=== PATIENT | male | born 1955 | race Caucasian/White ===

== ENCOUNTER 2023-06-04 10:38 | Inpatient (IN) | payer MEDICARE, OTHER ==
[~2023-06-04] VITALS: Ht 167.7 cm; Wt 138.8 kg
--- NOTE | 2023-06-04 09:01 | PM&R Post Admission Assessment ---
PM&R Date of Visit: Jun 04, 2023 Time of Visit: 11:00 History of Present Illness Chief complaint: Debility from sacroiliitis surgical management HPI: This is a 68-year-old male who presents from [facility] following slow recovery after sacroiliitis surgical management by Dr. Jack. He has a history of elevated BMI of 50 along with a multitude of other medical problems and he was found to be having difficulty with ambulating without two-person assistance and the decision was made to admit to inpatient rehab for aggressive therapy in order to regain stamina and ADLs. Currently he is doing well except he has not had a BM since before surgery. He is eating and drinking well I have restarted all of his home medications. Past Pzlpnyb-Ijchsl-Lvlcul Hx Past Med/Social Hx: Reviewed Nursing Past Med/Soc Hx, Reviewed and Corrections made Patient Social History Marrital Status: Employed/Student: retired Alcohol Use: Denies Use Smoking Status: Former Smoker Seasonal Allergies Seasonal Allergies: No Past Medical History Surgeries: Orthopedic Respiratory: Sleep Apnea Currently Using CPAP: Yes Currently Using BIPAP: No Cardiac: High Cholesterol, Hypertension Neurological: Neuropathy Musculoskeletal: Degenerate Disk Disease, Arthritis, Gout Endocrine: Diabetes, Non-Insulin dep PM&R Allergy/Meds/Data Review Allergies Coded Allergies: No Known Drug Allergies (Unverified , 07/18/11) Home Medications Scheduled Allopurinol (Zyloprim), 300 MG PO HS, (Reported) Atorvastatin Calcium (Atorvastatin Calcium), 80 MG PO HS Baclofen (Baclofen), 10 MG PO TID Carvedilol (Carvedilol), 12.5 MG PO BID Cetirizine Hcl (Cetirizine Hcl), 10 MG PO DAILY, (Reported) Citalopram Hydrobromide (Celexa), 60 MG PO DAILY, (Reported) Diclofenac Sodium (Diclofenac Sodium), 75 MG PO BID, (Reported) Duloxetine HCl (Cymbalta), 40 MG PO DAILY Fluticasone Propionate (Flonase Nasal Halliday), 16 GM NS BID, (Reported) Furosemide (Lasix), 40 MG PO DAILY Gabapentin (Gabapentin), 600 MG PO BID Lamotrigine (Lamotrigine), 100 MG PO DAILY Lisinopril (Prinivil), 40 MG PO DAILY, (Reported) Montelukast Sodium (Montelukast Sodium), 10 MG PO HS Omeprazole (Omeprazole), 40 MG PO HS Potassium Chloride (K-Tab ER), 10 MEQ PO BID Tamsulosin HCl (Flomax), 0.4 MG PO DAILY Scheduled PRN Benzonatate (Benzonatate), 200 MG PO TID PRN for COUGH Diphenhydramine HCl (Benadryl), 25 MG PO Q6H PRN for COUGH Hydrocodone/Acetaminophen (Hydrocodone-Acetamin 5-325 mg), 1 TAB PO Q4H PRN for PAIN-MODERATE (5-7) Oxycodone Hcl (Oxycodone Hcl IR), 10 MG PO Q6H PRN, (Reported) Discontinued Medications Cyclobenzaprine Hcl (Cyclobenzaprine Hcl), 1 EACH PO Q8HR PRN Discontinued Reason: No Longer Taking Furosemide (Furosemide), 1 EACH PO DAILY, (Reported) Discontinued Reason: No Longer Taking Ranitidine Hcl (Ranitidine Hcl), 150 MG PO DAILY, (Reported) Discontinued Reason: No Longer Taking Tramadol Hcl (Ultram), 50 MG PO Q4-6HOURS PRN Discontinued Reason: No Longer Taking Current Medications Current Medications Reviewed Review of Systems Constitutional: see HPI, malaise, weakness EENTM: no symptoms reported Respiratory: no symptoms reported Cardiovascular: no symptoms reported Gastrointestinal: constipation Genitourinary: no symptoms reported Musculoskeletal: back pain, joint pain, muscle stiffness, muscle cramps, muscle twitching, muscle weakness Skin: no symptoms reported Psychiatric/Neurological: No Symptoms Reported All Other Systems Reviewed Negative Unless Noted: Yes Physical Exam Physical Exam Vital Signs Capillary Refill : Height, Weight, BMI Height: '" Weight: lbs. oz. kg; BMI Method:Stated General Appearance: No Apparent Distress, WD/WN, Chronically ill, Obese Eyes: Bilateral Eye Normal Inspection, Bilateral Eye PERRL HEENT: PERRL/EOMI, Normal ENT Inspection, Pharynx Normal Neck: Full Range of Motion, Normal Inspection, Non Tender, Supple, Carotid Bruit Respiratory: Chest Non Tender, Lungs Clear, Normal Breath Sounds, No Accessory Muscle Use, No Respiratory Distress Cardiovascular: Regular Rate, Rhythm, No Edema, No Gallop, No JVD, No Murmur, Normal Peripheral Pulses Gastrointestinal: Normal Bowel Sounds, No Organomegaly, No Pulsatile Mass, Non Tender, Soft Back: Normal Inspection, CVA Tenderness (L), CVA Tenderness (R), Decreased Range of Motion, Muscle Spasm, Vertebral Tenderness Extremity: Normal Capillary Refill, Normal Inspection, Normal Range of Motion, Non Tender, No Calf Tenderness, No Pedal Edema Neurologic/Psychiatric: Alert, Oriented x3, Normal Mood/Affect, wildlife protector II-XII Norm as Tested, Abnormal Gait, Motor Weakness (Lower extremities) Skin: Normal Color, Warm/Dry Lymphatic: No Adenopathy PM&R Medical Assessment & Plan REHAB/MEDICAL ASSESSMENT AND PLAN: REHAB IMPAIRMENT GROUP: Other orthopedic ETIOLOGIC DIAGNOSIS: Sacroiliitis The comorbidities that impact the patients function and/or functional outcome by: morbid obesity, ELISEO on CPAP, DM, hypertension, hyperlipidemia REHAB PLAN: The patient is being admitted to our comprehensive inpatient rehabilitation facility and can tolerate the intensity of service consisting of at least: 180 minutes of therapy a day, 5 out of 7 days a week Rehab treatment will consist of: PT and OT will focus on regaining function with use of assistive devices in order to regain function with ADLs and indepe ndence and stamina The patient/family has a good understanding of our discharge process and will benefit from an interdisciplinary inpatient rehabilitation program. The patient has potential to make improvement and is in need of at least two of the follow ing multidisciplinary therapies including but not limited to physical, occupational, speech, and prosthetics and orthotics. Additionally the patient will need services from respiratory, nutritional services, wound care, psychology, etc. (Customize this to each patient). Given the patients complex condition and risk of further medical complications, rehabilitation services cannot be safely or effectively provided at a lower level of care such as a [facility] facility. BARRIERS TO DISCHARGE: severe back pain ESTIMATED LOS: 7 days DISPOSITION: home RELEVANT CHANGES SINCE PREADMISSION SCREENING: I have compared the patients medical and functional status at the time of the preadmission screening and there are: no changes PROGNOSIS: good REHABILITATION GOALS: 1. PT and OT will focus on regaining function with use of assistive devices in order to regain function with ADLs and independence and stamina All the above goals were reviewed with the patient and he/she is in agreement. By signing this document, I acknowledge that I have personally performed a full physical examination on this patient within 24 hours of admission to this inpatient rehabilitation facility and have determined the patient to be able to tolerate the above course of treatment at an intensive level for a reasonable period of time. I will be completing a detailed individualized Plan of Care for this patient by day #4 of the patients stay based upon the Preadmission Screen, the Post-Admission Evaluation, and the therapy evaluations. Admission Dx/Comorbidities: (1) Sacroiliitis ICD Codes: M46.1 - Sacroiliitis, not elsewhere classified Assessment/Plan Assessment and Plan Assess & Plan/Chief Complaint Assessment: Severe debility with slow recovery following sacroiliitis surgical management by Dr. Jack uncomplicated Increased BMI of 50 ELISEO on CPAP DM Hypertension Hyperlipidemia Fall risk Postop constipation Plan: Supportive care Monitor closely Pain control Home meds Monitor blood pressure PT and OT JAKI KING DO Jun 04, 2023 09:01
[~2023-06-04 10:38] MED LIST: ACHD5005 PO; ALLP300T PO; ALPRAZolam 0.25 MG TABLET PO PRN; BISACODYL 10 MG SUPPOSITORY PR PRN; CALCIUM CARBONATE 500 MG CHEW TABLET PO PRN; CETI10TA17 PO; CTLP20T PO; CYCL10TA9 PO; DICL75TA2 PO; DOCUSATE SODIUM 100 MG CAPSULE PO PRN; FLUT16SP22 NS; FURO80TA3 PO; LACTULOSE SYRUP 10GM/15ML 30ML UDC PO PRN; LISI40TA PO; LOPERAMIDE 2 MG CAPSULE PO PRN; MELATONIN 3 MG TABLET PO PRN; ONDANSETRON 4 MG ORAL DISSOLVE TABLET PO PRN; OXYC10TA7 PO; RANI75TA30 PO; Sodium Phosphate/Sodium Biphosphate ADULT enema PR PRN; TRM50T PO; diphenhydrAMINE 25 MG TABLET PO PRN; guaiFENesin/CODEINE 10ML UDC PO PRN
[2023-06-04 10:48] VITALS: BP 124/58
--- OUTSIDE RECORDS SUMMARY | 2023-06-04 11:05 | XMS REPORT | Clinical Summary ---
Author Author [facility] Organization [facility] Address Unknown Phone Unavailable Care Team Providers Care Security Services Manager Name Role Phone Abdulkadir Andrea MD Unavailable [phone] Ernestine Gonzalez DO PCP Source Comments Some departments are not documenting in the electronic medical record. If you do not see the information that you expected, contact Release of Information in the Health Information Management department at [phone] for further assistance in locating additional records.[facility] Social History Tobacco Use Types Packs/Day Years Used Date Smoking Tobacco: Never Assessed Sex and Gender Information Value Date Recorded Sex Assigned at Not on file Gender Identity Not on file Sexual Orientation Not on file Plan of Treatment Health Maintenance Due Date Last Done Comments COVID-19 VACCINE (#1) 1953 DTAP/TDAP VACCINES (1 - Tdap) 1971 HEPATITIS C SCREENING 1971 PHYSICAL (COMPREHENSIVE) EXAM 1971 COLORECTAL CANCER SCREENING 1998 SHINGLES RECOMBINANT VACCINE (1 of 2) 2003 PNEUMOCOCCAL VACCINE 65+ YRS (1 - PCV) 2018 DEPRESSION SCREENING 09/05/2022 INFLUENZA VACCINE (#1) 2023 Care Teams Security Services Manager Relationship Specialty Start Date End Date Ernestine Gonzalez DO [address], [place] [id number] PCP - General 02/14/13 Abdulkadir Andrea MD [address] [place] [address] Neurology 11/17/12
--- OUTSIDE RECORDS SUMMARY | 2023-06-04 11:06 | XMS REPORT ---
Author Author Humble Shannon Organization [facility] Address [address] [place], [place] [id number] Care Team Providers Care Crisis Specialist Name Role Phone Jessica Shannon PCP radha Unavailable Unavailable Tai Chavez Unavailable Unavailable Natalia Ventura PreferredProvider [phone] Allergies and Adverse Reactions Name Reaction Notes No known drug allergy Plan of Treatment Planned Activity Comments Planned Date Planned Time Plan /Goal Lumbar spondylosis and SI chayo int pain. Has had good effect from MBB/RFA in the past, please eval for these and lateral branch block for SI. Hearing loss to right ear, E ustachian tube dysfunction 10/17/2015 9:30 AM Colonoscopy screening 12/09/2015 1:30 PM hand paresthesia and weakness 04/09/2016 8:00 A M CTS bilat 05/06/2016 12:00 AM Palpitations 07/28/2016 1:15 PM CMP 11/06/2021 12:00 AM Hepatitis B and C screen 11/06/2021 12:00 AM PSA TOTAL 07/08/2023 12:00 AM BMP 05/11/2023 12:00 AM Medications Active Name Start Date Estimated Comple tion Date SIG Comments ondansetron HCl oral tablet 4 mg 04/28/2022 Take 1 tablet every 6 hours as needed for nausea and vomiting Montelukast Sodium 10 MG Oral Tablet 06/01/2022 05/27/2023 Take 1 tablet by mouth in the evening baclofen 10 mg oral tablet 07/27/2022 06/22/2023 TAKE 1 TABLET BY MOUTH THREE TIMES DAILY FOR 30 DAYS Lisinopril 40 MG Oral Tablet 10/03/2022 Take 1 tablet by mouth once daily Potassium Chloride ER 10 MEQ Oral Capsule Extended Release 10/12/2022 TAKE 1 CAPSULE BY MOUTH TWICE DAILY WITH FOOD fluticasone propionate 50 mcg/actuation nasal spray,suspension 10/29/2022 spray 1 - 2 sprays (50 - 100 mcg) in each nostril by intranasal route once daily as needed furosemide oral tablet 40 mg 11/05/2022 10/31/2023 Take 1 tablet by mouth twice daily albuterol sulfate HFA 90 mcg/actuation aerosol inhaler 11/08/2022 inhale 1 - 2 puffs (90 - 180 mcg) by inhalation route every 6 hours as needed Carvedilol 12.5 MG Oral Tablet 11/08/2022 Take 1 tablet by mouth twice daily with food DULoxetine HCl 30 MG Oral Capsule Delayed Release Particles 11/26/2022 Take 1 capsule by mouth once daily Tamsulosin HCl 0.4 MG Oral Capsule 12/20/2022 TAKE 1 CAPSULE BY MOUTH ONCE DAILY HALF AN HOUR FOLLOWING THE SAME MEAL EACH DAY DULoxetine HCl 30 MG Oral Capsule Delayed Release Particles 12/28/2022 Take 1 capsule by mouth once daily sumatriptan 25 mg tablet 01/24/2023 take 1 tablet (25 mg ) once after onset of headache, may repeat once in 2 hours; no more then 100mg in 24 hours allopurinol 300 mg tablet 03/16/2023 03/10/2024 Take 1 tablet by mouth once daily Potassium Chloride ER 10 MEQ Oral Capsule Extended Release 03/27/2023 TAKE 1 CAPSULE BY MOUTH TWICE DAILY WITH FOOD benzonatate oral capsule 200 mg 04/28/2023 take 1 capsule (200 mg) by oral route 3 times per day as needed for cough Omeprazole 40 MG Oral Capsule Delayed Release 04/29/2023 Take 1 capsule b y mouth once daily Atorvastatin Calcium 80 MG Oral Tablet 05/03/2023 Take 1 tablet by mouth once daily Gabapentin 600 MG Oral Tablet 05/05/2023 Take 1 tablet by mouth twice daily lamoTRIgine 100 MG Oral Tablet 05/16/2023 Take 1 tablet by mouth once daily Name Start Date Expiration Date SIG Comments Ciprodex 0.3-0.1 % otic drops,suspension 10/08/2015 10/15/2015 instill 4 drops into left ear by otic route every 12 hours for 7 days Cortisporin-TC 3.3-3-10-0.5 mg/mL otic drops,suspension 10/08/2015 10/15/2015 instill in affected ear 3 drops by otic route 3 times a day for 7 days azithromycin 500 mg oral tablet 10/11/2015 10/14/2015 take 1 tablet (500 m g) by oral route once daily for 3 days albuterol sulfate 2.5 mg /3 mL (0.083 %) inhalation solution for nebulization 10/11/2015 10/16/2015 inhale 3 milliliters (2.5 mg) by nebulization route 4 times per day for 5 days Fish Oil 60-90-500 mg oral capsule,delayed release(DR/EC) 11/04/2015 01/27/2017 take 2 capsules by o ral route daily for 90 days tizanidine 4 mg oral capsule 03/11/2016 09/07/2016 take 1 capsule (4 mg ) by oral route 2 times per day Augmentin 875-125 mg oral tablet 05/06/2016 05/16/2016 take 1 tablet by ora l route every 12 hours for 10 days metoprolol tartrate 25 mg oral tablet 05/14/2016 06/13/2016 take 1 tablet (25 mg ) by oral route 2 times per day for 30 days ciprofloxacin HCl 500 mg oral tablet 06/25/2016 07/02/2016 take 1 tablet (500 m g) by oral route 2 times per day for 7 days ciprofloxacin HCl 500 mg oral tablet 09/18/2016 09/25/2016 take 1 tablet (500 m g) by oral route 2 times per day for 7 days ciprofloxacin HCl 500 mg oral tablet 01/05/2017 01/12/2017 take 1 tablet (500 m g) by oral route 2 times per day for 7 days lisinopril 20 mg oral tablet 05/06/2017 05/01/2018 TAKE TWO TABLETS BY MOUTH ONCE DAILY hydrocodone-acetaminophen 10-325 mg oral tablet 07/25/2017 08/24/2017 Take one tab by [facility] every 12 hours as needed tramadol 50 mg oral tablet 10/22/2017 take 1 tablet (50 mg ) by oral route every 6 hours as needed cetirizine 10 mg oral tablet 12/15/2017 03/15/2018 take 1 tablet (10 mg ) by oral route once daily for 30 days Keflex 500 mg oral capsule 06/08/2018 06/15/2018 take 1 capsule (500 mg) by oral route every 12 hours for 7 days baclofen 10 mg oral tablet 09/12/2018 09/19/2018 take 1 tablet by ora l route 2 times a day for 7 days hydrocodone-acetaminophen 10-325 mg oral tablet 09/18/2018 10/18/2018 Take 1/2 to 1 tab every 6 hours as needed for severe pain tamsulosin 0.4 mg oral capsule 11/02/2018 05/31/2019 take 2 capsules (0.8 mg) by oral route once daily 1/2 hour following the same meal each day for 30 days amoxicillin-pot clavulanate 875-125 mg oral tablet 06/01/2019 06/11/2019 take 1 tablet by ora l route every 12 hours for 10 days amoxicillin 500 mg oral tablet 09/27/2019 10/07/2019 take 1 tablet (500 m g) by oral route every 8 hours for 10 days ofloxacin 0.3 % ophthalmic (eye) drops 09/27/2019 5 gtts to the rig ht ear twice a day for 5 days sertraline 25 mg oral tablet 09/28/2019 03/26/2020 take 1 tablet (25 mg ) by oral route once daily for 30 days amoxicillin-pot clavulanate 875-125 mg oral tablet 10/08/2019 10/18/2019 take 1 tablet by ora l route every 12 hours for 10 days Medrol (Roman) 4 mg oral tablets,dose pack 10/29/2019 take as directed diclofenac sodium 75 mg oral tablet,delayed release (DR/EC) 11/19/2019 [facility] omeprazole 40 mg oral capsule,delayed release(DR/EC) 01/04/2020 12/29/2020 TAKE 1 CAPSULE BY [facility] ONCE DAILY duplicate fluticasone propionate 50 mcg/actuation nasal spray,suspension 01/10/2020 USE 2 SPRAY(S) IN [facility] NOSTRIL ONCE DAILY NEEDED baclofen 10 mg oral tablet 03/06/2020 TAKE 1 TABLET BY [facility] THREE TIMES DAILY FOR 30 DAYS hydroxyzine HCl 25 mg oral tablet 03/10/2020 MAY TAKE 1 BY MOUTH AT BEDTIME OR NEEDED FOR ANXIETY/PANIC gabapentin oral 1200 mg daily atorvastatin 80 mg oral tablet 08/07/2020 05/04/2021 take 1 tablet (80 mg ) by oral route once daily for 90 days metFORMIN HCl 500 MG Oral Tablet 09/15/2020 03/14/2021 [facility] Rexulti 1 mg oral tablet 11/14/2020 05/13/2021 Blaze e 1 tablet by mouth once daily benzonatate 100 mg capsule 12/24/2020 02/04/2021 Take 1 capsule by [facility] three times daily as needed for cough Fluticasone Propionate 50 MCG/ACT Nasal Suspension 01/05/2021 07/04/2021 USE 2 SPRAY(S) IN EACH NOSTRIL ONCE DAILY NEEDED propranolol 60 mg oral capsule,extended release 24 hr 01/12/2021 07/11/2021 take 1 capsule (60 m g) by oral route once daily for 30 days Omeprazole 40 MG Oral Capsule Delayed Release 02/05/2021 01/31/2022 Take 1 capsule b y mouth once daily duloxetine 30 mg oral capsule,delayed release(DR/EC) 02/23/2021 05/24/2021 take 1 capsule (30 m g) by oral route once a day Diclofenac Sodium 75 MG Oral Tablet Delayed Release 03/18/2021 03/13/2022 Take 1 tablet by [facility] twice daily potassium chloride 10 mEq oral capsule, extended release 04/20/2021 07/19/2021 take 1 capsule (10 m eq) by oral route 2 times per day with food for 30 days Atorvastatin Calcium 80 MG Oral Tablet 05/04/2021 04/29/2022 Take 1 tablet by [facility] once daily for 90 days Montelukast Sodium 10 MG Oral Tablet 06/17/2021 06/12/2022 Take 1 tablet by [facility] in the evening Potassium Chloride ER 10 MEQ Oral Capsule Extended Release 10/09/2021 04/07/2022 TAKE 1 CAPSULE BY [facility] TWICE DAILY WITH FOOD amoxicillin-pot clavulanate 875-125 mg oral tablet 11/04/2021 11/11/2021 take 1 tablet by ora l route every 12 hours for 7 days duloxetine 30 mg oral capsule,delayed release(DR/EC) 12/09/2021 06/07/2022 take 1 capsule (30 m g) by oral route once daily for 30 days Omeprazole 40 MG Oral Capsule Delayed Release 02/08/2022 02/03/2023 Take 1 capsule b y mouth once daily Diclofenac Sodium 75 MG Oral Tablet Delayed Release 03/03/2022 02/26/2023 Take 1 tablet by [facility] twice daily Potassium Chloride ER 10 MEQ Oral Capsule Extended Release 04/14/2022 10/11/2022 TAKE 1 CAPSULE BY [facility] TWICE DAILY WITH FOOD Atorvastatin Calcium 80 MG Oral Tablet 05/17/2022 05/12/2023 [facility] Furosemide 20 MG Oral Tablet 08/30/2022 08/25/2023 TAKE 1 TABLET BY [facility] AT NOON NEEDED FOR LOWER EXTREMITY SWELLING (TO BE TAKEN IN ADDITION TO DAILY 40 MG DOSE) amoxicillin-pot clavulanate oral tablet 875-125 mg 09/01/2022 09/08/2022 take 1 tablet by ora l route every 12 hours for 7 days doxycycline hyclate 100 mg tablet 10/29/2022 11/08/2022 take 1 tablet (100 m g) by oral route 2 times per day for 10 days prednisone 10 mg tablet take 1 tablet (10 mg) by oral route 3 times per day Augmentin 500 mg-125 mg tablet take 1 tablet by ora l route every 12 hours topiramate XR 25 mg capsule sprinkle,extended release 24 hr 01/24/2023 04/24/2023 take 1 capsule (25 m g) by oral route once daily at bedtime tramadol 50 mg tablet 01/24/2023 02/14/2023 May ta ke 1-2 tablets by mouth once every 12 hours as needed for back pain. Dx spinal stenosis, lumbago, cervical disc disease azithromycin 250 mg tablet 05/02/2023 05/07/2023 take 2 tablets (500 mg) by oral route once daily for 1 day then 1 tablet (250 mg) by oral route once daily for 4 days Discontinued Name Start Date Discontinued Date SIG Comment s tamsulosin 0.4 mg oral capsule,extended release 24hr 01/27/2016 take 1 capsule (0.4 mg) by oral route once daily 1/2 hour following the same meal each day ofloxacin 0.3 % otic drops 01/27/2016 instill 10 drops (1.5 mg) into affected ear(s) by otic route 2 times per day B Complex oral tablet extended release 03/18/2021 take 1 tablet by oral route daily cetirizine 10 mg oral tablet 12/15/2017 take 1 tablet (10 mg) by oral route once daily Viibryd 40 mg oral tablet 10/03/2015 01/27/2016 take 1 tablet (40 mg) by oral route once daily with food ipratropium-albuterol 0.5 mg-3 mg(2.5 mg base)/3 mL inhalation solution for nebulization 10/11/2015 10/11/2015 inhale 3 milliliters by nebulization route 4 times per day for 30 days cyclobenzaprine 10 mg oral tablet 10/31/2015 04/05/2016 take 1 tablet (10 mg) by oral route 2 times per day for 60 days Wellbutrin SR 150 mg oral tablet extended release 11/18/2015 12/02/2015 take 2 tablet (150 mg) by oral route once daily for 30 days Worsening of depression ofloxacin 0.3 % otic drops 02/21/2016 09/19/2016 instill 10 drops (1.5 mg) into affected ear(s) by otic route 2 times per day Lunesta 1 mg oral tablet 04/05/2016 05/15/2018 take 1 tablets daily at bedtime as needed for insomnia. Medrol (Roman) 4 mg oral tablets,dose pack 01/05/2017 02/07/2017 take as directed diclofenac sodium 1 % topical gel 02/07/2017 10/22/2017 apply 2 gram to the affected area(s) by topical route 4 times per day lidocaine HCl 3 % topical cream 02/07/2017 10/22/2017 apply to the affected area(s) by topical route 2 times per day [place] Allergy 60 mg oral tablet 11/04/2021 take 1 tablet by oral route daily prednisone 20 mg oral tablet 05/15/2018 take 20 mg/m2 by oral route once daily for 5 days lorazepam 0.5 mg oral tablet 09/25/2018 09/26/2018 take 1 tablet (0.5 mg) by oral route 2 times per day for 30 days tizanidine 4 mg oral tablet 12/05/2018 01/01/2019 TAKE 2 TABLETS BY MOUTH EVERY 8 HOURS NEEDED (NOT TO EXCEED 3 DOSES IN 24 HOURS). sertraline 50 mg oral tablet 03/23/2019 07/12/2019 take 1 tablet (50 mg) by oral route once daily for 90 days venlafaxine 150 mg oral tablet extended release 24hr 09/27/2019 10/05/2019 take 1 tablet (150 mg) by oral route once daily in the morning at the same time each day with food for 90 days lamotrigine 25 mg oral tablet extended release 24hr 04/07/2020 take 1 tablet by oral route daily gabapentin 600 mg oral tablet 01/30/2020 04/21/2020 TAKE 1 TABLET BY MOUTH THREE TIMES DAILY montelukast 10 mg oral tablet 02/07/2020 04/15/2021 TAKE 1 TABLET BY MOUTH IN THE EVENING duplicate metformin 500 mg oral tablet 04/02/2020 03/18/2021 TAKE 1 TABLET BY MOUTH ONCE DAILY oxycodone 10 /325 01/12/2021 Taking 1 t ab every 6 hours as needed for pain Bactrim DS 800-160 mg oral tablet 01/12/2021 Tessalon Perles 100 mg oral capsule 12/12/2020 01/12/2021 take 1 capsule (100 mg) by oral route 3 times per day as needed for cough Combivent Respimat 20 mcg-100 mcg/actuation solution for inhalation 11/04/2021 inhale 1 puff by inhalation route 4 times per day ; may take additional puffs as needed not to exceed 6 puffs in 24hrs gabapentin 600 mg tablet 01/05/2021 04/15/2021 TAKE 1 TABLET BY MOUTH IN THE MORNING AND 1 AT NOON AND 1 & 1/2 (ONE & ONE-HALF) AT BEDTIME Propranolol HCl ER 60 MG Oral Capsule Extended Release 24 Hour 07/13/2021 11/04/2021 Take 1 capsule by mouth once daily doxycycline hyclate 100 mg oral tablet 11/18/2021 01/18/2022 Take 1 tab by mouth bid for 10 days Medrol (Roman) 4 mg oral tablets,dose pack 11/25/2021 01/18/2022 take by oral route as directed per package instructions DULoxetine HCl 30 MG Oral Capsule Delayed Release Particles 11/30/2021 01/18/2022 Take 1 capsule by mouth once daily Paxlovid 300 mg (150 mg x 2)-100 mg tablet (EUA) 04/28/2022 05/19/2022 take 3 tablets by oral route 2 times per day in the morning and evening per package directions Medrol (Roman) 4 mg tablets in a dose pack 10/29/2022 01/05/2023 take by oral rout e as directed per package instructions Problem List Description Status Onset Lumbar stenosis Active 11/01/2015 Hyperlipidemia Active 11/01/2015 Sleep apnea Active 11/01/2015 Hypertension, essential Active 6 Depression Active 11/15/2015 Vital Signs Date Time BP-Sys(mm[Hg] BP-Peyton(mm[Hg]) HR(bpm) RR(rpm) Temp WT HT HC BMI BSA BMI Percentile O2 Sat(%) 2022 1:20: 00 PM 128 mm[Hg] 64 mm[Hg] 73 {beats}/ min 16 rpm 97.7 F 303 .12 5 lbs 94 % 023 10:07 :00 AM 132 mm[Hg] 66 mm[Hg] 79 {beats}/ min 18 rpm 98.6 F 304 .5 lbs 96 % 2022 9:54: 00 AM 140 mm[Hg] 62 mm[Hg] 77 {beats}/ min 17 rpm 97.8 F 309 .56 2 lbs 92 % 023 10:52 :00 AM 130 mm[Hg] 62 mm[Hg] 65 {beats}/ min 16 rpm 97.8 F 304 .37 5 lbs 94 % 023 10:10 :00 AM 79 {beats}/ min 19 rpm 98.2 F 300 lbs 69 in 44.3 018 kg/m 2 2.57 39 m2 96 % 2022 9:46: 00 AM 140 mm[Hg] 76 mm[Hg] 68 {beats}/ min 18 rpm 97.9 F 305 .25 lbs 96 % 2022 9:24: 00 AM 136 mm[Hg] 64 mm[Hg] 76 {beats}/ min 17 rpm 97.6 F 306 .56 2 lbs 69 in 45.2 7 kg/m 2 2.60 m2 98 % 2022 9:24: 00 AM 138 mm[Hg] 72 mm[Hg] 64 {beats}/ min 2022 9:24: 00 AM 142 mm[Hg] 60 mm[Hg] 67 {beats}/ min 2022 9:24: 00 AM 148 mm[Hg] 68 mm[Hg] 75 {beats}/ min 2022 9:24: 00 AM 138 mm[Hg] 72 mm[Hg] 64 {beats}/ min 2022 9:24: 00 AM 142 mm[Hg] 60 mm[Hg] 67 {beats}/ min 023 1:18: 00 PM 140 mm[Hg] 68 mm[Hg] 67 {beats}/ min 18 rpm 98.9 F 308 .75 lbs 96 % 2022 9:57: 00 AM 142 mm[Hg] 66 mm[Hg] 65 {beats}/ min 16 rpm 97.4 F 308 lbs 98 % 09/01 1:49: 00 PM 130 mm[Hg] 72 mm[Hg] 59 {beats}/ min 18 rpm 97.7 F 310 .5 lbs 69 in 45.8 524 kg/m 2 2.61 85 m2 96 % 2021 9:15: 00 AM 142 mm[Hg] 70 mm[Hg] 68 {beats}/ min 18 rpm 97.9 F 297 lbs 69 in 43.8 6 kg/m 2 2.56 m2 97 % 2021 10:30 :00 AM 142 mm[Hg] 80 mm[Hg] 75 {beats}/ min 14 rpm 97.7 F 291 lbs 69 in 42.9 727 kg/m 2 2.53 5 m2 95 % 2021 10:48 :00 AM 130 mm[Hg] 72 mm[Hg] 68 {beats}/ min 16 rpm 97.7 F 293 lbs 92 % 2021 10:32 :00 AM 140 mm[Hg] 70 mm[Hg] 71 {beats}/ min 14 rpm 97.9 F 294 .5 lbs 69 in 43.4 896 kg/m 2 2.55 02 m2 97 % 022 10:05 :00 AM 148 mm[Hg] 70 mm[Hg] 87 {beats}/ min 14 rpm 98.8 F 294 lbs 70 in 42.1 8 kg/m 2 2.57 m2 96 % 07/22 9:00: 00 AM 144 mm[Hg] 72 mm[Hg] 68 {beats}/ min 18 rpm 98.1 F 299 .12 5 lbs 96 % 06/15 10:06 :00 AM 124 mm[Hg] 60 mm[Hg] 71 {beats}/ min 18 rpm 97.7 F 303 lbs 96 % 2020 10:21 :00 AM 140 mm[Hg] 76 mm[Hg] 76 {beats}/ min 18 rpm 98.6 F 303 .31 2 lbs 69 in 44.7 91 kg/m 2 2.58 8 m2 95 % 2020 10:19 :00 AM 128 mm[Hg] 64 mm[Hg] 67 {beats}/ min 14 rpm 97.7 F 305 lbs 94 % 2:34: 00 PM 142 mm[Hg] 78 mm[Hg] 80 {beats}/ min 18 rpm 98.1 F 306 lbs 69 in 45.1 878 kg/m 2 2.59 95 m2 97 % 2020 10:24 :00 AM 118 mm[Hg] 54 mm[Hg] 80 {beats}/ min 18 rpm 98.1 F 306 lbs 69 in 45.1 9 kg/m 2 2.60 m2 96 % 2020 10:04 :00 AM 144 mm[Hg] 80 mm[Hg] 77 {beats}/ min 18 rpm 98.2 F 319 lbs 69 in 47.1 076 kg/m 2 2.65 41 m2 96 % 2020 9:47: 00 AM 130 mm[Hg] 70 mm[Hg] 65 {beats}/ min 16 rpm 97.9 F 319 lbs 69 in 47.1 1 kg/m 2 2.65 m2 97 % 2020 10:02 :00 AM 158 mm[Hg] 82 mm[Hg] 81 {beats}/ min 20 rpm 97.7 F 321 .25 lbs 69 in 47.4 398 kg/m 2 2.66 35 m2 94 % 2020 8:54: 00 AM 129 mm[Hg] 78 mm[Hg] 66 {beats}/ min 20 rpm 97.3 F 304 .37 5 lbs 69 in 44.9 5 kg/m 2 2.59 m2 95 % 2020 10:58 :00 AM 120 mm[Hg] 66 mm[Hg] 84 {beats}/ min 14 rpm 97.2 F 294 lbs 69 in 43.4 158 kg/m 2 2.54 8 m2 95 % 021 10:13 :00 AM 142 mm[Hg] 64 mm[Hg] 74 {beats}/ min 20 rpm 99.1 F 309 lbs 96 % 2019 11:23 :00 AM 130 mm[Hg] 69 mm[Hg] 80 {beats}/ min 14 rpm 98.4 F 310 lbs 98 % 2019 1:38: 00 PM 135 mm[Hg] 69 mm[Hg] 67 {beats}/ min 98.2 F 308 .25 lbs 95 % 2019 10:05 :00 AM 140 mm[Hg] 66 mm[Hg] 76 {beats}/ min 16 rpm 97.2 F 398 lbs 95 % 2:33: 00 PM 138 mm[Hg] 72 mm[Hg] 80 {beats}/ min 20 rpm 98.2 F 308 .75 lbs 69 in 45.5 939 kg/m 2 2.61 11 m2 94 % 8:51: 00 AM 79 {beats}/ min 18 rpm 98.4 F 296 lbs 69 in 43.7 1 kg/m 2 2.56 m2 95 % 2019 11:04 :00 AM 132 mm[Hg] 74 mm[Hg] 84 {beats}/ min 20 rpm 97.9 F 296 lbs 69 in 43.7 111 kg/m 2 2.55 66 m2 95 % 2019 10:35 :00 AM 138 mm[Hg] 80 mm[Hg] 87 {beats}/ min 14 rpm 98.6 F 300 lbs 95 % 2019 9:32: 00 AM 132 mm[Hg] 76 mm[Hg] 95 {beats}/ min 97.9 F 302 lbs 69 in 44.5 971 kg/m 2 2.58 24 m2 96 % 10:42 :00 AM 110 mm[Hg] 70 mm[Hg] 85 {beats}/ min 14 rpm 97.9 F 303 lbs 96 % 11:22 :00 AM 116 mm[Hg] 72 mm[Hg] 93 {beats}/ min 14 rpm 97 F 295 lbs 69 in 43.5 634 kg/m 2 2.55 23 m2 92 % 2019 8:53: 00 AM 134 mm[Hg] 68 mm[Hg] 87 {beats}/ min 97.9 F 299 lbs 96 % 020 9:53: 00 AM 98 {beats}/ min 18 rpm 97.7 F 295 lbs 69 in 43.5 634 kg/m 2 2.55 23 m2 95 % 08/15 9:31: 00 AM 130 mm[Hg] 72 mm[Hg] 84 {beats}/ min 97.9 F 306 lbs 69 in 45.1 9 kg/m 2 2.60 m2 97 % 2018 9:41: 00 AM 132 mm[Hg] 74 mm[Hg] 75 {beats}/ min 98.7 F 304 .56 2 lbs 69 in 44.9 756 kg/m 2 2.59 34 m2 97 % 06/14 9:55: 00 AM 134 mm[Hg] 80 mm[Hg] 79 {beats}/ min 18 rpm 97.5 F 304 .25 lbs 69 in 44.9 3 kg/m 2 2.59 m2 95 % 2018 1:10: 00 PM 132 mm[Hg] 76 mm[Hg] 107 {beats}/ min 20 rpm 97.8 F 301 .5 lbs 69 in 44.5 233 kg/m 2 2.58 03 m2 95 % 2018 3:05: 00 PM 138 mm[Hg] 82 mm[Hg] 95 {beats}/ min 16 rpm 98.6 F 303 .75 lbs 96 % 019 3:47: 00 PM 132 mm[Hg] 78 mm[Hg] 81 {beats}/ min 97.9 F 309 lbs 69 in 45.6 309 kg/m 2 2.61 22 m2 96 % 2018 10:54 :00 AM 140 mm[Hg] 73 mm[Hg] 78 {beats}/ min 16 rpm 97.9 F 306 .75 lbs 69 in 45.3 0 kg/m 2 2.60 m2 95 % 9:53: 00 AM 150 mm[Hg] 66 mm[Hg] 88 {beats}/ min 16 rpm 98.1 F 304 .5 lbs 69 in 44.9 663 kg/m 2 2.59 31 m2 95 % 2018 10:03 :00 AM 128 mm[Hg] 86 mm[Hg] 81 {beats}/ min 98.6 F 306 .37 5 lbs 69 in 45.2 4 kg/m 2 2.60 m2 94 % 2018 10:32 :00 AM 142 mm[Hg] 68 mm[Hg] 95 {beats}/ min 20 rpm 98.3 F 303 lbs 69 in 44.7 448 kg/m 2 2.58 67 m2 95 % 2018 10:16 :00 AM 130 mm[Hg] 70 mm[Hg] 100 {beats}/ min 98.1 F 309 lbs 69 in 45.6 3 kg/m 2 2.61 m2 94 % 2018 9:32: 00 AM 124 mm[Hg] 70 mm[Hg] 94 {beats}/ min 97.7 F 304 .5 lbs 69 in 44.9 663 kg/m 2 2.59 31 m2 96 % 2018 9:54: 00 AM 142 mm[Hg] 74 mm[Hg] 79 {beats}/ min 16 rpm 98.8 F 303 .12 5 lbs 69 in 44.7 6 kg/m 2 2.59 m2 96 % 2018 9:17: 00 AM 140 mm[Hg] 70 mm[Hg] 83 {beats}/ min 98.8 F 301 .37 5 lbs 69 in 44.5 049 kg/m 2 2.57 97 m2 96 % 019 2:18: 00 PM 130 mm[Hg] 72 mm[Hg] 83 {beats}/ min 97 F 301 .37 5 lbs 69 in 44.5 0 kg/m 2 2.58 m2 95 % 07/21 1:53: 00 PM 132 mm[Hg] 62 mm[Hg] 85 {beats}/ min 20 rpm 98.6 F 296 .25 lbs 69 in 43.7 48 kg/m 2 2.55 77 m2 94 % 2017 11:45 :00 AM 160 mm[Hg] 60 mm[Hg] 91 {beats}/ min 22 rpm 97.2 F 294 lbs 69 in 43.4 2 kg/m 2 2.55 m2 97 % 2017 1:15: 00 PM 140 mm[Hg] 80 mm[Hg] 80 {beats}/ min 20 rpm 98.2 F 294 .25 lbs 69 in 43.4 527 kg/m 2 2.54 91 m2 96 % 2017 8:41: 00 AM 122 mm[Hg] 70 mm[Hg] 82 {beats}/ min 20 rpm 97.7 F 294 lbs 69 in 43.4 2 kg/m 2 2.55 m2 96 % 2017 9:34: 00 AM 128 mm[Hg] 78 mm[Hg] 84 {beats}/ min 20 rpm 96.2 F 294 lbs 69 in 43.4 158 kg/m 2 2.54 8 m2 97 % 2017 3:03: 00 PM 148 mm[Hg] 82 mm[Hg] 84 {beats}/ min 20 rpm 97.1 F 298 lbs 69 in 44.0 1 kg/m 2 2.57 m2 96 % 018 7:59: 00 AM 122 mm[Hg] 82 mm[Hg] 80 {beats}/ min 20 rpm 96.5 F 299 lbs 69 in 44.1 541 kg/m 2 2.56 96 m2 97 % 2017 10:22 :00 AM 146 mm[Hg] 78 mm[Hg] 76 {beats}/ min 22 rpm 96.3 F 300 lbs 69 in 44.3 0 kg/m 2 2.57 m2 96 % 2017 9:35: 00 AM 122 mm[Hg] 82 mm[Hg] 84 {beats}/ min 22 rpm 97.5 F 294 lbs 69 in 43.4 158 kg/m 2 2.54 8 m2 95 % 2016 10:01 :00 AM 126 mm[Hg] 76 mm[Hg] 66 {beats}/ min 20 rpm 97.3 F 300 lbs 69 in 44.3 0 kg/m 2 2.57 m2 97 % 07/19 3:30: 00 PM 130 mm[Hg] 72 mm[Hg] 76 {beats}/ min 20 rpm 97.5 F 300 lbs 69 in 44.3 018 kg/m 2 2.57 39 m2 96 % 2016 11:05 :00 AM 132 mm[Hg] 78 mm[Hg] 70 {beats}/ min 22 rpm 97.1 F 301 lbs 69 in 44.4 5 kg/m 2 2.58 m2 96 % 2016 9:41: 00 AM 128 mm[Hg] 72 mm[Hg] 81 {beats}/ min 19 rpm 97.2 F 308 lbs 96 % 017 8:22: 00 AM 150 mm[Hg] 86 mm[Hg] 82 {beats}/ min 20 rpm 97.4 F 295 .5 lbs 69 in 43.6 373 kg/m 2 2.55 45 m2 96 % 017 4:14: 00 PM 140 mm[Hg] 84 mm[Hg] 66 {beats}/ min 20 rpm 97.8 F 298 lbs 69 in 44.0 1 kg/m 2 2.57 m2 96 % 2016 8:27: 00 AM 130 mm[Hg] 80 mm[Hg] 68 {beats}/ min 20 rpm 96.6 F 303 .25 lbs 69 in 44.7 817 kg/m 2 2.58 78 m2 98 % 2016 11:08 :00 AM 122 mm[Hg] 62 mm[Hg] 82 {beats}/ min 20 rpm 99 F 189 .12 5 lbs 69 in 27.9 3 kg/m 2 2.04 m2 98 % 2016 4:36: 00 PM 110 mm[Hg] 50 mm[Hg] 84 {beats}/ min 18 rpm 100 F 69 in 96 % 08/27 11:02 :00 AM 138 mm[Hg] 80 mm[Hg] 76 {beats}/ min 18 rpm 97.6 F 281 .25 lbs 97 % 06/25 2:00: 00 PM 132 mm[Hg] 80 mm[Hg] 60 {beats}/ min 18 rpm 97.8 F 295 .25 lbs 97 % 016 6:35: 00 PM 124 mm[Hg] 61 mm[Hg] 67 {beats}/ min 20 rpm 97.4 F 297 lbs 69 in 43.8 588 kg/m 2 2.56 1 m2 96 % 2015 9:13: 00 AM 136 mm[Hg] 60 mm[Hg] 82 {beats}/ min 18 rpm 97.6 F 297 lbs 69 in 43.8 6 kg/m 2 2.56 m2 94 % 016 11:00 :00 AM 144 mm[Hg] 76 mm[Hg] 70 {beats}/ min 18 rpm 97.9 F 297 lbs 96 % 2015 8:09: 00 AM 140 mm[Hg] 62 mm[Hg] 71 {beats}/ min 16 rpm 97 F 295 .6 lbs 69 in 43.6 52 kg/m 2 2.55 49 m2 95 % 2015 5:12: 00 PM 139 mm[Hg] 61 mm[Hg] 85 {beats}/ min 20 rpm 98 F 303 lbs 69 in 44.7 4 kg/m 2 2.59 m2 96 % 2015 9:55: 00 AM 130 mm[Hg] 64 mm[Hg] 95 {beats}/ min 18 rpm 98.7 F 299 lbs 69 in 44.1 541 kg/m 2 2.56 96 m2 95 % 2015 8:25: 00 AM 81 {beats}/ min 20 rpm 97.8 F 304 lbs 95 % 2015 1:59: 00 PM 128 mm[Hg] 68 mm[Hg] 91 {beats}/ min 20 rpm 97.4 F 304 lbs 69 in 44.8 925 kg/m 2 2.59 1 m2 96 % 016 1:36: 00 PM 130 mm[Hg] 70 mm[Hg] 87 {beats}/ min 18 rpm 97.9 F 306 lbs 69 in 45.1 9 kg/m 2 2.60 m2 97 % 2015 10:10 :00 AM 124 mm[Hg] 70 mm[Hg] 99 {beats}/ min 18 rpm 99.3 F 305 .12 5 lbs 69 in 45.0 586 kg/m 2 2.59 57 m2 94 % Social History Name Description Comments Tobacco Never smoker Alcohol Never 09/13/2019 - Us e status used: Never Caffeine Light 09/13/2019 - History of Procedures Date Ordered Description Order Status 10/11/2015 12:00 AM Consult/Referral Reviewed 11/01/2015 12:00 AM COMPLETE CBC W/AUTO DIFF WBC Reviewed 11/01/2015 12:00 AM COMPREHEN METABOLIC PANEL Rev iewed 11/01/2015 12:00 AM LIPID PANEL Reviewed 11/01/2015 12:00 AM ASSAY OF PSA TOTAL Reviewed 11/05/2015 12:00 AM Consult/Referral Reviewed 02/21/2016 12:00 AM REMOVE IMPACTED EAR WAX UNI R eviewed 03/03/2016 12:00 AM TB INTRADERMAL TEST Reviewed 03/30/2016 12:00 AM X-RAY EXAM NECK SPINE 2-3 VW Reviewed 03/30/2016 12:00 AM X-RAY EXAM OF WRIST Reviewed 04/12/2016 12:00 AM LIPID PANEL Reviewed 04/12/2016 12:00 AM COMPREHEN METABOLIC PANEL Revi ewed 04/12/2016 12:00 AM ROUTINE VENIPUNCTURE Reviewed 04/14/2016 10:17 AM URINALYSIS AUTO W/O SCOPE Rev iewed 04/18/2016 12:00 AM DOT Physical w UA Reviewed 05/18/2016 12:00 AM MYOCARDIAL SPECT MULTIPLE GERARD DIES Reviewed 06/29/2016 12:00 AM MRI LUMBAR SPINE W/O DYE Rev iewed 08/27/2016 12:00 AM REMOVE SUTURES SAME SURGEON Reviewed 09/14/2016 12:00 AM NO CHARGE OV Reviewed 09/18/2016 11:16 AM URINALYSIS AUTO W/O SCOPE Rev iewed 09/18/2016 12:00 AM Toradol 60 Mg Injection Revie tue09/18/2016 12:00 AM THER/PROPH/DIAG INJ SC/IM Rev iewed 11/15/2016 12:00 AM THERAPEUTIC PROPHYLACTIC/DX I NJECTION SUBQ/IM Reviewed 11/15/2016 12:00 AM Decadron 8mg Injection, RHC M edicare Reviewed 11/15/2016 12:00 AM Depo Medrol 40mg Injection, R HC Medicare Reviewed 02/07/2017 12:00 AM Depo-Medrol 80mg Injection, RH C Medicare Reviewed 02/07/2017 12:00 AM Decadron 8mg Injection, RHC Me dicare Reviewed 02/07/2017 12:00 AM THERAPEUTIC PROPHYLACTIC/DX IN JECTION SUBQ/IM Reviewed 06/11/2017 12:00 AM Toradol 60 Mg Injection Revie tue06/11/2017 12:00 AM THER/PROPH/DIAG INJ SC/IM Rev iewed 06/13/2017 12:00 AM Decadron 8mg Injection, RHC M edicare Reviewed 06/13/2017 12:00 AM Depo-Medrol 80mg Injection, R HC Medicare Reviewed 06/13/2017 12:00 AM Toradol 30 Mg Injection, RHC Medicare Reviewed 06/13/2017 12:00 AM Physical Therapy Consult Revi ewed 08/10/2017 12:00 AM IM ADM PRQ ID SUBQ/IM NJXS 1 VACCINE Reviewed 08/10/2017 12:00 AM INFLUENZA VAC 4 VALENT PRSRV FREE 3 YRS PLUS IM Reviewed 05/28/2018 12:00 AM DESTRUCT B9 LESION 1-14 Revie tue05/15/2018 12:00 AM THERAPEUTIC PROPHYLACTIC/DX I NJECTION SUBQ/IM Reviewed 05/15/2018 12:00 AM Depo-Medrol 80mg Injection, R HC Medicare Reviewed 05/15/2018 12:00 AM Decadron 8mg Injection, RHC M edicare Reviewed 05/29/2018 12:00 AM MEDICARE - flu vaccine admini stration Reviewed 05/29/2018 12:00 AM INFLUENZA VAC 4 VALENT PRSRV FREE 3 YRS PLUS IM Reviewed 05/31/2018 12:00 AM RPR S/N/AX/GEN/TRNK 2.5CM/< R eviewed 05/31/2018 12:00 AM IM ADM PRQ ID SUBQ/IM NJXS 1 VACCINE Reviewed 05/31/2018 12:00 AM TDAP VACCINE 7 YRS/> IM Revie tue08/22/2018 12:00 AM DESTRUCT B9 LESION 1-14 Revi ewed 09/28/2018 12:00 AM INJ TRIGGER POINT 1/2 MUSCL R eviewed 09/28/2018 12:00 AM ECHO GUIDE FOR BIOPSY Reviewe d 11/02/2018 12:00 AM URINALYSIS AUTO W/SCOPE Revie wed 11/27/2018 12:00 AM CYSTOSCOPY Reviewed 12/22/2018 12:00 AM ELECTROCARDIOGRAM TRACING Rev iewed 12/22/2018 12:00 AM METABOLIC PANEL TOTAL CA Revi ewed 12/22/2018 12:00 AM COMPLETE CBC W/AUTO DIFF WBC Reviewed 12/22/2018 12:00 AM URINALYSIS AUTO W/SCOPE Revie wed 12/22/2018 12:00 AM COLLECTION VENOUS BLOOD VENIP UNCTURE Reviewed 12/28/2018 12:00 AM IRRIGATION OF BLADDER Reviewe d 12/28/2018 12:00 AM NO CHARGE OV Reviewed 01/03/2019 12:00 AM COLLECTION VENOUS BLOOD VENIPU NCTURE Reviewed 01/01/2019 12:00 AM X-RAY EXAM OF ABDOMEN Reviewe d 03/15/2019 12:00 AM URNLS DIP STICK/TABLET RGNT A UTO W/O MICROSCOPY Reviewed 2019 12:00 AM ROUTINE VENIPUNCTURE Reviewed 05/25/2019 12:00 AM THERAPEUTIC PROPHYLACTIC/DX I NJECTION SUBQ/IM Reviewed 05/25/2019 12:00 AM Depo-Medrol 80mg Injection, R HC Medicare Reviewed 05/25/2019 12:00 AM Decadron 8mg Injection, RHC M edicare Reviewed 06/13/2019 12:00 AM COLLECTION VENOUS BLOOD VENIP UNCTURE Reviewed 10/29/2019 12:00 AM RADEX SPINE CERVICAL 2 OR 3 V IEWS Reviewed 10/29/2019 12:00 AM RADEX SPINE THORACIC 3 VIEWS Reviewed 11/19/2019 12:00 AM URNLS DIP STICK/TABLET REAGEN T AUTO MICROSCOPY Reviewed 03/12/2020 12:00 AM ASSAY OF PSA TOTAL Reviewed 05/19/2020 12:00 AM RENAL FUNCTION PANEL Reviewed 05/19/2020 12:00 AM COLLECTION VENOUS BLOOD VENIP UNCTURE Reviewed 08/06/2020 12:00 AM COLLECTION VENOUS BLOOD VENIP UNCTURE Reviewed 08/06/2020 12:00 AM GLYCOSYLATED HEMOGLOBIN TEST Reviewed 08/06/2020 12:00 AM GENERAL HEALTH PANEL Reviewed 08/06/2020 12:00 AM LIPID PANEL Reviewed 01/12/2021 12:00 AM ROUTINE VENIPUNCTURE Reviewed 03/16/2021 12:00 AM COMPREHEN METABOLIC PANEL Rev iewed 03/16/2021 12:00 AM LIPID PANEL Reviewed 03/16/2021 12:00 AM ASSAY THYROID STIM HORMONE Re viewed 03/16/2021 12:00 AM COMPLETE CBC W/AUTO DIFF WBC Reviewed 03/16/2021 12:00 AM URNLS DIP STICK/TABLET RGNT A UTO W/O MICROSCOPY Reviewed 03/16/2021 12:00 AM Prostate Cancer Screening Rev iewed 03/16/2021 12:00 AM ASSAY OF MAGNESIUM Reviewed 04/15/2021 12:00 AM ACUTE HEPATITIS PANEL Reviewe d 05/15/2021 12:00 AM COMPREHEN METABOLIC PANEL Rev iewed 05/15/2021 12:00 AM GLYCOSYLATED HEMOGLOBIN TEST Reviewed 11/04/2021 12:00 AM COMPLETE CBC W/AUTO DIFF WBC R eviewed 11/04/2021 12:00 AM COMPREHEN METABOLIC PANEL Revi ewed 11/04/2021 12:00 AM ASSAY THYROID STIM HORMONE Rev iewed 11/04/2021 12:00 AM LIPID PANEL Reviewed 11/04/2021 12:00 AM URNLS DIP STICK/TABLET RGNT AU TO W/O MICROSCOPY Reviewed 11/04/2021 12:00 AM GLYCOSYLATED HEMOGLOBIN TEST R eviewed 01/18/2022 12:00 AM Toradol 30 Mg Injection Revie wed 01/18/2022 12:00 AM THER/PROPH/DIAG INJ SC/IM Rev iewed 01/18/2022 12:00 AM Depo-Medrol 80mg Injection Re viewed 01/18/2022 12:00 AM Decadron 8mg Injection Review ed 02/17/2022 12:00 AM COMPREHEN METABOLIC PANEL Rev iewed 02/17/2022 12:00 AM GLYCOSYLATED HEMOGLOBIN TEST Reviewed 02/17/2022 12:00 AM ROUTINE VENIPUNCTURE Reviewed 05/19/2022 12:00 AM GLYCOSYLATED HEMOGLOBIN TEST Reviewed 05/19/2022 12:00 AM PSA (Screening) Reviewed 05/19/2022 12:00 AM COMPREHEN METABOLIC PANEL Rev iewed 05/19/2022 12:00 AM URINALYSIS AUTO W/SCOPE Revie wed 05/19/2022 12:00 AM COLLECTION VENOUS BLOOD VENIP UNCTURE Reviewed 05/26/2022 12:00 AM US EXAM PELVIC LIMITED Review ed 07/01/2022 12:00 AM CYSTOSCOPY Reviewed 09/01/2022 12:00 AM GLYCOSYLATED HEMOGLOBIN TEST Reviewed 09/01/2022 12:00 AM COMPREHEN METABOLIC PANEL Re viewed 09/01/2022 12:00 AM COMPLETE CBC W/AUTO DIFF WBC Reviewed 09/01/2022 12:00 AM ASSAY OF NATRIURETIC PEPTIDE Reviewed 09/01/2022 12:00 AM URNLS DIP STICK/TABLET RGNT AUTO W/O MICROSCOPY Reviewed 11/08/2022 1:37 PM INFLUENZA ASSAY W/OPTIC Reviewe d 11/08/2022 1:37 PM COVID Rapid Testing Reviewed 12/14/2022 12:[address] MAXILLOFACIAL W/O CONTRAST MATERIAL Returned 01/11/2023 12:00 AM EXTRACRANIAL BILAT STUDY Retur renea 01/11/2023 12:00 AM MRI BRAIN STEM W/O DYE Returne d 04/28/2023 1:36 PM INFLUENZA ASSAY W/OPTIC Review ed 04/28/2023 1:36 PM COVID Rapid Testing Reviewed 05/10/2023 12:00 AM COMPLETE CBC W/AUTO DIFF WBC R eturned 05/10/2023 12:00 AM METABOLIC PANEL TOTAL CA Retur renea 05/10/2023 12:00 AM ZC CHEST 2 VIEW Returned 05/25/2023 12:00 AM COLLECTION VENOUS BLOOD VENIP UNCTURE Reviewed Results Summary Date and Description Results 11/01/2015 3:15 PM WBC 6.9RBC 4.44HGB 1 4.90 g/dLHCT 46.0 %MCV 104.0 fLMCH 33.60 pgMCHC 32.40 g/dLRDW SD 50RDW CV 13.10 %MPV 12.40 fLPLT 202NRBC# 0.00NRBC% 0.0%NEUT 56.40 %%LYMP 31.70 %%MONO 8.70 %%EOS 2.0 %%BASO 1.20 %#NEUT 3.89#LYMP 2.19#MONO 0.60#EOS 0.14#BASO 0.08MANUAL DIFF NOT INDGLUCOSE 96.0 mg/dLSODIUM 142.0 mmol/LPOTASSIUM 4.90 mmol/LCHLORIDE 105.0 mmol/LCO2 27.0 mmol/LBUN 21.0 mg/dLCREATININE 1.20 mg/dLSGOT/AST 28.0 IU/LSGPT/ALT 46.0 IU/LALK PHOS 82.0 IU/LTOTAL PROTEIN 6.60 g/dLALBUMIN 4.40 g/dLTOTAL BILI 0.70 mg/dLCALCIUM 9.60 mg/dLAGE 60GFR NonAA 61GFR AA 74eGFR >60 mL/min/1.73 m2eGFR AA* >60TRIGLYCERIDES 138.0 mg/dLCHOLESTEROL 110.0 mg/dLHDL 26.0 mg/dLTOT CHOL/HDL 4.2LDL (CALC) 56.0 mg/dLPSA TOTAL 0.340 ng/mL 04/12/2016 3:23 PM GLUCOSE 120.0 mg/dLS ODIUM 138.0 mmol/LPOTASSIUM 4.50 mmol/LCHLORIDE 104.0 mmol/LCO2 25.0 mmol/LBUN 21.0 mg/dLCREATININE 1.10 mg/dLSGOT/AST 21.0 IU/LSGPT/ALT 35.0 IU/LALK PHOS 91.0 IU/LTOTAL PROTEIN 6.60 g/dLALBUMIN 4.30 g/dLTOTAL BILI 0.80 mg/dLCALCIUM 9.40 mg/dLAGE 61GFR NonAA 68GFR AA 82eGFR >60 mL/min/1.73 m2eGFR AA* >60TRIGLYCERIDES 100.0 mg/dLCHOLESTEROL 89.0 mg/dLHDL 31.0 mg/dLTOT CHOL/HDL 2.9LDL (CALC) 38.0 mg/dL 04/14/2016 10:17 AM Clarity Ur ClearColo r Ur YellowGlucose Ur-sCnc NegBilirub Ur Ql Strip NegKetones Ur Ql Strip NegSp Gr Ur Qn 1.015Hgb Ur Ql Strip NegpH Ur-LsCnc 5.0Prot Ur Ql Strip NegUrobilinogen Ur-mCnc 0.2 E.U./dLNitrite Ur Ql Strip NegWBC Est Ur Ql Strip Neg 09/18/2016 11:16 AM Clarity Ur ClearColo r Ur Lt. YellowGlucose Ur-sCnc NegBilirub Ur Ql Strip NegKetones Ur Ql Strip NegSp Gr Ur Qn 1.010Hgb Ur Ql Strip NegpH Ur-LsCnc 7.5Prot Ur Ql Strip NegUrobilinogen Ur-mCnc 0.2 E.U./dLNitrite Ur Ql Strip NegWBC Est Ur Ql Strip Neg 09/12/2018 3:00 PM Falls in last 6 shivani hs? NoUnsteady or worry about falling? YesFall Risk Assessment At Risk 11/02/2018 2:19 PM COLOR YELLOWAPPEARAN CE CLEARSPEC GRAV 1.010pH 7.0PROTEIN NEGATIVEGLUCOSE NEGATIVEKETONE NEGATIVEBILIRUBIN NEGATIVEBLOOD NEGATIVENITRITE NEGATIVELEUK SCREEN NEGATIVEWBC/HPF RARERBC/HPF NEGATIVECASTS/LPF NEGATIVECRYSTALS NEGATIVEMUCOUS THRDS NEGATIVEBACTERIA NEGATIVEEPITH CELLS NEGATIVETRICHOMONAS NEGATIVEYEAST NEGATIVECULT SET UP? NO 12/22/2018 8:28 AM GLUCOSE 105SODIUM 14 1POTASSIUM 4.0CHLORIDE 105.0 mmol/LCO2 23BUN 18.0 mg/dLCREATININE 1.10 mg/dLCALCIUM 9.30 mg/dLAGE 63GFR NonAA 67GFR AA 81eGFR 67eGFR AA* >60 mL/min/1.73 x7NNAUL YELLOWAPPEARANCE CLEARSPEC GRAV >=1.030pH 5.5PROTEIN 30GLUCOSE NEGATIVEKETONE NEGATIVEBILIRUBIN NEGATIVEBLOOD NEGATIVENITRITE NEGATIVELEUK SCREEN NEGATIVEWBC/HPF 0-5RBC/HPF NEGATIVECASTS/LPF NEGATIVECRYSTALS 1+ CALCIUMMUCOUS THRDS 1+BACTERIA NEGATIVEEPITH CELLS FEWTRICHOMONAS NEGATIVEYEAST NEGATIVECULT SET UP? NOWBC 6.6RBC 4.28HGB 14.30 g/dLHCT 42.90 %MCV 100.0 fLMCH 33.40 pgMCHC 33.30 g/dLRDW SD 49 fLRDW CV 13.40 %MPV 11.60 fLPLT 186NRBC# 0.00NRBC% 0.0%NEUT 56.8%LYMP 28.2%MONO 10.7%EOS 2.0%BASO 1.4#NEUT 3.73#LYMP 1.85#MONO 0.70#EOS 0.13#BASO 0.09MANUAL DIFF NOT IND 03/15/2019 4:33 PM COLOR Light-YellowCL ARITY ClearSPEC GRAV 1.011pH 5.5PROTEIN NegativeGLUCOSE NormalKETONE NegativeBILIRUBIN NegativeBLOOD TraceNITRITE NegativeLEUK SCREEN 75Micro Indicated? MICRO INDRBC/HPF 0-3WBC/HPF 11-20BACTERIA/HPF 1+SQUAMOUS EPI/LPF FewMUCOUS/LPF FewCULT SET UP? YES 11/19/2019 5:24 PM COLOR Light-YellowCL ARITY ClearSPEC GRAV 1.014pH 6.5PROTEIN NegativeGLUCOSE NormalKETONE NegativeBILIRUBIN NegativeBLOOD NegativeNITRITE NegativeLEUK SCREEN NegativeRBC/HPF 0-3WBC/HPF 0-5BACTERIA/HPF None SeenSQUAMOUS EPI/LPF None SeenMUCOUS/LPF FewCULT ORDERED YES 03/12/2020 9:12 AM PSA TOTAL 0.230 ng/m L 05/19/2020 2:16 PM GLUCOSE 111SODIUM 14 3POTASSIUM 4.4CHLORIDE 106.0 mmol/LCO2 25BUN 11.0 mg/dLCREATININE 1.060 mg/dLALBUMIN 4.0CALCIUM 9.10 mg/dLPHOSPHORUS 2.8AGE 65GFR NonAA 70GFR AA 85eGFR 70 mL/min/1.73m²eGFR AA* >60 mL/min/1.73m² 08/06/2020 11:42 AM WBC 6.1RBC 4.25HGB 1 3.30 g/dLHCT 41.90 %MCV 99.0 fLMCH 31.30 pgMCHC 31.70 g/dLRDW SD 54 %RDW CV 14.90 %MPV 11.60 fLPLT 217 x10E3/uLNRBC# 0.00NRBC% 0.0HGB A1C 5.70 %Est Avg Glucose 116.9GLUCOSE 113SODIUM 144POTASSIUM 4.0CHLORIDE 106.0 mmol/LCO2 27BUN 12.0 mg/dLCREATININE 0.990 mg/dLSGOT/AST 22SGPT/ALT 23ALK PHOS 123TOTAL PROTEIN 6.5ALBUMIN 4.2TOTAL BILI 0.6CALCIUM 9.10 mg/dLAGE 65GFR NonAA 75GFR AA 91eGFR 75 mL/min/1.73m²eGFR AA* >60 mL/min/1.73m²TRIGLYCERIDES 217CHOLESTEROL 142.0 mg/dLHDL 31TOT CHOL/HDL 4.6LDL (CALC) 68TSH 1.57 03/16/2021 10:40 AM TSH W/REFLEX 1.61PSA TOTAL 0.250 ng/mLCOLOR Light- YellowCLARITY ClearSPEC GRAV 1.009pH 7.5PROTEIN NegativeGLUCOSE NormalKETONE NegativeBILIRUBIN NegativeBLOOD NegativeNITRITE NegativeLEUK SCREEN NegativeMicro Indicated? NOT INDCULT SET UP? NOWBC 6.4RBC 4.26HGB 13.60 g/dLHCT 41.80 %MCV 98.0 fLMCH 31.90 pgMCHC 32.50 g/dLRDW SD 47 %RDW CV 13.10 %MPV 12.0 fLPLT 216 x10E3/uLNRBC# 0.00NRBC% 0.0%NEUT 55.7%LYMP 29.6%MONO 9.7%EOS 3.1%BASO 1.4#NEUT 3.54#LYMP 1.88#MONO 0.62#EOS 0.20#BASO 0.09MANUAL DIFF NOT INDGLUCOSE 157SODIUM 142POTASSIUM 3.4CHLORIDE 101.0 mmol/LCO2 33BUN 12.0 mg/dLCREATININE 1.0 mg/dLSGOT/AST 47SGPT/ALT 43ALK PHOS 114TOTAL PROTEIN 6.5ALBUMIN 4.0TOTAL BILI 1.5CALCIUM 9.40 mg/dLAGE 65GFR NonAA 75GFR AA 91eGFR 75 mL/min/1.73m²eGFR AA* >60 mL/min/1.73m²TRIGLYCERIDES 162CHOLESTEROL 103.0 mg/dLHDL 29TOT CHOL/HDL 3.6LDL (CALC) 42MAGNESIUM 2.0 04/15/2021 11:40 AM HEPATITIS B SURF AG 0.10HEPATITIS C 0.02 05/15/2021 11:04 AM GLUCOSE 133SODIUM 13 9POTASSIUM 3.5CHLORIDE 104.0 mmol/LCO2 26BUN 9.0 mg/dLCREATININE 0.90 mg/dLSGOT/AST 41SGPT/ALT 41ALK PHOS 129TOTAL PROTEIN 6.5ALBUMIN 4.1TOTAL BILI 1.0CALCIUM 9.30 mg/dLAGE 66GFR NonAA 84GFR AA 102eGFR 84 mL/min/1.73m²eGFR AA* >60 mL/min/1.73m²HGB A1C 5.90 %Est Avg Glucose 122.6 11/04/2021 11:05 AM GLUCOSE 122SODIUM 14 2POTASSIUM 4.2CHLORIDE 104.0 mmol/LCO2 24BUN 13.0 mg/dLCREATININE 1.0 mg/dLSGOT/AST 50SGPT/ALT 57ALK PHOS 160TOTAL PROTEIN 7.3ALBUMIN 4.8TOTAL BILI 1.2CALCIUM 9.80 mg/dLAGE 66GFR NonAA 74GFR AA 90eGFR 74 mL/min/1.73m²eGFR AA* >60 mL/min/1.73m²TRIGLYCERIDES 189CHOLESTEROL 121.0 mg/dLHDL 40TOT CHOL/HDL 3.0LDL (CALC) 43TSH 1.70COLOR ColorlessCLARITY ClearSPEC GRAV 1.007pH 6.0PROTEIN NegativeGLUCOSE NormalKETONE NegativeBILIRUBIN NegativeBLOOD NegativeNITRITE NegativeLEUK SCREEN NegativeMicro Indicated? NOT INDCULT SET UP? NOHGB A1C 5.60 %Est Avg Glucose 114.0WBC 10.5RBC 5.14HGB 16.70 g/dLHCT 50.20 %MCV 98.0 fLMCH 32.50 pgMCHC 33.30 g/dLRDW SD 46 %RDW CV 12.90 %MPV 11.70 fLPLT 286 x10E3/uLNRBC# 0.00NRBC% 0.0%NEUT 62.0%LYMP 26.0%MONO 8.9%EOS 1.4%BASO 1.4#NEUT 6.52#LYMP 2.73#MONO 0.94#EOS 0.15#BASO 0.15MANUAL DIFF NOT IND 02/17/2022 11:05 AM HGB A1C 6.10 %Est Av g Glucose 128.4GLUCOSE 131SODIUM 141POTASSIUM 5.0CHLORIDE 104.0 mmol/LCO2 27BUN 17.0 mg/dLCREATININE 1.10 mg/dLSGOT/AST 61SGPT/ALT 61ALK PHOS 148TOTAL PROTEIN 7.1ALBUMIN 4.6TOTAL BILI 1.6CALCIUM 9.40 mg/dLAGE 66GFR NonAA 67GFR AA 81eGFR 67 mL/min/1.73m²eGFR AA* >60 mL/min/1.73m² 05/19/2022 9:03 AM GLUCOSE 123SODIUM 13 7POTASSIUM 4.4CHLORIDE 99.0 mmol/LCO2 27BUN 20.0 mg/dLCREATININE 1.30 mg/dLSGOT/AST 38SGPT/ALT 33ALK PHOS 170TOTAL PROTEIN 7.3ALBUMIN 4.6TOTAL BILI 1.1CALCIUM 9.70 mg/dLAGE 67GFR NonAA 55GFR AA 67eGFR 55 mL/min/1.73m²eGFR AA* >60 mL/min/1.73m²COLOR ColorlessCLARITY ClearSPEC GRAV 1.005pH 6.0PROTEIN NegativeGLUCOSE NormalKETONE NegativeBILIRUBIN NegativeBLOOD NegativeNITRITE NegativeLEUK SCREEN NegativeRBC/HPF None SeenWBC/HPF None SeenBACTERIA/HPF None SeenSQUAMOUS EPI/LPF None SeenHYALINE CAST/LPF 1+CULT SET UP? NOPSA TOTAL 0.10 ng/mLHGB A1C 5.90 %Est Avg Glucose 122.6 09/01/2022 5:33 PM COLOR ColorlessCLARI TY ClearSPEC GRAV 1.008pH 5.0PROTEIN NegativeGLUCOSE NormalKETONE NegativeBILIRUBIN NegativeBLOOD NegativeNITRITE NegativeLEUK SCREEN NegativeMicro Indicated? NOT INDCULT SET UP? NOGLUCOSE 116SODIUM 141POTASSIUM 4.0CHLORIDE 105.0 mmol/LCO2 27BUN 15.0 mg/dLCREATININE 1.20 mg/dLSGOT/AST 37SGPT/ALT 30ALK PHOS 122TOTAL PROTEIN 6.5ALBUMIN 4.0TOTAL BILI 1.4CALCIUM 8.30 mg/dLAGE 67GFR NonAA 60GFR AA 73eGFR 60 mL/min/1.73m²eGFR AA* >60 mL/min/1.73m²PRO BNP 23HGB A1C 6.30 %Est Avg Glucose 134.1WBC 8.4RBC 4.12HGB 12.0 g/dLHCT 39.50 %MCV 96.0 fLMCH 29.10 pgMCHC 30.40 g/dLRDW SD 57 %RDW CV 16.30 %MPV 12.60 fLPLT 165 x10E3/uLNRBC# 0.00NRBC% 0.0%NEUT 62.20%LYMP 23.80%MONO 10.00%EOS 2.20%BASO 1.30#NEUT 5.21#LYMP 1.99#MONO 0.84#EOS 0.18#BASO 0.11MANUAL DIFF SEE BELOWSEGS 57BANDS 3LYMPHS 25MONOS 13EOS 2HYPO 1+ 11/08/2022 1:37 PM Influenza A Rapid No t DetectedInfluenza B Rapid Not DetectedCOVID Rapid Testing Not Detected 04/28/2023 1:36 PM Influenza A Rapid No t DetectedInfluenza B Rapid Not DetectedCOVID Rapid Testing Not Detected History Of Immunizations Name Date Admin Mfg Name Mf Code Trade Name Lot# Route Inj Vis Given Vis Pub CVX Influenza 017 [employer] [facility] SKB Flulaval quadrivalent [id number] Intramuscula r Left Deltoid 017 2014 158 Influenza 018 [employer] SKB Flulaval quadrivalent [id number] Intramuscula r Left Deltoid 018 2023 158 [facility] BOOST[facility]X [id number] Intramuscula r Right Deltoid 018 2023 115 History of Past Illness Name Date of Onset Comments Spinal stenosis of lumbar region Sleep apnea 11/01/2015 Depression 11/15/2015 Hypertension prostrate problems Sleep apnea with use of cont inuous positive airway pressure (CPAP) Lumbar stenosis 11/01/2015 Hyperlipidemia 11/01/2015 Hypertension, essential 11/01/2015 Carpal Tunnel Syndrome; Bilateral Anal Fistula Eustachian tube dysfunction Oct 03 2015 10:13AM Hearing abnormally acute, right Oct 03 2015 10:1 3AM Depression Oct 03 2015 10:13AM Upper Respiratory Infection Oct 11 2015 1:39PM Bronchitis, Acute Oct 11 2015 1:39PM Acute bacterial rhinosinusitis Oct 11 2015 1:39 PM Hypertension, Essential Oct 31 2015 2:02PM Hyperlipidemia Oct 31 2015 2:02PM Sleep apnea Oct 31 2015 2:02PM Enlarged prostate Oct 31 2015 2:02PM Obesity (BMI 35.0-39.9 without comorbidity) Oct 31 2015 2:02PM Fatigue Oct 31 2015 2:02PM Prostate cancer screening Oct 31 2015 2:02PM Lumbar stenosis Oct 31 2015 2:02PM Depression Nov 14 2015 8:25AM Anxiety Dec 02 2015 9:58AM Depression Dec 02 2015 9:58AM Colon Cancer Screening Jan 27 2016 2:49PM Other infective acute otitis externa of right ea r Feb 21 2016 5:14PM tb skin test Mar 03 2016 11:09AM Neck pain of over 3 months duration Mar 30 2016 8:11AM Hand paresthesia Mar 30 2016 8:11AM Moderate Bilateral Weakness Mar 30 2016 8:11AM Depression Apr 05 2016 11:04AM Hyperlipidemia Apr 05 2016 11:04AM Hypertension, Essential Apr 05 2016 11:04AM Sleep apnea Apr 05 2016 11:04AM Sleep disturbance Apr 05 2016 11:04AM Hypertension Apr 12 2016 8:14AM Hyperlipemia Apr 12 2016 8:14AM Pre-employment examination Apr 14 2016 9:15AM Sinusitis May 06 2016 6:37PM Chest pain May 18 2016 5:29PM Cervical radiculopathy Jun 25 2016 2:03PM Neck and shoulder pain Jun 25 2016 2:03PM Palpitations Jun 25 2016 2:03PM Sinusitis Jun 25 2016 2:03PM Anxiety Jun 25 2016 2:03PM Lumbar back pain Jun 25 2016 2:03PM Lumbar stenosis Aug 27 2016 11:05AM Sinus infection Sep 18 2016 11:10AM Headache Sep 18 2016 11:10AM Lower back pain Sep 18 2016 11:10AM Back pain Nov 15 2016 8:31AM Acute recurrent pansinusitis Jan 05 2017 4:18PM Moderate episode of recurrent major depressive d isorder Jan 05 2017 4:18PM Obstructive sleep apnea syndrome Feb 07 2017 8: 24AM Lumbago with sciatica, right side Feb 07 2017 8 :24AM Other chronic pain Feb 07 2017 8:24AM Skin lesion Feb 07 2017 8:24AM Sciatica of right side Jun 11 2017 9:43AM Lumbago with sciatica, right side Jun 11 2017 9 :43AM Other chronic pain Jun 11 2017 9:43AM Lumbago with sciatica, right side Jun 13 2017 11 :08AM Other chronic pain Jun 13 2017 11:08AM Right hip pain Jun 13 2017 11:08AM Lumbago with sciatica, right side Jul 19 2017 3 :33PM Other chronic pain Jul 19 2017 3:33PM Muscle spasm Jul 19 2017 3:33PM Lumbago with sciatica, left side Aug 10 2017 10: 04AM Lumbago with sciatica, right side Aug 10 2017 10 :04AM Other chronic pain Aug 10 2017 10:04AM Encounter for immunization Aug 10 2017 10:04AM Spinal stenosis of lumbar re gion, unspecified whether neurogenic claudication present Aug 10 2017 10:04AM Hypertension Aug 15 2017 9:44AM Low back pain Oct 22 2017 9:38AM Other chronic pain Oct 22 2017 9:38AM Depression Dec 15 2017 10:26AM Hyperlipidemia Dec 15 2017 10:26AM Hypertension, Essential Dec 15 2017 10:26AM Fatigue Dec 15 2017 10:26AM Screening for prostate cancer Dec 15 2017 10:26A M Urinary hesitancy Dec 15 2017 10:26AM Anxiety Dec 15 2017 10:26AM Obstructive sleep apnea Mar 13 2018 8:02AM Lumbago with sciatica, right side Mar 17 2018 3 :06PM Other chronic pain Mar 17 2018 3:06PM Muscle spasm Mar 17 2018 3:06PM Benign Neoplasm Of Skin Of Face May 28 2018 2:1 3PM Hypertension, essential May 15 2018 9:37AM Lumbar stenosis May 15 2018 9:37AM Benign skin lesion of face May 15 2018 9:37AM Flu Vaccine May 29 2018 12:35PM Laceration of index finger o f left hand without complication, sequela May 31 2018 3:02PM Td May 31 2018 3:07PM Laceration of left index finger, sequela Jun 08 2018 10:20AM Laceration of left index finger, sequela Jun 09 2018 11:49AM Hyperlipidemia Jul 21 2018 1:56PM Hypertension, essential Jul 21 2018 1:56PM Lumbar stenosis Jul 21 2018 1:56PM Lumbago with sciatica, right side Jul 21 2018 1 :56PM Other chronic pain Jul 21 2018 1:56PM Muscle spasm Jul 21 2018 1:56PM BPH (benign prostatic hyperplasia) Jul 21 2018 1:56PM Benign Neoplasm Of External Ear Aug 22 2018 9:5 2PM Benign Neoplasm Of Skin Of Face Aug 22 2018 9:5 2PM Mechanical low back pain Sep 12 2018 2:23PM Sacral pain Sep 12 2018 2:23PM Spasm Sep 12 2018 2:23PM Chronic pain syndrome Sep 12 2018 2:23PM Myalgia Sep 28 2018 9:19AM Sacroiliac inflammation Sep 28 2018 9:19AM OAB (overactive bladder) Nov 02 2018 9:58AM Slowing of Urinary Stream Nov 02 2018 9:58AM Benign prostatic hyperplasia with lower urinary tract symptoms Nov 02 2018 9:58AM Urge incontinence Nov 02 2018 9:58AM Slowing of urinary stream Nov 02 2018 11:15AM Mechanical low back pain Nov 17 2018 9:35AM Sacral pain Nov 17 2018 9:35AM Spasm Nov 17 2018 9:35AM Chronic pain syndrome Nov 17 2018 9:35AM Preoperative testing Nov 27 2018 8:59AM Benign prostatic hyperplasia with lower urinary tract symptoms Nov 27 2018 8:22AM OAB (overactive bladder) Dec 21 2018 10:24AM Slowing of Urinary Stream Dec 21 2018 10:24AM Benign prostatic hyperplasia with lower urinary tract symptoms Dec 21 2018 10:24AM Urge incontinence Dec 21 2018 10:24AM S/P TURP Dec 28 2018 9:13AM Sacroiliac joint disease Dec 29 2018 10:19AM Constipation Jan 01 2019 10:34AM Abdominal bloating Jan 01 2019 10:34AM Fatigue Jan 03 2019 8:22AM Anemia Jan 03 2019 8:22AM Depression Jan 01 2019 10:34AM Lumbar stenosis Jan 01 2019 10:34AM ELISEO (obstructive sleep apnea) Jan 01 2019 10:34A M Mechanical low back pain Jan 30 2019 10:06AM Sacral pain Jan 30 2019 10:06AM Spasm Jan 30 2019 10:06AM Chronic pain syndrome Jan 30 2019 10:06AM Wellness examination Mar 13 2019 10:12AM Hyperlipidemia Mar 13 2019 10:12AM Hypertension Mar 13 2019 10:12AM Fatigue Mar 13 2019 10:12AM Screening for prostate cancer Mar 13 2019 10:12A M Benign prostatic hyperplasia with lower urinary tract symptoms Mar 15 2019 1:26PM Other obstructive and reflux uropathy Mar 15 9 1:26PM Depression Mar 13 2019 9:56AM Hypertension, essential Mar 13 2019 9:56AM Lumbar stenosis Mar 13 2019 9:56AM Sleep apnea Mar 13 2019 9:56AM ELISEO (obstructive sleep apnea) Mar 13 2019 9:56A M ELISEO (obstructive sleep apnea) Apr 04 2019 10:57A M Mechanical low back pain May 08 2019 3:48PM Sacral pain May 08 2019 3:48PM Spasm May 08 2019 3:48PM Chronic pain syndrome May 08 2019 3:48PM Allergic rhinitis May 28 2019 1:50PM Rhinitis, Allergic May 25 2019 3:07PM Hyperlipidemia Jun 11 2019 1:48PM Hypertension, essential Jun 11 2019 1:48PM Elevated liver enzymes Jun 11 2019 1:48PM Glucose intolerance Jun 11 2019 1:48PM Fatigue Jun 11 2019 1:48PM BPH (benign prostatic hyperplasia) Jun 14 2019 9:57AM Tremor Jun 11 2019 1:15PM Obesity Jun 11 2019 1:15PM Glucose intolerance Jun 11 2019 1:15PM Depression Jun 11 2019 1:15PM Mechanical low back pain Jul 12 2019 9:44AM Sacral pain Jul 12 2019 9:44AM Spasm Jul 12 2019 9:44AM Chronic pain syndrome Jul 12 2019 9:44AM Mechanical low back pain Aug 15 2019 9:34AM Sacral pain Aug 15 2019 9:34AM Spasm Aug 15 2019 9:34AM Chronic pain syndrome Aug 15 2019 9:34AM BPH (benign prostatic hyperplasia) Sep 13 2019 9:55AM Erectile dysfunction Sep 13 2019 9:55AM Acute suppurative otitis med ia of right ear without spontaneous rupture of tympanic membrane, recurrence not specified Sep 27 2019 8:57AM Acute suppurative otitis med ia of right ear without spontaneous rupture of tympanic membrane, recurrence not specified Oct 08 2019 11:24AM Mechanical low back pain Oct 17 2019 9:34AM Sacral pain Oct 17 2019 9:34AM Spasm Oct 17 2019 9:34AM Chronic pain syndrome Oct 17 2019 9:34AM Lumbar spondylosis Oct 17 2019 9:34AM Recurrent acute suppurative otitis media of right ear without spontaneous rupture of tympanic membrane Oct 12 2019 10:43AM Upper back pain Oct 29 2019 10:37AM Neck pain Oct 29 2019 10:37AM Dysuria Nov 19 2019 10:30AM Pain in right hip Jan 22 2020 11:09AM Pain in left hip Jan 22 2020 11:09AM Tremor Jan 22 2020 11:09AM Lumbar strain, initial encounter Jan 22 2020 11: 09AM BPH (benign prostatic hyperplasia) Mar 12 2020 8:55AM Prostate cancer screening Mar 12 2020 8:55AM Tremor Apr 07 2020 2:39PM Resolved Tremor Apr 21 2020 10:15AM Bipolar 1 disorder Apr 21 2020 10:15AM Depression Apr 21 2020 10:15AM Post surgical complication Apr 21 2020 10:15AM Hypertension May 19 2020 1:40PM Leg edema May 19 2020 1:40PM Hyperlipidemia Aug 06 2020 11:25AM Hypertension, essential Aug 06 2020 11:25AM Diabetes mellitus Aug 06 2020 11:25AM Diarrhea Aug 06 2020 11:25AM Diarrhea Aug 07 2020 4:07PM Cough Dec 12 2020 10:16AM Wheezing Dec 12 2020 10:16AM COVID-19 Dec 30 2020 11:00AM Hypoxia Dec 30 2020 11:00AM Hypertension, essential Dec 30 2020 11:00AM Sleep apnea Dec 30 2020 11:00AM Type II diabetes mellitus Dec 30 2020 11:00AM Type II diabetes mellitus Jan 12 2021 8:58AM Hypoxia Improving Jan 12 2021 8:58AM Sleep apnea Jan 12 2021 8:58AM Hypoxia Feb 17 2021 10:03AM Weakness Feb 17 2021 10:03AM Hypertension Feb 17 2021 10:03AM Hypertension, essential Mar 16 2021 9:49AM Fatigue Mar 16 2021 9:49AM Prostate cancer screening Mar 16 2021 9:49AM Dyspnea Mar 16 2021 9:49AM Edema Mar 16 2021 9:49AM Hypoxia Mar 16 2021 9:49AM BPH without obstruction/lower urinary tract symp toms Mar 18 2021 10:04AM Elevated bilirubin Mar 18 2021 4:30PM Weakness Mar 16 2021 9:49AM Hypertension Mar 16 2021 9:49AM Elevated liver enzymes Apr 15 2021 10:31AM Hypoxia Apr 15 2021 10:31AM Hypertension Apr 15 2021 10:31AM Anal fistula Apr 15 2021 10:31AM Obesity Apr 15 2021 10:31AM ELISEO (obstructive sleep apnea) Apr 15 2021 10:31A M Anal fistula Sep 2020 2:35PM Elevated glucose Sep 2020 10:21AM Hypoxia Sep 2020 10:21AM Obesity Sep 2020 10:21AM ELISEO (obstructive sleep apnea) May 15 2021 10:21A M Anal fistula Sep 2020 10:22AM Obesity Jun 15 2021 10:08AM ELISEO (obstructive sleep apnea) Jun 15 2021 10:08A M Anal fistula Jul 08 2021 11:56AM Anal fistula Jul 22 2021 9:01AM Hyperlipidemia Nov 04 2021 10:08AM Fatigue Nov 04 2021 10:08AM Diabetes mellitus, type II Nov 04 2021 10:08AM Elevated liver enzymes Nov 04 2021 10:08AM Hypertension Nov 04 2021 10:08AM Obesity Nov 04 2021 10:08AM ELISEO (obstructive sleep apnea) Nov 04 2021 10:08A M Depression Nov 04 2021 10:08AM Lumbar stenosis Nov 04 2021 10:08AM Hypertension Nov 18 2021 10:35AM Sinusitis Nov 18 2021 10:35AM Acute right-sided low back pain without sciatica Jan 18 2022 10:54AM Type II diabetes mellitus Feb 17 2022 10:32AM Depression Feb 17 2022 10:32AM Hyperlipidemia Feb 17 2022 10:32AM Lumbar stenosis Feb 17 2022 10:32AM Fatigue Feb 17 2022 10:32AM Diabetes mellitus, type II Feb 17 2022 10:32AM Elevated liver enzymes Feb 17 2022 10:32AM Hypertension Feb 17 2022 10:32AM Obesity Feb 17 2022 10:32AM ELISEO (obstructive sleep apnea) Feb 17 2022 10:32A M Neuropathy Feb 17 2022 10:32AM COVID-19 Apr 28 2022 11:31AM Type II diabetes mellitus May 19 2022 9:18AM Depression Sep 14 2022 9:18AM Hyperlipidemia Sep 2021 9:18AM Lumbar stenosis Sep 2021 9:18AM Fatigue Sep 2021 9:18AM Obesity Sep 2021 9:18AM ELISEO (obstructive sleep apnea) Sep 2021 9:18A M Neuropathy Sep 2021 9:18AM Screening for prostate cancer Sep 2021 9:18A M OAB (overactive bladder) Sep 2021 1:06PM BPH NOS w ur obs/LUTS May 19 2022 1:06PM Obesity Sep 2021 1:06PM BPH (benign prostatic hyperplasia) May 26 2022 1 0:28AM Benign prostatic hyperplasia with lower urinary tract symptoms Jul 01 2022 2:54PM Other obstructive and reflux uropathy Jul 01 2:54PM S/P TURP Jul 01 2022 2:54PM Fluid retention Sep 01 2022 1:49PM Fatigue Sep 01 2022 1:49PM Glucose intolerance Sep 01 2022 1:49PM Sinusitis Sep 01 2022 1:49PM Weight gain Sep 01 2022 1:49PM Sinusitis Oct 29 2022 10:00AM Allergic rhinitis Oct 29 2022 10:00AM Viral upper respiratory infection Nov 08 2022 1 :20PM Cough Nov 08 2022 1:20PM Fatigue Nov 08 2022 1:20PM Vertigo Dec 14 2022 9:32AM Sinus pressure Dec 14 2022 9:32AM Sinusitis Dec 30 2022 9:44AM Hypertension Dec 30 2022 9:44AM Benign prostatic hyperplasia with lower urinary tract symptoms Jan 05 2023 10:10AM Other obstructive and reflux uropathy January 05 10:10AM Benign prostatic hyperplasia with lower urinary tract symptoms Jan 05 2023 10:56AM Other obstructive and reflux uropathy January 05 10:56AM Prostate cancer screening Jan 05 2023 10:56AM Headache Jan 11 2023 10:54AM Dizziness Jan 11 2023 10:54AM Light headedness Jan 11 2023 10:54AM Hypertension Jan 11 2023 10:54AM Obstructive sleep apnea (adult) (pediatric) Jan 11 2023 10:54AM Dependence on other enabling machines and device s Jan 11 2023 10:54AM Headache Jan 24 2023 9:55AM Dizziness Jan 24 2023 9:55AM Obstructive sleep apnea (adult) (pediatric) Jan 24 2023 9:55AM Dependence on other enabling machines and device s Jan 24 2023 9:55AM Low back pain Jan 24 2023 9:55AM Headache Feb 10 2023 10:09AM Viral upper respiratory infection Apr 28 2023 1 :22PM Cough May 10 2023 1:12PM Chronic renal failure May 11 2023 8:02AM Chronic renal failure May 25 2023 3:37PM Payers Insurance Name Company Name Plan Name Plan Number Policy Number Policy Group Number Start Date Medicare RHC Medicare RH [id number] 2014 Cigna Medicare Supplement Cigna Medicare Supplement [id number] Monday, 2018 Medicare Part [place] Medicare [place] [id number] N/A Medicare Part B [place] [id number] September Standard Life Standard Life [id number] 2014 [employer] Financial Assistance [employer] 50 percent Saturday, September 05, 2015 Medicare RHC Medicare RH [id number] N/ A Medicare Part A Medicare - Lab [id number] N/A History of Encounters Visit Date Visit Type Provider 05/25/2023 Laboratory Jessica LUNA 05/03/2023 [facility] Natalia Bradfiel d LOMBARDI DEVELOPER 04/28/2023 Office visit Natalia Bradfiel d LOMBARDI DEVELOPER 04/04/2023 Office visit Natalia Bradfiel d LOMBARDI DEVELOPER 02/28/2023 Office visit Natalia Bradfiel d LOMBARDI DEVELOPER 02/10/2023 Office visit Natalia Bradfiel d LOMBARDI DEVELOPER 01/24/2023 Office visit Natalia Bradfiel d LOMBARDI DEVELOPER 01/11/2023 Office visit Natalia Bradfiel d LOMBARDI DEVELOPER 01/05/2023 Office visit SANGEETA DEJESUS APR N 12/30/2022 Office visit Natalia Bradfiel d LOMBARDI DEVELOPER 12/27/2022 [facility] Mateus Saez MD 12/14/2022 Office visit Natalia Bradfiel d LOMBARDI DEVELOPER 11/08/2022 Office visit Natalia Bradfiel d LOMBARDI DEVELOPER 10/29/2022 Office visit Natalia Bradfiel d LOMBARDI DEVELOPER 09/01/2022 Office visit Natalia Bradfiel d LOMBARDI DEVELOPER 07/01/2022 Procedures Rakan Muller D 05/19/2022 Office visit Rakan Muller D 05/19/2022 Office visit Natalia Bradfiel d LOMBARDI DEVELOPER 04/28/2022 Office visit Natalia Bradfiel d LOMBARDI DEVELOPER 02/17/2022 Office visit Natalia Bradfiel d LOMBARDI DEVELOPER 01/18/2022 Office visit Natalia Bradfiel d LOMBARDI DEVELOPER 11/18/2021 Office visit Natalia Bradfiel d LOMBARDI DEVELOPER 11/04/2021 Office visit Natalia Bradfiel d LOMBARDI DEVELOPER 07/22/[address] Mauricio Cm MD 07/10/[address] [facility] [address] Mauricio Cm MD 06/15/2021 Office visit Natalia Bradfiel d LOMBARDI DEVELOPER 06/03/[address] Mauricio Cm MD 05/21/[address] [facility] [address] Mauricio Cm MD 05/15/2021 Office visit Natalia Bradfiel d LOMBARDI DEVELOPER 05/13/[address] Mauricio Cm MD 04/15/2021 Office visit Natalia Bradfiel d LOMBARDI DEVELOPER 03/18/2021 Office visit SANGEETA DEJESUS APR N 03/16/2021 Office visit Natalia Bradfiel d LOMBARDI DEVELOPER 02/17/2021 Office visit Natalia Bradfiel d LOMBARDI DEVELOPER 01/12/2021 Office visit Natalia Bradfiel d LOMBARDI DEVELOPER 12/30/2020 Office visit Natalia Bradfiel d LOMBARDI DEVELOPER 12/17/2020 [facility] Christiano Yates MD 12/16/2020 [facility] Rubens Underwood MD 12/12/2020 Office visit Natalia Bradfiel d LOMBARDI DEVELOPER 08/06/2020 Office visit Natalia Bradfiel d LOMBARDI DEVELOPER 05/19/2020 Office visit Natalia Bradfiel d LOMBARDI DEVELOPER 04/21/2020 Office visit Natalia Bradfiel d LOMBARDI DEVELOPER 04/09/2020 Hospital Mateus Seaz MD 04/07/2020 Office visit Natalia Bradfiel d LOMBARDI DEVELOPER 03/12/2020 Office visit SANGEETA DEJESUS APR N 01/22/2020 Office visit Natalia Bradfiel d LOMBARDI DEVELOPER 11/19/2019 Laboratory Krys clemente MD 10/29/2019 Office visit Natalia Bradfiel d LOMBARDI DEVELOPER 10/17/2019 Office visit Siva Christian DO 10/12/2019 Office visit Natalia Bradfiel d LOMBARDI DEVELOPER 10/08/2019 Office visit Natalia Bradfiel d LOMBARDI DEVELOPER 09/27/2019 Office visit Natalia Bradfiel d LOMBARDI DEVELOPER 09/13/2019 Office visit SANGEETA DEJESUS APR N 08/15/2019 Office visit Sivarajesh Albaa DO 07/12/2019 Office visit Siva Christian DO 06/14/2019 Office visit SANGEETA DEJESUS APR N 06/13/2019 Laboratory Meme McCaffery A PRN 06/11/2019 Office visit Natalia Bradfiel d LOMBARDI DEVELOPER 05/25/2019 Office visit Natalia Bradfiel d LOMBARDI DEVELOPER 05/08/2019 Office visit Sivarajesh Albaa DO 04/04/2019 Office visit Natalia Bradfiel d LOMBARDI DEVELOPER 2019 Laboratory Meme McCaffery A PRN 03/15/2019 Office visit SANGEETA DEJESUS APR N 03/13/2019 Office visit Natalia Bradfiel d LOMBARDI DEVELOPER 01/30/2019 Office visit Sivarajesh Albaa DO 01/03/2019 Laboratory Manny [place] APR N 01/01/2019 Office visit Natalia Bradfiel d LOMBARDI DEVELOPER 12/29/2018 Office visit Siva Christian DO 12/28/2018 Office visit Rakan Henderson 12/26/2018 Surgery Rakan Henderson 12/22/2018 Office visit Mateus Saez MD 12/22/2018 Laboratory Manny Antonette APR N 11/27/2018 Procedures Rakan Henderson 11/17/2018 Office visit Siva Christian DO 11/02/2018 Office visit Rakan Henderson 09/28/2018 Office visit Siva Christian DO 09/12/2018 Office visit Siva Christian DO 07/21/2018 Office visit Natalia Bradfiel d LOMBARDI DEVELOPER 06/09/2018 Office visit Natalia Bradfiel d LOMBARDI DEVELOPER 06/08/2018 Office visit Natalia Bradfiel d LOMBARDI DEVELOPER 05/31/2018 Office visit Natalia Bradfiel d LOMBARDI DEVELOPER 05/29/2018 Nurse visit Natalia Bradfiel d LOMBARDI DEVELOPER 05/23/2018 Procedures Natalia Bradfiel d LOMBARDI DEVELOPER 05/15/2018 Office visit Natalia Bradfiel d LOMBARDI DEVELOPER 03/17/2018 Office visit Natalia Bradfiel d LOMBARDI DEVELOPER 03/13/2018 Office visit Natalia Bradfiel d LOMBARDI DEVELOPER 12/15/2017 Office visit Natalia Bradfiel d LOMBARDI DEVELOPER 10/22/2017 Office visit Natalia Bradfiel d LOMBARDI DEVELOPER 08/15/2017 Laboratory Natalia Bradfiel d LOMBARDI DEVELOPER 08/10/2017 Office visit Natalia Bradfiel d LOMBARDI DEVELOPER 07/19/2017 Office visit Natalia Bradfiel d LOMBARDI DEVELOPER 06/13/2017 Office visit Natalia Bradfiel d LOMBARDI DEVELOPER 06/11/2017 Office visit Manny Whitman APR N 02/07/2017 Office visit Natalia Bradfiel d LOMBARDI DEVELOPER 01/05/2017 Office visit Natalia Bradfiel d LOMBARDI DEVELOPER 11/15/2016 Office visit Natalia Bradfiel d LOMBARDI DEVELOPER 09/18/2016 Office visit Natalia Bradfiel d LOMBARDI DEVELOPER 09/14/2016 Office visit Meme Willis PRN 08/27/2016 Office visit Natalia Bradfiel d LOMBARDI DEVELOPER 06/25/2016 Office visit Natalia Bradfiel d LOMBARDI DEVELOPER 05/06/2016 Office visit Natalia Bradfiel d LOMBARDI DEVELOPER 04/14/2016 Office visit Meme Willis PRN 04/12/2016 Laboratory Natalia Bradfiel d LOMBARDI DEVELOPER 03/30/2016 Office visit Meme Willis PRN 03/03/2016 Nurse visit Meme Willis PRN 02/21/2016 Office visit Natalia Bradfiel d LOMBARDI DEVELOPER 02/05/2016 [facility] Kartik Lipscomb MD 01/27/2016 Office visit Kartik Lipscomb MD 12/02/2015 Office visit Natalia Bradfiel d LOMBARDI DEVELOPER 11/14/2015 Office visit Natalia Bradfiel d LOMBARDI DEVELOPER 11/01/2015 Office visit Natalia Bradfiel d LOMBARDI DEVELOPER 11/01/2015 Laboratory Natalia Bradfiel d LOMBARDI DEVELOPER 10/31/2015 Office visit Natalia Bradfiel d LOMBARDI DEVELOPER 10/11/2015 Office visit Meme Willis PRN 10/03/2015 Office visit Natalia Bradfiel d LOMBARDI DEVELOPER
--- OUTSIDE RECORDS SUMMARY | 2023-06-04 11:06 | XMS REPORT ---
Author Author Humble Shannon Organization [facility] Address [address] [place], [place] [id number] Care Team Providers Care Drill Press Hand Name Role Phone Jessica Shannon PCP radha Unavailable Unavailable Tai Chavez Unavailable Unavailable Natalia Ventura PreferredProvider Allergies and Adverse Reactions Name Reaction Notes [...] tablet 07/25/2017 08/24/2017 Take one tab by [facility] every 12 hours as needed tramadol [...] release (DR/EC) 11/19/2019 [facility] omeprazole 40 mg oral capsule,delayed release(DR/EC) 01/04/2020 12/29/2020 TAKE 1 CAPSULE BY [facility] ONCE DAILY duplicate fluticasone propionate 50 [...] Tablet 09/15/2020 03/14/2021 [facility] Rexulti 1 mg oral tablet 11/14/2020 05/13/2021 Blaze e 1 tablet by mouth once daily benzonatate 100 mg capsule 12/24/2020 02/04/2021 Take 1 capsule by [facility] three times daily as needed for [...] Release 10/09/2021 04/07/2022 TAKE 1 CAPSULE BY [facility] TWICE DAILY WITH FOOD amoxicillin-pot clavulanate [...] Release 04/14/2022 10/11/2022 TAKE 1 CAPSULE BY [facility] TWICE DAILY WITH FOOD Atorvastatin Calcium 80 MG Oral Tablet 05/17/2022 05/12/2023 [facility] 1 [facility] daily Furosemide 20 MG Oral [...] 67GFR AA 81eGFR 67eGFR AA* >60 mL/min/1.73 d7OSKIK YELLOWAPPEARANCE CLEARSPEC GRAV >=1.030pH 5.5PROTEIN 30GLUCOSE NEGATIVEKETONE [...] Vis Given Vis Pub CVX Influenza 017 Red Tricycle [facility] SKB Flulaval quadrivalent [id number] Intramuscula r Left Deltoid 017 2014 158 Influenza 018 [employer] ine SKB Flulaval quadrivalent 3PM59 Intramuscula r Left Deltoid 018 2023 158 [facility] 018 [facility] BOOSTRIX [id number] Intramuscula r [...] Number Start Date Medicare RHC Medicare RH [id number] 2014 Cigna Medicare Supplement Cigna Medicare Supplement [id number] Monday, 2018 Medicare Part B [place] [id number] N/A Medicare [place] [id number] September Standard Life Standard Life [id number] 2014 [employer] Financial Assistance [employer] 50 percent Saturday, September 05, 2015 Medicare RHC Medicare RH [id number] N/ A Medicare Part A Medicare - Lab [id number] N/A History of Encounters Visit Date Visit Type Provider 05/25/2023 Laboratory Jessica LUNA 05/03/2023 [facility] Natalia Bradfiel d INTEGRATION SOFTWARE DEVELOPER 04/28/2023 Office visit Natalia Bradfiel d INTEGRATION SOFTWARE DEVELOPER 04/04/2023 Office visit Natalia Bradfiel d INTEGRATION SOFTWARE DEVELOPER 02/28/2023 Office visit Natalia Bradfiel d INTEGRATION SOFTWARE DEVELOPER 02/10/2023 Office visit Natalia Bradfiel d INTEGRATION SOFTWARE DEVELOPER 01/24/2023 Office visit Natalia Bradfiel d INTEGRATION SOFTWARE DEVELOPER 01/11/2023 Office visit Natalia Bradfiel d INTEGRATION SOFTWARE DEVELOPER 01/05/2023 Office visit SANGEETA DEJESUS APR N 12/30/2022 Office visit Natalia Bradfiel d INTEGRATION SOFTWARE DEVELOPER 12/27/2022 [facility] Mateus Saez MD 12/14/2022 Office visit Natalia Bradfiel d INTEGRATION SOFTWARE DEVELOPER 11/08/2022 Office visit Natalia Bradfiel d INTEGRATION SOFTWARE DEVELOPER 10/29/2022 Office visit Natalia Bradfiel d INTEGRATION SOFTWARE DEVELOPER 09/01/2022 Office visit Natalia Bradfiel d INTEGRATION SOFTWARE DEVELOPER 07/01/2022 Procedures Rakan Muller D 05/19/2022 Office visit Rakan Muller D 05/19/2022 Office visit Natalia Bradfiel d INTEGRATION SOFTWARE DEVELOPER 04/28/2022 Office visit Natalia Bradfiel d INTEGRATION SOFTWARE DEVELOPER 02/17/2022 Office visit Natalia Bradfiel d INTEGRATION SOFTWARE DEVELOPER 01/18/2022 Office visit Natalia Bradfiel d INTEGRATION SOFTWARE DEVELOPER 11/18/2021 Office visit Natalia Bradfiel d INTEGRATION SOFTWARE DEVELOPER 11/04/2021 Office visit Natalia Bradfiel d INTEGRATION SOFTWARE DEVELOPER 07/22/[address] Mauricio Cm MD 07/10/[address] [facility] [address] Mauricio Cm MD 06/15/2021 Office visit Natalia Bradfiel d INTEGRATION SOFTWARE DEVELOPER 06/03/[address] Mauricio Cm MD 05/21/[address] [facility] [address] Mauricio Cm MD 05/15/2021 Office visit Natalia Bradfiel d INTEGRATION SOFTWARE DEVELOPER 05/13/[address] Mauricio Cm MD 04/15/2021 Office visit Natalia Bradfiel d INTEGRATION SOFTWARE DEVELOPER 03/18/2021 Office visit SANGEETA DEJESUS APR N 03/16/2021 Office visit Natalia Bradfiel d INTEGRATION SOFTWARE DEVELOPER 02/17/2021 Office visit Natalia Bradfiel d INTEGRATION SOFTWARE DEVELOPER 01/12/2021 Office visit Natalia Bradfiel d INTEGRATION SOFTWARE DEVELOPER 12/30/2020 Office visit Natalia Bradfiel d INTEGRATION SOFTWARE DEVELOPER 12/17/2020 [facility] Christiano Yates MD 12/16/2020 [facility] Rubens Underwood MD 12/12/2020 Office visit Natalia Bradfiel d INTEGRATION SOFTWARE DEVELOPER 08/06/2020 Office visit Natalia Bradfiel d INTEGRATION SOFTWARE DEVELOPER 05/19/2020 Office visit Natalia Bradfiel d INTEGRATION SOFTWARE DEVELOPER 04/21/2020 Office visit Natalia Bradfiel d INTEGRATION SOFTWARE DEVELOPER 04/09/2020 Hospital Mateus Saez MD 04/07/2020 Office visit Natalia Bradfiel d INTEGRATION SOFTWARE DEVELOPER 03/12/2020 Office visit SANGEETA DEJESUS APR N 01/22/2020 Office visit Natalia Bradfiel d INTEGRATION SOFTWARE DEVELOPER 11/19/2019 Laboratory Krys clemente MD 10/29/2019 Office visit Natalia Bradfiel d INTEGRATION SOFTWARE DEVELOPER 10/17/2019 Office visit Siva Christian DO 10/12/2019 Office visit Natalia Bradfiel d INTEGRATION SOFTWARE DEVELOPER 10/08/2019 Office visit Natalia Bradfiel d INTEGRATION SOFTWARE DEVELOPER 09/27/2019 Office visit Natalia Bradfiel d INTEGRATION SOFTWARE DEVELOPER 09/13/2019 Office visit SANGEETA DEJESUS APR N 08/15/2019 Office visit Sivarajesh Albaa DO 07/12/2019 Office visit Siva Christian DO 06/14/2019 Office visit SANGEETA DEJESUS APR N 06/13/2019 Laboratory Meme McCaffery A PRN 06/11/2019 Office visit Natalia Bradfiel d INTEGRATION SOFTWARE DEVELOPER 05/25/2019 Office visit Natalia Bradfiel d INTEGRATION SOFTWARE DEVELOPER 05/08/2019 Office visit Sivarajesh Albaa DO 04/04/2019 Office visit Natalia Bradfiel d INTEGRATION SOFTWARE DEVELOPER 2019 Laboratory Meme McCaffery A PRN 03/15/2019 Office visit SANGEETA DEJESUS APR N 03/13/2019 Office visit Natalia Bradfiel d INTEGRATION SOFTWARE DEVELOPER 01/30/2019 Office visit Sivarajesh Albaa DO 01/03/2019 Laboratory Manny [place] APR N 01/01/2019 Office visit Natalia Bradfiel d INTEGRATION SOFTWARE DEVELOPER 12/29/2018 Office visit Siva Christian DO 12/28/2018 Office visit Rakan Henderson 12/26/2018 Surgery Rakan Henderson 12/22/2018 Office visit Mateus Saez MD 12/22/2018 Laboratory Manny Antonette APR N 11/27/2018 Procedures Rakan Henderson 11/17/2018 Office visit Siva Christian DO 11/02/2018 Office visit Rakan Henderson 09/28/2018 Office visit Siva Christian DO 09/12/2018 Office visit Siva Christian DO 07/21/2018 Office visit Natalia Bradfiel d INTEGRATION SOFTWARE DEVELOPER 06/09/2018 Office visit Natalia Bradfiel d INTEGRATION SOFTWARE DEVELOPER 06/08/2018 Office visit Natalia Bradfiel d INTEGRATION SOFTWARE DEVELOPER 05/31/2018 Office visit Natalia Bradfiel d INTEGRATION SOFTWARE DEVELOPER 05/29/2018 Nurse visit Natalia Bradfiel d INTEGRATION SOFTWARE DEVELOPER 05/23/2018 Procedures Natalia Bradfiel d INTEGRATION SOFTWARE DEVELOPER 05/15/2018 Office visit Natalia Bradfiel d INTEGRATION SOFTWARE DEVELOPER 03/17/2018 Office visit Natalia Bradfiel d INTEGRATION SOFTWARE DEVELOPER 03/13/2018 Office visit Natalia Bradfiel d INTEGRATION SOFTWARE DEVELOPER 12/15/2017 Office visit Natalia Bradfiel d INTEGRATION SOFTWARE DEVELOPER 10/22/2017 Office visit Natalia Bradfiel d INTEGRATION SOFTWARE DEVELOPER 08/15/2017 Laboratory Natalia Bradfiel d INTEGRATION SOFTWARE DEVELOPER 08/10/2017 Office visit Natalia Bradfiel d INTEGRATION SOFTWARE DEVELOPER 07/19/2017 Office visit Natalia Bradfiel d INTEGRATION SOFTWARE DEVELOPER 06/13/2017 Office visit Natalia Bradfiel d INTEGRATION SOFTWARE DEVELOPER 06/11/2017 Office visit Mnany Whitman APR N 02/07/2017 Office visit Natalia Bradfiel d INTEGRATION SOFTWARE DEVELOPER 01/05/2017 Office visit Natalia Bradfiel d INTEGRATION SOFTWARE DEVELOPER 11/15/2016 Office visit Natalia Bradfiel d INTEGRATION SOFTWARE DEVELOPER 09/18/2016 Office visit Natalia Bradfiel d INTEGRATION SOFTWARE DEVELOPER 09/14/2016 Office visit Meme Willis PRN 08/27/2016 Office visit Natalia Bradfiel d INTEGRATION SOFTWARE DEVELOPER 06/25/2016 Office visit Natalia Bradfiel d INTEGRATION SOFTWARE DEVELOPER 05/06/2016 Office visit Natalia Bradfiel d INTEGRATION SOFTWARE DEVELOPER 04/14/2016 Office visit Meme Willis PRN 04/12/2016 Laboratory Natalia Bradfiel d INTEGRATION SOFTWARE DEVELOPER 03/30/2016 Office visit Meme Willis PRN 03/03/2016 Nurse visit Meme Willis PRN 02/21/2016 Office visit Natalia Bradfiel d INTEGRATION SOFTWARE DEVELOPER 02/05/2016 [facility] Kartik Lipscomb MD 01/27/2016 Office visit Kartik Lipscomb MD 12/02/2015 Office visit Natalia Bradfiel d INTEGRATION SOFTWARE DEVELOPER 11/14/2015 Office visit Natalia Bradfiel d INTEGRATION SOFTWARE DEVELOPER 11/01/2015 Office visit Natalia Bradfiel d INTEGRATION SOFTWARE DEVELOPER 11/01/2015 Laboratory Natalia Bradfiel d INTEGRATION SOFTWARE DEVELOPER 10/31/2015 Office visit Natalia Bradfiel d INTEGRATION SOFTWARE DEVELOPER 10/11/2015 Office visit Meme Willis PRN 10/03/2015 Office visit Natalia Bradfiel d INTEGRATION SOFTWARE DEVELOPER
--- OUTSIDE RECORDS SUMMARY | 2023-06-04 11:06 | XMS REPORT ---
Author Author Humble Ventura Organization [facility] Address [address] [place], [place] [id number] Care Team Providers Care Labor Relations Officer Name Role Phone Natalia Ventura PCP radha Unavailable Unavailable Tai Chavez Unavailable Unavailable Natalia Ventura PreferredProvider [phone] Allergies and Adverse Reactions Name Reaction Notes [...] hours as needed for nausea and vomiting Atorvastatin Calcium 80 MG Oral Tablet 05/17/2022 05/12/2023 Take 1 tablet by mouth once daily Montelukast Sodium 10 MG Oral Tablet 06/01/2022 [...] no more then 100mg in 24 hours lamoTRIgine 100 MG Oral Tablet 02/14/2023 Take 1 tablet by mouth once daily allopurinol 300 mg tablet 03/16/2023 03/10/2024 Take [...] Take 1 tablet by mouth twice daily Name Start Date Expiration Date SIG [...] tablet 07/25/2017 08/24/2017 Take one tab by [facility] every 12 hours as needed tramadol 50 [...] release (DR/EC) 11/19/2019 TAKE 1 TABLET BY [facility] TWICE DAILY omeprazole 40 mg oral capsule,delayed release(DR/EC) 01/04/2020 12/29/2020 TAKE 1 CAPSULE BY [facility] ONCE DAILY duplicate fluticasone propionate 50 mcg/actuation nasal spray,suspension 01/10/2020 USE 2 SPRAY(S) IN [facility] NOSTRIL ONCE DAILY NEEDED baclofen 10 mg oral tablet 03/06/2020 TAKE 1 TABLET BY [facility] THREE TIMES DAILY FOR 30 DAYS hydroxyzine HCl 25 mg oral tablet 03/10/2020 MAY TAKE 1 BY MOUTH AT BEDTIME OR NEEDED FOR ANXIETY/PANIC gabapentin oral 1200 mg daily atorvastatin 80 mg oral tablet 08/07/2020 05/04/2021 take 1 tablet (80 mg ) by oral route once daily for 90 days metFORMIN HCl 500 MG Oral Tablet 09/15/2020 03/14/2021 Take 1 tablet by [facility] once daily Rexulti 1 mg oral tablet 11/14/2020 05/13/2021 Blaze e 1 tablet by mouth once daily benzonatate 100 mg capsule 12/24/2020 02/04/2021 Take 1 capsule by [facility] three times daily as needed for cough [...] Release 10/09/2021 04/07/2022 TAKE 1 CAPSULE BY [facility] TWICE DAILY WITH FOOD amoxicillin-pot clavulanate [...] 03/03/2022 02/26/2023 Take 1 tablet by [facility] twice daily Potassium Chloride ER 10 MEQ Oral Capsule Extended Release 04/14/2022 10/11/2022 TAKE 1 CAPSULE BY [facility] TWICE DAILY WITH FOOD Furosemide 20 MG Oral Tablet 08/30/2022 08/25/2023 TAKE 1 TABLET BY [facility] AT NOON NEEDED FOR LOWER EXTREMITY SWELLING [...] 12:00 AM [facility] CHEST 2 VIEW Returned Results Summary Date and Description Results 11/01/2015 [...] 67GFR AA 81eGFR 67eGFR AA* >60 mL/min/1.73 [id number] YELLOWAPPEARANCE CLEARSPEC GRAV >=1.030pH 5.5PROTEIN 30GLUCOSE NEGATIVEKETONE [...] Of Immunizations Name Date Admin Mfg Name Mfg Code Trade Name Lot# Route Inj Vis Given Vis Pub CVX Influenza 017 [facility] SKB Flulaval quadrivalent [id number] Intramuscula r Left Deltoid 017 2014 158 Influenza 018 [facility] SKB Flulaval quadrivalent [id number] Intramuscula r Left Deltoid 018 2023 158 Tdap 018 [facility] SKB BOOSTRIX [id number] Intramuscula r Right Deltoid [...] Other obstructive and reflux uropathy Mar 15 201 9 1:26PM Depression Mar 13 2019 9:56AM [...] Sep 2020 10:21AM ELISEO (obstructive sleep apnea) Sep 2020 10:21A M Anal fistula Jun 03 2021 10:22AM Obesity Jun 15 2021 10:08AM ELISEO [...] 28 2022 11:31AM Type II diabetes mellitus Sep 2021 9:18AM Depression Sep 2021 9:18AM Hyperlipidemia Sep 2021 9:18AM Lumbar stenosis Sep 2021 9:18AM Fatigue Sep 2021 9:18AM Obesity Sep 2021 9:18AM ELISEO (obstructive sleep apnea) Sep 2021 9:18A M Neuropathy May 19 2022 9:18AM Screening for prostate cancer Sep 2021 9:18A M OAB (overactive bladder) Sep 2021 1:06PM BPH NOS w ur obs/LUTS May 19 2022 1:06PM Obesity May 19 2022 1:06PM BPH (benign prostatic hyperplasia) May 26 [...] Chronic renal failure May 11 2023 8:02AM Payers Insurance Name Company Name Plan Name Plan Number Policy Number Policy Group Number Start Date Medicare RHC Medicare RHC [id number] 2014 Cigna Medicare Supplement Cigna Medicare Supplement [id number] Monday, 2018 Medicare Part [place] [id number] N/A Medicare Part [place] [id number] September Standard Life Standard Life [id number] 2014 [employer] Financial Assistance [employer] 50 percent Saturday, September 05, 2015 Medicare RHC Medicare RHC [id number] N/ A Medicare Part A Medicare - Lab [id number] N/A History of Encounters Visit Date Visit Type Provider 05/03/2023 [facility] [employer] Natalia Bradfiel d APPOINTMENT SPECIALIST 04/28/2023 Office visit Natalia Bradfiel d APPOINTMENT SPECIALIST 04/04/2023 Office visit Natalia Bradfiel d APPOINTMENT SPECIALIST 02/28/2023 Office visit Natalia Bradfiel d APPOINTMENT SPECIALIST 02/10/2023 Office visit Natalia Bradfiel d APPOINTMENT SPECIALIST 01/24/2023 Office visit Natalia Bradfiel d APPOINTMENT SPECIALIST 01/11/2023 Office visit Natalia Bradfiel d APPOINTMENT SPECIALIST 01/05/2023 Office visit SANGEETA DEJEUSS APR N 12/30/2022 Office visit Natalia Bradfiel d APPOINTMENT SPECIALIST 12/27/2022 [facility] Mateus Saez MD 12/14/2022 Office visit Natalia Bradfiel d APPOINTMENT SPECIALIST 11/08/2022 Office visit Natalia Bradfiel d APPOINTMENT SPECIALIST 10/29/2022 Office visit Natalia Bradfiel d APPOINTMENT SPECIALIST 09/01/2022 Office visit Natalia Bradfiel d APPOINTMENT SPECIALIST 07/01/2022 Procedures Rakan Henderson 05/19/2022 Office visit Rakan Henderson 05/19/2022 Office visit Natalia Bradfiel d APPOINTMENT SPECIALIST 04/28/2022 Office visit Natalia Bradfiel d APPOINTMENT SPECIALIST 02/17/2022 Office visit Natalia Bradfiel d APPOINTMENT SPECIALIST 01/18/2022 Office visit Natalia Bradfiel d APPOINTMENT SPECIALIST 11/18/2021 Office visit Natalia Bradfiel d APPOINTMENT SPECIALIST 11/04/2021 Office visit Natalia Bradfiel d APPOINTMENT SPECIALIST 07/22/[address] Mauricio Cm MD 07/10/[address] [facility] [address] Mauricio Cm MD 06/15/2021 Office visit Natalia Bradfiel d APPOINTMENT SPECIALIST 06/03/[address] Mauricio Cm MD 05/21/[address] [facility] [address] Mauricio Cm MD 05/15/2021 Office visit Natalia Bradfiel d APPOINTMENT SPECIALIST 05/13/[address] Mauricio Cm MD 04/15/2021 Office visit Natalia Bradfiel d APPOINTMENT SPECIALIST 03/18/2021 Office visit SANGEETA DEJESUS APR N 03/16/2021 Office visit Natalia Bradfiel d APPOINTMENT SPECIALIST 02/17/2021 Office visit Natalia Bradfiel d APPOINTMENT SPECIALIST 01/12/2021 Office visit Natalia Bradfiel d APPOINTMENT SPECIALIST 12/30/2020 Office visit Natalia Bradfiel d APPOINTMENT SPECIALIST 12/17/2020 [facility] Christiano Yates MD 12/16/2020 [facility] Rubens Underwood MD 12/12/2020 Office visit Natalia Bradfiel d APPOINTMENT SPECIALIST 08/06/2020 Office visit Natalia Bradfiel d APPOINTMENT SPECIALIST 05/19/2020 Office visit Natalia Bradfiel d APPOINTMENT SPECIALIST 04/21/2020 Office visit Natalia Bradfiel d APPOINTMENT SPECIALIST 04/09/2020 Hospital Mateus Saez MD 04/07/2020 Office visit Natalia Bradfiel d APPOINTMENT SPECIALIST 03/12/2020 Office visit SANGEETA DEJESUS APR N 01/22/2020 Office visit Natalia Bradfiel d APPOINTMENT SPECIALIST 11/19/2019 Laboratory Krys clemente MD 10/29/2019 Office visit Natalia Bradfiel d APPOINTMENT SPECIALIST 10/17/2019 Office visit Sivarajesh Christian DO 10/12/2019 Office visit Natalia Bradfiel d APPOINTMENT SPECIALIST 10/08/2019 Office visit Natalia Bradfiel d APPOINTMENT SPECIALIST 09/27/2019 Office visit Natalia Bradfiel d APPOINTMENT SPECIALIST 09/13/2019 Office visit SANGEETA DEJESUS APR N 08/15/2019 Office visit Siva Albaa DO 07/12/2019 Office visit Siva Albaa DO 06/14/2019 Office visit SANGEETA DEJESUS APR N 06/13/2019 Laboratory Meme Maricruz A PRN 06/11/2019 Office visit Natalia Bradfiel d APPOINTMENT SPECIALIST 05/25/2019 Office visit Natalia Bradfiel d APPOINTMENT SPECIALIST 05/08/2019 Office visit Sivarajesh Albaa DO 04/04/2019 Office visit Natalia Bradfiel d APPOINTMENT SPECIALIST 2019 Laboratory Meme Maricruz A PRN 03/15/2019 Office visit SANGEETA DEJESUS APR N 03/13/2019 Office visit Natalia Bradfiel d APPOINTMENT SPECIALIST 01/30/2019 Office visit Sivarajesh Christian DO 01/03/2019 Laboratory Manny Caribou APR N 01/01/2019 Office visit Natalia Bradfiel d APPOINTMENT SPECIALIST 12/29/2018 Office visit Sivarajesh Christian DO 12/28/2018 Office visit Rakan Henderson 12/26/2018 Surgery Rakan Henderson 12/22/2018 Office visit Mateus Saez MD 12/22/2018 Laboratory Manny Caribou APR N 11/27/2018 Procedures Rakan Henderson 11/17/2018 Office visit Sivarajesh Christian DO 11/02/2018 Office visit Rakan Henderson 09/28/2018 Office visit Siva Christian DO 09/12/2018 Office visit Sivarajesh Albaa DO 07/21/2018 Office visit Natalia Bradfiel d APPOINTMENT SPECIALIST 06/09/2018 Office visit Natalia Bradfiel d APPOINTMENT SPECIALIST 06/08/2018 Office visit Natalia Bradfiel d APPOINTMENT SPECIALIST 05/31/2018 Office visit Natalia Bradfiel d APPOINTMENT SPECIALIST 05/29/2018 Nurse visit Natalia Bradfiel d APPOINTMENT SPECIALIST 05/23/2018 Procedures Natalia Bradfiel d APPOINTMENT SPECIALIST 05/15/2018 Office visit Natalia Bradfiel d APPOINTMENT SPECIALIST 03/17/2018 Office visit Natalia Bradfiel d APPOINTMENT SPECIALIST 03/13/2018 Office visit Natalia Bradfiel d APPOINTMENT SPECIALIST 12/15/2017 Office visit Natalia Bradfiel d APPOINTMENT SPECIALIST 10/22/2017 Office visit Natalia Bradfiel d APPOINTMENT SPECIALIST 08/15/2017 Laboratory Natalia Bradfiel d APPOINTMENT SPECIALIST 08/10/2017 Office visit Natalia Bradfiel d APPOINTMENT SPECIALIST 07/19/2017 Office visit Natalia Bradfiel d APPOINTMENT SPECIALIST 06/13/2017 Office visit Natalia Bradfiel d APPOINTMENT SPECIALIST 06/11/2017 Office visit Manny Whitman APR N 02/07/2017 Office visit Natalia Bradfiel d APPOINTMENT SPECIALIST 01/05/2017 Office visit Natalia Bradfiel d APPOINTMENT SPECIALIST 11/15/2016 Office visit Natalia Bradfiel d APPOINTMENT SPECIALIST 09/18/2016 Office visit Natalia Bradfiel d APPOINTMENT SPECIALIST 09/14/2016 Office visit Meme Wlilis PRN 08/27/2016 Office visit Natalia Bradfiel d APPOINTMENT SPECIALIST 06/25/2016 Office visit Natalia Bradfiel d APPOINTMENT SPECIALIST 05/06/2016 Office visit Natalia Bradfiel d APPOINTMENT SPECIALIST 04/14/2016 Office visit Meme Willis PRN 04/12/2016 Laboratory Natalia Bradfiel d APPOINTMENT SPECIALIST 03/30/2016 Office visit Meme Willis PRN 03/03/2016 Nurse visit Meme Willis PRN 02/21/2016 Office visit Natalia Bradfiel d APPOINTMENT SPECIALIST 02/05/2016 [facility] Kartik Lipscomb MD 01/27/2016 Office visit Kartik Lipscomb MD 12/02/2015 Office visit Natalia Bradfiel d APPOINTMENT SPECIALIST 11/14/2015 Office visit Natalia Bradfiel d APPOINTMENT SPECIALIST 11/01/2015 Office visit Natalia Bradfiel d APPOINTMENT SPECIALIST 11/01/2015 Laboratory Natalia Bradfiel d APPOINTMENT SPECIALIST 10/31/2015 Office visit Natalia Bradfiel d APPOINTMENT SPECIALIST 10/11/2015 Office visit Meme Willis PRN 10/03/2015 Office visit Natalia Bradfiel d APPOINTMENT SPECIALIST
--- OUTSIDE RECORDS SUMMARY | 2023-06-04 11:07 | XMS REPORT ---
Author Author Humble Ventura Organization [facility] Address [address] [place], [place] [id number] Care Team Providers Care Sole Cementer Name Role Phone Natalia Ventura PCP radha [...] tablet 07/25/2017 08/24/2017 Take one tab by [facility] every 12 hours as needed tramadol 50 [...] release (DR/EC) 11/19/2019 TAKE 1 TABLET BY [facility] TWICE DAILY omeprazole 40 mg oral capsule,delayed release(DR/EC) 01/04/2020 12/29/2020 TAKE [address] [facility] ONCE DAILY duplicate fluticasone propionate 50 mcg/actuation nasal spray,suspension 01/10/2020 USE 2 SPRAY(S) IN [facility] NOSTRIL ONCE DAILY NEEDED baclofen 10 mg oral tablet 03/06/2020 TAKE 1 TABLET BY [facility] THREE TIMES DAILY FOR 30 DAYS hydroxyzine [...] capsule 12/24/2020 02/04/2021 Take 1 capsule by [facility] three times daily as needed for cough [...] Release 10/09/2021 04/07/2022 TAKE [address] [facility] TWICE DAILY WITH FOOD amoxicillin-pot clavulanate 875-125 [...] 04/14/2022 10/11/2022 TAKE 1 CAPSULE BY [facility] TWICE DAILY WITH FOOD Furosemide 20 MG [...] at bedtime as needed for insomnia. Medrol (Orman) 4 mg oral tablets,dose pack 01/05/2017 02/07/2017 [...] 67GFR AA 81eGFR 67eGFR AA* >60 mL/min/1.73 [id number] YELLOWAPPEARANCE CLEARSPEC GRAV >=1.030pH 5.5PROTEIN 30GLUCOSE NEGATIVEKETONE [...] Vis Given Vis Pub CVX Influenza 017 [facility] SKB Flulaval quadrivalent [id number] Intramuscula r Left Deltoid 017 2014 158 [facility] Flulaval quadrivalent 3PM59 Intramuscula r Left Deltoid 018 2023 158 Tdap 018 [facility] SK[facility] BOOSTRIX [id number] Intramuscula r Right [...] Number Start Date Medicare RHC Medicare RHC [id number] 2014 Cigna Medicare Supplement Cigna Medicare Supplement [id number] Monday, 2018 Medicare Part B [place] [id number] N/A Medicare Part B [place] [id number] September Standard Life Standard Life [id number] 2014 [employer] Financial Assistance [employer] 50 percent Saturday, September 05, 2015 Medicare RHC Medicare RHC [id number] N/ A Medicare Part A Medicare - Lab [id number] N/A History of Encounters Visit Date Visit Type Provider 04/28/2023 Office visit Natalia Bradfiel d HARP MAKER 04/04/2023 Office visit Natalia Bradfiel d HARP MAKER 02/28/2023 Office visit Natalia Bradfiel d HARP MAKER 02/10/2023 Office visit Natalia Bradfiel d HARP MAKER 01/24/2023 Office visit Natalia Bradfiel d HARP MAKER 01/11/2023 Office visit Natalia Bradfiel d HARP MAKER 01/05/2023 Office visit SANGEETA DEJESUS APR N 12/30/2022 Office visit Natalia Bradfiel d HARP MAKER 12/27/2022 [facility] Mateus Saez MD 12/14/2022 Office visit Natalia Bradfiel d HARP MAKER 11/08/2022 Office visit Natalia Bradfiel d HARP MAKER 10/29/2022 Office visit Natalia Bradfiel d HARP MAKER 09/01/2022 Office visit Natalia Bradfiel d HARP MAKER 07/01/2022 Procedures Rakan Henderson 05/19/2022 Office visit Rakan Henderson 05/19/2022 Office visit Natalia Bradfiel d HARP MAKER 04/28/2022 Office visit Natalia Bradfiel d HARP MAKER 02/17/2022 Office visit Natalia Bradfiel d HARP MAKER 01/18/2022 Office visit Natalia Bradfiel d HARP MAKER 11/18/2021 Office visit Natalia Bradfiel d HARP MAKER 11/04/2021 Office visit Natalia Bradfiel d HARP MAKER 07/22/[address] Mauricio Cm MD 07/10/[address] [facility] [address] Mauricio Cm MD 06/15/2021 Office visit Natalia Bradfiel d HARP MAKER 06/03/[address] Mauricio Cm MD 05/21/[address] [facility] [address] Mauricio Cm MD 05/15/2021 Office visit Natalia Bradfiel d HARP MAKER 05/13/[address] Mauricio Cm MD 04/15/2021 Office visit Natalia Bradfiel d HARP MAKER 03/18/2021 Office visit SANGEETA DEJESUS APR N 03/16/2021 Office visit Natalia Bradfiel d HARP MAKER 02/17/2021 Office visit Natalia Bradfiel d HARP MAKER 01/12/2021 Office visit Natalia Bradfiel d HARP MAKER 12/30/2020 Office visit Natalia Bradfiel d HARP MAKER 12/17/2020 Hospital Christiano Yates MD 12/16/2020 [facility] Rubens Underwood MD 12/12/2020 Office visit Natalia Bradfiel d HARP MAKER 08/06/2020 Office visit Natalia Bradfiel d HARP MAKER 05/19/2020 Office visit Natalia Bradfiel d HARP MAKER 04/21/2020 Office visit Natalia Bradfiel d HARP MAKER 04/09/2020 Hospital Mateus Saez MD 04/07/2020 Office visit Natalia Bradfiel d HARP MAKER 03/12/2020 Office visit SANGEETA DEJESUS APR N 01/22/2020 Office visit Natalia Bradfiel d HARP MAKER 11/19/2019 Laboratory Krys clemente MD 10/29/2019 Office visit Natalia Bradfiel d HARP MAKER 10/17/2019 Office visit Siva Christian DO 10/12/2019 Office visit Natalia Bradfiel d HARP MAKER 10/08/2019 Office visit Natalia Bradfiel d HARP MAKER 09/27/2019 Office visit Natalia Bradfiel d HARP MAKER 09/13/2019 Office visit SANGEETA DEJESUS APR N 08/15/2019 Office visit Siva Christian DO 07/12/2019 Office visit Siva Christian DO 06/14/2019 Office visit SANGEETA DEJESUS APR N 06/13/2019 Laboratory Meme McCaffery A PRN 06/11/2019 Office visit Natalia Bradfiel d HARP MAKER 05/25/2019 Office visit Natalia Bradfiel d HARP MAKER 05/08/2019 Office visit Siva Christian DO 04/04/2019 Office visit Natalia Bradfiel d HARP MAKER 2019 Laboratory Meme McCaffery A PRN 03/15/2019 Office visit SANGEETA DEJESUS APR N 03/13/2019 Office visit Natalia Bradfiel d HARP MAKER 01/30/2019 Office visit Siva Christian DO 01/03/2019 Laboratory Manny Antonette APR N 01/01/2019 Office visit Natalia Bradfiel d HARP MAKER 12/29/2018 Office visit Siva Christian DO 12/28/2018 Office visit Rakan Henderson 12/26/2018 Surgery Rakan Henderson 12/22/2018 Office visit Mateus Saez MD 12/22/2018 Laboratory Manny Cal[place] APR N 11/27/2018 Procedures Rakan Henderson 11/17/2018 Office visit Siva Christian DO 11/02/2018 Office visit Rakan Henderson 09/28/2018 Office visit Siva Christian DO 09/12/2018 Office visit Siva Christian DO 07/21/2018 Office visit Natalia Bradfiel d HARP MAKER 06/09/2018 Office visit Natalia Bradfiel d HARP MAKER 06/08/2018 Office visit Natalia Bradfiel d HARP MAKER 05/31/2018 Office visit Natalia Bradfiel d HARP MAKER 05/29/2018 Nurse visit Natalia Bradfiel d HARP MAKER 05/23/2018 Procedures Natalia Bradfiel d HARP MAKER 05/15/2018 Office visit Natalia Bradfiel d HARP MAKER 03/17/2018 Office visit Natalia Bradfiel d HARP MAKER 03/13/2018 Office visit Natalia Bradfiel d HARP MAKER 12/15/2017 Office visit Natalia Bradfiel d HARP MAKER 10/22/2017 Office visit Natalia Bradfiel d HARP MAKER 08/15/2017 Laboratory Natalia Bradfiel d HARP MAKER 08/10/2017 Office visit Natalia Bradfiel d HARP MAKER 07/19/2017 Office visit Natalia Bradfiel d HARP MAKER 06/13/2017 Office visit Natalia Bradfiel d HARP MAKER 06/11/2017 Office visit Manny Whitman APR N 02/07/2017 Office visit Natalia Bradfiel d HARP MAKER 01/05/2017 Office visit Natalia Bradfiel d HARP MAKER 11/15/2016 Office visit Natalia Bradfiel d HARP MAKER 09/18/2016 Office visit Natalia Bradfiel d HARP MAKER 09/14/2016 Office visit Meme Willis PRN 08/27/2016 Office visit Natalia Bradfiel d HARP MAKER 06/25/2016 Office visit Natalia Bradfiel d HARP MAKER 05/06/2016 Office visit Natalia Bradfiel d HARP MAKER 04/14/2016 Office visit Meme Willis PRN 04/12/2016 Laboratory Natalia Bradfiel d HARP MAKER 03/30/2016 Office visit Meme Willis PRN 03/03/2016 Nurse visit Meme Willis PRN 02/21/2016 Office visit Natalia Bradfiel d HARP MAKER 02/05/2016 Hospital Kartik Lipscomb MD 01/27/2016 Office visit Kartik Lipscomb MD 12/02/2015 Office visit Natalia Bradfiel d HARP MAKER 11/14/2015 Office visit Natalia Bradfiel d HARP MAKER 11/01/2015 Office visit Natalia Bradfiel d HARP MAKER 11/01/2015 Laboratory Natalia Bradfiel d HARP MAKER 10/31/2015 Office visit Natalia Bradfiel d HARP MAKER 10/11/2015 Office visit Meme Willis PRN 10/03/2015 Office visit Natalia Bradfiel d HARP MAKER
--- OUTSIDE RECORDS SUMMARY | 2023-06-04 11:07 | XMS REPORT ---
Author Author Humble Ventura Organization [facility] Address [address] [place], [place] [id number] Care Team Providers Care Body Make Up Artist Name Role Phone Natalia Ventura PCP radha Unavailable Unavailable Tai Chavez Unavailable Unavailable Natalia Ventura PreferredProvider [phone] Allergies and Adverse Reactions Name Reaction Notes [...] 12:00 AM PSA TOTAL 07/08/2023 12:00 AM CBC W/ AUTO DIFF (RFLX MAN DIFF IF IND). 05/10/20 12:00 AM BMP 05/10/2023 12:00 AM ZC CHEST 2 VIEW 05/10/2023 12:00 AM Medications Active Name Start Date [...] tablet 07/25/2017 08/24/2017 Take one tab by [facility] every 12 hours as needed tramadol 50 [...] release (DR/EC) 11/19/2019 [facility] omeprazole 40 mg oral capsule,delayed release(DR/EC) 01/04/2020 12/29/2020 TAKE 1 CAPSULE BY [facility] ONCE DAILY duplicate fluticasone propionate 50 mcg/actuation [...] Rexulti 1 mg oral tablet 11/14/2020 05/13/2021 Lbaze e 1 tablet by mouth once daily benzonatate 100 mg capsule 12/24/2020 02/04/2021 Take 1 capsule by [facility] three times daily as needed for cough [...] Release 10/09/2021 04/07/2022 TAKE 1 CAPSULE BY [facility] TWICE DAILY WITH FOOD amoxicillin-pot clavulanate 875-125 [...] 04/14/2022 10/11/2022 TAKE 1 CAPSULE BY [facility] TWICE DAILY WITH FOOD Furosemide 20 MG [...] rpm 97.7 F 305 lbs 94 % 021 2:34: 00 PM 142 mm[Hg] 78 mm[Hg] [...] rpm 97.2 F 398 lbs 95 % 020 2:33: 00 PM 138 mm[Hg] 72 mm[Hg] 80 {beats}/ min 20 rpm 98.2 F 308 .75 lbs 69 in 45.5 939 kg/m 2 2.61 11 m2 94 % 020 8:51: 00 AM 79 {beats}/ min 18 [...] 98.6 F 303 .75 lbs 96 % 3:47: 00 PM 132 mm[Hg] 78 mm[Hg] 81 {beats}/ min 97.9 F 309 lbs 69 in 45.6 309 kg/m 2 2.61 22 m2 96 % 2018 10:54 :00 AM 140 mm[Hg] 73 mm[Hg] 78 {beats}/ min 16 rpm 97.9 F 306 .75 lbs 69 in 45.3 0 kg/m 2 2.60 m2 95 % 019 9:53: 00 AM 150 mm[Hg] 66 mm[Hg] [...] Reviewed 02/07/2017 12:00 AM Decadron 8mg Injection, [facility] dicare Reviewed 02/07/2017 12:00 AM THERAPEUTIC PROPHYLACTIC/DX IN JECTION SUBQ/IM Reviewed 06/11/2017 12:00 AM Toradol 60 Mg Injection Revie tue06/11/2017 12:00 AM THER/PROPH/DIAG INJ SC/IM Rev iewed 06/13/2017 12:00 AM Decadron 8mg Injection, R[facility] M edicare Reviewed 06/13/2017 12:00 AM Depo-Medrol 80mg Injection, R Medicare Reviewed 06/13/2017 12:00 AM Toradol 30 [...] 11/02/2018 12:00 AM URINALYSIS AUTO W/SCOPE Revie tue11/27/2018 12:00 AM CYSTOSCOPY Reviewed 12/22/2018 12:00 AM ELECTROCARDIOGRAM TRACING Rev iewed 12/22/2018 12:00 AM METABOLIC PANEL TOTAL CA Revi ewed 12/22/2018 12:00 AM COMPLETE CBC W/AUTO DIFF WBC Reviewed 12/22/2018 12:00 AM URINALYSIS AUTO W/SCOPE Revie tue12/22/2018 12:00 AM COLLECTION VENOUS BLOOD VENIP UNCTURE [...] 04/28/2023 1:36 PM COVID Rapid Testing Reviewed Results Summary Date and Description Results [...] 67GFR AA 81eGFR 67eGFR AA* >60 mL/min/1.73 [id number] YELLOWAPPEARANCE CLEARSPEC GRAV >=1.030pH 5.5PROTEIN 30GLUCOSE NEGATIVEKETONE [...] Detected History Of Immunizations Name Date Admin [facility] Name Mf Code Trade Name Lot# Route Inj Vis Given Vis Pub CVX Influenza 017 Tiragiu judson QUAN Flulaval quadrivalent [id number] Intramuscula r Left Deltoid 017 2014 158 Influenza 018 Tiragiu ine SKB Flulaval quadrivalent [id number] Intramuscula r Left Deltoid 018 2023 158 Tdap 018 [facility] judson SKB BOOSTRIX [id number] Intramuscula r Right [...] pain Oct 17 2019 9:34AM Sacral pain b 2019 9:34AM Spasm Oct 17 2019 9:34AM Chronic pain syndrome Oct 17 2019 9:34AM Lumbar spondylosis b 2019 9:34AM Recurrent acute suppurative otitis media [...] apnea) Sep 2020 10:21A M Anal fistula Sep 2020 10:22AM Obesity Jun 15 2021 10:08AM ELISEO (obstructive sleep apnea) Jun 15 2021 10:08A M Anal fistula Jul 08 2021 11:56AM Anal fistula Jul 22 2021 9:01AM Hyperlipidemia Nov 04 2021 10:08AM Fatigue Nov 04 2021 10:08AM Diabetes mellitus, type II Mar 2021 10:08AM Elevated liver enzymes Nov 04 2021 10:08AM Hypertension Mar 2021 10:08AM Obesity Nov 04 2021 10:08AM [...] 2021 9:18AM Fatigue Sep 2021 9:18AM Obesity May 19 2022 9:18AM ELISEO (obstructive sleep apnea) May 19 2022 9:18A M Neuropathy May 19 2022 9:18AM Screening for prostate cancer May 19 2022 9:18A M OAB (overactive bladder) May 19 2022 1:06PM BPH NOS w ur obs/LUTS May [...] 1 :22PM Cough May 10 2023 1:12PM Payers Insurance Name Company Name Plan Name Plan Number Policy Number Policy Group Number Start Date Medicare RHC Medicare RHC [id number] 2014 Cign[employer] Medicare Supplement Cigna Medicare Supplement [id number] Monday, 2018 Medicare Part [place] [id number] N/A Medicare Part [place] [id number] September Standard Life Standard Life [id number] 2014 [employer] Financial Assistance [employer] Financial [employer] 50 percent Saturday, September 05, 2015 Medicare RHC Medicare RHC [id number] N/ A Medicare Part A Medicare - Lab [id number] N/A History of Encounters Visit Date Visit Type Provider 04/28/2023 Office visit Natalia Bradfiel d INSTRUCTIONAL DEVELOPER 04/04/2023 Office visit Natalia Bradfiel d INSTRUCTIONAL DEVELOPER 02/28/2023 Office visit Natalia Bradfiel d INSTRUCTIONAL DEVELOPER 02/10/2023 Office visit Natalia Bradfiel d INSTRUCTIONAL DEVELOPER 01/24/2023 Office visit Natalia Bradfiel d INSTRUCTIONAL DEVELOPER 01/11/2023 Office visit Natalia Bradfiel d INSTRUCTIONAL DEVELOPER 01/05/2023 Office visit SANGEETA DEJESUS APR N 12/30/2022 Office visit Natalia Bradfiel d INSTRUCTIONAL DEVELOPER 12/27/2022 [facility] Mateus Saez MD 12/14/2022 Office visit Natalia Bradfiel d INSTRUCTIONAL DEVELOPER 11/08/2022 Office visit Natalia Bradfiel d INSTRUCTIONAL DEVELOPER 10/29/2022 Office visit Natalia Bradfiel d INSTRUCTIONAL DEVELOPER 09/01/2022 Office visit Natalia Bradfiel d INSTRUCTIONAL DEVELOPER 07/01/2022 Procedures Rakan Henderson 05/19/2022 Office visit Rakan Henderson 05/19/2022 Office visit Natalia Bradfiel d INSTRUCTIONAL DEVELOPER 04/28/2022 Office visit Natalia Bradfiel d INSTRUCTIONAL DEVELOPER 02/17/2022 Office visit Natalia Bradfiel d INSTRUCTIONAL DEVELOPER 01/18/2022 Office visit Natalia Bradfiel d INSTRUCTIONAL DEVELOPER 11/18/2021 Office visit Natalia Bradfiel d INSTRUCTIONAL DEVELOPER 11/04/2021 Office visit Natalia Bradfiel d INSTRUCTIONAL DEVELOPER 07/22/[address] Mauricio Cm MD 07/10/2021 [facility] [address]. Mauricio Cm MD 06/15/2021 Office visit Natalia Bradfiel d INSTRUCTIONAL DEVELOPER 06/03/[address] Mauricio Cm MD 05/21/[address] Mauricio Cm MD 05/15/2021 Office visit Natalia Bradfiel d INSTRUCTIONAL DEVELOPER 05/13/[address] Mauricio Cm MD 04/15/2021 Office visit Natalia Bradfiel d INSTRUCTIONAL DEVELOPER 03/18/2021 Office visit SANGEETA DEJESUS APR N 03/16/2021 Office visit Natalia Bradfiel d INSTRUCTIONAL DEVELOPER 02/17/2021 Office visit Natalia Bradfiel d INSTRUCTIONAL DEVELOPER 01/12/2021 Office visit Natalia Bradfiel d INSTRUCTIONAL DEVELOPER 12/30/2020 Office visit Natalia Bradfiel d INSTRUCTIONAL DEVELOPER 12/17/2020 [facility] Christiano Yates MD 12/16/2020 [facility] Rubens Underwood MD 12/12/2020 Office visit Natalia Bradfiel d INSTRUCTIONAL DEVELOPER 08/06/2020 Office visit Natalia Bradfiel d INSTRUCTIONAL DEVELOPER 05/19/2020 Office visit Natalia Bradfiel d INSTRUCTIONAL DEVELOPER 04/21/2020 Office visit Natalia Bradfiel d INSTRUCTIONAL DEVELOPER 04/09/2020 Hospital Mateus Saez MD 04/07/2020 Office visit Natalia Bradfiel d INSTRUCTIONAL DEVELOPER 03/12/2020 Office visit SANGEETA DEJESUS APR N 01/22/2020 Office visit Natalia Bradfiel d INSTRUCTIONAL DEVELOPER 11/19/2019 Laboratory Krys clemente MD 10/29/2019 Office visit Natalia Bradfiel d INSTRUCTIONAL DEVELOPER 10/17/2019 Office visit Sivarajesh Christian DO 10/12/2019 Office visit Natalia Bradfiel d INSTRUCTIONAL DEVELOPER 10/08/2019 Office visit Natalia Bradfiel d INSTRUCTIONAL DEVELOPER 09/27/2019 Office visit Natalia Bradfiel d INSTRUCTIONAL DEVELOPER 09/13/2019 Office visit SANGEETA DEJESUS APR N 08/15/2019 Office visit Siva Albaa DO 07/12/2019 Office visit Sivarajesh Albaa DO 06/14/2019 Office visit SANGEETA DEJESUS APR N 06/13/2019 Laboratory Meme Melecioery A PRN 06/11/2019 Office visit Natalia Bradfiel d INSTRUCTIONAL DEVELOPER 05/25/2019 Office visit Natalia Bradfiel d INSTRUCTIONAL DEVELOPER 05/08/2019 Office visit Sivarajesh Albaa DO 04/04/2019 Office visit Natalia Bradfiel d INSTRUCTIONAL DEVELOPER 2019 Laboratory Meme Denaffery A PRN 03/15/2019 Office visit SANGEETA DEJESUS APR N 03/13/2019 Office visit Natalia Bradfiel d INSTRUCTIONAL DEVELOPER 01/30/2019 Office visit Sivarajesh Albaa DO 01/03/2019 Laboratory Manny Cole APR N 01/01/2019 Office visit Natalai Bradfiel d INSTRUCTIONAL DEVELOPER 12/29/2018 Office visit Sivarajesh Christian DO 12/28/2018 Office visit Rakan Henderson 12/26/2018 Surgery Rakan Henderson 12/22/2018 Office visit Mateus Saez MD 12/22/2018 Laboratory Manny Antonette APR N 11/27/2018 Procedures Rakan Henderson 11/17/2018 Office visit Siva Albaa DO 11/02/2018 Office visit Rakan Henderson 09/28/2018 Office visit Siva Christian DO 09/12/2018 Office visit Siva Albaa DO 07/21/2018 Office visit Natalia Bradfiel d INSTRUCTIONAL DEVELOPER 06/09/2018 Office visit Natalia Bradfiel d INSTRUCTIONAL DEVELOPER 06/08/2018 Office visit Natalia Bradfiel d INSTRUCTIONAL DEVELOPER 05/31/2018 Office visit Natalia Bradfiel d INSTRUCTIONAL DEVELOPER 05/29/2018 Nurse visit Natalia Bradfiel d INSTRUCTIONAL DEVELOPER 05/23/2018 Procedures Natalia Bradfiel d INSTRUCTIONAL DEVELOPER 05/15/2018 Office visit Natalia Bradfiel d INSTRUCTIONAL DEVELOPER 03/17/2018 Office visit Natalia Bradfiel d INSTRUCTIONAL DEVELOPER 03/13/2018 Office visit Natalia Bradfiel d INSTRUCTIONAL DEVELOPER 12/15/2017 Office visit Natalia Bradfiel d INSTRUCTIONAL DEVELOPER 10/22/2017 Office visit Natalia Bradfiel d INSTRUCTIONAL DEVELOPER 08/15/2017 Laboratory Natalia Bradfiel d INSTRUCTIONAL DEVELOPER 08/10/2017 Office visit Natalia Bradfiel d INSTRUCTIONAL DEVELOPER 07/19/2017 Office visit Natalia Bradfiel d INSTRUCTIONAL DEVELOPER 06/13/2017 Office visit Natalia Bradfiel d INSTRUCTIONAL DEVELOPER 06/11/2017 Office visit Manny Whitman APR N 02/07/2017 Office visit Natalia Bradfiel d INSTRUCTIONAL DEVELOPER 01/05/2017 Office visit Natalia Bradfiel d INSTRUCTIONAL DEVELOPER 11/15/2016 Office visit Natalia Bradfiel d INSTRUCTIONAL DEVELOPER 09/18/2016 Office visit Natalia Bradfiel d INSTRUCTIONAL DEVELOPER 09/14/2016 Office visit Meme Willis PRN 08/27/2016 Office visit Natalia Bradfiel d INSTRUCTIONAL DEVELOPER 06/25/2016 Office visit Natalia Bradfiel d INSTRUCTIONAL DEVELOPER 05/06/2016 Office visit Natalia Bradfiel d INSTRUCTIONAL DEVELOPER 04/14/2016 Office visit Meme Willis PRN 04/12/2016 Laboratory Natalia Bradfiel d INSTRUCTIONAL DEVELOPER 03/30/2016 Office visit Meme Willis PRN 03/03/2016 Nurse visit Meme Willis PRN 02/21/2016 Office visit Natalia Bradfiel d INSTRUCTIONAL DEVELOPER 02/05/2016 Hospital Kartik Lipscomb MD 01/27/2016 Office visit Kartik Lipscomb MD 12/02/2015 Office visit Natalia Bradfiel d INSTRUCTIONAL DEVELOPER 11/14/2015 Office visit Natalia Bradfiel d INSTRUCTIONAL DEVELOPER 11/01/2015 Office visit Natalia Bradfiel d INSTRUCTIONAL DEVELOPER 11/01/2015 Laboratory Natalia Bradfiel d INSTRUCTIONAL DEVELOPER 10/31/2015 Office visit Natalia Bradfiel d INSTRUCTIONAL DEVELOPER 10/11/2015 Office visit Meme Willis PRN 10/03/2015 Office visit Natalia Bradfiel d INSTRUCTIONAL DEVELOPER
[2023-06-04] MEDS ORDERED: BENZ200C51 PO (11:08)
[2023-06-04] MEDS ORDERED: DIPH25CA79 PO ×2 (11:08→12:28)
[2023-06-04] MEDS ORDERED: ATOR80TA76 PO (11:08)
[2023-06-04] MEDS ORDERED: CARV12.53 PO (11:08)
[2023-06-04] MEDS ORDERED: BACL10TA PO (11:08)
--- OUTSIDE RECORDS SUMMARY | 2023-06-04 11:08 | XMS REPORT ---
Author Author Humble Ventura Organization [facility] Address [address] [place], [place] [id number] Care Team Providers Care Cardiac Rehab Nurse Name Role Phone Natalia Ventura PCP radha Unavailable Unavailable Tai Chavez Unavailable Unavailable Natalia Ventura PreferredProvider [phone] Allergies and Adverse Reactions Name Reaction Notes [...] 9:30 AM Colonoscopy screening 12/09/2015 1:30 PM PSA TOTAL 03/13/2020 12:00 AM hand paresthesia and weakness 04/09/2016 8:00 A M CTS bilat 05/06/2016 12:00 AM POTASSIUM 05/19/2020 12:00 AM Palpitations 07/28/2016 1:15 PM CMP 11/06/2021 12:00 AM Hepatitis B and C screen 11/06/2021 12:00 AM PSA TOTAL 07/08/2023 12:00 AM Medications Active Name Start Date Estimated Comple tion Date SIG Comments allopurinol 300 mg tablet 02/22/2022 02/17/2023 Take 1 tablet by mouth once daily Diclofenac Sodium 75 MG Oral Tablet Delayed Release 03/03/2022 02/26/2023 Take 1 tablet by mouth twice daily ondansetron HCl oral tablet 4 mg 04/28/2022 [...] MOUTH THREE TIMES DAILY FOR 30 DAYS Gabapentin 600 MG Oral Tablet 09/20/2022 03/19/2023 Take 1 tablet by mouth twice daily Lisinopril 40 MG Oral Tablet 10/03/2022 Take [...] inhalation route every 6 hours as needed benzonatate oral capsule 200 mg 11/08/2022 take 1 capsule (200 mg) by oral route 3 times per day as needed for cough Carvedilol 12.5 MG Oral Tablet 11/08/2022 Take [...] Take 1 capsule by mouth once daily prednisone 10 mg tablet take 1 tablet (10 mg) by oral route 3 times per day Augmentin 500 mg-125 mg tablet take 1 tablet by ora l route every 12 hours topiramate XR 25 mg capsule sprinkle,extended release 24 hr 01/24/2023 04/24/2023 take 1 capsule (25 mg) by oral route once daily at bedtime sumatriptan 25 mg tablet 01/24/2023 take 1 tablet (25 mg ) once after onset of headache, may repeat once in 2 hours; no more then 100mg in 24 hours tramadol 50 mg tablet 01/24/2023 02/14/2023 May ta ke 1-2 tablets by mouth once every 12 hours as needed for back pain. Dx spinal stenosis, lumbago, cervical disc disease Omeprazole 40 MG Oral Capsule Delayed Release 02/01/2023 Take 1 capsule b y mouth once daily lamoTRIgine 100 MG Oral Tablet 02/14/2023 Take [...] tablet 07/25/2017 08/24/2017 Take one tab by [facility] every 12 hours as needed [...] release (DR/EC) 11/19/2019 TAKE 1 TABLET BY [facility] TWICE DAILY omeprazole 40 mg oral capsule,delayed release(DR/EC) 01/04/2020 12/29/2020 TAKE 1 CAPSULE BY [facility] ONCE DAILY duplicate fluticasone propionate 50 mcg/actuation [...] capsule 12/24/2020 02/04/2021 Take 1 capsule by [facility] three times daily as needed [...] Release 10/09/2021 04/07/2022 TAKE 1 CAPSULE BY [facility] TWICE DAILY WITH FOOD amoxicillin-pot clavulanate [...] 1 capsule b y mouth once daily Potassium Chloride ER 10 MEQ Oral Capsule Extended Release 04/14/2022 10/11/2022 TAKE 1 CAPSULE BY [facility] TWICE DAILY WITH FOOD Furosemide 20 MG Oral Tablet 08/30/2022 08/25/2023 [facility]T [facility] NEEDED FOR LOWER EXTREMITY SWELLING (TO BE TAKEN IN ADDITION TO DAILY 40 MG DOSE) amoxicillin-pot clavulanate oral tablet 875-125 mg 09/01/2022 09/08/2022 take 1 tablet by ora l route every 12 hours for 7 days doxycycline hyclate 100 mg tablet 10/29/2022 11/08/2022 take 1 tablet (100 m g) by oral route 2 times per day for 10 days Discontinued Name Start Date Discontinued Date [...] TABLET BY MOUTH ONCE DAILY oxycodone 10 01/12/2021 Taking 1 t ab every 6 [...] Active 11/01/2015 Sleep apnea Active 11/01/2015 Hypertension, Essential Active 6 Depression Active 11/15/2015 Vital Signs Date Time BP-Sys(mm[Hg] BP-Peyton(mm[Hg]) HR(bpm) RR(rpm) Temp WT HT HC BMI BSA BMI Percentile O2 Sat(%) 023 10:07 :00 AM 132 mm[Hg] 66 [...] 306 .56 2 lbs 69 in 45.2 709 kg/m 2 2.60 19 m2 98 % 2022 9:24: 00 AM [...] kg/m 2 2.54 8 m2 95 % 10:13 :00 AM 142 mm[Hg] 64 mm[Hg] [...] rpm 97.9 F 303 lbs 96 % 020 11:22 :00 AM 116 mm[Hg] 72 mm[Hg] [...] 12:00 AM Toradol 60 Mg Injection Revie wed 09/18/2016 12:00 AM THER/PROPH/DIAG INJ SC/IM Rev iewed 11/15/2016 12:00 AM THERAPEUTIC PROPHYLACTIC/DX I NJECTION SUBQ/IM Reviewed 11/15/2016 12:00 AM Decadron 8mg Injection, [facility] edicare Reviewed 11/15/2016 12:00 AM Depo Medrol 40mg Injection, R Medicare Reviewed 02/07/2017 12:00 AM Depo-Medrol 80mg Injection, [facility] Medicare Reviewed 02/07/2017 12:00 AM Decadron 8mg Injection, [facility] dicare Reviewed 02/07/2017 12:00 AM THERAPEUTIC PROPHYLACTIC/DX IN JECTION SUBQ/IM Reviewed 06/11/2017 12:00 AM Toradol 60 Mg Injection Revie wed 06/11/2017 12:00 AM THER/PROPH/DIAG INJ SC/IM Rev iewed 06/13/2017 12:00 AM Decadron 8mg Injection, [facility] edicare Reviewed 06/13/2017 12:00 AM Depo-Medrol 80mg Injection, R Medicare Reviewed 06/13/2017 12:00 AM Toradol 30 Mg Injection, [facility] Medicare Reviewed 06/13/2017 12:00 AM X-RAY EXAM OF HIP Returned 06/13/2017 12:00 AM Physical Therapy Consult Revi ewed 08/10/2017 12:00 AM IM ADM PRQ ID SUBQ/IM NJXS 1 VACCINE Reviewed 08/10/2017 12:00 AM INFLUENZA VAC 4 VALENT PRSRV FREE 3 YRS PLUS IM Reviewed 08/10/2017 12:00 AM MRI LUMBAR SPINE W/DYE Return ed 08/15/2017 12:00 AM METABOLIC PANEL TOTAL CA Ret urned 12/15/2017 12:00 AM COMPREHEN METABOLIC PANEL Ret urned 12/15/2017 12:00 AM LIPID PANEL Returned 12/15/2017 12:00 AM ASSAY OF PSA TOTAL Returned 12/15/2017 12:00 AM URINALYSIS AUTO W/SCOPE Retur renea 12/15/2017 12:00 AM COMPLETE CBC W/AUTO DIFF WBC Returned 05/28/2018 12:00 AM DESTRUCT B9 LESION 1-14 [...] AM TDAP VACCINE 7 YRS/> IM Revie wed 07/21/2018 12:00 AM COMPREHEN METABOLIC PANEL Re turned 07/21/2018 12:00 AM LIPID PANEL Returned 07/21/2018 12:00 AM URNLS DIP STICK/TABLET RGNT AUTO W/O MICROSCOPY Returned 08/22/2018 12:00 AM DESTRUCT B9 LESION 1-14 Revi ewed 09/28/2018 12:00 AM INJ TRIGGER POINT 1/2 MUSCL R eviewed 09/28/2018 12:00 AM ECHO GUIDE FOR BIOPSY Reviewe d 09/28/2018 12:00 AM INJECT SACROILIAC JOINT Retur renea 11/02/2018 12:00 AM URINALYSIS AUTO W/SCOPE Revie wed 11/17/2018 12:00 AM INJECT SACROILIAC JOINT Retur renea 11/27/2018 12:00 AM CYSTOSCOPY Reviewed 12/22/2018 12:00 AM ELECTROCARDIOGRAM TRACING Rev iewed 12/22/2018 12:00 AM METABOLIC PANEL TOTAL CA Revi ewed 12/22/2018 12:00 AM COMPLETE CBC W/AUTO DIFF WBC Reviewed 12/22/2018 12:00 AM URINALYSIS AUTO W/SCOPE Revie wed 12/22/2018 12:00 AM COLLECTION VENOUS BLOOD VENIP UNCTURE Reviewed 12/28/2018 12:00 AM IRRIGATION OF BLADDER Reviewe d 12/28/2018 12:00 AM NO CHARGE OV Reviewed 12/29/2018 12:00 AM INJECT SACROILIAC JOINT Retur renea 01/03/2019 12:00 AM VITAMIN B-12 Returned 01/03/2019 12:00 AM ASSAY OF FOLIC ACID SERUM Retu rned 01/03/2019 12:00 AM ASSAY OF IRON Returned 01/03/2019 12:00 AM IRON BINDING TEST Returned 01/03/2019 12:00 AM ASSAY OF TRANSFERRIN Returned 01/03/2019 12:00 AM COLLECTION VENOUS BLOOD VENIPU NCTURE Reviewed 01/01/2019 12:00 AM X-RAY EXAM OF ABDOMEN Reviewe d 03/15/2019 12:00 AM URNLS DIP STICK/TABLET RGNT A UTO W/O MICROSCOPY Reviewed 2019 12:00 AM COMPLETE CBC W/AUTO DIFF WBC Returned 2019 12:00 AM COMPREHEN METABOLIC PANEL Ret urned 2019 12:00 AM ASSAY THYROID STIM HORMONE Re turned 2019 12:00 AM LIPID PANEL Returned 2019 12:00 AM Prostate Cancer Screening Ret urned 2019 12:00 AM ROUTINE VENIPUNCTURE Reviewed 05/08/2019 12:00 AM INJECT SACROILIAC JOINT Return ed 05/25/2019 12:00 AM THERAPEUTIC PROPHYLACTIC/DX I NJECTION SUBQ/IM Reviewed 05/25/2019 12:00 AM Depo-Medrol 80mg Injection, R [facility] Medicare Reviewed 05/25/2019 12:00 AM Decadron 8mg Injection, [facility] edicare Reviewed 06/13/2019 12:00 AM COMPREHEN METABOLIC PANEL Ret urned 06/13/2019 12:00 AM LIPID PANEL Returned 06/13/2019 12:00 AM URNLS DIP STICK/TABLET RGNT A UTO W/O MICROSCOPY Returned 06/13/2019 12:00 AM GLYCOSYLATED HEMOGLOBIN TEST Returned 06/13/2019 12:00 AM ASSAY THYROID STIM HORMONE Re turned 06/13/2019 12:00 AM COLLECTION VENOUS BLOOD VENIP UNCTURE Reviewed 08/15/2019 12:00 AM INJECT SACROILIAC JOINT Retu rned 08/15/2019 12:00 AM MRI LUMBAR SPINE W/O DYE Ret urned 10/29/2019 12:00 AM RADEX SPINE CERVICAL 2 OR 3 V IEWS Reviewed 10/29/2019 12:00 AM RADEX SPINE THORACIC 3 VIEWS Reviewed 11/19/2019 12:00 AM URNLS DIP STICK/TABLET REAGEN T AUTO MICROSCOPY Reviewed 01/22/2020 12:00 AM ZC HIP W PELVIS BILATERAL 2 V IEW Returned 03/12/2020 12:00 AM ASSAY OF PSA TOTAL Reviewed 05/19/2020 12:00 AM RENAL FUNCTION PANEL Reviewed 05/19/2020 12:00 AM COLLECTION VENOUS BLOOD VENIP UNCTURE Reviewed 08/07/2020 12:00 AM FECES CULTURE AEROBIC BACT Re turned 08/06/2020 12:00 AM COLLECTION VENOUS BLOOD VENIP UNCTURE Reviewed 08/06/2020 12:00 AM GLYCOSYLATED HEMOGLOBIN TEST Reviewed 08/06/2020 12:00 AM GENERAL HEALTH PANEL Reviewed 08/06/2020 12:00 AM LIPID PANEL Reviewed 08/06/2020 12:00 AM OCCULT BLD FECES 1-3 TESTS Re turned 12/12/2020 12:00 AM RESPIRATORY PANEL 2.1 (SARS-Co V-2) Returned 01/12/2021 12:00 AM GLYCOSYLATED HEMOGLOBIN TEST Returned 01/12/2021 12:00 AM METABOLIC PANEL TOTAL CA Retu rned 01/12/2021 12:00 AM ROUTINE VENIPUNCTURE Reviewed 03/18/2021 12:00 AM US EXAM ABDOM COMPLETE Return ed 03/16/2021 12:00 AM COMPREHEN METABOLIC PANEL Rev iewed 03/16/2021 12:00 AM LIPID PANEL Reviewed 03/16/2021 12:00 AM ASSAY THYROID STIM HORMONE Re viewed 03/16/2021 12:00 AM COMPLETE CBC W/AUTO DIFF WBC Reviewed 03/16/2021 12:00 AM URNLS DIP STICK/TABLET RGNT A UTO W/O MICROSCOPY Reviewed 03/16/2021 12:00 AM Prostate Cancer Screening Rev iewed 03/16/2021 12:00 AM ASSAY OF MAGNESIUM Reviewed 03/16/2021 12:00 AM BREATHING CAPACITY TEST Retur renea 03/16/2021 12:00 AM TTE W/DOPPLER COMPLETE Return ed 04/15/2021 12:00 AM COMPREHEN METABOLIC PANEL Ret urned 04/15/2021 12:00 AM ACUTE HEPATITIS PANEL Reviewe [...] MRI BRAIN STEM W/O DYE Returne d Results Summary Date and Description Results 11/01/2015 [...] 67GFR AA 81eGFR 67eGFR AA* >60 mL/min/1.73 [id number] YELLOWAPPEARANCE CLEARSPEC GRAV >=1.030pH 5.5PROTEIN 30GLUCOSE NEGATIVEKETONE [...] Vis Given Vis Pub CVX Influenza 017 [employer]son SKB Flulaval quadrivalent [id number] Intramuscula r Left Deltoid 017 2014 158 Influenza 018 [employer] judson MENDOZAB Flulaval quadrivalent [id number] Intramuscula r Left Deltoid 018 2023 158 Tdap 018 [facility] BOOSTRIX [id number] Intramuscula r Right Deltoid 018 2023 115 History of Past Illness Name Date of Onset Comments Spinal stenosis of lumbar region Sleep apnea 11/01/2015 Depression 11/15/2015 Hypertension prostrate problems Sleep apnea with use of cont inuous positive airway pressure (CPAP) Lumbar stenosis 11/01/2015 Hyperlipidemia 11/01/2015 Hypertension, Essential 11/01/2015 Carpal Tunnel Syndrome; Bilateral Anal Fistula [...] ear without spontaneous rupture of tympanic membrane b 2019 10:43AM Upper back pain Oct 29 [...] Anal fistula Jul 22 2021 9:01AM Hyperlipidemia Mar 2021 10:08AM Fatigue Mar 2021 10:08AM Diabetes mellitus, type II Mar 2021 10:08AM Elevated liver enzymes Mar 2021 10:08AM Hypertension Mar 2021 10:08AM Obesity Mar 2021 10:08AM ELISEO (obstructive sleep apnea) Mar 2021 10:08A M Depression Mar 2021 10:08AM Lumbar stenosis Mar 2021 10:08AM Hypertension Nov 18 2021 10:35AM Sinusitis Mar 2021 10:35AM Acute right-sided low back pain without sciatica Jan 18 2022 10:54AM Type II diabetes mellitus Man 2021 10:32AM Depression Man 2021 10:32AM Hyperlipidemia Man 2021 10:32AM Lumbar stenosis Feb 17 2022 10:32AM Fatigue Man 2021 10:32AM Diabetes mellitus, type II Man 2021 10:32AM Elevated liver enzymes Man 2021 10:32AM Hypertension Man 2021 10:32AM Obesity Man 2021 10:32AM ELISEO (obstructive sleep apnea) Man 2021 10:32A M Neuropathy Feb 17 2022 10:32AM [...] 2023 9:55AM Headache Feb 10 2023 10:09AM Payers Insurance Name Company Name Plan Name Plan Number Policy Number Policy Group Number Start Date Medicare RHC Medicare RHC [id number] 2014 [employer] Medicare Supplement Cigna Medicare Supplement [id number] Monday, 2018 Medicare Part B Medicare [place] [id number] N/A Medicare Part [place] [id number] September Standard Life Standard Life [id number] 2014 [employer] Financial Assistance [employer] [place] 50 percent Saturday, September 05, 2015 Medicare RHC Medicare RHC [id number] N/ A Medicare Part A Medicare - Lab [id number] N/A History of Encounters Visit Date Visit Type Provider 02/10/2023 Office visit Natalia Bradfiel d HOT PATCHER 01/24/2023 Office visit Natalia Bradfiel d HOT PATCHER 01/11/2023 Office visit Natalia Bradfiel d HOT PATCHER 01/05/2023 Office visit SANGEETA DEJESUS APR N 12/30/2022 Office visit Natalia Bradfiel d HOT PATCHER 12/27/2022 [facility] Mateus Saez MD 12/14/2022 Office visit Natalia Bradfiel d HOT PATCHER 11/08/2022 Office visit Natalia Bradfiel d HOT PATCHER 10/29/2022 Office visit Natalia Bradfiel d HOT PATCHER 09/01/2022 Office visit Natalia Bradfiel d HOT PATCHER 07/01/2022 Procedures Rakan Henderson 05/19/2022 Office visit Rakan Henderson 05/19/2022 Office visit Natalia Bradfiel d HOT PATCHER 04/28/2022 Office visit Natalia Bradfiel d HOT PATCHER 02/17/2022 Office visit Natalia Bradfiel d HOT PATCHER 01/18/2022 Office visit Natalia Bradfiel d HOT PATCHER 11/18/2021 Office visit Natalia Bradfiel d HOT PATCHER 11/04/2021 Office visit Natalia Bradfiel d HOT PATCHER 07/22/[address] Mauricio Cm MD 07/10/2021 [facility] [address]. Mauricio Cm MD 06/15/2021 Office visit Natalia Bradfiel d HOT PATCHER 06/03/[address] Mauricio Cm MD 05/21/[address] Mauricio Cm MD 05/15/2021 Office visit Natalia Bradfiel d HOT PATCHER 05/13/[address] Mauricio Cm MD 04/15/2021 Office visit Natalia Bradfiel d HOT PATCHER 03/18/2021 Office visit SANGEETA DEJESUS APR N 03/16/2021 Office visit Natalia Bradfiel d HOT PATCHER 02/17/2021 Office visit Natalia Bradfiel d HOT PATCHER 01/12/2021 Office visit Natalia Bradfiel d HOT PATCHER 12/30/2020 Office visit Natalia Bradfiel d HOT PATCHER 12/17/2020 Hospital Christiano Yates MD 12/16/2020 [facility] Rubens Underwood MD 12/12/2020 Office visit Natalia Bradfiel d HOT PATCHER 08/06/2020 Office visit Natalia Bradfiel d HOT PATCHER 05/19/2020 Office visit Natalia Bradfiel d HOT PATCHER 04/21/2020 Office visit Natalia Bradfiel d HOT PATCHER 04/09/2020 Hospital Mateus Saez MD 04/07/2020 Office visit Natalia Bradfiel d HOT PATCHER 03/12/2020 Office visit SANGEETA DEJESUS APR N 01/22/2020 Office visit Natalia Bradfiel d HOT PATCHER 11/19/2019 Laboratory Krys clemente MD 10/29/2019 Office visit Natalia Bradfiel d HOT PATCHER 10/17/2019 Office visit Siva Christian DO 10/12/2019 Office visit Natalia Bradfiel d HOT PATCHER 10/08/2019 Office visit Natalia Bradfiel d HOT PATCHER 09/27/2019 Office visit Natalia Bradfiel d HOT PATCHER 09/13/2019 Office visit SANGEETA DEJESUS APR N 08/15/2019 Office visit Siva Christian DO 07/12/2019 Office visit Siva Christian DO 06/14/2019 Office visit SANGEETA DEJESUS APR N 06/13/2019 Laboratory Meme Willis PRN 06/11/2019 Office visit Natalia Bradfiel d HOT PATCHER 05/25/2019 Office visit Natalia Bradfiel d HOT PATCHER 05/08/2019 Office visit Siva Christian DO 04/04/2019 Office visit Natalia Bradfiel d HOT PATCHER 2019 Laboratory Meme Willis PRN 03/15/2019 Office visit SANGEETA DEJESUS APR N 03/13/2019 Office visit Natalia Bradfiel d HOT PATCHER 01/30/2019 Office visit Siva Albaa DO 01/03/2019 Laboratory Manny Antonette APR N 01/01/2019 Office visit Natalia Bradfiel d HOT PATCHER 12/29/2018 Office visit Siva lAbaa DO 12/28/2018 Office visit Rakan Henderson 12/26/2018 Surgery Rakan Henderson 12/22/2018 Office visit Mateus Saez MD 12/22/2018 Laboratory Manny [place] APR N 11/27/2018 Procedures Rakan Henderson 11/17/2018 Office visit Siva Albaa DO 11/02/2018 Office visit Rakan Henderson 09/28/2018 Office visit Siva Christian DO 09/12/2018 Office visit Siva Albaa DO 07/21/2018 Office visit Natalia Bradfiel d HOT PATCHER 06/09/2018 Office visit Natalia Bradfiel d HOT PATCHER 06/08/2018 Office visit Natalia Bradfiel d HOT PATCHER 05/31/2018 Office visit Natalia Bradfiel d HOT PATCHER 05/29/2018 Nurse visit Natalia Bradfiel d HOT PATCHER 05/23/2018 Procedures Natalia Bradfiel d HOT PATCHER 05/15/2018 Office visit Natalia Bradfiel d HOT PATCHER 03/17/2018 Office visit Natalia Bradfiel d HOT PATCHER 03/13/2018 Office visit Natalia Bradfiel d HOT PATCHER 12/15/2017 Office visit Natalia Bradfiel d HOT PATCHER 10/22/2017 Office visit Natalia Bradfiel d HOT PATCHER 08/15/2017 Laboratory Natlaia Bradfiel d HOT PATCHER 08/10/2017 Office visit Natalia Bradfiel d HOT PATCHER 07/19/2017 Office visit Natalia Bradfiel d HOT PATCHER 06/13/2017 Office visit Natalia Bradfiel d HOT PATCHER 06/11/2017 Office visit Manny [place] APR N 02/07/2017 Office visit Natalia Bradfiel d HOT PATCHER 01/05/2017 Office visit Natalia Bradfiel d HOT PATCHER 11/15/2016 Office visit Natalia Bradfiel d HOT PATCHER 09/18/2016 Office visit Natalia Bradfiel d HOT PATCHER 09/14/2016 Office visit Meme Willis PRN 08/27/2016 Office visit Natalia Bradfiel d HOT PATCHER 06/25/2016 Office visit Natalia Bradfiel d HOT PATCHER 05/06/2016 Office visit Natalia Bradfiel d HOT PATCHER 04/14/2016 Office visit Meme Willis PRN 04/12/2016 Laboratory Natalia Bradfiel d HOT PATCHER 03/30/2016 Office visit Meme Willis PRN 03/03/2016 Nurse visit Meme Willis PRN 02/21/2016 Office visit Natalia Bradfiel d HOT PATCHER 02/05/2016 [facility] Kartik Lipscomb MD 01/27/2016 Office visit Kartik Lipscomb MD 12/02/2015 Office visit Ntaalia Bradfiel d HOT PATCHER 11/14/2015 Office visit Natalia Bradfiel d HOT PATCHER 11/01/2015 Office visit Natalia Bradfiel d HOT PATCHER 11/01/2015 Laboratory Natalia Bradfiel d HOT PATCHER 10/31/2015 Office visit Natalia Bradfiel d HOT PATCHER 10/11/2015 Office visit Meme Willis PRN 10/03/2015 Office visit Natalia Bradfiel d HOT PATCHER
--- OUTSIDE RECORDS SUMMARY | 2023-06-04 11:08 | XMS REPORT ---
Author Author Humble Ventura Organization [facility] Address [address] [place], [place] [id number] Care Team Providers Care Litharge Supervisor Name Role Phone Natalia Ventura PCP radha Unavailable Unavailable Tai Chavez Unavailable Unavailable Natalia Ventura PreferredProvider [phone] Allergies and Adverse Reactions Name Reaction Notes [...] by ora l route every 12 hours sumatriptan 25 mg tablet 01/24/2023 take 1 [...] 1 capsule b y mouth once daily Name Start Date Expiration [...] tablet 07/25/2017 08/24/2017 Take one tab by [facility] every 12 hours as needed tramadol 50 [...] release (DR/EC) 11/19/2019 [facility]KE 1 TABLET [facility] TW[facility] DAILY omeprazole 40 mg oral capsule,delayed release(DR/EC) 01/04/2020 12/29/2020 TAKE 1 CAPSULE BY [facility] ONCE DAILY duplicate fluticasone propionate 50 mcg/actuation nasal spray,suspension 01/10/2020 USE 2 SPRAY(S) IN [facility] ONCE DAILY NEEDED baclofen 10 mg oral tablet 03/06/2020 [facility] TIM[facility] DAILY FOR 30 DAYS hydroxyzine [...] capsule 12/24/2020 02/04/2021 Take 1 capsule by [facility] three times daily as needed for cough [...] Release 03/18/2021 03/13/2022 Take 1 tablet by [facility] twice daily potassium chloride 10 mEq oral capsule, extended release 04/20/2021 07/19/2021 take 1 capsule (10 m eq) by oral route 2 times per day with food for 30 days Atorvastatin Calcium 80 MG Oral Tablet 05/04/2021 04/29/2022 Take 1 tablet by [facility] once daily for 90 days Montelukast Sodium 10 MG Oral Tablet 06/17/2021 06/12/2022 Take 1 tablet by [facility] in the evening Potassium Chloride ER 10 MEQ Oral Capsule Extended Release 10/09/2021 04/07/2022 TAKE 1 CAPSULE BY [facility] TWICE DAILY WITH FOOD amoxicillin-pot clavulanate [...] 04/14/2022 10/11/2022 TAKE 1 CAPSULE BY [facility] TWICE DAILY WITH FOOD Furosemide 20 MG Oral Tablet 08/30/2022 08/25/2023 TAKE 1 TABLET BY [facility] AT NOON NEEDED FOR LOWER EXTREMITY SWELLING (TO BE TAKEN IN ADDITION TO DAILY 40 MG DOSE) amoxicillin-pot clavulanate oral tablet 875-125 mg 09/01/2022 09/08/2022 take 1 tablet by ora l route every 12 hours for 7 days Gabapentin 600 MG Oral Tablet 09/20/2022 03/19/2023 Take 1 tablet by [facility] twice daily doxycycline hyclate 100 mg tablet 10/29/2022 11/08/2022 take 1 tablet (100 m g) by oral route 2 times per day for 10 days topiramate XR 25 mg capsule sprinkle,extended release 24 hr 01/24/2023 04/24/2023 take 1 capsule (25 m g) by oral route once daily at bedtime tramadol 50 mg tablet 01/24/2023 02/14/2023 May ta ke 1-2 tablets by mouth once every 12 hours as needed for back pain. Dx spinal stenosis, lumbago, cervical disc disease Discontinued Name Start Date Discontinued Date SIG [...] 1 TABLET BY MOUTH ONCE DAILY oxycodone 01/12/2021 Taking 1 t ab every 6 [...] min 97.9 F 299 lbs 96 % 9:53: 00 AM 98 {beats}/ min 18 [...] 02/07/2017 12:00 AM Decadron 8mg Injection, RHC Pr dicare Reviewed 02/07/2017 12:00 AM THERAPEUTIC PROPHYLACTIC/DX [...] 67GFR AA 81eGFR 67eGFR AA* >60 mL/min/1.73 [id number] YELLOWAPPEARANCE CLEARSPEC GRAV >=1.030pH 5.5PROTEIN 30GLUCOSE NEGATIVEKETONE [...] Detected History Of Immunizations Name Date Admin [facility] Name Mf Code Trade Name Lot# Route Inj Vis Given Vis Pub CVX Influenza 017 Admaxim [facility] Flulaval quadrivalent [id number] Intramuscula r Left Deltoid 017 2014 158 Influenza 018 Admaxim B Flulaval quadrivalent [id number] Intramuscula r Left Deltoid 018 2023 158 Tdap 018 Admaxim [facility] BOOSTRIX [id number] Intramuscula r Right Deltoid 018 [...] Apr 15 2021 10:31A M Anal fistula May 13 2021 2:35PM Elevated glucose May 15 2021 10:21AM Hypoxia Sep 2020 10:21AM Obesity Sep 2020 10:21AM ELISEO (obstructive sleep apnea) Sep 2020 10:21A M Anal fistula Sep 2020 10:22AM Obesity Jun 15 2021 10:08AM ELISEO (obstructive sleep apnea) Jun 15 2021 10:08A M Anal fistula Nov 2020 11:56AM Anal fistula Jul 22 2021 9:01AM [...] 10:32AM Hyperlipidemia Man 2021 10:32AM Lumbar stenosis Man 2021 10:32AM Fatigue Man 2021 10:32AM Diabetes mellitus, type II Man 2021 10:32AM Elevated liver enzymes Man 2021 10:32AM Hypertension Man 2021 10:32AM Obesity Man 2021 10:32AM ELISEO (obstructive sleep apnea) Man 2021 10:32A M Neuropathy Man 2021 10:32AM COVID-19 Apr 28 2022 11:31AM Type [...] 2021 1:06PM BPH NOS w ur obs/LUTS Sep 2021 1:06PM Obesity Sep 2021 1:06PM BPH (benign prostatic hyperplasia) Sep 2021 1 0:28AM Benign prostatic hyperplasia with lower [...] respiratory infection Apr 28 2023 1 :22PM Payers Insurance Name Company Name Plan Name Plan Number Policy Number Policy Group Number Start Date Medicare [facility] Medicare [facility] [id number] 2014 Cign[employer] Medicare Supplement Cigna Medicare Supplement [id number] Monday, 2018 Medicare [place] [id number] N/A Medicare Part [place] [id number] September Standard Life [employer] Life [id number] 2014 [employer] 50 percent Saturday, September 05, 2015 Medicare RHC Medicare RHC [id number] N/ A Medicare Part A Medicare - Lab [id number] N/A History of Encounters Visit Date Visit Type Provider 04/28/2023 Office visit Natalia Bradfiel d PIN DRAFTING MACHINE OPERATOR 04/04/2023 Office visit Natalia Bradfiel d PIN DRAFTING MACHINE OPERATOR 02/28/2023 Office visit Natalia Bradfiel d PIN DRAFTING MACHINE OPERATOR 02/10/2023 Office visit Natalia Bradfiel d PIN DRAFTING MACHINE OPERATOR 01/24/2023 Office visit Natalia Bradfiel d PIN DRAFTING MACHINE OPERATOR 01/11/2023 Office visit Natalia Bradfiel d PIN DRAFTING MACHINE OPERATOR 01/05/2023 Office visit SANGEETA DEJESUS APR N 12/30/2022 Office visit Natalia Bradfiel d PIN DRAFTING MACHINE OPERATOR 12/27/2022 [facility] Mateus Saez MD 12/14/2022 Office visit Natalia Bradfiel d PIN DRAFTING MACHINE OPERATOR 11/08/2022 Office visit Natalia Bradfiel d PIN DRAFTING MACHINE OPERATOR 10/29/2022 Office visit Natalia Bradfiel d PIN DRAFTING MACHINE OPERATOR 09/01/2022 Office visit Natalia Bradfiel d PIN DRAFTING MACHINE OPERATOR 07/01/2022 Procedures Rakan Henderson 05/19/2022 Office visit Rakan Henderson 05/19/2022 Office visit Natalia Bradfiel d PIN DRAFTING MACHINE OPERATOR 04/28/2022 Office visit Natalia Bradfiel d PIN DRAFTING MACHINE OPERATOR 02/17/2022 Office visit Natalia Bradfiel d PIN DRAFTING MACHINE OPERATOR 01/18/2022 Office visit Natalia Bradfiel d PIN DRAFTING MACHINE OPERATOR 11/18/2021 Office visit Natalia Bradfiel d PIN DRAFTING MACHINE OPERATOR 11/04/2021 Office visit Natalia Bradfiel d PIN DRAFTING MACHINE OPERATOR 07/22/[address] Mauricio Cm MD 07/10/2021 [facility] Dr. Mauricio Cm MD 06/15/2021 Office visit Natalia Bradfiel d PIN DRAFTING MACHINE OPERATOR 06/03/[address] Mauricio Cm MD 05/21/2021 [facility] [address]. Mauricio Cm MD 05/15/2021 Office visit Natalia Bradfiel d PIN DRAFTING MACHINE OPERATOR 05/13/[address] Mauricio Cm MD 04/15/2021 Office visit Natalia Bradfiel d PIN DRAFTING MACHINE OPERATOR 03/18/2021 Office visit SANGEETA DEJESUS APR N 03/16/2021 Office visit Natalia Bradfiel d PIN DRAFTING MACHINE OPERATOR 02/17/2021 Office visit Natalia Bradfiel d PIN DRAFTING MACHINE OPERATOR 01/12/2021 Office visit Natalia Bradfiel d PIN DRAFTING MACHINE OPERATOR 12/30/2020 Office visit Natalia Bradfiel d PIN DRAFTING MACHINE OPERATOR 12/17/2020 Hospital Christiano Yates MD 12/16/2020 Hospital Rubens Underwood MD 12/12/2020 Office visit Natalia Bradfiel d PIN DRAFTING MACHINE OPERATOR 08/06/2020 Office visit Natalia Bradfiel d PIN DRAFTING MACHINE OPERATOR 05/19/2020 Office visit Natalia Bradfiel d PIN DRAFTING MACHINE OPERATOR 04/21/2020 Office visit Natalia Bradfiel d PIN DRAFTING MACHINE OPERATOR 04/09/2020 Hospital Mateus Saez MD 04/07/2020 Office visit Natalia Bradfiel d PIN DRAFTING MACHINE OPERATOR 03/12/2020 Office visit SANGEETA DEJESUS APR N 01/22/2020 Office visit Natalia Bradfiel d PIN DRAFTING MACHINE OPERATOR 11/19/2019 Laboratory Krys clemente MD 10/29/2019 Office visit Natalia Bradfiel d PIN DRAFTING MACHINE OPERATOR 10/17/2019 Office visit Siva Christian DO 10/12/2019 Office visit Natalia Bradfiel d PIN DRAFTING MACHINE OPERATOR 10/08/2019 Office visit Natalia Bradfiel d PIN DRAFTING MACHINE OPERATOR 09/27/2019 Office visit Natalia Bradfiel d PIN DRAFTING MACHINE OPERATOR 09/13/2019 Office visit SANGEETA DEJESUS APR N 08/15/2019 Office visit Siva Christian DO 07/12/2019 Office visit Siva Christian DO 06/14/2019 Office visit SANGEETA DEJESUS APR N 06/13/2019 Laboratory Meme Willis PRN 06/11/2019 Office visit Natalia Bradfiel d PIN DRAFTING MACHINE OPERATOR 05/25/2019 Office visit Natalia Bradfiel d PIN DRAFTING MACHINE OPERATOR 05/08/2019 Office visit Siva Christian DO 04/04/2019 Office visit Natalia Bradfiel d PIN DRAFTING MACHINE OPERATOR 2019 Laboratory Meme Willis PRN 03/15/2019 Office visit SANGEETA DEJESUS APR N 03/13/2019 Office visit Natalia Bradfiel d PIN DRAFTING MACHINE OPERATOR 01/30/2019 Office visit Siva Christian DO 01/03/2019 Laboratory Manny Wayne APR N 01/01/2019 Office visit Natalia Bradfiel d PIN DRAFTING MACHINE OPERATOR 12/29/2018 Office visit Sivarajesh Albaa DO 12/28/2018 Office visit Rakan Henderson 12/26/2018 Surgery Rakan Henderson 12/22/2018 Office visit Mateus Saez MD 12/22/2018 Laboratory Manny Aquinolin APR N 11/27/2018 Procedures Rakan Henderson 11/17/2018 Office visit Sivarajesh Albaa DO 11/02/2018 Office visit Rakan Henderson 09/28/2018 Office visit Siva Christian DO 09/12/2018 Office visit Siva Christian DO 07/21/2018 Office visit Natalia Bradfiel d PIN DRAFTING MACHINE OPERATOR 06/09/2018 Office visit Natalia Bradfiel d PIN DRAFTING MACHINE OPERATOR 06/08/2018 Office visit Natalia Bradfiel d PIN DRAFTING MACHINE OPERATOR 05/31/2018 Office visit Natalia Bradfiel d PIN DRAFTING MACHINE OPERATOR 05/29/2018 Nurse visit Natalia Bradfiel d PIN DRAFTING MACHINE OPERATOR 05/23/2018 Procedures Natalia Bradfiel d PIN DRAFTING MACHINE OPERATOR 05/15/2018 Office visit Natalia Bradfiel d PIN DRAFTING MACHINE OPERATOR 03/17/2018 Office visit Natalia Bradfiel d PIN DRAFTING MACHINE OPERATOR 03/13/2018 Office visit Natalia Bradfiel d PIN DRAFTING MACHINE OPERATOR 12/15/2017 Office visit Natalia Bradfiel d PIN DRAFTING MACHINE OPERATOR 10/22/2017 Office visit Natalia Bradfiel d PIN DRAFTING MACHINE OPERATOR 08/15/2017 Laboratory Natalia Bradfiel d PIN DRAFTING MACHINE OPERATOR 08/10/2017 Office visit Natalia Bradfiel d PIN DRAFTING MACHINE OPERATOR 07/19/2017 Office visit Natalia Bradfiel d PIN DRAFTING MACHINE OPERATOR 06/13/2017 Office visit Natalia Bradfiel d PIN DRAFTING MACHINE OPERATOR 06/11/2017 Office visit Manny Wayne APR N 02/07/2017 Office visit Natalia Bradfiel d PIN DRAFTING MACHINE OPERATOR 01/05/2017 Office visit Natalia Bradfiel d PIN DRAFTING MACHINE OPERATOR 11/15/2016 Office visit Natalia Bradfiel d PIN DRAFTING MACHINE OPERATOR 09/18/2016 Office visit Natalia Bradfiel d PIN DRAFTING MACHINE OPERATOR 09/14/2016 Office visit Meme Willis PRN 08/27/2016 Office visit Natalia Bradfiel d PIN DRAFTING MACHINE OPERATOR 06/25/2016 Office visit Natalia Bradfiel d PIN DRAFTING MACHINE OPERATOR 05/06/2016 Office visit Natalia Bradfiel d PIN DRAFTING MACHINE OPERATOR 04/14/2016 Office visit Meme Willis PRN 04/12/2016 Laboratory Natalia Bradfiel d PIN DRAFTING MACHINE OPERATOR 03/30/2016 Office visit Meme Willis PRN 03/03/2016 Nurse visit Meme Willis PRN 02/21/2016 Office visit Natalia Bradfiel d PIN DRAFTING MACHINE OPERATOR 02/05/2016 [facility] Kartik Lipscomb MD 01/27/2016 Office visit Kartik Lipscomb MD 12/02/2015 Office visit Natalia Bradfiel d PIN DRAFTING MACHINE OPERATOR 11/14/2015 Office visit Natalia Bradfiel d PIN DRAFTING MACHINE OPERATOR 11/01/2015 Office visit Natalia Bradfiel d PIN DRAFTING MACHINE OPERATOR 11/01/2015 Laboratory Natalia Bradfiel d PIN DRAFTING MACHINE OPERATOR 10/31/2015 Office visit Natalia Bradfiel d PIN DRAFTING MACHINE OPERATOR 10/11/2015 Office visit Meme Willis PRN 10/03/2015 Office visit Natalia Bradfiel d PIN DRAFTING MACHINE OPERATOR
--- OUTSIDE RECORDS SUMMARY | 2023-06-04 11:08 | XMS REPORT ---
Author Author Humble Ventura Organization [facility] Address [address] [place], [place] [id number] Care Team Providers Care Matte Cutter Name Role Phone Natalia Ventura PCP radha [...] 12:00 AM PSA TOTAL 07/08/2023 12:00 AM US CAROTID DUPLEX COMP/TROY 01/11/2023 12:00 AM Medications Active Name Start Date Estimated Comple tion Date SIG Comments Omeprazole 40 MG Oral Capsule Delayed Release 02/08/2022 02/03/2023 Take 1 capsule b y mouth once daily allopurinol 300 mg tablet 02/22/2022 02/17/2023 Take [...] MOUTH THREE TIMES DAILY FOR 30 DAYS lamoTRIgine 100 MG Oral Tablet 08/16/2022 02/12/2023 Take 1 tablet by mouth once daily Gabapentin 600 MG Oral Tablet 09/20/2022 03/19/2023 [...] Dx spinal stenosis, lumbago, cervical disc disease Name Start Date Expiration Date SIG Comments [...] tablet 07/25/2017 08/24/2017 Take one tab by [facility] every 12 hours as needed tramadol 50 [...] release (DR/EC) 11/19/2019 [facility] omeprazole 40 mg oral capsule,delayed release(DR/EC) 01/04/2020 12/29/2020 TAKE 1 CAPSULE BY [facility] ONCE DAILY duplicate fluticasone propionate 50 [...] capsule 12/24/2020 02/04/2021 Take 1 capsule by [facility] three times daily as needed for cough [...] 06/17/2021 06/12/2022 Take 1 tablet by [facility] in the evening Potassium Chloride ER 10 MEQ Oral Capsule Extended Release 10/09/2021 04/07/2022 TAKE 1 CAPSULE BY [facility] TWICE DAILY WITH FOOD amoxicillin-pot clavulanate 875-125 mg oral tablet 11/04/2021 11/11/2021 take 1 tablet by ora l route every 12 hours for 7 days duloxetine 30 mg oral capsule,delayed release(DR/EC) 12/09/2021 06/07/2022 take 1 capsule (30 m g) by oral route once daily for 30 days Potassium Chloride ER 10 MEQ Oral Capsule Extended Release 04/14/2022 10/11/2022 TAKE 1 CAPSULE BY [facility] TWICE DAILY WITH FOOD Furosemide 20 [...] BMI BSA BMI Percentile O2 Sat(%) 2022 9:54: 00 AM 140 mm[Hg] 62 [...] F 310 .5 lbs 69 in 45.8 5 kg/m 2 2.62 m2 96 % 2021 9:15: 00 AM [...] 98.8 F 294 lbs 70 in 42.1 842 kg/m 2 2.56 64 m2 96 % 07/22 9:00: 00 AM [...] 303 .31 2 lbs 69 in 44.7 9 kg/m 2 2.59 m2 95 % 2020 10:19 :00 AM 128 mm[Hg] 64 mm[Hg] 67 {beats}/ min 14 rpm 97.7 F 305 lbs 94 % 021 2:34: 00 PM 142 mm[Hg] 78 mm[Hg] 80 {beats}/ min 18 rpm 98.1 F 306 lbs 69 in 45.1 9 kg/m 2 2.60 m2 97 % 2020 10:24 :00 AM 118 mm[Hg] 54 mm[Hg] 80 {beats}/ min 18 rpm 98.1 F 306 lbs 69 in 45.1 878 kg/m 2 2.59 95 m2 96 % 2020 10:04 :00 AM 144 mm[Hg] 80 mm[Hg] 77 {beats}/ min 18 rpm 98.2 F 319 lbs 69 in 47.1 1 kg/m 2 2.65 m2 96 % 2020 9:47: 00 AM 130 mm[Hg] 70 mm[Hg] 65 {beats}/ min 16 rpm 97.9 F 319 lbs 69 in 47.1 1 kg/m 2 2.65 41 m2 97 % 2020 10:02 :00 AM 158 mm[Hg] 82 mm[Hg] 81 {beats}/ min 20 rpm 97.7 F 321 .25 lbs 69 in 47.4 4 kg/m 2 2.66 m2 94 % 2020 8:54: 00 AM 129 mm[Hg] 78 mm[Hg] 66 {beats}/ min 20 rpm 97.3 F 304 .37 5 lbs 69 in 44.9 479 kg/m 2 2.59 26 m2 95 % 2020 10:58 :00 AM 120 mm[Hg] 66 mm[Hg] 84 {beats}/ min 14 rpm 97.2 F 294 lbs 69 in 43.4 2 kg/m 2 2.54 8 m2 95 % [...] kg/m 2 2.58 24 m2 96 % 020 10:42 :00 AM 110 mm[Hg] 70 mm[Hg] [...] 97.7 F 295 lbs 69 in 43.5 6 kg/m 2 2.55 m2 95 % 08/15 9:31: 00 AM 130 mm[Hg] 72 mm[Hg] 84 {beats}/ min 97.9 F 306 lbs 69 in 45.1 878 kg/m 2 2.59 95 m2 97 % 2018 9:41: 00 AM 132 mm[Hg] 74 mm[Hg] 75 {beats}/ min 98.7 F 304 .56 2 lbs 69 in 44.9 8 kg/m 2 2.59 m2 97 % 06/14 9:55: 00 AM 134 mm[Hg] 80 mm[Hg] 79 {beats}/ min 18 rpm 97.5 F 304 .25 lbs 69 in 44.9 294 kg/m 2 2.59 2 m2 95 % 2018 1:10: 00 PM 132 mm[Hg] 76 mm[Hg] 107 {beats}/ min 20 rpm 97.8 F 301 .5 lbs 69 in 44.5 2 kg/m 2 2.58 m2 95 % 2018 3:05: 00 PM 138 mm[Hg] 82 mm[Hg] 95 {beats}/ min 16 rpm 98.6 F 303 .75 lbs 96 % 019 3:47: 00 PM 132 mm[Hg] 78 mm[Hg] 81 {beats}/ min 97.9 F 309 lbs 69 in 45.6 3 kg/m 2 2.61 m2 96 % 2018 10:54 :00 AM 140 mm[Hg] 73 mm[Hg] 78 {beats}/ min 16 rpm 97.9 F 306 .75 lbs 69 in 45.2 986 kg/m 2 2.60 27 m2 95 % 019 9:53: 00 AM 150 mm[Hg] 66 mm[Hg] 88 {beats}/ min 16 rpm 98.1 F 304 .5 lbs 69 in 44.9 7 kg/m 2 2.59 m2 95 % 2018 10:03 :00 AM 128 mm[Hg] 86 mm[Hg] 81 {beats}/ min 98.6 F 306 .37 5 lbs 69 in 45.2 432 kg/m 2 2.60 11 m2 94 % 2018 10:32 :00 AM 142 mm[Hg] 68 mm[Hg] 95 {beats}/ min 20 rpm 98.3 F 303 lbs 69 in 44.7 4 kg/m 2 2.59 m2 95 % 2018 10:16 :00 AM 130 mm[Hg] 70 mm[Hg] 100 {beats}/ min 98.1 F 309 lbs 69 in 45.6 309 kg/m 2 2.61 22 m2 94 % 2018 9:32: 00 AM 124 mm[Hg] 70 mm[Hg] 94 {beats}/ min 97.7 F 304 .5 lbs 69 in 44.9 7 kg/m 2 2.59 m2 96 % 2018 9:54: 00 AM 142 mm[Hg] 74 mm[Hg] 79 {beats}/ min 16 rpm 98.8 F 303 .12 5 lbs 69 in 44.7 633 kg/m 2 2.58 72 m2 96 % 2018 9:17: 00 AM 140 mm[Hg] 70 mm[Hg] 83 {beats}/ min 98.8 F 301 .37 5 lbs 69 in 44.5 0 kg/m 2 2.58 m2 96 % 019 2:18: 00 PM 130 mm[Hg] 72 mm[Hg] 83 {beats}/ min 97 F 301 .37 5 lbs 69 in 44.5 049 kg/m 2 2.57 97 m2 95 % 07/21 1:53: 00 PM 132 mm[Hg] 62 mm[Hg] 85 {beats}/ min 20 rpm 98.6 F 296 .25 lbs 69 in 43.7 5 kg/m 2 2.56 m2 94 % 2017 11:45 :00 AM 160 mm[Hg] 60 mm[Hg] 91 {beats}/ min 22 rpm 97.2 F 294 lbs 69 in 43.4 158 kg/m 2 2.54 8 m2 97 % 2017 1:15: 00 PM 140 mm[Hg] 80 mm[Hg] 80 {beats}/ min 20 rpm 98.2 F 294 .25 lbs 69 in 43.4 5 kg/m 2 2.55 m2 96 % 2017 8:41: 00 AM 122 mm[Hg] 70 mm[Hg] 82 {beats}/ min 20 rpm 97.7 F 294 lbs 69 in 43.4 158 kg/m 2 2.54 8 m2 96 % 2017 9:34: 00 AM 128 mm[Hg] 78 mm[Hg] 84 {beats}/ min 20 rpm 96.2 F 294 lbs 69 in 43.4 2 kg/m 2 2.55 m2 97 % 2017 3:03: 00 PM 148 mm[Hg] 82 mm[Hg] 84 {beats}/ min 20 rpm 97.1 F 298 lbs 69 in 44.0 065 kg/m 2 2.56 53 m2 96 % 018 7:59: 00 AM 122 mm[Hg] 82 mm[Hg] 80 {beats}/ min 20 rpm 96.5 F 299 lbs 69 in 44.1 5 kg/m 2 2.57 m2 97 % 2017 10:22 :00 AM 146 mm[Hg] 78 mm[Hg] 76 {beats}/ min 22 rpm 96.3 F 300 lbs 69 in 44.3 018 kg/m 2 2.57 39 m2 96 % 2017 9:35: 00 AM 122 mm[Hg] 82 mm[Hg] 84 {beats}/ min 22 rpm 97.5 F 294 lbs 69 in 43.4 2 kg/m 2 2.55 m2 95 % 2016 10:01 :00 AM 126 mm[Hg] 76 mm[Hg] 66 {beats}/ min 20 rpm 97.3 F 300 lbs 69 in 44.3 018 kg/m 2 2.57 39 m2 97 % 07/19 3:30: 00 PM 130 mm[Hg] 72 mm[Hg] 76 {beats}/ min 20 rpm 97.5 F 300 lbs 69 in 44.3 0 kg/m 2 2.57 m2 96 % 2016 11:05 :00 AM 132 mm[Hg] 78 mm[Hg] 70 {beats}/ min 22 rpm 97.1 F 301 lbs 69 in 44.4 495 kg/m 2 2.57 81 m2 96 % 2016 9:41: 00 AM [...] Reviewed 11/15/2016 12:00 AM Decadron 8mg Injection, [facility] M edicare Reviewed 11/15/2016 12:00 AM Depo Medrol 40mg Injection, [facility] Medicare Reviewed 02/07/2017 12:00 AM Depo-Medrol 80mg Injection, [facility] Medicare Reviewed 02/07/2017 12:00 AM Decadron 8mg Injection, [facility] dicare Reviewed 02/07/2017 12:00 AM THERAPEUTIC PROPHYLACTIC/DX IN JECTION SUBQ/IM Reviewed 06/11/2017 12:00 AM Toradol 60 Mg Injection Revie tue06/11/2017 12:00 AM THER/PROPH/DIAG INJ SC/IM Rev iewed 06/13/2017 12:00 AM Decadron 8mg Injection, [facility] M edicare Reviewed 06/13/2017 12:00 AM Depo-Medrol 80mg Injection, [facility] Medicare Reviewed 06/13/2017 12:00 AM Toradol 30 Mg Injection, [facility] Medicare Reviewed 06/13/2017 12:00 AM X-RAY EXAM [...] 12:00 AM DESTRUCT B9 LESION 1-14 Revie wed 05/15/2018 12:00 AM THERAPEUTIC PROPHYLACTIC/DX I NJECTION SUBQ/IM [...] W/O CONTRAST MATERIAL Returned 01/11/2023 12:00 AM MRI BRAIN STEM W/O [...] 67GFR AA 81eGFR 67eGFR AA* >60 mL/min/1.73 z0FADEX YELLOWAPPEARANCE CLEARSPEC GRAV >=1.030pH 5.5PROTEIN 30GLUCOSE NEGATIVEKETONE [...] Vis Given Vis Pub CVX Influenza 017 ticketscript [facility] SKB Flulaval quadrivalent [id number] Intramuscula r Left Deltoid 017 2014 158 Influenza 018 Joturl SKB Flulaval quadrivalent [id number] Intramuscula r Left Deltoid 018 2023 158 Tdap 018 Joturl SKB BOOSTRIX [id number] Intramuscula r Right Deltoid [...] Mar 2021 10:08AM Diabetes mellitus, type II Nov 04 2021 10:08AM Elevated liver enzymes Nov 04 2021 10:08AM Hypertension Nov 04 2021 10:08AM Obesity Nov 04 2021 10:08AM ELISEO (obstructive sleep apnea) Mar 2021 10:08A M Depression Nov 04 2021 [...] Low back pain Jan 24 2023 9:55AM Payers Insurance Name Company Name Plan Name Plan Number Policy Number Policy Group Number Start Date Medicare [facility] Medicare [facility] [id number] 2014 [employer] Medicare Supplement [employer] Medicare Supplement [id number] Monday, 2018 Medicare Part [place] [id number] N/A Medicare Part [place] [id number] September Standard Life Standard Life [id number] 2014 [employer] 50 percent Saturday, September 05, 2015 Medicare RHC Medicare RHC [id number] N/ A Medicare Part A Medicare - Lab [id number] N/A History of Encounters Visit Date Visit Type Provider 01/24/2023 Office visit Natalia Bradfiel d ROLL TABLE OPERATOR 01/11/2023 Office visit Natalia Bradfiel d ROLL TABLE OPERATOR 01/05/2023 Office visit SANGEETA DEJESUS APR N 12/30/2022 Office visit Natalia Bradfiel d ROLL TABLE OPERATOR 12/27/2022 [facility] Mateus Saez MD 12/14/2022 Office visit Natalia Bradfiel d ROLL TABLE OPERATOR 11/08/2022 Office visit Natalia Bradfiel d ROLL TABLE OPERATOR 10/29/2022 Office visit Natalia Bradfiel d ROLL TABLE OPERATOR 09/01/2022 Office visit Natalia Bradfiel d ROLL TABLE OPERATOR 07/01/2022 Procedures Rakan Winecedrick M Dominic 05/19/2022 Office visit Rakan Wineland M Dominic 05/19/2022 Office visit Natalia Bradfiel d ROLL TABLE OPERATOR 04/28/2022 Office visit Natalia Bradfiel d ROLL TABLE OPERATOR 02/17/2022 Office visit Natalia Bradfiel d ROLL TABLE OPERATOR 01/18/2022 Office visit Ntaalia Bradfiel d ROLL TABLE OPERATOR 11/18/2021 Office visit Natalia Bradfiel d ROLL TABLE OPERATOR 11/04/2021 Office visit Natalia Bradfiel d ROLL TABLE OPERATOR 07/22/[address] Mauricio Cm MD 07/10/[address] [facility] [address] Mauricio Cm MD 06/15/2021 Office visit Natalia Bradfiel d ROLL TABLE OPERATOR 06/03/[address] Mauricio Cm MD 05/21/[address] [facility] [address] Mauricio Cm MD 05/15/2021 Office visit Natalia Bradfiel d ROLL TABLE OPERATOR 05/13/[address] Mauricio Cm MD 04/15/2021 Office visit Natalia Bradfiel d ROLL TABLE OPERATOR 03/18/2021 Office visit SANGEETA DEJESUS APR N 03/16/2021 Office visit Natalia Bradfiel d ROLL TABLE OPERATOR 02/17/2021 Office visit Natalia Bradfiel d ROLL TABLE OPERATOR 01/12/2021 Office visit Natalia Bradfiel d ROLL TABLE OPERATOR 12/30/2020 Office visit Natalia Bradfiel d ROLL TABLE OPERATOR 12/17/2020 Hospital Christiano Yates MD 12/16/2020 [facility] Rubens Underwood MD 12/12/2020 Office visit Natalia Bradfiel d ROLL TABLE OPERATOR 08/06/2020 Office visit Natalia Bradfiel d ROLL TABLE OPERATOR 05/19/2020 Office visit Natalia Bradfiel d ROLL TABLE OPERATOR 04/21/2020 Office visit Natalia Bradfiel d ROLL TABLE OPERATOR 04/09/2020 Hospital Mateus Saez MD 04/07/2020 Office visit Natalia Bradfiel d ROLL TABLE OPERATOR 03/12/2020 Office visit SANGEETA DEJESUS APR N 01/22/2020 Office visit Natalia Bradfiel d ROLL TABLE OPERATOR 11/19/2019 Laboratory Krys clemente MD 10/29/2019 Office visit Natalia Bradfiel d ROLL TABLE OPERATOR 10/17/2019 Office visit Siva Christian DO 10/12/2019 Office visit Natalia Bradfiel d ROLL TABLE OPERATOR 10/08/2019 Office visit Natalia Bradfiel d ROLL TABLE OPERATOR 09/27/2019 Office visit Natalia Bradfiel d ROLL TABLE OPERATOR 09/13/2019 Office visit SANGEETA DEJESUS APR N 08/15/2019 Office visit Siva Christian DO 07/12/2019 Office visit Siva Christian DO 06/14/2019 Office visit SANGEETA DEJESUS APR N 06/13/2019 Laboratory Meme Willis PRN 06/11/2019 Office visit Natalia Bradfiel d ROLL TABLE OPERATOR 05/25/2019 Office visit Natalia Bradfiel d ROLL TABLE OPERATOR 05/08/2019 Office visit Siva Christian DO 04/04/2019 Office visit Natalia Bradfiel d ROLL TABLE OPERATOR 2019 Laboratory Meme Willis PRN 03/15/2019 Office visit SANGEETA DEJESUS APR N 03/13/2019 Office visit Natalia Bradfiel d ROLL TABLE OPERATOR 01/30/2019 Office visit Siva Christian DO 01/03/2019 Laboratory Manny Whitman APR N 01/01/2019 Office visit Natalia Bradfiel d ROLL TABLE OPERATOR 12/29/2018 Office visit Siva Christian DO 12/28/2018 Office visit Rakan Henderson 12/26/2018 Surgery Rakan Henderson 12/22/2018 Office visit Mateus Saez MD 12/22/2018 Laboratory Manny Whitman APR N 11/27/2018 Procedures Rakan Muller D 11/17/2018 Office visit Sivarajesh Albaa DO 11/02/2018 Office visit Rakan Henderson 09/28/2018 Office visit Siva Christian DO 09/12/2018 Office visit Siva Christian DO 07/21/2018 Office visit Natalia Bradfiel d ROLL TABLE OPERATOR 06/09/2018 Office visit Natalia Bradfiel d ROLL TABLE OPERATOR 06/08/2018 Office visit Natalia Bradfiel d ROLL TABLE OPERATOR 05/31/2018 Office visit Natalia Bradfiel d ROLL TABLE OPERATOR 05/29/2018 Nurse visit Natalia Bradfiel d ROLL TABLE OPERATOR 05/23/2018 Procedures Natalia Bradfiel d ROLL TABLE OPERATOR 05/15/2018 Office visit Natalia Bradfiel d ROLL TABLE OPERATOR 03/17/2018 Office visit Natalia Bradfiel d ROLL TABLE OPERATOR 03/13/2018 Office visit Natalia Bradfiel d ROLL TABLE OPERATOR 12/15/2017 Office visit Natalia Bradfiel d ROLL TABLE OPERATOR 10/22/2017 Office visit Natalia Bradfiel d ROLL TABLE OPERATOR 08/15/2017 Laboratory Natalia Bradfiel d ROLL TABLE OPERATOR 08/10/2017 Office visit Natalia Bradfiel d ROLL TABLE OPERATOR 07/19/2017 Office visit Natalia Bradfiel d ROLL TABLE OPERATOR 06/13/2017 Office visit Natalia Bradfiel d ROLL TABLE OPERATOR 06/11/2017 Office visit Manny Antonette APR N 02/07/2017 Office visit Natalia Bradfiel d ROLL TABLE OPERATOR 01/05/2017 Office visit Natalia Bradfiel d ROLL TABLE OPERATOR 11/15/2016 Office visit Natalia Bradfiel d ROLL TABLE OPERATOR 09/18/2016 Office visit Natalia Bradfiel d ROLL TABLE OPERATOR 09/14/2016 Office visit Meme Willis PRN 08/27/2016 Office visit Natalia Bradfiel d ROLL TABLE OPERATOR 06/25/2016 Office visit Natalia Bradfiel d ROLL TABLE OPERATOR 05/06/2016 Office visit Natalia Bradfiel d ROLL TABLE OPERATOR 04/14/2016 Office visit Meme Willis PRN 04/12/2016 Laboratory Natalia Bradfiel d ROLL TABLE OPERATOR 03/30/2016 Office visit Meme Willis PRN 03/03/2016 Nurse visit Meme Willis PRN 02/21/2016 Office visit Natalia Bradfiel d ROLL TABLE OPERATOR 02/05/2016 [facility] Kartik Lipscomb MD 01/27/2016 Office visit Kartik Lipscomb MD 12/02/2015 Office visit Natalia Bradfiel d ROLL TABLE OPERATOR 11/14/2015 Office visit Natalia Bradfiel d ROLL TABLE OPERATOR 11/01/2015 Office visit Natalia Bradfiel d ROLL TABLE OPERATOR 11/01/2015 Laboratory Natalia Bradfiel d ROLL TABLE OPERATOR 10/31/2015 Office visit Natalia Bradfiel d ROLL TABLE OPERATOR 10/11/2015 Office visit Meme Willis PRN 10/03/2015 Office visit Natalia Bradfiel dominic ROLL TABLE OPERATOR
--- OUTSIDE RECORDS SUMMARY | 2023-06-04 11:09 | XMS REPORT ---
Author Author Humble DEJESUS Organization [facility] Address [address] [place], [place] [id number] Care Team Providers Care Cloth Calender Name Role Phone SANGEETA DEJESUS PCP radha Unavailable Unavailable Tai Chavez Unavailable [...] by ora l route every 12 hours Name Start Date Expiration Date SIG Comments [...] tablet 07/25/2017 08/24/2017 Take one tab by [facility] every 12 hours as needed tramadol [...] release (DR/EC) 11/19/2019 TAKE 1 TABLET BY [facility] TWICE DAILY omeprazole 40 mg oral capsule,delayed release(DR/EC) 01/04/2020 12/29/2020 TAKE 1 CAPSULE BY [facility] ONCE DAILY duplicate fluticasone propionate 50 mcg/actuation nasal spray,suspension 01/10/2020 USE 2 SPRAY(S) IN [facility] ONCE DAILY NEEDED baclofen 10 mg oral tablet 03/06/2020 TAKE 1 TABLET BY [facility] THREE TIMES DAILY FOR 30 DAYS hydroxyzine [...] capsule 12/24/2020 02/04/2021 Take 1 capsule by [facility] three times daily as needed [...] 10/09/2021 04/07/2022 TAKE 1 CAPSULE BY [facility] TWICE DAILY WITH FOOD amoxicillin-pot clavulanate 875-125 mg oral tablet 11/04/2021 11/11/2021 take 1 tablet by ora l route every 12 hours for 7 days duloxetine 30 mg oral capsule,delayed release(DR/EC) 12/09/2021 06/07/2022 take 1 capsule (30 m g) by oral route once daily for 30 days Potassium Chloride ER 10 MEQ Oral Capsule Extended Release 04/14/2022 10/11/2022 TAKE 1 CAPSULE BY [facility] TWICE DAILY WITH FOOD Furosemide 20 MG [...] BMI BSA BMI Percentile O2 Sat(%) 023 10:10 :00 AM 79 {beats}/ min [...] iewed 06/13/2017 12:00 AM Decadron 8mg Injection, [facility] edicare Reviewed 06/13/2017 12:00 AM Depo-Medrol 80mg Injection, R Medicare Reviewed 06/13/2017 12:00 AM Toradol 30 Mg Injection, [facility] Medicare Reviewed 06/13/2017 12:00 AM X-RAY EXAM [...] 05/15/2018 12:00 AM Depo-Medrol 80mg Injection, R Medicare Reviewed 05/15/2018 12:00 AM Decadron 8mg Injection, [facility] [place] Reviewed 05/29/2018 12:00 AM MEDICARE - flu [...] AM CT MAXILLOFACIAL W/O CONTRAST MATERIAL Returned Results Summary Date and Description Results [...] 67GFR AA 81eGFR 67eGFR AA* >60 mL/min/1.73 [id number] YELLOWAPPEARANCE CLEARSPEC GRAV >=1.030pH 5.5PROTEIN 30GLUCOSE NEGATIVEKETONE [...] Vis Given Vis Pub CVX Influenza 017 [employer] Flulaval quadrivalent [id number] Intramuscula r Left Deltoid 017 2014 158 Influenza 018 [employer] Flulaval quadrivalent 3PM59 Intramuscula r Left Deltoid 018 2023 158 Tdap 018 [employer] BOOSTRIX [id number] Intramuscula r Right Deltoid [...] Anal fistula Sep 2020 2:35PM Elevated glucose May 15 2021 10:21AM Hypoxia May 15 2021 10:21AM Obesity May 15 2021 10:21AM ELISEO (obstructive sleep apnea) May 15 2021 10:21A M Anal fistula Jun 03 2021 [...] diabetes mellitus Feb 17 2022 10:32AM Depression Man 2021 10:32AM Hyperlipidemia Man [...] Prostate cancer screening Jan 05 2023 10:56AM Payers Insurance Name Company Name Plan Name Plan Number Policy Number Policy Group Number Start Date Medicare Part B Medicare Cristian Rosasas [id number] September Cigna Medicare Supplement Cigna Medicare Supplement [id number] Monday, 2018 Medicare Part B Medicare Of [place] [id number] N/A Standard Life Standard Life [id number] 2014 [employer] Financial Assistance [employer] 50 percent Saturday, September 05, 2015 Medicare RHC Medicare RHC [id number] N/ A Medicare Part A Medicare - Lab [id number] N/A Medicare RHC Medicare RHC [id number] September 05, 2014 History of Encounters Visit Date Visit Type Provider 01/05/2023 Office visit SANGEETA DEJESUS APR N 12/30/2022 Office visit Natalia Bradfiel d MUSIC TYPOGRAPHER 12/14/2022 Office visit Natalia Bradfiel d MUSIC TYPOGRAPHER 11/08/2022 Office visit Natalia Bradfiel d MUSIC TYPOGRAPHER 10/29/2022 Office visit Natalia Bradfiel d MUSIC TYPOGRAPHER 09/01/2022 Office visit Natalia Bradfiel d MUSIC TYPOGRAPHER 07/01/2022 Procedures Rakan Henderson 05/19/2022 Office visit Rakan Henderson 05/19/2022 Office visit Natalia Bradfiel d MUSIC TYPOGRAPHER 04/28/2022 Office visit Natalia Bradfiel d MUSIC TYPOGRAPHER 02/17/2022 Office visit Natalia Bradfiel d MUSIC TYPOGRAPHER 01/18/2022 Office visit Natalia Bradfiel d MUSIC TYPOGRAPHER 11/18/2021 Office visit Natalia Bradfiel d MUSIC TYPOGRAPHER 11/04/2021 Office visit Natalia Bradfiel d MUSIC TYPOGRAPHER 07/22/[address] Mauricio Cm MD 07/10/[address] [facility] [address] Mauricio Cm MD 06/15/2021 Office visit Natalia Bradfiel d MUSIC TYPOGRAPHER 06/03/[address] Mauricio Cm MD 05/21/[address] [facility] [address] Mauricio Cm MD 05/15/2021 Office visit Natalia Bradfiel d MUSIC TYPOGRAPHER 05/13/[address] Mauricio Cm MD 04/15/2021 Office visit Natalia Bradfiel d MUSIC TYPOGRAPHER 03/18/2021 Office visit SANGEETA DEJESUS APR N 03/16/2021 Office visit Natalia Bradfiel d MUSIC TYPOGRAPHER 02/17/2021 Office visit Natalia Bradfiel d MUSIC TYPOGRAPHER 01/12/2021 Office visit Natalia Bradfiel d MUSIC TYPOGRAPHER 12/30/2020 Office visit Natalia Bradfiel d MUSIC TYPOGRAPHER 12/17/2020 Hospital Christiano Yates MD 12/16/2020 Hospital Rubens Underwood MD 12/12/2020 Office visit Natalia Bradfiel d MUSIC TYPOGRAPHER 08/06/2020 Office visit Natalia Bradfiel d MUSIC TYPOGRAPHER 05/19/2020 Office visit Natalia Bradfiel d MUSIC TYPOGRAPHER 04/21/2020 Office visit Natalia Bradfiel d MUSIC TYPOGRAPHER 04/09/2020 Hospital Mateus Saez MD 04/07/2020 Office visit Natalia Bradfiel d MUSIC TYPOGRAPHER 03/12/2020 Office visit SANGEETA DEJESUS APR N 01/22/2020 Office visit Natalia Bradfiel d MUSIC TYPOGRAPHER 11/19/2019 Laboratory Krys clemente MD 10/29/2019 Office visit Natalia Bradfiel d MUSIC TYPOGRAPHER 10/17/2019 Office visit Siva Christian DO 10/12/2019 Office visit Natalia Bradfiel d MUSIC TYPOGRAPHER 10/08/2019 Office visit Natalia Bradfiel d MUSIC TYPOGRAPHER 09/27/2019 Office visit Natalia Bradfiel d MUSIC TYPOGRAPHER 09/13/2019 Office visit SANGEETA DEJESUS APR N 08/15/2019 Office visit Siva Christian DO 07/12/2019 Office visit Siva Christian DO 06/14/2019 Office visit SANGEETA DEJESUS APR N 06/13/2019 Laboratory Meme Willis PRN 06/11/2019 Office visit Natalia Bradfiel d MUSIC TYPOGRAPHER 05/25/2019 Office visit Natalia Bradfiel d MUSIC TYPOGRAPHER 05/08/2019 Office visit Siva Christian DO 04/04/2019 Office visit Natalia Bradfiel d MUSIC TYPOGRAPHER 2019 Laboratory Meme Willis PRN 03/15/2019 Office visit SANGEETA DEJESUS APR N 03/13/2019 Office visit Natalia Bradfiel d MUSIC TYPOGRAPHER 01/30/2019 Office visit Siva Christian DO 01/03/2019 Laboratory Manny Jim Hogg APR N 01/01/2019 Office visit Natalia Bradfiel d MUSIC TYPOGRAPHER 12/29/2018 Office visit Siva Christian DO 12/28/2018 Office visit Rakan Henderson 12/26/2018 Surgery Rakan Henderson 12/22/2018 Office visit Mateus Saez MD 12/22/2018 Laboratory Manny Antonette APR N 11/27/2018 Procedures Rakan Muller D 11/17/2018 Office visit Sivarajesh Albaa DO 11/02/2018 Office visit Rakan Henderson 09/28/2018 Office visit Siva Christian DO 09/12/2018 Office visit Siva Christian DO 07/21/2018 Office visit Natalia Bradfiel d MUSIC TYPOGRAPHER 06/09/2018 Office visit Natalia Bradfiel d MUSIC TYPOGRAPHER 06/08/2018 Office visit Natalia Bradfiel d MUSIC TYPOGRAPHER 05/31/2018 Office visit Natalia Bradfiel d MUSIC TYPOGRAPHER 05/29/2018 Nurse visit Natalia Bradfiel d MUSIC TYPOGRAPHER 05/23/2018 Procedures Natalia Bradfiel d MUSIC TYPOGRAPHER 05/15/2018 Office visit Natalia Bradfiel d MUSIC TYPOGRAPHER 03/17/2018 Office visit Natalia Bradfiel d MUSIC TYPOGRAPHER 03/13/2018 Office visit Natalia Bradfiel d MUSIC TYPOGRAPHER 12/15/2017 Office visit Natalia Bradfiel d MUSIC TYPOGRAPHER 10/22/2017 Office visit Natalia Bradfiel d MUSIC TYPOGRAPHER 08/15/2017 Laboratory Natalia Bradfiel d MUSIC TYPOGRAPHER 08/10/2017 Office visit Natalia Bradfiel d MUSIC TYPOGRAPHER 07/19/2017 Office visit Natalia Bradfiel d MUSIC TYPOGRAPHER 06/13/2017 Office visit Natalia Bradfiel d MUSIC TYPOGRAPHER 06/11/2017 Office visit Manny Jim Hogg APR N 02/07/2017 Office visit Natalia Bradfiel d MUSIC TYPOGRAPHER 01/05/2017 Office visit Natalia Bradfiel d MUSIC TYPOGRAPHER 11/15/2016 Office visit Natalia Bradfiel d MUSIC TYPOGRAPHER 09/18/2016 Office visit Natalia Bradfiel d MUSIC TYPOGRAPHER 09/14/2016 Office visit Meme Willis PRN 08/27/2016 Office visit Natalia Bradfiel d MUSIC TYPOGRAPHER 06/25/2016 Office visit Natalia Bradfiel d MUSIC TYPOGRAPHER 05/06/2016 Office visit Natalia Bradfiel d MUSIC TYPOGRAPHER 04/14/2016 Office visit Meme Willis PRN 04/12/2016 Laboratory Natalia Bradfiel d MUSIC TYPOGRAPHER 03/30/2016 Office visit Meme Willis PRN 03/03/2016 Nurse visit Meme Willis PRN 02/21/2016 Office visit Natalia Bradfiel d MUSIC TYPOGRAPHER 02/05/2016 [facility] Kartik Lipscomb MD 01/27/2016 Office visit Kartik Lipscomb MD 12/02/2015 Office visit Natalia Bradfiel d MUSIC TYPOGRAPHER 11/14/2015 Office visit Natalia Bradfiel d MUSIC TYPOGRAPHER 11/01/2015 Office visit Natalia Bradfiel d MUSIC TYPOGRAPHER 11/01/2015 Laboratory Natalia Bradfiel d MUSIC TYPOGRAPHER 10/31/2015 Office visit Natalia Bradfiel d MUSIC TYPOGRAPHER 10/11/2015 Office visit Meme Willis PRN 10/03/2015 Office visit Natalia Bradfiel d MUSIC TYPOGRAPHER
--- OUTSIDE RECORDS SUMMARY | 2023-06-04 11:09 | XMS REPORT ---
Author Author Humble Ventura Organization [facility] Address [address] [place], [place] [address] Care Team Providers Care Guitar Repairer Name Role Phone Natalia Ventura PCP radha [...] US CAROTID DUPLEX COMP/TROY 01/11/2023 12:00 AM MRI BRAIN INC STEM W/O CONTRAST 01/11/2023 12:0 0 AM Medications Active Name Start Date Estimated [...] every 12 hours sumatriptan 25 mg tablet 01/11/2023 take 1 tablet (25 mg ) once after onset of headache, may repeat once in 2 hours; no more then 100mg in 24 hours tramadol 50 mg tablet 01/11/2023 01/18/2023 May ta ke 1-2 tablets by mouth [...] tablet 07/25/2017 08/24/2017 Take one tab by [facility] every 12 hours as needed [...] release (DR/EC) 11/19/2019 TAKE 1 TABLET BY [facility] TWICE DAILY omeprazole 40 mg oral capsule,delayed release(DR/EC) 01/04/2020 12/29/2020 TAKE 1 CAPSULE BY [facility] ONCE DAILY duplicate fluticasone propionate 50 [...] capsule 12/24/2020 02/04/2021 Take 1 capsule by [facility] three times daily as needed [...] Release 10/09/2021 04/07/2022 TAKE 1 CAPSULE BY [facility] TWICE DAILY WITH FOOD amoxicillin-pot clavulanate 875-125 mg oral tablet 11/04/2021 11/11/2021 take 1 tablet by ora l route every 12 hours for 7 days duloxetine 30 mg oral capsule,delayed release(DR/EC) 12/09/2021 06/07/2022 take 1 capsule (30 m g) by oral route once daily for 30 days Potassium Chloride ER 10 MEQ Oral Capsule Extended Release 04/14/2022 10/11/2022 TAKE 1 CAPSULE BY [facility] TWICE DAILY WITH FOOD Furosemide 20 MG Oral Tablet 08/30/2022 08/25/2023 [facility] 1 [facility] NEEDED FOR LOWER EXTREMITY SWELLING [...] BMI BSA BMI Percentile O2 Sat(%) 023 10:52 :00 AM 130 mm[Hg] 62 [...] Reviewed 11/15/2016 12:00 AM Decadron 8mg Injection, [facility] edicare Reviewed 11/15/2016 12:00 AM Depo Medrol 40mg Injection, R Medicare Reviewed 02/07/2017 12:00 AM Depo-Medrol 80mg Injection, [facility] Medicare Reviewed 02/07/2017 12:00 AM Decadron 8mg Injection, [facility] dicare Reviewed 02/07/2017 12:00 AM THERAPEUTIC PROPHYLACTIC/DX IN JECTION SUBQ/IM Reviewed 06/11/2017 12:00 AM Toradol 60 Mg Injection Revie tue06/11/2017 12:00 AM THER/PROPH/DIAG INJ SC/IM Rev iewed 06/13/2017 12:00 AM Decadron 8mg Injection, [facility] edicare Reviewed 06/13/2017 12:00 AM Depo-Medrol 80mg Injection, R Medicare Reviewed 06/13/2017 12:00 AM Toradol 30 Mg Injection, [facility] Medicare Reviewed 06/13/2017 12:00 AM X-RAY EXAM [...] 67GFR AA 81eGFR 67eGFR AA* >60 mL/min/1.73 [id number] YELLOWAPPEARANCE CLEARSPEC GRAV >=1.030pH 5.5PROTEIN 30GLUCOSE NEGATIVEKETONE [...] Vis Given Vis Pub CVX Influenza 017 [employer] [facility] Flulaval quadrivalent 4Z2L3 Intramuscula r Left Deltoid 017 2014 158 Influenza 018 [employer] [facility] Flulaval quadrivalent 3PM59 Intramuscula r Left Deltoid 018 2023 158 Tdap 018 [employer] [facility] BOOSTRIX [id number] Intramuscula r Right Deltoid 018 [...] 2019 10:57A M Mechanical low back pain Sep 2018 3:48PM Sacral pain May 08 2019 3:48PM [...] 10:32AM Depression Feb 17 2022 10:32AM Hyperlipidemia Man 2021 10:32AM Lumbar stenosis Feb 17 2022 10:32AM Fatigue Feb 17 2022 10:32AM Diabetes mellitus, type II Feb 17 2022 10:32AM Elevated liver enzymes Feb 17 2022 10:32AM Hypertension Man 2021 10:32AM Obesity Man [...] w ur obs/LUTS Sep 2021 1:06PM Obesity May 19 2022 1:06PM BPH (benign prostatic hyperplasia) May 26 2022 1 0:28AM Benign prostatic hyperplasia with lower urinary tract symptoms Jul 01 2022 2:54PM Other obstructive and reflux uropathy Jul 01 2:54PM S/P TURP Jul 01 2022 2:54PM Fluid retention Sep 01 2022 1:49PM Fatigue Dec 28 2022 1:49PM Glucose intolerance Sep 01 2022 [...] and device s Jan 11 2023 10:54AM Payers Insurance Name Company Name Plan Name Plan Number Policy Number Policy Group Number Start Date Medicare Part B Medicare Of [place] [id number] September Cigna Medicare Supplement Cigna Medicare Supplement [id number] Monday, 2018 Medicare Part B Medicare Of [place] [id number] N/A Standard Life Standard Life [id number] 2014 [employer] Financial Assistance [employer] 50 percent Saturday, September 05, 2015 Medicare RHC Medicare RHC [id number] N/ A Medicare Part A Medicare - Lab [id number] N/A Medicare RHC Medicare RHC [id number] September 05, 2014 History of Encounters Visit Date Visit Type Provider 01/11/2023 Office visit Natalia henderson SOAP PRESS FEEDER 01/05/2023 Office visit SANGEETA DEJESUS APR N 12/30/2022 Office visit Natalia henderson SOAP PRESS FEEDER 12/14/2022 Office visit Natalia henderson SOAP PRESS FEEDER 11/08/2022 Office visit Natalia Bradfiel d SOAP PRESS FEEDER 10/29/2022 Office visit Natalia Bradfiel d SOAP PRESS FEEDER 09/01/2022 Office visit Natalia Bradfiel d SOAP PRESS FEEDER 07/01/2022 Procedures Rakan Muller D 05/19/2022 Office visit Rakan Muller D 05/19/2022 Office visit Natalia Bradfiel d SOAP PRESS FEEDER 04/28/2022 Office visit Natalia Bradfiel d SOAP PRESS FEEDER 02/17/2022 Office visit Natalia Bradfiel d SOAP PRESS FEEDER 01/18/2022 Office visit Natalia Bradfiel d SOAP PRESS FEEDER 11/18/2021 Office visit Natalia Bradfiel d SOAP PRESS FEEDER 11/04/2021 Office visit Natalia Bradfiel d SOAP PRESS FEEDER 07/22/[address] Mauricio Cm MD 07/10/2021 [facility] Dr. Mauricio Cm MD 06/15/2021 Office visit Natalia Bradfiel d SOAP PRESS FEEDER 06/03/[address] Mauricio Cm MD 05/21/2021 [facility] Dr. Mauricio Cm MD 05/15/2021 Office visit Natalia Bradfiel d SOAP PRESS FEEDER 05/13/[address] Mauricio Cm MD 04/15/2021 Office visit Natalia Bradfiel d SOAP PRESS FEEDER 03/18/2021 Office visit SANGEETA DEJESUS APR N 03/16/2021 Office visit Natalia Bradfiel d SOAP PRESS FEEDER 02/17/2021 Office visit Natalia Bradfiel d SOAP PRESS FEEDER 01/12/2021 Office visit Natalia Bradfiel d SOAP PRESS FEEDER 12/30/2020 Office visit Natalia Bradfiel d SOAP PRESS FEEDER 12/17/2020 [facility] Christiano Yates MD 12/16/2020 [facility] Rubens Udnerwood MD 12/12/2020 Office visit Natalia Bradfiel d SOAP PRESS FEEDER 08/06/2020 Office visit Natalia Bradfiel d SOAP PRESS FEEDER 05/19/2020 Office visit Natalia Bradfiel d SOAP PRESS FEEDER 04/21/2020 Office visit Natalia Bradfiel d SOAP PRESS FEEDER 04/09/2020 Hospital Mateus Saez MD 04/07/2020 Office visit Natalia Bradfiel d SOAP PRESS FEEDER 03/12/2020 Office visit SANGEETA DEJESUS APR N 01/22/2020 Office visit Natalia Bradfiel d SOAP PRESS FEEDER 11/19/2019 Laboratory Krys clemente MD 10/29/2019 Office visit Natalia Bradfiel d SOAP PRESS FEEDER 10/17/2019 Office visit Siva Christian DO 10/12/2019 Office visit Natalia Bradfiel d SOAP PRESS FEEDER 10/08/2019 Office visit Natalia Bradfiel d SOAP PRESS FEEDER 09/27/2019 Office visit Antalia Bradfiel d SOAP PRESS FEEDER 09/13/2019 Office visit SANGEETA DEJESUS APR N 08/15/2019 Office visit Siva Christian DO 07/12/2019 Office visit Siva Christian DO 06/14/2019 Office visit SANGEETA DEJESUS APR N 06/13/2019 Laboratory Memewilli Majanoery A PRN 06/11/2019 Office visit Natalia Bradfiel d SOAP PRESS FEEDER 05/25/2019 Office visit Natalia Bradfiel d SOAP PRESS FEEDER 05/08/2019 Office visit Siva Christian DO 04/04/2019 Office visit Natalia Bradfiel d SOAP PRESS FEEDER 2019 Laboratory Meme McCaffery A PRN 03/15/2019 Office visit SANGEETA DEJESUS APR N 03/13/2019 Office visit Natalia Bradfiel d SOAP PRESS FEEDER 01/30/2019 Office visit Siva Christian DO 01/03/2019 Laboratory Manny Clifford APR N 01/01/2019 Office visit Natalia Bradfiel d SOAP PRESS FEEDER 12/29/2018 Office visit Siva Christian DO 12/28/2018 Office visit Rakan Henderson 12/26/2018 Surgery Rakan Henderson 12/22/2018 Office visit Mateus Saez MD 12/22/2018 Laboratory Manny Clifford APR N 11/27/2018 Procedures Rakan Henderson 11/17/2018 Office visit Siva Christian DO 11/02/2018 Office visit Rakan Henderson 09/28/2018 Office visit Siva Christian DO 09/12/2018 Office visit Siva Christian DO 07/21/2018 Office visit Natalia Bradfiel d SOAP PRESS FEEDER 06/09/2018 Office visit Natalia Bradfiel d SOAP PRESS FEEDER 06/08/2018 Office visit Natalia Bradfiel d SOAP PRESS FEEDER 05/31/2018 Office visit Natalia Bradfiel d SOAP PRESS FEEDER 05/29/2018 Nurse visit Natalia Bradfiel d SOAP PRESS FEEDER 05/23/2018 Procedures Natalia Bradfiel d SOAP PRESS FEEDER 05/15/2018 Office visit Natalia Bradfiel d SOAP PRESS FEEDER 03/17/2018 Office visit Natalia Bradfiel d SOAP PRESS FEEDER 03/13/2018 Office visit Natalia Bradfiel d SOAP PRESS FEEDER 12/15/2017 Office visit Natalia Bradfiel d SOAP PRESS FEEDER 10/22/2017 Office visit Natalia Bradfiel d SOAP PRESS FEEDER 08/15/2017 Laboratory Natalia Bradfiel d SOAP PRESS FEEDER 08/10/2017 Office visit Natalia Bradfiel d SOAP PRESS FEEDER 07/19/2017 Office visit Natalia Bradfiel d SOAP PRESS FEEDER 06/13/2017 Office visit Natalia Bradfiel d SOAP PRESS FEEDER 06/11/2017 Office visit Manny Whitman APR N 02/07/2017 Office visit Natalia Bradfiel d SOAP PRESS FEEDER 01/05/2017 Office visit Natalia Bradfiel d SOAP PRESS FEEDER 11/15/2016 Office visit Natalia Bradfiel d SOAP PRESS FEEDER 09/18/2016 Office visit Natalia Bradfiel d SOAP PRESS FEEDER 09/14/2016 Office visit Meme Willis PRN 08/27/2016 Office visit Natalia Bradfiel d SOAP PRESS FEEDER 06/25/2016 Office visit Natalia Bradfiel d SOAP PRESS FEEDER 05/06/2016 Office visit Natalia Bradfiel d SOAP PRESS FEEDER 04/14/2016 Office visit Meme Willis PRN 04/12/2016 Laboratory Natalia Bradfiel d SOAP PRESS FEEDER 03/30/2016 Office visit Meme Willis PRN 03/03/2016 Nurse visit Meme Willis PRN 02/21/2016 Office visit Natalia Bradfiel d SOAP PRESS FEEDER 02/05/2016 Hospital Kartik Lipscomb MD 01/27/2016 Office visit Kartik Lipscomb MD 12/02/2015 Office visit Natalia Bradfiel d SOAP PRESS FEEDER 11/14/2015 Office visit Natalia Bradfiel d SOAP PRESS FEEDER 11/01/2015 Office visit Natalia Bradfiel d SOAP PRESS FEEDER 11/01/2015 Laboratory Natalia Bradfiel d SOAP PRESS FEEDER 10/31/2015 Office visit Natalia henderson SOAP PRESS FEEDER 10/11/2015 Office visit Meme Willis PRN 10/03/2015 Office visit Natalia henderson SOAP PRESS FEEDER
--- OUTSIDE RECORDS SUMMARY | 2023-06-04 11:10 | XMS REPORT | Summary of Care ---
Author Author PayPay Address Unknown Phone Unavailable Care Team Providers Care Boring Machine Feeder Name Role Phone Lorenzo Natalia Bryan SORIA PCP [phone]- [phone] Reason for Visit * Radiology Services (Routine) - Closed Specialty Diagnoses / Procedures Referred By Felipa t Referred To Contact Diagnoses Generalized pain Procedures XR FLUORO LESS THAN 1 HOUR Nick Jack MD [address] [place] [phone] Referral ID Status Reason Start Date Expiration Date Visits Re quested Visits Authorized [id number] Closed 05/23/2023 06/22/2024 1 1 Encounter Details Date Type Department Care Team Description 05/23/2023 6:42 AM CDT - 05/23/2023 11:59 PM CDT Hospital Encounter [facility] Radiology [address] [place] [address] Nick Jack MD [address] [facility] [place] [phone] Canceled (Provider Requested) Discharge Disposition: Home or Self Care Allergies No known active allergiesdocumented as of this encounter (statuses as of 05/24/2023) Medications Medication Sig Dispensed Refills Start Date End Date Status DULoxetine (CYMBALTA) 30 mg Capsule, Delayed Release(E.C.) Take 30 mg by mouth daily in the morning. 0 04/10/2020 Active furosemide (LASIX) 40 mg tablet Take 40 mg by mouth daily in the morning. 0 04/10/2020 Active allopurinoL (ZYLOPRIM) 300 mg tablet Take 300 mg by mouth daily at bedtime. 0 04/10/2020 Active montelukast (SINGULAIR) 10 mg tablet Take 10 mg by mouth daily at bedtime. 0 04/10/2020 Active cetirizine (ZyrTEC) 10 mg tablet Take 10 mg by mouth daily at bedtime. 0 04/10/2020 Active omeprazole (PriLOSEC) 40 mg Capsule, Delayed Release(E.C.) Take 40 mg by mouth daily at bedtime. 0 04/10/2020 Active fluticasone propionate (FLONASE) 50 mcg/spray [place], Suspension nasal inhaler Administer 2 Sprays in each nostril daily in the morning. 0 03/23/2020 Active lisinopriL (PRINIVIL) 40 mg tablet Take 40 mg by mouth daily in the morning. 0 01/15/2022 Active atorvastatin (LIPITOR) 80 mg tablet Take 80 mg by mouth daily at bedtime. 0 01/20/2022 Active potassium chloride (MICRO-K EXTENCAPS) 10 mEq Extended Release capsule Take 10 mEq by mouth 2 times daily. 0 02/21/2022 Active carvediloL (COREG) 12.5 mg tablet TAKE 1 TABLET BY MOUTH TWICE DAILY WITH FOOD 0 02/08/2022 Active diphenhydrAMINE (BENADRYL) 25 mg tablet Take 50 mg by mouth every 6 hours as needed for Allergies. 0 Active baclofen (LIORESAL) 10 mg tablet Take 1 Tablet (10 mg) by mouth 3 times daily. 60 Tablet 1 04/01/2022 Active lamoTRIgine (LaMICtal) 100 mg tablet Take 100 mg by mouth daily. 0 04/11/2022 Active tamsulosin (FLOMAX) 0.4 mg capsule TAKE 1 CAPSULE BY MOUTH ONCE DAILY HALF AN HOUR FOLLOWING THE SAME MEAL EACH DAY 0 05/19/2022 Active gabapentin (NEURONTIN) 600 mg tablet 0 06/21/2022 Active diclofenac sodium (VOLTAREN) 75 mg Tablet, Delayed Release (E.C.) Take 75 mg by mouth 2 times daily. 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 S/P lumbar fusion 05/02/2020 Incisional abscess 04/10/2020 Sepsis 04/10/2020 S/P spinal surgery 04/10/2020 Acute low back pain 04/10/2020 DM (diabetes mellitus), type 2 04/10/2020 Anxiety and depression 04/10/2020 GERD (gastroesophageal reflux disease) 0 Essential hypertension 04/10/2020 documented as of this encounter (statuses as of 05/24/2023) Social History Tobacco Use Types Packs/Day Years Used Date Smoking Tobacco: Never Smokeless Tobacco: Never Alcohol Use Standard Drinks/Week Comments Never 0 (1 standard drink = 0.6 oz pur e alcohol) Sex and Gender Information Value Date Recorded Sex Assigned at Not on file Gender Identity Not on file Sexual Orientation Not on file documented as of this encounter Plan of Treatment Health Maintenance Due Date Last Done Comments PNEUMOCOCCAL VACCINE 65+ YEARS (1 - PCV) 1959 DIABETES ANNUAL FOOT EXAM 1971 DIABETES MICROALBUMIN ANNUAL SCREEN 1971 LDL CHOLESTEROL ANNUAL 1971 DTAP/TDAP/TD VACCINES (1 - Tdap) 1972 COLORECTAL SCREENING 1998 Colorectal Cancer Screening 1998 FIT-DNA Q 3 years 1998 FIT/FOBT Q 1 year 1998 Flex Sig/CT Colonography Q 5 years 1998 ZOSTER VACCINE (1 of 2) 2003 INFLUENZA VACCINE (#1) 2023 DIABETES ANNUAL RETINAL EXAM 07/19/2023 07/19/2022 DIABETES HBA1C Q 6 MONTHS 11/10/2023 05/12/2023, documented as of this encounter Medical Devices Implanted Type Area Senior Clinician Device Identifier Shelf Expiration Date Model / Serial / Lot Lumbar Fusion- 0 Implanted:03/24 by Nick Jack MD (Quantity not on file) Cage Spine Lumbar Hemostatic Surgiflo 8ml W/ Thrombin 2994 - [id number] Implanted:Qty: 1 on 03/30/2022 by Nick Jack MD at [facility] Hemostatic Spine Lumbar [employer] 01/02/2023 2994 / / [id number] Reline-O 5.5x 160mm Lordotic [id number] - [id number] Implanted:Qty: 1 on 03/30/2022 by Nick Jack MD at [facility] Ra N/A: Spine Lumbar [employer] [id number] / / Screw Reline-O 8.5x 90mm [id number] - [id number] Implanted:Qty: 1 on 03/30/2022 by Nick Jack MD at [facility] Screw N/A: Spine Lumbar [employer] [id number] / / Spacer Sable 15° 10x30 10-17mm 1172.2224s - [id number] Implanted:Qty: 1 on 03/30/2022 by Nick Jack MD at [facility] Spacer N/A: Spine Lumbar [employer] 10/05/2031 [id number] / / [id number] Osteoballast [id number] Matrix [id number] - [id number] Implanted:Qty: 1 on 03/30/2022 by Nick Jack MD at [facility] Tissue N/A: Spine Lumbar SEASPINE 07/02/2023 [id number] / / [id number] Crosslink Large Implanted:Qty: 1 on 03/30/2022 by Nick Jack MD at [facility] N/A: Spine Lumbar SEASPINE / / documented as of this encounter Visit Diagnoses Diagnosis Generalized pain documented in this encounter Advance Directives For more information, please contact: [phone] Latest Code Status on File Code Status Date Activated Date Inactivated Comments Full Code 03/30/2022 4:33 PM 04/01/2022 5:50 PM Code Status History Code Status Date Activated Date Inactivated Comments Full Code 03/30/2022 1:17 PM 03/30/2022 4:33 PM Full Code 03/30/2022 9:11 AM 03/30/2022 1:16 PM Care Teams Boring Machine Feeder Relationship Specialty Start Date End Date Natalia Ventura APRN [address] [place] [phone] PCP - General 11/12/20 documented as of this encounter
--- OUTSIDE RECORDS SUMMARY | 2023-06-04 11:10 | XMS REPORT ---
Author Author Humble Ventura Organization [facility] Address [address] [place], [place] [id number] Care Team Providers Care Client Server Developer Name Role Phone Natalia Ventura PCP radha [...] B and C screen 11/06/2021 12:[address] w/o contrast 12/14/2022 12:00 AM Medications Active Name Start Date Estimated Comple tion Date SIG Comments Omeprazole 40 MG Oral Capsule Delayed Release 02/08/2022 02/03/2023 Take 1 capsule b y mouth once daily allopurinol 300 mg tablet 02/22/2022 02/17/2023 Take 1 tablet by ashanti th once daily Diclofenac Sodium 75 MG Oral Tablet Delayed Release 03/03/2022 02/26/2023 Take 1 tablet by ashanti th twice daily ondansetron HCl oral tablet 4 mg 04/28/2022 Take 1 tablet every 6 hours as needed for nausea and vomiting Atorvastatin Calcium 80 MG Oral Tablet 05/17/2022 05/12/2023 Take 1 tablet by [facility] once daily Montelukast Sodium 10 MG Oral Tablet 06/01/2022 05/27/2023 Take 1 tablet by [facility] in the evening baclofen 10 mg oral tablet 07/27/2022 06/22/2023 TAKE 1 TABLET BY [facility] THREE TIMES DAILY FOR 30 DAYS lamoTRIgine 100 MG Oral Tablet 08/16/2022 02/12/2023 Take 1 tablet by [facility] once daily Gabapentin 600 MG Oral Tablet 09/20/2022 03/19/2023 Take 1 tablet by [facility] twice daily Lisinopril 40 MG Oral Tablet 10/03/2022 Take 1 tablet by [facility] once daily Potassium Chloride ER 10 MEQ Oral Capsule Extended Release 10/12/2022 TAKE 1 CAPSULE BY MOUTH TWICE DAILY WITH FOOD Medrol (Roman) 4 mg tablets in a dose pack 10/29/2022 take by oral rout e as directed per package instructions fluticasone propionate 50 mcg/actuation nasal spray,suspension 10/29/2022 spray 1 - 2 sprays ( 50 - 100 mcg) in each nostril by intranasal route once daily as needed furosemide oral tablet 40 mg 11/05/2022 10/31/2023 Take 1 tablet by [facility] twice daily albuterol sulfate HFA 90 mcg/actuation aerosol inhaler 11/08/2022 inhale 1 - 2 puffs ( 90 - 180 mcg) by inhalation route every 6 hours as needed benzonatate oral capsule 200 mg 11/08/2022 take 1 capsule (200 mg) by oral route 3 times per day as needed for cough Carvedilol 12.5 MG Oral Tablet 11/08/2022 Take 1 tablet by [facility] twice daily with food DULoxetine HCl 30 MG Oral Capsule Delayed Release Particles 11/26/2022 Take 1 capsule by mouth once daily Name Start Date [...] tablet 07/25/2017 08/24/2017 Take one tab by [facility] every 12 hours as needed tramadol [...] every 12 hours for 10 days Medrol (Orman) 4 mg oral tablets,dose pack 10/29/2019 take as directed diclofenac sodium 75 mg oral tablet,delayed release (DR/EC) 11/19/2019 TAKE 1 TABLET BY [facility] TWICE DAILY omeprazole 40 mg oral capsule,delayed release(DR/EC) 01/04/2020 12/29/2020 TAKE 1 CAPSULE BY [facility] ONCE DAILY duplicate fluticasone propionate 50 mcg/actuation [...] Tablet 09/15/2020 03/14/2021 [facility] Rexulti 1 mg oral tablet 11/14/2020 05/13/2021 Blaze e 1 tablet by mouth once daily benzonatate 100 mg capsule 12/24/2020 02/04/2021 Take 1 capsule by [facility] three times daily as needed for [...] Release 10/09/2021 04/07/2022 TAKE 1 CAPSULE BY [facility] TWICE DAILY WITH FOOD amoxicillin-pot clavulanate 875-125 mg oral tablet 11/04/2021 11/11/2021 take 1 tablet by ora l route every 12 hours for 7 days duloxetine 30 mg oral capsule,delayed release(DR/EC) 12/09/2021 06/07/2022 take 1 capsule (30 m g) by oral route once daily for 30 days Potassium Chloride ER 10 MEQ Oral Capsule Extended Release 04/14/2022 10/11/2022 TAKE 1 CAPSULE BY [facility] TWICE DAILY WITH FOOD tamsulosin oral capsule,extended release 24hr 0.4 mg 05/19/2022 11/15/2022 take 1 capsule (0.4 mg) by oral route once daily 1/2 hour following the same meal each day for 30 days Furosemide 20 MG Oral Tablet 08/30/2022 08/25/2023 [...] the morning and evening per package directions Problem List Description Status Onset Lumbar stenosis Active 11/01/2015 Hyperlipidemia Active 11/01/2015 Sleep apnea Active 11/01/2015 Hypertension, Essential Active 6 Depression Active 11/15/2015 Vital Signs Date Time BP-Sys(mm[Hg] BP-Peyton(mm[Hg]) HR(bpm) RR(rpm) Temp WT HT HC BMI BSA BMI Percentile O2 Sat(%) 2022 9:24: 00 AM 136 mm[Hg] 64 [...] 12:00 AM Decadron 8mg Injection, [facility] M keaton Reviewed 11/15/2016 12:00 AM Depo Medrol 40mg Injection, R HC Medicare Reviewed 02/07/2017 12:00 AM Depo-Medrol 80mg Injection, RH C Medicare Reviewed 02/07/2017 12:00 AM Decadron 8mg Injection, [facility] dicare Reviewed 02/07/2017 12:00 AM THERAPEUTIC PROPHYLACTIC/DX IN JECTION SUBQ/IM Reviewed 06/11/2017 12:00 AM Toradol 60 Mg Injection Revie tue06/11/2017 12:00 AM THER/PROPH/DIAG INJ SC/IM Rev iewed 06/13/2017 12:00 AM Decadron 8mg Injection, [facility] M edicare Reviewed 06/13/2017 12:00 AM Depo-Medrol 80mg Injection, R HC Medicare Reviewed 06/13/2017 12:00 AM Toradol 30 Mg Injection, [facility] Medicare Reviewed 06/13/2017 12:00 AM X-RAY EXAM [...] 11/08/2022 1:37 PM COVID Rapid Testing Reviewed Results Summary [...] 67GFR AA 81eGFR 67eGFR AA* >60 mL/min/1.73 [id number] YELLOWAPPEARANCE CLEARSPEC GRAV >=1.030pH 5.5PROTEIN 30GLUCOSE NEGATIVEKETONE [...] Vis Given Vis Pub CVX Influenza 017 Starteed [facility] SKB Flulaval quadrivalent [id number] Intramuscula r Left Deltoid 017 2014 158 Influenza 018 GlaxoSmithKl ine SKB Flulaval quadrivalent 3PM59 Intramuscula r Left Deltoid 018 2023 158 Tdap 018 GlaxNan ine SKB BOOSTRIX [id number] Intramuscula r Right [...] 15 2021 10:21AM ELISEO (obstructive sleep apnea) Sep 2020 [...] diabetes mellitus May 19 2022 9:18AM Depression May 19 2022 9:18AM Hyperlipidemia May 19 2022 9:18AM Lumbar stenosis May 19 2022 9:18AM Fatigue May 19 2022 9:18AM Obesity May 19 2022 9:18AM ELISEO [...] 9:32AM Sinus pressure Dec 14 2022 9:32AM Payers Insurance Name Company Name Plan Name Plan Number Policy Number Policy Group Number Start Date Medicare Part B Medicare [place] [id number] September Cigna Medicare Supplement Cigna Medicare Supplement [id number] Monday, 2018 Medicare Part B [place] [id number] N/A Standard Life Standard Life [id number] 2014 [employer] Financial Assistance [place] [employer] [place] 50 percent Saturday, September 05, 2015 Medicare RHC Medicare RHC [id number] N/ A Medicare Part A Medicare - Lab [id number] N/A Medicare RHC Medicare RHC [id number] September 05, 2014 History of Encounters Visit Date Visit Type Provider 12/14/2022 Office visit Natalia henderson WOM[facility]'S SOCCER COACH 11/08/2022 Office visit Natalia Bradfiel d WOMEN'S SOCCER COACH 10/29/2022 Office visit Natalia Bradfiel d WOMEN'S SOCCER COACH 09/01/2022 Office visit Natalia Bradfiel d WOMEN'S SOCCER COACH 07/01/2022 Procedures Rakan Muller D 05/19/2022 Office visit Rakan Muller D 05/19/2022 Office visit Natalia Bradfiel d WOMEN'S SOCCER COACH 04/28/2022 Office visit Natalia Bradfiel d WOMEN'S SOCCER COACH 02/17/2022 Office visit Natalia Bradfiel d WOMEN'S SOCCER COACH 01/18/2022 Office visit Natalia Bradfiel d WOMEN'S SOCCER COACH 11/18/2021 Office visit Natalia Bradfiel d WOMEN'S SOCCER COACH 11/04/2021 Office visit Natalia Bradfiel d WOMEN'S SOCCER COACH 07/22/[address] Mauricio Cm MD 07/10/[address] [facility] [address] Mauricio Cm MD 06/15/2021 Office visit Natalia Bradfiel d WOMEN'S SOCCER COACH 06/03/[address] Mauricio Cm MD 05/21/[address] [facility] [address] Mauricio Cm MD 05/15/2021 Office visit Natalia Bradfiel d WOMEN'S SOCCER COACH 05/13/[address] Mauricio Cm MD 04/15/2021 Office visit Natalia Bradfiel d WOMEN'S SOCCER COACH 03/18/2021 Office visit SANGEETA DEJESUS APR N 03/16/2021 Office visit Natalia Bradfiel d [facility] SO[employer] 02/17/2021 Office visit Natalia Bradfiel d WOMEN'S SOCCER COACH 01/12/2021 Office visit Natalia Bradfiel d WOMEN[employer]S SOCCER COACH 12/30/2020 Office visit Natalia Bradfiel d [facility]OM[facility]S SOCCER COACH 12/17/2020 [facility] Christiano Yates MD 12/16/2020 [facility] Rubens Underwood MD 12/12/2020 Office visit Natalia Bradfiel d [facility] 08/06/2020 Office visit Natalia Bradfiel d WOMEN[employer]S SOCCER COACH 05/19/2020 Office visit Natalia Bradfiel d WOMEN'S SOCCER COACH 04/21/2020 Office visit Natalia Bradfiel d WOMEN'S SOCCER COACH 04/09/2020 Hospital Mateus Saez MD 04/07/2020 Office visit Natalia Bradfiel d WOMEN'S SOCCER COACH 03/12/2020 Office visit SANGEETA DEJESUS APR N 01/22/2020 Office visit Natalia Bradfiel d WOMEN'S SOCCER COACH 11/19/2019 Laboratory Krys clemente MD 10/29/2019 Office visit Natalia Bradfiel d WOMEN[employer]S SOCCER COACH 10/17/2019 Office visit Siva Christian DO 10/12/2019 Office visit Natalia Bradfiel d WOM[employer]S SOCCER COACH 10/08/2019 Office visit Natalia Bradfiel d WOMEN'S SOCCER COACH 09/27/2019 Office visit Natalia Bradfiel d WOMEN'S SOCCER COACH 09/13/2019 Office visit SANGEETA DEJESUS APR N 08/15/2019 Office visit Siva Christian DO 07/12/2019 Office visit Siva Christian DO 06/14/2019 Office visit SANGEETA DEJESUS APR N 06/13/2019 Laboratory Memewilli Majanoery A PRN 06/11/2019 Office visit Natalia Bradfiel d [facility]OM[facility]S SOCCER COACH 05/25/2019 Office visit Natalia Bradfiel d WOMEN'S SOCCER COACH 05/08/2019 Office visit Siva Christian DO 04/04/2019 Office visit Natalia Bradfiel d WOMEN'S SOCCER COACH 2019 Laboratory Meme McCaffery A PRN 03/15/2019 Office visit SANGEETA DEJESUS APR N 03/13/2019 Office visit Natalia Bradfiel d WOMEN'S SOCCER COACH 01/30/2019 Office visit Siva Christian DO 01/03/2019 Laboratory Manny Antonette APR N 01/01/2019 Office visit Natalia Bradfiel d WOMEN'S SOCCER COACH 12/29/2018 Office visit Siva Christian DO 12/28/2018 Office visit Rakan Henderson 12/26/2018 Surgery Rakan Henderson 12/22/2018 Office visit Mateus Saez MD 12/22/2018 Laboratory Manny Denver APR N 11/27/2018 Procedures Rakan Henderson 11/17/2018 Office visit Siva Christian DO 11/02/2018 Office visit Rakan Henderson 09/28/2018 Office visit Siva Christian DO 09/12/2018 Office visit Siva Christian DO 07/21/2018 Office visit Natalia Bradfiel d WOMEN'S SOCCER COACH 06/09/2018 Office visit Natalia Bradfiel d WOMEN'S SOCCER COACH 06/08/2018 Office visit Natalia Bradfiel d WOMEN'S SOCCER COACH 05/31/2018 Office visit Natalia Bradfiel d WOMEN'S SOCCER COACH 05/29/2018 Nurse visit Natalia Bradfiel d WOMEN'S SOCCER COACH 05/23/2018 Procedures Natalia Bradfiel d WOMEN'S SOCCER COACH 05/15/2018 Office visit Natalia Bradfiel d WOMEN'S SOCCER COACH 03/17/2018 Office visit Natalia Bradfiel d WOMEN'S SOCCER COACH 03/13/2018 Office visit Natalia Bradfiel d WOMEN'S SOCCER COACH 12/15/2017 Office visit Natalia Bradfiel d WOMEN'S SOCCER COACH 10/22/2017 Office visit Natalia Bradfiel d WOMEN'S SOCCER COACH 08/15/2017 Laboratory Natalia Bradfiel d WOMEN'S SOCCER COACH 08/10/2017 Office visit Natalia Bradfiel d WOMEN'S SOCCER COACH 07/19/2017 Office visit Natalia Bradfiel d WOMEN'S SOCCER COACH 06/13/2017 Office visit Natalia Bradfiel d WOMEN'S SOCCER COACH 06/11/2017 Office visit Manny Whitman APR N 02/07/2017 Office visit Natalia Bradfiel d WOMEN'S SOCCER COACH 01/05/2017 Office visit Natalia Bradfiel d WOMEN'S SOCCER COACH 11/15/2016 Office visit Natalia Bradfiel d WOMEN'S SOCCER COACH 09/18/2016 Office visit Natalia Bradfiel d WOMEN'S SOCCER COACH 09/14/2016 Office visit Meme Willis PRN 08/27/2016 Office visit Natalia Bradfiel d WOMEN[employer]S SOCCER COACH 06/25/2016 Office visit Natalia Bradfiel d WOMEN'S SOCCER COACH 05/06/2016 Office visit Natalia Bradfiel d WOMEN'S SOCCER COACH 04/14/2016 Office visit Meme Willis PRN 04/12/2016 Laboratory Natalia Bradfiel d WOMEN[employer]S SOCCER COACH 03/30/2016 Office visit Meme Willis PRN 03/03/2016 Nurse visit Meme Willis PRN 02/21/2016 Office visit Natalia Bradfiel d WOMEN'S SOCCER COACH 02/05/2016 Hospital Kartik Lipscomb MD 01/27/2016 Office visit Kartik Lipscomb MD 12/02/2015 Office visit Natalia Bradfiel d [employer]OM[employer] SOCCER COACH 11/14/2015 Office visit Natalia Bradfiel d WOMEN[employer]S SOCCER COACH 11/01/2015 Office visit Natalia Bradfiel d WOMEN[employer]S SOCCER COACH 11/01/2015 Laboratory Natalia Bradfiel d WOMEN[employer]S SOCCER COACH 10/31/2015 Office visit Natlaia henderson APRN 10/11/2015 Office visit Meme Willis PRN 10/03/2015 Office visit Natalia henderson APRN
--- OUTSIDE RECORDS SUMMARY | 2023-06-04 11:10 | XMS REPORT | Summary of Care ---
Author Author [employer] Address Unknown Phone Unavailable Care Team Providers Care Pastoral Worker Name Role Phone LorenzoNatalia Bryan SORIA PCP +1- [phone] Encounter Details Date Type Department Care Team Description 05/23/2023 6:42 AM CDT - 05/23/2023 11:59 PM CDT Hospital Encounter [facility] Radiology [address] [place] [id number] Nick Jack MD [address] [place] [address] Canceled (Provider Requested) Discharge Disposition: Home [...] 04/10/2020 Active fluticasone propionate (FLONASE) 50 mcg/spray [place], Suspension nasal inhaler Administer 2 Sprays in [...] this encounter Medical Devices Implanted Type Area Digital Specialist Device Identifier Shelf Expiration Date Model / Serial / Lot Lumbar Fusion- 0 Implanted:03/24 by Nick Jack MD (Quantity not on file) Cage Spine Lumbar Hemostatic Surgiflo 8ml W/ Thrombin 2994 - [id number] Implanted:Qty: 1 on 03/30/2022 by Nick Jakc MD at [facility] Hemostatic Spine Lumbar [employer] 01/02/2023 2994 / / [id number] Reline-O 5.5x 160mm Lordotic [id number] - [id number] Implanted:Qty: 1 on 03/30/2022 by Nick Jack MD at [facility] Ra N/A: Spine Lumbar [employer] [id number] / / Screw Reline-O 8.5x 90mm [id number] - [id number] Implanted:Qty: 1 on 03/30/2022 by Nick Jack MD at [facility] Screw N/A: Spine Lumbar [employer] [id number] / / Spacer Sable 15° 10x30 10-17mm 1172.2224s - [id number] Implanted:Qty: 1 on 03/30/2022 by Nick Jack MD at [facility] Spacer N/A: Spine Lumbar [employer] 10/05/2031 1172.2224S / / [id number] Osteoballast [id number] - [id number] Implanted:Qty: 1 on 03/30/2022 by Nick Jack MD at [facility] Tissue N/A: Spine Lumbar SEASPINE 07/02/2023 [id number] / / [id number] Crosslink Large Implanted:Qty: 1 on 03/30/2022 by Nick Jack MD at [facility] N/A: Spine Lumbar SEASPINE / / documented as of this encounter Visit Diagnoses Diagnosis Generalized pain documented in this encounter Advance Directives For more information, please contact: [phone] Latest Code Status on File Code Status Date Activated Date Inactivated Comments Full Code 03/30/2022 4:33 PM 04/01/2022 5:50 PM Code Status History Code Status Date Activated Date Inactivated Comments Full Code 03/30/2022 1:17 PM 03/30/2022 4:33 PM Full Code 03/30/2022 9:11 AM 03/30/2022 1:16 PM Care Teams Pastoral Worker Relationship Specialty Start Date End Date Natalia Ventura APRN [address] [phone] PCP - General 11/12/20 documented as of this encounter
--- OUTSIDE RECORDS SUMMARY | 2023-06-04 11:10 | XMS REPORT ---
Author Author Humble DEJESUS Organization [facility] Address [address] [place], [place] [id number] Care Team Providers Care Gas Blender Name Role Phone SANGEETA DEJESUS PCP radha [...] 07/25/2017 08/24/2017 Take one tab by [facility] every 12 hours as needed tramadol [...] release (DR/EC) 11/19/2019 TAKE 1 TABLET BY [facility] TWICE DAILY omeprazole 40 mg oral capsule,delayed release(DR/EC) 01/04/2020 12/29/2020 TAKE 1 CAPSULE BY [facility] ONCE DAILY duplicate fluticasone propionate 50 mcg/actuation nasal spray,suspension 01/10/2020 USE 2 SPRAY(S) IN [facility] ONCE DAILY NEEDED baclofen 10 mg oral tablet 03/06/2020 TAKE 1 TABLET BY [facility] THREE TIMES DAILY FOR 30 DAYS [...] 12/24/2020 02/04/2021 Take 1 capsule by [facility] three times daily as needed for [...] Release 10/09/2021 04/07/2022 TAKE 1 CAPSULE BY [facility] TWICE DAILY WITH FOOD amoxicillin-pot clavulanate [...] 04/14/2022 10/11/2022 TAKE 1 CAPSULE BY [facility] TWICE DAILY WITH FOOD Furosemide [...] iewed 06/13/2017 12:00 AM Decadron 8mg Injection, [facility] edicare Reviewed 06/13/2017 12:00 AM Depo-Medrol 80mg Injection, R Medicare Reviewed 06/13/2017 12:00 AM Toradol 30 Mg Injection, [facility] Medicare Reviewed 06/13/2017 12:00 AM X-RAY EXAM [...] Reviewed 05/15/2018 12:00 AM Decadron 8mg Injection, [facility] keaton Reviewed 05/29/2018 12:00 AM MEDICARE [...] 67GFR AA 81eGFR 67eGFR AA* >60 mL/min/1.73 [id number] YELLOWAPPEARANCE CLEARSPEC GRAV >=1.030pH 5.5PROTEIN 30GLUCOSE NEGATIVEKETONE [...] Date Medicare Part B Medicare Cristian Rosasas [id number] September Cigna Medicare Supplement Cigna Medicare Supplement [id number] Monday, 2018 Medicare Part B Medicare Of [place] [id number] N/A Standard Life Standard Life [id number] 2014 [employer] Financial Assistance [employer] Financial [employer] 50 percent Saturday, September 05, 2015 Medicare RHC Medicare RHC [id number] N/ A Medicare Part A Medicare - Lab [id number] N/A Medicare RHC Medicare RHC [id number] September 05, 2014 History of Encounters Visit Date Visit Type Provider 01/05/2023 Office visit SANGEETA DEJESUS APR N 12/30/2022 Office visit Natalia Bradfiel d LICENSED REACTOR OPERATOR 12/14/2022 Office visit Natalia Bradfiel d LICENSED REACTOR OPERATOR 11/08/2022 Office visit Natalia Bradfiel d LICENSED REACTOR OPERATOR 10/29/2022 Office visit Natalia Bradfiel d LICENSED REACTOR OPERATOR 09/01/2022 Office visit Natalia Bradfiel d LICENSED REACTOR OPERATOR 07/01/2022 Procedures Rakan Henderson 05/19/2022 Office visit Rakan Henderson 05/19/2022 Office visit Natalia Bradfiel d LICENSED REACTOR OPERATOR 04/28/2022 Office visit Natalia Bradfiel d LICENSED REACTOR OPERATOR 02/17/2022 Office visit Natalia Bradfiel d LICENSED REACTOR OPERATOR 01/18/2022 Office visit Natalia Bradfiel d LICENSED REACTOR OPERATOR 11/18/2021 Office visit Natalia Bradfiel d LICENSED REACTOR OPERATOR 11/04/2021 Office visit Natalia Bradfiel d LICENSED REACTOR OPERATOR 07/22/[address] Mauricio Cm MD 07/10/[address] [facility] [address] Mauricio Cm MD 06/15/2021 Office visit Natalia Bradfiel d LICENSED REACTOR OPERATOR 06/03/[address] Mauricio Cm MD 05/21/[address] [facility] [address] Mauricio Cm MD 05/15/2021 Office visit Natalia Bradfiel d LICENSED REACTOR OPERATOR 05/13/[address] Mauricio Cm MD 04/15/2021 Office visit Natalia Bradfiel d LICENSED REACTOR OPERATOR 03/18/2021 Office visit SANGEETA DEJESUS APR N 03/16/2021 Office visit Natalia Bradfiel d LICENSED REACTOR OPERATOR 02/17/2021 Office visit Natalia Bradfiel d LICENSED REACTOR OPERATOR 01/12/2021 Office visit Natalia Bradfiel d LICENSED REACTOR OPERATOR 12/30/2020 Office visit Natalia Bradfiel d LICENSED REACTOR OPERATOR 12/17/2020 Hospital Christiano Yates MD 12/16/2020 Hospital Rubens Underwood MD 12/12/2020 Office visit Natalia Bradfiel d LICENSED REACTOR OPERATOR 08/06/2020 Office visit Natalia Bradfiel d LICENSED REACTOR OPERATOR 05/19/2020 Office visit Natalia Bradfiel d LICENSED REACTOR OPERATOR 04/21/2020 Office visit Natalia Bradfiel d LICENSED REACTOR OPERATOR 04/09/2020 Hospital Mateus Saez MD 04/07/2020 Office visit Natalia Bradfiel d LICENSED REACTOR OPERATOR 03/12/2020 Office visit SANGEETA DEJESUS APR N 01/22/2020 Office visit Natalia Bradfiel d LICENSED REACTOR OPERATOR 11/19/2019 Laboratory Krys clemente MD 10/29/2019 Office visit Natalia Bradfiel d LICENSED REACTOR OPERATOR 10/17/2019 Office visit Siva Christian DO 10/12/2019 Office visit Natalia Bradfiel d LICENSED REACTOR OPERATOR 10/08/2019 Office visit Natalia Bradfiel d LICENSED REACTOR OPERATOR 09/27/2019 Office visit Natalia Bradfiel d LICENSED REACTOR OPERATOR 09/13/2019 Office visit SANGEETA DEJESUS APR N 08/15/2019 Office visit Siva Christian DO 07/12/2019 Office visit Siva Christian DO 06/14/2019 Office visit SANGEETA DEJESUS APR N 06/13/2019 Laboratory Meme Willis PRN 06/11/2019 Office visit Natalia Bradfiel d LICENSED REACTOR OPERATOR 05/25/2019 Office visit Natalia Bradfiel d LICENSED REACTOR OPERATOR 05/08/2019 Office visit Siva Christian DO 04/04/2019 Office visit Natalia Bradfiel d LICENSED REACTOR OPERATOR 2019 Laboratory Meme Willis PRN 03/15/2019 Office visit SANGEETA DEJESUS APR N 03/13/2019 Office visit Natalia Bradfiel d LICENSED REACTOR OPERATOR 01/30/2019 Office visit Siva Christian DO 01/03/2019 Laboratory Manny Ventura APR N 01/01/2019 Office visit Natalia Bradfiel d LICENSED REACTOR OPERATOR 12/29/2018 Office visit Siva Christian DO 12/28/2018 Office visit Rakan Henderson 12/26/2018 Surgery Rakan Henderson 12/22/2018 Office visit Mateus Saez MD 12/22/2018 Laboratory Manny Antonette APR N 11/27/2018 Procedures Rakan Muller D 11/17/2018 Office visit Sivarajesh Albaa DO 11/02/2018 Office visit Rakan Henderson 09/28/2018 Office visit Siva Christian DO 09/12/2018 Office visit Siva Christian DO 07/21/2018 Office visit Natalia Bradfiel d LICENSED REACTOR OPERATOR 06/09/2018 Office visit Natalia Bradfiel d LICENSED REACTOR OPERATOR 06/08/2018 Office visit Natalia Bradfiel d LICENSED REACTOR OPERATOR 05/31/2018 Office visit Natalia Bradfiel d LICENSED REACTOR OPERATOR 05/29/2018 Nurse visit Natalia Bradfiel d LICENSED REACTOR OPERATOR 05/23/2018 Procedures Natalia Bradfiel d LICENSED REACTOR OPERATOR 05/15/2018 Office visit Natalia Bradfiel d LICENSED REACTOR OPERATOR 03/17/2018 Office visit Natalia Bradfiel d LICENSED REACTOR OPERATOR 03/13/2018 Office visit Natalia Bradfiel d LICENSED REACTOR OPERATOR 12/15/2017 Office visit Natalia Bradfiel d LICENSED REACTOR OPERATOR 10/22/2017 Office visit Antalia Bradfiel d LICENSED REACTOR OPERATOR 08/15/2017 Laboratory Natalia Bradfiel d LICENSED REACTOR OPERATOR 08/10/2017 Office visit Natalia Bradfiel d LICENSED REACTOR OPERATOR 07/19/2017 Office visit Natalia Bradfiel d LICENSED REACTOR OPERATOR 06/13/2017 Office visit Natalia Bradfiel d LICENSED REACTOR OPERATOR 06/11/2017 Office visit Manny Ventura APR N 02/07/2017 Office visit Natalia Bradfiel d LICENSED REACTOR OPERATOR 01/05/2017 Office visit Natalia Bradfiel d LICENSED REACTOR OPERATOR 11/15/2016 Office visit Natalia Bradfiel d LICENSED REACTOR OPERATOR 09/18/2016 Office visit Natalia Bradfiel d LICENSED REACTOR OPERATOR 09/14/2016 Office visit Meme Willis PRN 08/27/2016 Office visit Natalia Bradfiel d LICENSED REACTOR OPERATOR 06/25/2016 Office visit Natalia Bradfiel d LICENSED REACTOR OPERATOR 05/06/2016 Office visit Natalia Bradfiel d LICENSED REACTOR OPERATOR 04/14/2016 Office visit Meme Willis PRN 04/12/2016 Laboratory Natalia Bradfiel d LICENSED REACTOR OPERATOR 03/30/2016 Office visit Meme Willis PRN 03/03/2016 Nurse visit Meme Willis PRN 02/21/2016 Office visit Natalia Bradfiel d LICENSED REACTOR OPERATOR 02/05/2016 [facility] Kartik Lipscomb MD 01/27/2016 Office visit Kartik Lipscomb MD 12/02/2015 Office visit Natalia Bradfiel d LICENSED REACTOR OPERATOR 11/14/2015 Office visit Natalia Bradfiel d LICENSED REACTOR OPERATOR 11/01/2015 Office visit Natalia Bradfiel d LICENSED REACTOR OPERATOR 11/01/2015 Laboratory Natalia Bradfiel d LICENSED REACTOR OPERATOR 10/31/2015 Office visit Natalia Bradfiel d LICENSED REACTOR OPERATOR 10/11/2015 Office visit Meme Willis PRN 10/03/2015 Office visit Natalia Bradfiel d LICENSED REACTOR OPERATOR
--- OUTSIDE RECORDS SUMMARY | 2023-06-04 11:10 | XMS REPORT ---
Author Author Humble Ventura Organization [facility] Address [address] [place], [place] [address] Care Team Providers Care Edi Specialist Name Role Phone Natalia Ventura PCP radha Unavailable Unavailable Tai Chavez Unavailable Unavailable Natalia Ventura PreferredProvider [phone] Allergies and Adverse Reactions Name Reaction Notes [...] B and C screen 11/06/2021 12:00 AM Medications Active Name Start Date [...] Tablet 05/17/2022 05/12/2023 Take 1 tablet by [facility] once daily Montelukast Sodium 10 MG Oral Tablet 06/01/2022 05/27/2023 [facility] baclofen 10 mg oral tablet 07/27/2022 06/22/2023 [facility] 30 DA[facility] lamoTRIgine 100 MG Oral Tablet 08/16/2022 02/12/2023 Take 1 tablet by [facility] once daily Gabapentin 600 MG Oral Tablet 09/20/2022 03/19/2023 Take 1 tablet by [facility] twice daily Lisinopril 40 MG Oral Tablet 10/03/2022 Take 1 tablet by [facility] once daily Potassium Chloride ER 10 MEQ [...] mg 11/05/2022 10/31/2023 Take 1 tablet by [facility] twice daily albuterol sulfate HFA 90 mcg/actuation aerosol inhaler 11/08/2022 inhale 1 - 2 puffs ( 90 - 180 mcg) by inhalation route every 6 hours as needed benzonatate oral capsule 200 mg 11/08/2022 take 1 capsule (200 mg) by oral route 3 times per day as needed for cough Carvedilol 12.5 MG Oral Tablet 11/08/2022 Take 1 tablet by [facility] twice daily with food DULoxetine HCl 30 [...] by oral route 3 times per day Name Start Date Expiration Date SIG Comments [...] tablet 07/25/2017 08/24/2017 Take one tab by [facility] every 12 hours as needed tramadol [...] 1 TABLET BY [facility] TWICE DAILY omeprazole 40 mg oral capsule,delayed release(DR/EC) 01/04/2020 12/29/2020 TAKE 1 CAPSULE BY [facility] ONCE DAILY duplicate fluticasone propionate 50 mcg/actuation nasal spray,suspension 01/10/2020 USE 2 SPRAY(S) IN [facility] ONCE DAILY NEEDED baclofen 10 mg oral tablet 03/06/2020 [facility] FOR 30 DAYS hydroxyzine [...] 12/24/2020 02/04/2021 Take 1 capsule by [facility] three times daily as needed for [...] 10/09/2021 04/07/2022 TAKE 1 CAPSULE BY [facility] TWICE DAILY WITH FOOD amoxicillin-pot [...] 04/14/2022 10/11/2022 TAKE 1 CAPSULE BY [facility] TWICE DAILY WITH FOOD Furosemide 20 MG Oral Tablet 08/30/2022 08/25/2023 TAKE 1 TABLET BY [facility] NEEDED FOR LOWER EXTREMITY SWELLING [...] BMI BSA BMI Percentile O2 Sat(%) 2022 9:46: 00 AM 140 mm[Hg] 76 [...] kg/m 2 2.57 97 m2 96 % 2:18: 00 PM 130 mm[Hg] 72 mm[Hg] [...] 06/13/2017 12:00 AM Toradol 30 Mg Injection, [facility] Medicare Reviewed 06/13/2017 12:00 AM X-RAY [...] Reviewed 05/15/2018 12:00 AM Decadron 8mg Injection, [facility] [email or web address] Reviewed 05/29/2018 12:00 AM MEDICARE - flu [...] 67GFR AA 81eGFR 67eGFR AA* >60 mL/min/1.73 [id number] YELLOWAPPEARANCE CLEARSPEC GRAV >=1.030pH 5.5PROTEIN 30GLUCOSE NEGATIVEKETONE [...] Vis Given Vis Pub CV[facility] Flulaval quadrivalent [id number] Intramuscula r Left Deltoid 017 2014 158 Influenza 018 [facility]B Flulaval quadrivalent [id number] Intramuscula r Left Deltoid 018 2023 158 Tdap 018 [facility] judson SKB BOOSTRIX [id number] Intramuscula [...] 2022 9:44AM Hypertension Dec 30 2022 9:44AM Payers Insurance Name Company Name Plan Name Plan Number Policy Number Policy Group Number Start Date Medicare Part B Medicare Of [place] [id number] September Cigna Medicare Supplement Cigna Medicare Supplement [id number] Monday, 2018 Medicare Part B Medicare Of [place] [id number] N/A Standard Life Standard Life [id number] 2014 [employer] Financial Assistance [employer] 50 percent Saturday, September 05, 2015 Medicare RHC Medicare RHC [id number] N/ A Medicare Part A Medicare - Lab [id number] N/A Medicare RHC Medicare RH [id number] September 05, 2014 History of Encounters Visit Date Visit Type Provider 12/30/2022 Office visit Natalia Bradfiel d FUEL STORAGE TECHNICIAN 12/14/2022 Office visit Natalia Bradfiel d FUEL STORAGE TECHNICIAN 11/08/2022 Office visit Natalia Bradfiel d FUEL STORAGE TECHNICIAN 10/29/2022 Office visit Natalia Bradfiel d FUEL STORAGE TECHNICIAN 09/01/2022 Office visit Natalia Bradfiel d FUEL STORAGE TECHNICIAN 07/01/2022 Procedures Rakan Henderson 05/19/2022 Office visit Rakan Muller D 05/19/2022 Office visit Natalia Bradfiel d FUEL STORAGE TECHNICIAN 04/28/2022 Office visit Natalia Bradfiel d FUEL STORAGE TECHNICIAN 02/17/2022 Office visit Natalia Bradfiel d FUEL STORAGE TECHNICIAN 01/18/2022 Office visit Natalia Bradfiel d FUEL STORAGE TECHNICIAN 11/18/2021 Office visit Natalia Bradfiel d FUEL STORAGE TECHNICIAN 11/04/2021 Office visit Natalia Bradfiel d FUEL STORAGE TECHNICIAN 07/22/[address] Mauricio Cm MD 07/10/2021 [facility] Dr. Mauricio Cm MD 06/15/2021 Office visit Natalia Bradfiel d FUEL STORAGE TECHNICIAN 06/03/[address] Mauricio Cm MD 05/21/2021 [facility] Dr. Mauricio Cm MD 05/15/2021 Office visit Natalia Bradfiel d FUEL STORAGE TECHNICIAN 05/13/[address] Mauricio Cm MD 04/15/2021 Office visit Natalia Bradfiel d FUEL STORAGE TECHNICIAN 03/18/2021 Office visit SANGEETA DEJESUS APR N 03/16/2021 Office visit Natalia Bradfiel d FUEL STORAGE TECHNICIAN 02/17/2021 Office visit Natalia Bradfiel d FUEL STORAGE TECHNICIAN 01/12/2021 Office visit Natalia Bradfiel d FUEL STORAGE TECHNICIAN 12/30/2020 Office visit Natalia Bradfiel d FUEL STORAGE TECHNICIAN 12/17/2020 [facility] Christiano Yates MD 12/16/2020 [facility] Rubens Underwood MD 12/12/2020 Office visit Natalia Bradfiel d FUEL STORAGE TECHNICIAN 08/06/2020 Office visit Natalia Bradfiel d FUEL STORAGE TECHNICIAN 05/19/2020 Office visit Natalia Bradfiel d FUEL STORAGE TECHNICIAN 04/21/2020 Office visit Natalia Bradfiel d FUEL STORAGE TECHNICIAN 04/09/2020 Hospital Mateus Saez MD 04/07/2020 Office visit Natalia Bradfiel d FUEL STORAGE TECHNICIAN 03/12/2020 Office visit SANGEETA DEJESUS APR N 01/22/2020 Office visit Natalia Bradfiel d FUEL STORAGE TECHNICIAN 11/19/2019 Laboratory Krys clemente MD 10/29/2019 Office visit Natalia Bradfiel d FUEL STORAGE TECHNICIAN 10/17/2019 Office visit Siva Christian DO 10/12/2019 Office visit Natalia Bradfiel d FUEL STORAGE TECHNICIAN 10/08/2019 Office visit Natalia Bradfiel d FUEL STORAGE TECHNICIAN 09/27/2019 Office visit Natalia Bradfiel d FUEL STORAGE TECHNICIAN 09/13/2019 Office visit SANGEETA DEJESUS APR N 08/15/2019 Office visit Siva Christian DO 07/12/2019 Office visit Siva Christian DO 06/14/2019 Office visit SANGEETA DEJESUS APR N 06/13/2019 Laboratory Meme Melecioery A PRN 06/11/2019 Office visit Natalia Bradfiel d FUEL STORAGE TECHNICIAN 05/25/2019 Office visit Natalia Bradfiel d FUEL STORAGE TECHNICIAN 05/08/2019 Office visit Siva Christian DO 04/04/2019 Office visit Natalia Bradfiel d FUEL STORAGE TECHNICIAN 2019 Laboratory Meme Melecioery A PRN 03/15/2019 Office visit SANGEETA DEJESUS APR N 03/13/2019 Office visit Natalia Bradfiel d FUEL STORAGE TECHNICIAN 01/30/2019 Office visit Siva Christian DO 01/03/2019 Laboratory Manny Hill APR N 01/01/2019 Office visit Natalia Bradfiel d FUEL STORAGE TECHNICIAN 12/29/2018 Office visit Siva Christian DO 12/28/2018 Office visit Rakan Henderson 12/26/2018 Surgery Rakan Henderson 12/22/2018 Office visit Mateus Saez MD 12/22/2018 Laboratory Manny Hill APR N 11/27/2018 Procedures Rakan Muller D 11/17/2018 Office visit Siva Christian DO 11/02/2018 Office visit Rakan Muller D 09/28/2018 Office visit Siva Albaa DO 09/12/2018 Office visit Sivarajesh Albaa DO 07/21/2018 Office visit Natalia Bradfiel d FUEL STORAGE TECHNICIAN 06/09/2018 Office visit Natalia Bradfiel d FUEL STORAGE TECHNICIAN 06/08/2018 Office visit Natalia Bradfiel d FUEL STORAGE TECHNICIAN 05/31/2018 Office visit Natalia Bradfiel d FUEL STORAGE TECHNICIAN 05/29/2018 Nurse visit Natalia Bradfiel d FUEL STORAGE TECHNICIAN 05/23/2018 Procedures Natalia Bradfiel d FUEL STORAGE TECHNICIAN 05/15/2018 Office visit Natalia Bradfiel d FUEL STORAGE TECHNICIAN 03/17/2018 Office visit Natalia Bradfiel d FUEL STORAGE TECHNICIAN 03/13/2018 Office visit Natalia Bradfiel d FUEL STORAGE TECHNICIAN 12/15/2017 Office visit Natalia Bradfiel d FUEL STORAGE TECHNICIAN 10/22/2017 Office visit Natalia Bradfiel d FUEL STORAGE TECHNICIAN 08/15/2017 Laboratory Natalia Bradfiel d FUEL STORAGE TECHNICIAN 08/10/2017 Office visit Natalia Bradfiel d FUEL STORAGE TECHNICIAN 07/19/2017 Office visit Natalia Bradfiel d FUEL STORAGE TECHNICIAN 06/13/2017 Office visit Natalia Bradfiel d FUEL STORAGE TECHNICIAN 06/11/2017 Office visit Manny Whitman APR N 02/07/2017 Office visit Natalia Bradfiel d FUEL STORAGE TECHNICIAN 01/05/2017 Office visit Natalia Bradfiel d FUEL STORAGE TECHNICIAN 11/15/2016 Office visit Natalia Bradfiel d FUEL STORAGE TECHNICIAN 09/18/2016 Office visit Natalia Bradfiel d FUEL STORAGE TECHNICIAN 09/14/2016 Office visit Meme Alcantara A PRN 08/27/2016 Office visit Natalia Bradfiel d FUEL STORAGE TECHNICIAN 06/25/2016 Office visit Natalia Bradfiel d FUEL STORAGE TECHNICIAN 05/06/2016 Office visit Natalia Bradfiel d FUEL STORAGE TECHNICIAN 04/14/2016 Office visit Meme Alcantara A PRN 04/12/2016 Laboratory Natalia Bradfiel d FUEL STORAGE TECHNICIAN 03/30/2016 Office visit Meme Alcantara A PRN 03/03/2016 Nurse visit Meme Alcantara A PRN 02/21/2016 Office visit Natalia Bradfiel d FUEL STORAGE TECHNICIAN 02/05/2016 [facility] Kartik Lipscomb MD 01/27/2016 Office visit Kartik Lipscomb MD 12/02/2015 Office visit Natalia henderson FUEL STORAGE TECHNICIAN 11/14/2015 Office visit Natalia henderson FUEL STORAGE TECHNICIAN 11/01/2015 Office visit Natalia henderson FUEL STORAGE TECHNICIAN 11/01/2015 Laboratory Natalia henderson FUEL STORAGE TECHNICIAN 10/31/2015 Office visit Natalia henderson FUEL STORAGE TECHNICIAN 10/11/2015 Office visit Meme Willis PRN 10/03/2015 Office visit Natalia henderson FUEL STORAGE TECHNICIAN
--- OUTSIDE RECORDS SUMMARY | 2023-06-04 11:11 | XMS REPORT | Summary of Care ---
Author Author [employer] Organization [employer] Address Unknown Phone Unavailable Care Team Providers Care Salvage Repairer Name Role Phone Natalia Ventura APRN PCP [phone]- [phone] Reason for Referral * CT Scan (Routine) - Closed Specialty Diagnoses / Procedures Referred By Contac t Referred To Contact Radiology Diagnoses Post-operative pain Procedures CT LUMBAR SPINE WO CONTRAST Garry Gómez PA [address] [place] [address] [facility] Radiology [address] [place] [address] [address] Referral ID Status Reason Start Date Expiration Date V isits Requested Visits Authorized [id number] Closed SEKS to Schedule 03/30/2023 04/29/2024 1 1 Reason for Visit * CT Scan (Routine) - Closed Specialty Diagnoses / Procedures Referred By Contac t Referred To Contact Radiology Diagnoses Post-operative pain Procedures CT LUMBAR SPINE WO CONTRAST Garry Gómez PA [address] [place] [address] [facility] Radiology [address] [place] [address] Referral ID Status Reason Start Date Expiration Date V isits Requested Visits Authorized [id number] Closed SEKS to Schedule 03/30/2023 04/29/2024 1 1 Encounter Details Date Type Department Care Team Description 04/06/2023 11:43 AM CDT - 04/06/2023 11:59 PM CDT Hospital Encounter [facility] CT Scan [address] [id number] Garry Gómez, PA [address] [place] [address] Arrived Discharge Disposition: Home or Self Care Allergies No known active allergiesdocumented as of this encounter (statuses as of 04/07/2023) Medications Medication Sig Dispensed Refills Start Date [...] 04/10/2020 Active fluticasone propionate (FLONASE) 50 mcg/spray [place], Suspension nasal inhaler Administer 2 Sprays in each nostril daily in the morning. 0 03/23/2020 Active lisinopriL (PRINIVIL) 40 mg tablet Take 40 mg by mouth daily in the morning. 0 01/15/2022 Active furosemide (LASIX) 20 mg tablet Take 20 mg by mouth daily with lunch. AT NOON IF RETAINING WATER IN THE LOWER EXTREMETIES 0 01/02/2022 Active atorvastatin (LIPITOR) 80 mg tablet Take [...] mouth 2 times daily. 0 08/31/2022 Active Ventolin HFA 90 mcg/actuation inhaler INHALE 1 TO 2 PUFFS BY MOUTH EVERY 6 HOURS NEEDED 0 11/08/2022 Active benzonatate (TESSALON) 200 mg capsule TAKE 1 CAPSULE BY MOUTH THREE TIMES DAILY NEEDED FOR COUGH 0 11/08/2022 Active doxycycline hyclate (VIBRAMYCIN) 100 mg tablet TAKE 1 TABLET BY MOUTH TWICE DAILY FOR 10 DAYS 0 10/29/2022 Active methylPREDNISolone (MEDROL DOSPACK) 4 mg Tablets, Dose Pack TAKE BY MOUTH DIRECTED ON INSIDE OF PACKAGE 0 10/29/2022 Active amoxicillin-clavula doug (AUGMENTIN) 875-125 mg tablet TAKE 1 TABLET BY MOUTH TWICE DAILY FOR 10 DAYS 0 12/27/2022 Active predniSONE (DELTASONE) 10 mg tablet TAKE 6 TABLETS BY MOUTH FOR 3 DAYS THEN TAKE 4 TABLETS BY MOUTH FOR 3 DAYS THEN TAKE 2 TABLETS BY MOUTH OR 3 DAYS THEN TAKE 1 TABLET BY MOUTH FOR 3 DAYS 0 12/27/2022 Active documented as of this encounter (statuses as of 04/07/2023) Active Problems Problem Noted Date Diagnosed Date Lumbar stenosis with neurogenic claudication Spondylolysis, 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 S/P lumbar fusion 05/02/2020 Incisional abscess 04/10/2020 Sepsis 04/10/2020 S/P spinal surgery 04/10/2020 Acute low back pain 04/10/2020 DM (diabetes mellitus), type 2 04/10/2020 Anxiety and depression 04/10/2020 GERD (gastroesophageal reflux disease) 0 Essential hypertension 04/10/2020 documented as of this encounter (statuses as of 04/07/2023) Social History Tobacco Use Types Packs/Day Years Used Date Smoking Tobacco: Never Smokeless Tobacco: Never Alcohol Use Standard Drinks/Week Comments Never 0 (1 standard drink = 0.6 oz pur e alcohol) Sex and Gender Information Value Date Recorded Sex Assigned at Not on file Gender Identity Not on file Sexual Orientation Not on file documented as of this encounter Plan of Treatment Upcoming Encounters Date Type Department Care Team Description 05/04/2023 10:15 AM CDT Office Visit [facility] Orthopedics [place] [address] [place] [address] [place] [phone] Nick Jack MD [address] [place] [address] [place] [phone] Health Maintenance Due Date Last Done Comments [...] 1998 ZOSTER VACCINE (1 of 2) 2003 DIABETES HBA1C Q 6 MONTHS 09/18/2022 03/18/2022 INFLUENZA VACCINE (#1) 2023 DIABETES ANNUAL RETINAL EXAM 07/19/2023 07/19/2022 documented as of this encounter Medical Devices Implanted Type Area Xerox Machine Mechanic Device Identifier Shelf Expiration Date Model / Serial / Lot Lumbar Fusion- 0 Implanted:03/24 by Nick Jack MD (Quantity not on file) Cage Spine Lumbar Hemostatic Surgiflo 8ml W/ Thrombin 2994 - [id number] Implanted:Qty: 1 on 03/30/2022 by Nick Jack MD at [facility] Hemostatic Spine Lumbar J[employer]J- [employer] 01/02/2023 [id number] / / [id number] Reline-O 5.5x 160mm Lordotic [id number] - [id number] Implanted:Qty: 1 on 03/30/2022 by Nick Jack MD at [facility] Ra N/A: Spine Lumbar [employer] [id number] / / Screw Reline-O 8.5x 90mm [id number] - [id number] Implanted:Qty: 1 on 03/30/2022 by Nick Jack MD at [facility] Screw N/A: Spine Lumbar [employer] [id number] / / Spacer Sable 15° 10x30 10-17mm 1172.2224s - [id number] Implanted:Qty: 1 on 03/30/2022 by Nick Jack MD at [facility] Spacer N/A: Spine Lumbar [employer] 10/05/2031 [id number] / / [id number] Osteoballast [id number] Matrix [id number] - [id number] Implanted:Qty: 1 on 03/30/2022 by Nick Jack MD at [facility] Tissue N/A: Spine Lumbar SEASPINE 07/02/2023 [id number] / / [id number] Crosslink Large Implanted:Qty: 1 on 03/30/2022 by Nick Jack MD at [facility] N/A: Spine Lumbar SEASPINE / / documented as of this encounter Procedures Procedure Name Priority Date/Time Associated Diagnosis Comments CT LUMBAR SPINE WO CONTRAST Routine 04/06/2023 11:55 AM CDT Post-operative pain documented in this encounter Results * CT LUMBAR SPINE WO CONTRAST (04/06/2023 11:55 AM CDT) Anatomical Region Laterality Modality Spine Computed Tomogra phy 04/06/2023 11:4 6 AM CDT Impressions 04/06/2023 1:07 PM CDT IMPRESSION: 1. Anterior fusion L2-S1. Posterior fixation L2-S1, including Cezar extension rods. No hardware fracture. Mild chronic loosening at the base of the right L5 pedicle screw, unchanged. 2. Incomplete anterior body fusion at L5-S1 as described, unchanged. 3. Worsening of L1-L2 degenerative disc space loss and vacuum phenomenon. Generalized disc osteophyte complex with suspected moderate to severe central canal stenosis. Electronically Signed By: Alvin Santiago MD, Signed On: 04/06/2023 1:07 PM, [email or web address] Narrative 04/06/2023 1:[address] LUMBAR SPINE WITHOUT CONTRAST: CLINICAL HISTORY: Lower back pain with previous surgery. TECHNIQUE: Multiple contiguous axial CT images of the lumbar spine were obtained without contrast. Sagittal and coronal reformatted images were acquired. Automated exposure control (ADC) dose reduction technique was utilized. COMPARISON: CT lumbar spine 09/09/2022 and other prior reports without images. FINDINGS: Lumbar straightening is present with normal alignment. Laminectomies from the L3-L4 level through the L5-S1 level. Bilateral posterior fixation rods L2 through the sacrum are present including right-sided pedicle screws at each intervening level and left-sided pedicle screws at L2, L4 and L5. There Cezar extension rods. No hardware fracture or loosening. Mild chronic lucency surrounding the proximal right fifth screw is unchanged. Metallic anterior body fusion cage graft with dorsal lateral interbody fusion on the left at L2-L3 and at L4-L5 is noted. Interfusion cage anterior graft at L3-L4 is present. These fusions are solid. Interbody metallic fusion graft at L5-S1 demonstrates incomplete fusion with perigraft lucency and bony subsidence along the adjacent endplates with vacuum phenomenon, unchanged. Mild volume loss of the L1 vertebral body is unchanged. Severe L1-L2 degenerative disc space loss with vacuum phenomenon has worsened. No paraspinous fluid is present. There is no acute fracture or subluxation. At T12-L1, no disc bulging, central canal or neural foraminal stenosis. At L1-L2, generalized disc bulging and moderate to severe central canal stenosis with progression of disc space loss and vacuum phenomenon. Endplate degeneration with at least moderate neural foraminal narrowing bilaterally. Mild facet arthropathy bilaterally. At L2-L3, DLIF and posterior fixation. Mild posterior osteophytosis with mild central canal narrowing above the laminectomy without change. No significant neural foraminal stenosis. At L3-L4, anterior fusion, posterior fixation and laminectomy. No central canal or neural foraminal stenosis. Mild facet arthropathy bilaterally. At L4-L5, DLIF with laminectomy and posterior fixation. No central canal stenosis. Moderate lateral recess narrowing with facet arthropathy bilaterally is unchanged. Mild to moderate neural foraminal narrowing bilaterally. Nondisplaced chronic bilateral pars defects without change. At L5-S1, anterior fusion, posterior fixation and laminectomy. No significant central canal stenosis. Severe right and moderate left neural foraminal stenosis without change. Partial facetectomies. Bilateral SI joint osteoarthrosis. Procedure Note Alvin Santiago MD - 04/06/2023 CT LUMBAR SPINE WITHOUT CONTRAST: CLINICAL HISTORY: Lower back pain with previous surgery. TECHNIQUE: Multiple contiguous axial CT images of the lumbar spine were obtainedwithout contrast. Sagittal and coronal reformatted images were acquired.Automated exposure control (ADC) dose reduction technique was utilized. COMPARISON: CT lumbar spine 09/09/2022 and other prior reports withoutimages. FINDINGS: Lumbar straightening is present with normal alignment. Laminectomies fromthe L3-L4 level through the L5-S1 level. Bilateral posterior fixation rodsL2 through the sacrum are present including right-sided pedicle screws ateach intervening level and left-sided pedicle screws at L2, L4 and L5. ThereLuque extension rods. No hardware fracture or loosening. Mild chronic lucency surrounding the proximal right fifth screw is unchanged. Metallic anterior body fusion cage graft with dorsal lateral interbodyfusion on the left at L2-L3 and at L4-L5 is noted. Interfusion cage anterior graftat L3-L4 is present. These fusions are solid. Interbody metallic fusion graftat L5-S1 demonstrates incomplete fusion with perigraft lucency and bonysubsidence along the adjacent endplates with vacuum phenomenon, unchanged. Mild volume loss of the L1 vertebral body is unchanged. Severe L1-L2 degenerative disc space loss with vacuum phenomenon has worsened. Noparaspinous fluid is present. There is no acute fracture or subluxation. At T12-L1, no disc bulging, central canal or neural foraminal stenosis. At L1-L2, generalized disc bulging and moderate to severe central canalstenosis with progression of disc space loss and vacuum phenomenon. Endplatedegeneration with at least moderate neural foraminal narrowing bilaterally. Mildfacet arthropathy bilaterally. At L2-L3, DLIF and posterior fixation. Mild posterior osteophytosis withmild central canal narrowing above the laminectomy without change. Nosignificant neural foraminal stenosis. At L3-L4, anterior fusion, posterior fixation and laminectomy. No centralcanal or neural foraminal stenosis. Mild facet arthropathy bilaterally. At L4-L5, DLIF with laminectomy and posterior fixation. No central canal stenosis. Moderate lateral recess narrowing with facet arthropathybilaterally is unchanged. Mild to moderate neural foraminal narrowing bilaterally. Nondisplaced chronic bilateral pars defects without change. At L5-S1, anterior fusion, posterior fixation and laminectomy. Nosignificant central canal stenosis. Severe right and moderate left neural foraminalstenosis without change. Partial facetectomies. Bilateral SI jointosteoarthrosis. IMPRESSION: 1. Anterior fusion L2-S1. Posterior fixation L2-S1, including Luqueextension rods. No hardware fracture. Mild chronic loosening at the base of theright L5 pedicle screw, unchanged. 2. Incomplete anterior body fusion at L5-S1 as described, unchanged. 3. Worsening of L1-L2 degenerative disc space loss and vacuumphenomenon. Generalized disc osteophyte complex with suspected moderate to severecentral canal stenosis. Electronically Signed By: Alvin Santiago MD, Signed On: 04/06/2023 1:07PM, [email or web address] Garry [facility] CT ORDERABLES documented in this encounter Visit Diagnoses Diagnosis Post-operative pain Other acute postoperative pain documented in this encounter Advance Directives For more information, please contact: [phone] Latest Code Status on File Code Status Date Activated Date Inactivated Comments Full Code 03/30/2022 4:33 PM 04/01/2022 5:50 PM Code Status History Code Status Date Activated Date Inactivated Comments Full Code 03/30/2022 1:17 PM 03/30/2022 4:33 PM Full Code 03/30/2022 9:11 AM 03/30/2022 1:16 PM Care Teams Salvage Repairer Relationship Specialty Start Date End Date Natalia Ventura APRN [address] [place] [phone] PCP - General 11/12/20 documented as of this encounter
--- OUTSIDE RECORDS SUMMARY | 2023-06-04 11:11 | XMS REPORT | Summary of Care ---
Author Author [employer] Address Unknown Phone Unavailable Care Team Providers Care Mechanic Sound Technician Name Role Phone LorenzoNatalia Bryan SORIA PCP +1- [phone] Encounter Details Date Type Department Care Team Description 05/12/2023 10:47 AM CDT - 05/12/2023 11:59 PM CDT Hospital Encounter [facility] Pre Admission Testing [address] [place] [address] Nick Jack MD [address] [place] [address] [place] [phone] Arrived Discharge Disposition: Home or Self Care Allergies No known active allergiesdocumented as of this encounter (statuses as of 05/13/2023) Medications Medication Sig Dispensed Refills Start Date [...] 04/10/2020 Active fluticasone propionate (FLONASE) 50 mcg/spray [place], Suspension nasal inhaler Administer 2 Sprays in [...] HOURS NEEDED FOR PAIN 0 03/13/2023 Active furosemide (LASIX) 20 mg tablet Take 20 mg by mouth daily with lunch. AT NOON IF RETAINING WATER IN THE LOWER EXTREMETIES 0 01/02/2022 3 Discontinued Ventolin HFA 90 mcg/actuation inhaler INHALE 1 TO 2 PUFFS BY MOUTH EVERY 6 HOURS NEEDED 0 11/08/2022 3 Discontinued doxycycline hyclate (VIBRAMYCIN) 100 mg tablet TAKE 1 TABLET BY MOUTH TWICE DAILY FOR 10 DAYS 0 10/29/2022 3 Discontinued azithromycin (ZITHROMAX) 250 mg tablet TAKE 2 TABLETS BY MOUTH ON DAY 1, AND THEN TAKE 1 TABLET BY MOUTH ONCE A DAY ON DAY 2 THROUGH DAY 5 0 05/02/2023 3 Discontinued documented as of this encounter (statuses as of 05/13/2023) Active Problems Problem Noted Date Diagnosed Date Lumbar stenosis with neurogenic claudication Spondylolysis, 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 S/P lumbar fusion 05/02/2020 Incisional abscess 04/10/2020 Sepsis 04/10/2020 S/P spinal surgery 04/10/2020 Acute low back pain 04/10/2020 DM (diabetes mellitus), type 2 04/10/2020 Anxiety and depression 04/10/2020 GERD (gastroesophageal reflux disease) 0 Essential hypertension 04/10/2020 documented as of this encounter (statuses as of 05/13/2023) Social History Tobacco Use Types Packs/Day Years Used Date Smoking Tobacco: Never Smokeless Tobacco: Never Tobacco Cessation:Counseling Given: Not Answered Alcohol Use Standard Drinks/Week Comments Never 0 (1 standard drink = 0.6 oz pur e alcohol) Sex and Gender Information Value Date Recorded Sex Assigned at Not on file Gender Identity Not on file Sexual Orientation Not on file documented as of this encounter Discharge Instructions * Discharge Instructions* Josiane Kat LPN - 05/12/2023 11:36 AM CDT THINGS TO REMEMBER ABOUT YOUR SURGERY ARRIVAL INSTRUCTIONS: [x] Enter through the Main Entrance on 05/23/23 at 1245 pm for surgery scheduled for 215 pm SKIN PREP: Do not shave your surgical site at least five days before surgery. The morning and the night before surgery take a shower using antimicrobial soap (Hibiclens), after your shower dry completely, clean your surgical site with a Chloraprep swab after the evening shower, let it air dry. The morning of surgery take a shower and dry completely, clean your surgical site with the second Chloraprep swab and let it air dry. Do not wash the Chloraprep solution from your skin. Take extra precautions in caring for your skin in the time leading up to your surgery. Cuts, scrapes, garcia and broken skin near your surgical site could lead to the cancellation of your procedure. DIET/FLUID INSTRUCTIONS: [x] Nothing to eat or drink after 600 am. FAILURE TO FOLLOW COULD MEAN CANCELLATION. ON THE DAY OF SURGERY: You will be asked to arrive 1.5-2 hours prior to your scheduled surgery time. You will change into a hospital gown and your belongings will be placed in a bag and locked in a locker, your ramos will be pinned on your hospital bed and stay with you until you are taken to your room. Once in Pre-Op, a nurse will start your IV and anesthesia will review your medical history. Prior to surgery, the surgeon will be able to answer any additional questions or concerns. You may have a visitor stay overnight in your room. Bring comfortable and loose fitting clothes or pajamas so the nursing staff can easily view your surgical site, if allowed you will be able to wear your own clothes and will be assisted with dressingif needed. Bring your own personal care items (toothbrush, toothpaste, etc.) DISCHARGE [x] Someone must be available on your day of discharge to take you home and be of assistance as needed (please arrange this prior to admission) MEDICATIONS Stop all over the counter vitamins/herbal supplements and CBD products 7 days prior to surgery. Stop any NSAID'S (ie: aspirin, aleve, ibuprofen, advil, diclofenac, meloxicam, etc..) 7 days prior to surgery. Tylenol is okay to take up until the night before surgery. The morning of surgery take Duloxetine, Lamotrigine with a small sip of water. CONTINUE ALL OTHER PRESCRIPTION MEDICATIONS DIRECTED UP UNTIL THE NIGHT BEFORE SURGERY. THE DAY OF SURGERY BRING: [x] CPAP/BiPAP [x] Walker (no handbrakes, no seat) [x] Nasal Sprays DO NOT BRING ANY HOME MEDICATIONS/VITAMINS OR PAIN MEDICATIONS WITH YOU ON THE DAY OF SURGERY. IF YOU HAVE QUESTIONS: Call Rosanna or Josiane at [phone] from 8:00 a.m. to 5:00 p.m. Tuesday through or email at [email or web address] documented in this encounter Plan of Treatment Upcoming Encounters Date Type Department Care Team Description 05/23/2023 2:15 PM CDT Hospital Encounter [place] Main Operating Room [address] [place] [place] [phone] Nick Jack MD [address] [place] [address] [place] [phone] Sacroiliitis 05/23/2023 2:15 PM CDT - 05/23/2023 3:30 PM CDT Surgery [facility] Main Operating Room [address] [place] [phone] Nick Jack MD [address] [place] [address] [place] [phone] Right Minimally Invasive Sacroiliac Fusion 06/07/2023 1:15 PM CDT Office Visit [facility] Orthopedics and Walk In Care [facility] [address] [facility] [address] [place] [phone] Garry Gómez PA [address] [facility] [address] [place] [address] Scheduled Procedures Name Priority Associated Diagnoses Date/Ti me SACROILIAC ARTHRODESIS Sacroiliitis 05/23/2023 2:15 PM CDT Health Maintenance Due Date Last Done Comments [...] this encounter Medical Devices Implanted Type Area Water Regulator And Valve Repairer Device Identifier Shelf Expiration Date Model / Serial / Lot Lumbar Fusion- 0 Implanted:03/24 by Nick Jack MD (Quantity not on file) Cage Spine Lumbar Hemostatic Surgiflo 8ml W/ Thrombin 2994 - [id number] Implanted:Qty: 1 on 03/30/2022 by Nick Jack MD at [facility] Hemostatic Spine Lumbar [employer]- [employer] 01/02/2023 2994 / / [id number] Reline-O 5.5x 160mm Lordotic [id number] - [id number] Implanted:Qty: 1 on 03/30/2022 by Nick Jack MD at [facility] Ra N/A: Spine Lumbar [employer] [id number] / / Screw Reline-O 8.5x 90mm [id number] - [id number] Implanted:Qty: 1 on 03/30/2022 by Nick Jack MD at [facility] Screw N/A: Spine Lumbar [employer] [id number] / / Spacer Sable 15° 10x30 10-17mm 1172.2224s - [id number] Implanted:Qty: 1 on 03/30/2022 by Nick aJck MD at [facility] Spacer N/A: Spine Lumbar [employer] 10/05/2031 1172.2224S / / [id number] Osteoballast [id number] Matrix [id number] - [id number] Implanted:Qty: 1 on 03/30/2022 by Nick Jack MD at [facility] Tissue N/A: Spine Lumbar SEASPINE 07/02/2023 [id number] / / [id number] Crosslink Large Implanted:Qty: 1 on 03/30/2022 by Nick Jack MD at [facility] N/A: Spine Lumbar SEASPINE / / documented as of this encounter Procedures Procedure Name Priority Date/Time Associated Diagnosis Comments HEMOGLOBIN A1C Routine 05/12/2023 10:52 AM CDT Type 2 diabetes mellitus without complication, unspecified whether marine oil terminal superintendent insulin use MRSA PCR RAPID SCREEN Routine 05/12/2023 10:51 AM CDT 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 AVG GLUCOSE, A1C 126 mg/dL 05/12/2023 5:37 PM CDT [facility] [place] [facility] Blood Venipuncture / Unknown 05/12/2023 10:52 AM CDT 05/12/2023 10:53 AM CDT [facility] [facility] - 05/12/2023 5:37 PM CDT HGB A1C INTERPRETATION NORMAL: <5.7% PRE-DIABETES: 5.7 - 6.4% DIABETES: 6.5% OR GREATER Nick Jack MD CHEMISTRY ORDERABLES Performing Organization Address [facility] Co de Phone Number [facility] [place] [facility] CLIA # [id number] [address] [place] [address] * MRSA PCR RAPID SCREEN (05/12/2023 10:51 AM CDT) [facility] MRSA PCR RESULT MRSA not detected MRSA not detected 05/12/2023 8:30 PM CDT [facility] [place] [facility] Surveillance ANTERIOR NARES SWAB / Unknown Collection / Unknown 05/12/2023 10:51 AM CDT 05/12/2023 10:53 AM CDT [facility] [place] ANIYAHIN - 05/12/2023 8:30 PM CDT This assay is used to detect Methicillin-Resistant S. aureus (MRSA) colonization of the nares. PLEASE NOTE: This test has not been approved to monitor effectiveness of MRSA decolonization. Residual DNA may temporarily be present after successful decolonization. This test was performed using an FDA approved screening methodology. 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) Sacroiliitis Sacroiliitis, not elsewhere classified documented in this encounter Advance Directives For more information, please contact: [phone] Latest Code Status on File Code Status Date Activated Date Inactivated Comments Full Code 03/30/2022 4:33 PM 04/01/2022 5:50 PM Code Status History Code Status Date Activated Date Inactivated Comments Full Code 03/30/2022 1:17 PM 03/30/2022 4:33 PM Full Code 03/30/2022 9:11 AM 03/30/2022 1:16 PM Care Teams Mechanic Sound Technician Relationship Specialty Start Date End Date Natalia Ventura APRN [address] [place] [phone] PCP - General 11/12/20 documented as of this encounter
[2023-06-04] MEDS ORDERED: FURO-124 PO (11:25)
[2023-06-04] MEDS ORDERED: OMEP40CA6 PO (11:25)
[2023-06-04] MEDS ORDERED: GBPN600T PO (11:25)
[2023-06-04] MEDS ORDERED: LAMO100T5 PO (11:25)
[2023-06-04] MEDS ORDERED: TMSL.4C PO (11:25)
[2023-06-04] MEDS ORDERED: MONT-40 PO (11:25)
[2023-06-04] MEDS ORDERED: DULO20CA PO (11:25)
[2023-06-04] MEDS ORDERED: POTA-185 PO (11:43)
[2023-06-04] MEDS ORDERED: ACHD5005 PO (11:45)
[2023-06-04] MEDS: DOCUSATE SODIUM 100 MG CAPSULE PO SCH ×2 (11:56→21:15)
[2023-06-04] MEDS: SENNA W/DOCUSATE TABLET PO SCH ×2 (11:57→21:14)
[2023-06-04] MEDS ORDERED: HYDROcodone/ACETAMINOPHEN 5 MG/325 MG TABLET PO PRN (12:15)
[2023-06-04] MEDS ORDERED: BENZONATATE 100 MG CAPSULE PO PRN (12:30)
[2023-06-04] MEDS ORDERED: diphenhydrAMINE 25 MG TABLET PO SCH (12:30)
[2023-06-04] MEDS ORDERED: diphenhydrAMINE 25 MG TABLET PO PRN (12:45)
[2023-06-04] MEDS: BACLOFEN 10 MG TABLET PO SCH ×2 (12:53→21:15)
[2023-06-04] MEDS: FLUTICASONE NASAL SPRAY (120 SPRAYS) NS SCH (21:14)
[2023-06-04] MEDS: PANTOPRAZOLE 40 MG TABLET PO SCH (21:14)
[2023-06-04] MEDS: ALLOPURINOL 300 MG TABLET PO SCH (21:14)
[2023-06-04] MEDS: carvediloL 12.5 MG TABLET PO SCH (21:14)
[2023-06-04] MEDS: diphenhydrAMINE 25 MG TABLET PO SCH (21:14)
[2023-06-04] MEDS: GABAPENTIN 600 MG TABLET PO SCH (21:14)
[2023-06-04] MEDS: MONTELUKAST 10 MG TABLET PO SCH (21:15)
[2023-06-04] MEDS: POTASSIUM CHLORIDE 10 MEQ TABLET PO SCH (21:15)
[2023-06-05 05:36] LABS: BASOPHILS # (AUTO) 0.1 10^3/uL (0.0-0.1); BASOPHILS % (AUTO) 1 % (0-10); EOSINOPHILS # (AUTO) 0.1 10^3/uL (0.0-0.3); EOSINOPHILS % (AUTO) 1 % (0-10); HEMATOCRIT 37 % (40-54); HEMOGLOBIN 12.2 g/dL (13.3-17.7); LYMPHOCYTES # (AUTO) 2.6 10^3/uL (1.0-4.0); LYMPHOCYTES % (AUTO) 25 % (12-44); MEAN CORPUSCULAR HEMOGLOBIN 32 pg (25-34); MEAN CORPUSCULAR HGB CONC 33 g/dL (32-36); MEAN CORPUSCULAR VOLUME 96 fL (80-99); MEAN PLATELET VOLUME 11.2 fL (9.0-12.2); MONOCYTES % (AUTO) 9 % (0-12); NEUTROPHILS # (AUTO) 6.6 10^3/uL (1.8-7.8); NEUTROPHILS % (AUTO) 63 % (42-75); PLATELET COUNT 173 10^3/uL (130-400); WHITE BLOOD COUNT 10.5 10^3/uL (4.3-11.0)
[2023-06-05 05:58] LABS: ALBUMIN 3.8 GM/DL (3.2-4.5); BILIRUBIN,TOTAL 0.7 MG/DL (0.1-1.0); CALCIUM 8.9 MG/DL (8.5-10.1); CREATININE SERUM 0.96 MG/DL (0.60-1.30); POTASSIUM 3.9 MMOL/L (3.6-5.0); TOTAL PROTEIN 6.4 GM/DL (6.4-8.2)
--- NOTE | 2023-06-05 06:48 | PM&R Progress Note ---
Subjective HPI/CC On Admission Date Seen by Provider: Jun 05, 2023 Time Seen by Provider: 13:00 Subjective/Events-last exam 06/05/2023: Patient had a good night Bowels are moving just this morning Maintain on bowel regimen Voiding well Nonweightbearing going pretty well Continues to be a fall risk Review of Systems General: Fatigue, Malaise Objective Exam Vital Signs Vital Signs Date Time Temp Pulse Resp B/P (MAP) Pulse Ox O2 Delivery O2 Flow Rate FiO2 06/05/23 09:30 96 Room Air 06/05/23 07:50 36.6 70 18 128/74 (92) Capillary Refill : General Appearance: No Apparent Distress, WD/WN, Chronically ill, Obese HEENT: PERRL/EOMI, Normal ENT Inspection, Pharynx Normal Neck: Full Range of Motion, Normal Inspection, Non Tender, Supple, Carotid Bruit Respiratory: Chest Non Tender, Lungs Clear, Normal Breath Sounds, No Accessory Muscle Use, No Respiratory Distress Cardiovascular: Regular Rate, Rhythm, No Edema, No Gallop, No JVD, No Murmur, Normal Peripheral Pulses Gastrointestinal: Normal Bowel Sounds, No Organomegaly, No Pulsatile Mass, Non Tender, Soft Back: Normal Inspection, CVA Tenderness (L), CVA Tenderness (R), Decreased Range of Motion, Muscle Spasm, Vertebral Tenderness Extremity: Normal Capillary Refill, Normal Inspection, Normal Range of Motion, Non Tender, No Calf Tenderness, No Pedal Edema Neurologic/Psychiatric: Alert, Oriented x3, Normal Mood/Affect, 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 FIM Transfers Therapy Code Descriptions/Definitions Functional [place] Measure: 0=Not Assessed/NA 4=Minimal Assistance 1=Total Assistance 5=Supervision or Setup 2=Maximal Assistance 6=Modified [place] 3=Moderate Assistance 7=Complete IndependenceSCALE: Activities may be completed with or without assistive devices. 1-Gfchfghcco-huhhdpv completes the activity by him/herself with no assistance from a helper. 5-Set-up or Clean-up Assistance-helper sets up or cleans up; patient completes activity. [place] assists only prior to or following the activity. 4-Supervision or Touching Assistance-helper provides verbal cues and/or touching/steadying and/or contact guard assistance as patient completes activity. Assistance may be provided throughout the activity or intermittently. 3-Partial/Moderate Assistance-helper does LESS THAN HALF the effort. [place] lifts, holds or supports trunk or limbs, but provides less than half the effort. 2-Substantial/Maximal Assistance-helper does MORE THAN HALF the effort. [place] lifts or holds trunk or limbs and provides more than half the effort. 8-Qjjtzspbq-dkicgy does ALL the effort. Patient does none of the effort to complete the activity. Or, the assistance of 2 or more helpers is required for the patient to complete the activity. If activity was not attempted, code reason: 7-Patient Refused. 9-Not Applicable-not attempted and the patient did not perform the activity before the current illness, exacerbation or injury. 10-Not Attempted due to Environmental Limitations-(lack of equipment, weather restraints, etc.). 88-Not Attempted due to Medical Conditions or Safety Concerns. Assessment/Plan Assessment and Plan Assess & Plan/Chief Complaint Assessment: Severe debility with slow recovery following sacroiliitis surgical management by Dr. Jack uncomplicated Increased BMI of 50 ELISEO on CPAP DM Hypertension Hyperlipidemia Fall risk Postop constipation Plan: Supportive care Monitor closely Pain control Home meds Monitor blood pressure PT and OT 06/05/2023: Supportive care Maintain pain control (1) Sacroiliitis JAKI KING DO Jun 05, 2023 06:48
[2023-06-05 07:50] VITALS: BP 128/74
[2023-06-05] MEDS: TAMSULOSIN 0.4 MG (FLOMAX) CAP PO SCH (08:42)
[2023-06-05] MEDS: DULoxetine 20 MG CAPSULE PO SCH (08:42)
[2023-06-05] MEDS: BACLOFEN 10 MG TABLET PO SCH ×3 (08:42→21:10)
[2023-06-05] MEDS: FUROSEMIDE 40 MG TABLET PO SCH (08:42)
[2023-06-05] MEDS: LORATADINE 10 MG TABLET PO SCH (08:42)
[2023-06-05] MEDS: carvediloL 12.5 MG TABLET PO SCH ×2 (08:42→21:10)
[2023-06-05] MEDS: lamoTRIgine 100 MG TABLET PO SCH (08:42)
[2023-06-05] MEDS: GABAPENTIN 600 MG TABLET PO SCH ×2 (08:42→21:10)
[2023-06-05] MEDS: DOCUSATE SODIUM 100 MG CAPSULE PO SCH ×2 (08:42→21:10)
[2023-06-05] MEDS: POTASSIUM CHLORIDE 10 MEQ TABLET PO SCH ×2 (08:42→21:10)
[2023-06-05] MEDS: SENNA W/DOCUSATE TABLET PO SCH ×2 (08:42→21:11)
[2023-06-05] MEDS: CITALOPRAM 20 MG TABLET PO SCH (08:42)
[2023-06-05] MEDS: FLUTICASONE NASAL SPRAY (120 SPRAYS) NS SCH ×2 (08:43→21:14)
[2023-06-05 19:24] VITALS: BP 116/54
[2023-06-05] MEDS: diphenhydrAMINE 25 MG TABLET PO SCH (21:10)
[2023-06-05] MEDS: ALLOPURINOL 300 MG TABLET PO SCH (21:10)
[2023-06-05] MEDS: MONTELUKAST 10 MG TABLET PO SCH (21:10)
[2023-06-05] MEDS: PANTOPRAZOLE 40 MG TABLET PO SCH (21:10)
[2023-06-06] MEDS: ACETAMINOPHEN 325 MG TABLET PO PRN ×2 (03:47→21:49)
--- NOTE | 2023-06-06 05:16 | PM&R Progress Note ---
Subjective HPI/CC On Admission Date Seen by Provider: Jun 06, 2023 Time Seen by Provider: 09:00 Subjective/Events-last exam 06/06/2023: Patient doing a lot better Moving around pretty well Pain is improved Continues to be fall risk 06/05/2023: Patient had a good night Bowels are moving just this morning Maintain on bowel regimen Voiding well Nonweightbearing going pretty well Continues to be a fall risk Review of Systems General: Fatigue, Malaise Objective Exam Vital Signs Vital Signs Date Time Temp Pulse Resp B/P (MAP) Pulse Ox O2 Delivery O2 Flow Rate FiO2 06/06/23 09:00 Room Air 06/06/23 08:09 36.0 60 16 139/65 (89) 95 Capillary Refill : General Appearance: No Apparent Distress, WD/WN, Chronically ill, Obese HEENT: PERRL/EOMI, Normal ENT Inspection, Pharynx Normal Neck: Full Range of Motion, Normal Inspection, Non Tender, Supple, Carotid Bruit Respiratory: Chest Non Tender, Lungs Clear, Normal Breath Sounds, No Accessory Muscle Use, No Respiratory Distress Cardiovascular: Regular Rate, Rhythm, No Edema, No Gallop, No JVD, No Murmur, Normal Peripheral Pulses Gastrointestinal: Normal Bowel Sounds, No Organomegaly, No Pulsatile Mass, Non Tender, Soft Back: Normal Inspection, CVA Tenderness (L), CVA Tenderness (R), Decreased Range of Motion, Muscle Spasm, Vertebral Tenderness Extremity: Normal Capillary Refill, Normal Inspection, Normal Range of Motion, Non Tender, No Calf Tenderness, No Pedal Edema Neurologic/Psychiatric: Alert, Oriented x3, Normal Mood/Affect, apprentice cook II-XII Norm as Tested, Abnormal Gait, Motor Weakness (Lower extremities) Skin: Normal Color, Warm/Dry Lymphatic: No Adenopathy Results/Procedures Lab Patient resulted labs reviewed. FIM Transfers Therapy Code Descriptions/Definitions Functional [place] Measure: 0=Not Assessed/NA 4=Minimal Assistance 1=Total Assistance 5=Supervision or Setup 2=Maximal Assistance 6=Modified [place] 3=Moderate Assistance 7=Complete IndependenceSCALE: Activities may be completed with or without assistive devices. 7-Kqcaggrsdk-gmcjebp completes the activity by him/herself with no assistance from a helper. 5-Set-up or Clean-up Assistance-helper sets up or cleans up; patient completes activity. [place] assists only prior to or following the activity. 4-Supervision or Touching Assistance-helper provides verbal cues and/or touching/steadying and/or contact guard assistance as patient completes activity. Assistance may be provided throughout the activity or intermittently. 3-Partial/Moderate Assistance-helper does LESS THAN HALF the effort. [place] lifts, holds or supports trunk or limbs, but provides less than half the effort. 2-Substantial/Maximal Assistance-helper does MORE THAN HALF the effort. [place] lifts or holds trunk or limbs and provides more than half the effort. 7-Ewpgatbsi-xcwhgr does ALL the effort. Patient does none of the effort to comp lete the activity. Or, the assistance of 2 or more helpers is required for the patient to complete the activity. If activity was not attempted, code reason: 7-Patient Refused. 9-Not Applicable-not attempted and the patient did not perform the activity before the current illness, exacerbation or injury. 10-Not Attempted due to Environmental Limitations-(lack of equipment, weather restraints, etc.). 88-Not Attempted due to Medical Conditions or Safety Concerns. Assessment/Plan Assessment and Plan Assess & Plan/Chief Complaint Assessment: Severe debility with slow recovery following sacroiliitis surgical management by Dr. Jack uncomplicated Increased BMI of 50 ELISEO on CPAP DM Hypertension Hyperlipidemia Fall risk Postop constipation resolved Plan: Supportive care Monitor closely Pain control Home meds Monitor blood pressure PT and OT 06/05/2023: Supportive care Maintain pain control 06/06/2023: Supportive care Monitor closely (1) Sacroiliitis JAKI KING DO Jun 06, 2023 05:16
[2023-06-06 08:09] VITALS: BP 139/65
[2023-06-06] MEDS: oxyCODONE IMMEDIATE RELEASE 5 MG TABLET PO PRN (08:12)
--- NOTE | 2023-06-06 08:12 | Physical Therapy Evaluation ---
PT Evaluation-General Medical Diagnosis Admission Date Jun 04, 2023 at 10:38 Medical Diagnosis: Sacroilitis; S/P R sacroiliac fusion Onset Date: Jun 03, 2023 Therapy Diagnosis Therapy Diagnosis: Weakness, Decreased functional mobility Precautions Precautions/Isolations: Fall Prevention, Standard Precautions Weight Bear Status Right Lower Extremity: Right Non Weight Bearing Left Lower Extremity: Left Weight Bearing/Tolerated Referral Physician: Alexis Reason for Referral: Evaluation/Treatment Medical History Pertinent Medical History: DM, GERD, HTN Additional Medical History HTN, HLD, DM, ELISEO (3L NC), GERD Current History S/P R sacroiliac fusion on 06/03/23; Admitted to ARU on 06/04/23 Reviewed History: Yes Social History Home: Single Level Current Living Status: Spouse Entry Into Home: Stairs With Railing PT Steps Into Home: 2 Pt lives with his spouse in a single level home with 2 steps to enter/exit with B HR. Tub shower, SC, GBs, tall toilet Prior Prior Level of Function SCALE: Activities may be completed with or without assistive devices. 5-Rfyeusnqsq-wahnrid completes the activity by him/herself with no assistance from a helper. 5-Set-up or Clean-up Assistance-helper sets up or cleans up; patient completes activity. [place] assists only prior to or following the activity. 4-Supervision or Touching Assistance-helper provides verbal cues and/or touching/steadying and/or contact guard assistance as patient completes activity. Assistance may be provided throughout the activity or intermittently. 3-Partial/Moderate Assistance-helper does LESS THAN HALF the effort. [place] lifts, holds or supports trunk or limbs, but provides less than half the effort. 2-Substantial/Maximal Assistance-helper does MORE THAN HALF the effort. [place] lifts or holds trunk or limbs and provides more than half the effort. 3-Jqjltrfer-fjprhl does ALL the effort. Patient does none of the effort to complete the activity. Or, the assistance of 2 or more helpers is required for the patient to complete the activity. If activity was not attempted, code reason: 7-Patient Refused. 9-Not Applicable-not attempted and the patient did not perform the activity be fore the current illness, exacerbation or injury. 10-Not Attempted due to Environmental Limitations-(lack of equipment, weather restraints, etc.). 88-Not Attempted due to Medical Conditions or Safety Concerns. Bed Mobility: 6 Transfers (B,C,W/C): 6 Gait: 6 Stairs: 6 Wheelchair Mobility: 9 Indoor Mobility (Ambulation): Independent Stairs: Independent Prior Devices Use: Mechanical lift (lift chair ), None At PLOF, pt was Ind with the SPC and driving. Pt has a lift chair, SPC, and FWW. PT Evaluation-Current Subjective Pt is agreeable to PT. Pt reports LBP at 4/10 Pain Numeric Pain Scale: 4 Location: Lower Location Body Site: Back Section J - Health Conditions 1. Rarely or not at all 2. Occasionally 3. Frequently 4. Almost constantly 8. Unable to answer Pain Effect on Sleep: 2 Pain Interference with Therapy: 3 Pain Interference w/Day-to-Day: 2 Pt/Family Goals Safely return home Objective Patient Orientation: Person, Place, Time, Situation ROM/Strength ROM Upper Extremities See OT eval ROM Lower Extremities WFL Strength Upper Extremities See OT eval Strength Lower Extremities B LE MMT = 4/5 grossly Integumentary/Posture Integumentary See nurses note Bowel Incontinence: No Bladder Incontinence: No Sensory Vision: Functional Hearing: Functional Hand Dominance: Right Sensation Right Upper Extremit: Intact Sensation Left Upper Extremity: Intact Sensation Right Lower Extremit: Intact Sensation Left Lower Extremity: Intact Transfers Roll Left & Right (QC): 4 (SBA ) Sit to Lying (QC): 4 (SBA ) Lying to Sitting/Side of Bed(Q: 4 (SBA ) Sit to Stand (QC): 4 (SBA ) Chair/Foy-sj-Ygzaf Xfer(QC): 4 (SBA ) Toilet Transfer (QC): 4 (SBA) Car Transfer (QC): 4 (SBA ) Gait Does the Patient Walk?: Yes Mode of Locomotion: Walk Anticipated Mode of Locomotion: Walk Walk 10 feet (QC): 4 (CGA ) Walk 50 ft with 2 Turns(QC): 4 (CGA ) Walk 150 ft (QC): 88 (Decreased strength/endurance ) Walking 10ft/uneven surface-QC: 3 (Min A ) Gait Assistive Device: FWW Wheelchair Training Does the Pt Use a Wheelchair?: No Wheel 50 ft with 2 turns (QC): 9 Wheel 150 ft (QC): 9 Type of Wheelchair: N/A Stairs #of Steps: 4 1 Step (curb) (QC): 3 (Min A ) 4 Steps (QC): 3 (Min A ) 12 Steps (QC): 9 (Pt has 2 steps at home ) Walking Assistive Device: Walker Balance Sitting Static: Normal Sitting Dynamic: Good Standing Static: Good Standing Dynamic: Fair Picking up an Object (QC): 4 (CGA with bellperson ) Special Test Comments KU standing balance scale = 2+/5 (goal = 3+/5) Treatment PT eval completed; PT/OT co-tx from [id number], skills of 2 clinicians required for decreasing fall risk and to increase activity tolerance for daily functional tasks. PT focusing on B LE strengthening, bed mobility, transfers, walking, safety, and Ind, while OT focusing on B UE placement, safety, and ADLs. Pt completed bed mobility and functional transfers with SBA/CGA. P ambulated 50ft x 2 and 20ft with the FWW and CGA (pt was able to abide by NWB R LE). Pt completed 4 steps with B HR and Min A. Pt completed bathing (see OT note for assistance required). Pt edu on HEP, with handouts provided. After treatment session, pt was sitting up in the recliner with call light in reach and all needs met. Assessment/Needs Pt tolerated PT well, with good effort Rehab Potential: Good Post Rehab Potential-Barriers: Weakness, endurance, NWB R LE Equipment Needs TTB PT Ship Steward Goals Ship Steward Goals PT Ship Steward Goals Time Frame: Jun 20, 2023 Roll Left to Right (QC): 6 (Pt will be Mod I with funcitonal mobility, in order to safely return home with spouse ) Sit to Lying (QC): 6 (Pt will be Mod I with funcitonal mobility, in order to safely return home with spouse ) Lying-Sitting on Side/Bed(QC): 6 (Pt will be Mod I with funcitonal mobility, in order to safely return home with spouse ) Sit to Stand (QC): 6 (Pt will be Mod I with funcitonal mobility, in order to safely return home with spouse ) Chair/Ktt-hm-Exvpz Xfer(QC): 6 (Pt will be Mod I with funcitonal mobility, in order to safely return home with spouse ) Toilet/Commode Transfer (QC): 6 (Pt will be Mod I with funcitonal mobility, in order to safely return home with spouse ) Car Transfer (QC): 6 (Pt will be Mod I with funcitonal mobility, in order to safely return home with spouse ) Does the Patient Walk: Yes Walk 10 feet (QC): 6 (Pt will be Mod I with funcitonal mobility, in order to safely return home with spouse ) Walk 10ft-Uneven Surface(QC): 6 (Pt will be Mod I with funcitonal mobility, in order to safely return home with spouse ) Walk 50ft with 2 Turns (QC): 6 (Pt will be Mod I with funcitonal mobility, in order to safely return home with spouse ) Walk 150 ft (QC): 6 (Pt will be Mod I with funcitonal mobility, in order to safely return home with spouse ) Does the Pt use WC or Scooter?: No Wheel 50 feet with 2 turns (QC: 9 Type: N/A Wheel 150 feet: 9 Type: N/A 1 Step (curb) (QC): 6 (Pt will be Mod I with funcitonal mobility, in order to safely return home with spouse ) 4 Steps (QC): 6 (Pt will be Mod I with funcitonal mobility, in order to safely return home with spouse ) 12 Steps (QC): 9 (Pt only has 2 steps at home) Picking up an Object (QC): 6 (Pt will be Mod I with funcitonal mobility, in order to safely return home with spouse ) KU standing balance scale = 3+/5 PT Plan Problem List Problem List: Activity Tolerance, Functional Strength, Safety, Balance, Gait, Transfer, Bed Mobility, ROM Treatment/Plan Treatment Plan: Continue Plan of Care Treatment Plan: Bed Mobility, Education, Functional Activity Lazaro, Functional Strength, Group Therapy, Gait, Safety, Therapeutic Exercise, Transfers Treatment Duration: Jun 20, 2023 Frequency: At least 5 of 7 days/Wk (IRF) Estimated Hrs Per Day: 1.5 hours per day Patient and/or Family Agrees t: Yes Safety Risks/Education Patient Education: Gait Training, Transfer Techniques, Steps, Issued Written HEP, Reviewed Precautions, Correct Positioning, Safety Issues Teaching Recipient: Patient Teaching Methods: Demonstration, Discussion Response to Teaching: Verbalize Understanding, Return Demonstration, Reinforcement Needed Discharge Recommendations Therapy Discharge Recommendati: Home & Family, Post Acute PT Equpiment Recommendations-D/C: Shower Chair (TTB) Discharge Status/Home Program Cont per POC Barriers to Progress Weakness, endurance, NWB R LE Target Placement Home with spouse Time Time In: 805 Time Out: 920 DATE: Jun 06, 2023 Total Billed Treatment Time: 75 Total Billed Treatment 75 min total from ; Co-tx for 60 min from 1 visit EVM FA x 2 GT x 2 ANDREA WELCH PT Jun 06, 2023 08:12
--- NOTE | 2023-06-06 09:17 | Occupational Therapy Eval ---
OT Evaluation-General/PLF Medical Diagnosis Admission Date Jun 04, 2023 at 10:38 Medical Diagnosis: Sacroilitis; S/P R sacroiliac fusion Onset Date: Jun 03, 2023 Therapy Diagnosis Therapy Diagnosis: Decrease independence with ADLs and functional mobility Precautions Precautions/Isolations: Fall Prevention, Standard Precautions Weight Bear Status Weight Bearing Restriction: Non Weight Bearing Location Restriction: R LE Referral Physician: Alexis Medical History Pertinent Medical History: DM, GERD, HTN Reviewed History: Yes Social History Home: Single Level Current Living Status: Spouse (Who is home during the day, though works at night. Has granddaughters who can be present if needed. ) Entry Into Home: Stairs With Railing Steps Into Home: 2 Narrow bathroom ADL-Prior Level of Function SCALE: Activities may be completed with or without assistive devices. 7-Scfxzmixjq-gwpzgvn completes the activity by him/herself with no assistance from a helper. 5-Set-up or Clean-up Assistance-helper sets up or cleans up; patient completes activity. [place] assists only prior to or following the activity. 4-Supervision or Touching Assistance-helper provides verbal cues and/or touching/steadying and/or contact guard assistance as patient completes activity. Assistance may be provided throughout the activity or intermittently. 3-Partial/Moderate Assistance-helper does LESS THAN HALF the effort. [place] lifts, holds or supports trunk or limbs, but provides less than half the effort. 2-Substantial/Maximal Assistance-helper does MORE THAN HALF the effort. [place] lifts or holds trunk or limbs and provides more than half the effort. 0-Kiuozwpmu-rkoeuf does ALL the effort. Patient does none of the effort to complete the activity. Or, the assistance of 2 or more helpers is required for the patient to complete the activity. If activity was not attempted, code reason: 7-Patient Refused. 9-Not Applicable-not attempted and the patient did not perform the activity before the current illness, exacerbation or injury. 10-Not Attempted due to Environmental Limitations-(lack of equipment, weather restraints, etc.). 88-Not Attempted due to Medical Conditions or Safety Concerns. Self Care: Independent Functional Cognition: Independent DME/Equipment: Bath Chair, Grab Bars (In shower), Tall Toilet, Tub/Shower Occupation: Retired Drive Self: Yes Leisure Interests: Enjoys watching television and taking care of his grandchildren OT Current Status Subjective Pt was received sitting in recliner and was agreeable to therapy. Pain Numeric Pain Scale: 4 Location: Lower Location Body Site: Back Pain Description: Ache Mental Status/Objective Patient Orientation: Person, Place, Time, Situation Current Glasses/Contacts: No Hearing Aids: No Dentures/Partials: Yes Hand Dominance: Right Upper Extremity ROM WFL at shoulder, elbow, wrist and hand Upper Extremity Coordination WFL Upper Extremity Sensation WFL Upper Extremity Strength 5/5 strength in shoulders, elbow and grasp ADL-Treatment Eating (QC): 6 Oral Hygiene (QC): 5 Shower/Bathe Self (QC): 3 (required min A to was and dry back off) Upper Body Dressing (QC): 6 Lower Body Dressing (QC): 4 (Requirig min cues to utilize AE and for balance) On/Off Footwear (QC): 4 Toileting Hygiene (QC): 4 Other Treatments Co-treated with PT due to need for multiple skilled therapists in order to complete high level interventions with optimal safety. Refer to PT note for PT focus during interventions. OT prioritized ADL independence, functional balance and ambulation and education with adaptive equipment. Pt completed shower with minimal assistance for thoroughness with back washing and drying. Introduced and educated pt on use of web marketing strategist and sock aid to increase independence with bathing and dressing. Pt completed community mobility and dynamic functional mobility activity with CGA and use of FWW. Pt requiring no cues to adhere to NWB precautions, though required increased rest breaks during functional ambulation interventions. Education OT Patient Education: Correct positioning, Energy conservation, Exercise program, Modified ADL techniques, Progress toward Goal/Update tx plan, Purpose of tx/functional activities, Reviewed precautions, Rehab process, Transfer techniques, Use of adapted equipment Teaching Recipient: Patient Teaching Methods: Demonstration, Discussion Response to Teaching: Verbalize Understanding, Return Demonstration BIMS CAM BIMS Expression of Ideas and Wants: Without Difficulty Understanding Verbal Content: Understands Brief Interview/Mental Status: Yes IRF MARRY BIMS: IRF MARRY BIMS Response (Comments) Value Repitition of Three Words Three 3 Recalls Socks Yes, No Cue Required 2 Recalls Blue Yes, No Cue Required 2 Recalls Bed Yes, No Cue Required 2 Year Correct 3 Day Correct 1 Total 13 Patient Normally Able to Recal: Current Session, Location of own room, Staff Names and faces, That he/she in a hsp Should Staff Asses. Mental St.: No Memory/Recall Ability: Current Season, Location of Own Room, Staff Names and Faces, That He/She in Hospit[facility] CAM Mental Status Change/Baseline: 0 Inattention: 0 Disorganized thinkin Altered level of consciousness: 0 OT Short Term Goals Short Term Goals Time Frame: Jun 13, 2023 Eatin Oral hygiene: 6 Toileting hygiene: 6 Shower/bathe self: 5 Upper body dressin Lower body dressin Putting on/taking off footwear: 5 OT Occupational Therapy Co Director Goals [facility] Goals Time Frame: Jun 20, 2023 Acute change in mental status: 0 Inattention: 0 Disorganized thinkin Altered level of consciousness: 0 Eating (QC): 6 Oral Hygiene (QC): 6 Toileting Hygiene (QC): 6 Shower/Bathe Self (QC): 6 Upper Body Dressing (QC): 6 Lower Body Dressing (QC): 6 On/Off Footwear (QC): 6 Pt will perform tub transfer utilizing extended tub tx bench independently with no cues for safety or to adhere to NWB precautions. 1=Demonstrate adherence to instructed precautions during ADL tasks. 2=Patient will verbalize/demonstrate understanding of assistive devices/modifications for ADL. 3=Patient will improve strength/tolerance for activity to enable patient to perform ADL's. OT Education/Plan Problem List/Assessment Assessment: Decreased Activ Tolerance, Decreased Safety Aware, Impaired Funct Balance, Impaired I ADL's, Impaired Self-Care Skills Discharge Recommendations Plan/Recommendations: Continue POC Equpiment Recommendations-D/C: Extended Bath Bench Comment Pt may benefit from extended bathroom bench to increase safety with tub transfers. Barriers to Progress Pain Treatment Plan/Plan of Care Treatment,Training & Education: Yes Patient would benefit from OT for education, treatment and training to promote independence in ADL's, mobility, safety and/or upper extremity function for ADL's. Plan of Care: ADL Retraining, Concurrent Therapy, Functional Mobility, Group Exercise/Act as Ind Treatment Duration: Jun 20, 2023 Frequency: At least 5 of 7 days/Wk (IRF) Estimated Hrs Per Day: 1.5 hours per day Agreement: Yes Rehab Potential: Good Time Start Time: 07:50 (OT eval [id number]) Stop Time: 09:20 (Co-treat [id number]) DATE: Jun 06, 2023 Total Time Billed (hr/min): 75 Billed Treatment Time 1, EVL 1, ADL 3, 1 FA Stoney Da Silva Jun 06, 2023 09:17
[2023-06-06] MEDS: LORATADINE 10 MG TABLET PO SCH (09:44)
[2023-06-06] MEDS: GABAPENTIN 600 MG TABLET PO SCH ×2 (09:45→21:49)
[2023-06-06] MEDS: CITALOPRAM 20 MG TABLET PO SCH (09:50)
[2023-06-06] MEDS: TAMSULOSIN 0.4 MG (FLOMAX) CAP PO SCH (09:51)
[2023-06-06] MEDS: BACLOFEN 10 MG TABLET PO SCH ×3 (09:51→21:48)
[2023-06-06] MEDS: DULoxetine 20 MG CAPSULE PO SCH (09:51)
[2023-06-06] MEDS: carvediloL 12.5 MG TABLET PO SCH ×2 (09:52→21:48)
[2023-06-06] MEDS: FUROSEMIDE 40 MG TABLET PO SCH (09:53)
[2023-06-06] MEDS: lamoTRIgine 100 MG TABLET PO SCH (09:54)
[2023-06-06] MEDS: POTASSIUM CHLORIDE 10 MEQ TABLET PO SCH ×2 (09:55→21:48)
[2023-06-06] MEDS: DOCUSATE SODIUM 100 MG CAPSULE PO SCH ×2 (09:59→21:51)
[2023-06-06] MEDS: SENNA W/DOCUSATE TABLET PO SCH ×2 (09:59→21:51)
[2023-06-06] MEDS: FLUTICASONE NASAL SPRAY (120 SPRAYS) NS SCH ×2 (10:00→21:49)
--- NOTE | 2023-06-06 11:39 | ST Cognitive Linguistic Eval ---
Speech Evaluation-General Medical Diagnosis Sacroilitis; S/P R sacroiliac fusion Onset Date: Jun 03, 2023 Therapy Diagnosis Therapy Diagnosis: Debility Precautions Precautions: Fall Precautions/Isolations: Standard Precautions Referral Referring Physician: Dr. Espinoza Reason for Referral: Consult Medical History Pertinent Medical History: DM, GERD, HTN Current History The pt is s/p sacroiliitis surgery 06/03/23, admit to ARU for strengthening and mobility Reviewed History: Yes Social History Current Living Status: Spouse (Who is home during the day, though works at night. Has granddaughters who can be present if needed. ) Speech PLF-Current Status Prior Level of Function Independent with IADL's, driving Subjective The pt was alert and interactive throughout session. Language Eval: Auditory Follows Complex Directions: Functional Follows General Conversations: Functional Language Eval: Verbal Language Expresses Complex Ideas: Functional Objective Formal/Standardized Tests The SLUMS examination was administered. Results The pt earned 27/30 on the SLUMS, WFL. Recall of words was 3/5, with one error for reverse digit sequences. Impression Cognitive linguistic function is WFL for age, no concerns at this time. Speech-Plan Treatment Plan Speech Therapy Treatment Plan: Discontinue ST Frequency: Modified Program (IRF) (no treatment) Estimated Hrs Per Day: Other (no treatment) Rehab Potential: Good Time Speech Therapy Time In: 10:30 Speech Therapy Time Out: 11:00 DATE: Jun 06, 2023 Total Billed Time: 30 Billed Treatment Time 1 PRITI TURCIOS Jun 06, 2023 11:39
[2023-06-06 21:19] VITALS: BP 127/58
[2023-06-06] MEDS: diphenhydrAMINE 25 MG TABLET PO SCH (21:48)
[2023-06-06] MEDS: ALLOPURINOL 300 MG TABLET PO SCH (21:48)
[2023-06-06] MEDS: MONTELUKAST 10 MG TABLET PO SCH (21:48)
[2023-06-06] MEDS: PANTOPRAZOLE 40 MG TABLET PO SCH (21:49)
--- NOTE | 2023-06-07 05:54 | PM&R Progress Note ---
Subjective HPI/CC On Admission Date Seen by Provider: Jun 07, 2023 Time Seen by Provider: 09:00 Subjective/Events-last exam 06/07/2023: Patient doing well Pain is improved No falls Participation is good 06/06/2023: Patient doing a lot better Moving around pretty well Pain is improved Continues to be fall risk 06/05/2023: Patient had a good night Bowels are moving just this morning Maintain on bowel regimen Voiding well Nonweightbearing going pretty well Continues to be a fall risk Review of Systems General: Fatigue, Malaise Objective Exam Vital Signs Vital Signs Date Time Temp Pulse Resp B/P (MAP) Pulse Ox O2 Delivery O2 Flow Rate FiO2 06/07/23 09:00 Room Air 06/07/23 08:00 36.6 75 19 139/63 (88) 93 Capillary Refill : General Appearance: No Apparent Distress, WD/WN, Chronically ill, Obese HEENT: PERRL/EOMI, Normal ENT Inspection, Pharynx Normal Neck: Full Range of Motion, Normal Inspection, Non Tender, Supple, Carotid Bruit Respiratory: Chest Non Tender, Lungs Clear, Normal Breath Sounds, No Accessory Muscle Use, No Respiratory Distress Cardiovascular: Regular Rate, Rhythm, No Edema, No Gallop, No JVD, No Murmur, Normal Peripheral Pulses Gastrointestinal: Normal Bowel Sounds, No Organomegaly, No Pulsatile Mass, Non Tender, Soft Back: Normal Inspection, CVA Tenderness (L), CVA Tenderness (R), Decreased Range of Motion, Muscle Spasm, Vertebral Tenderness Extremity: Normal Capillary Refill, Normal Inspection, Normal Range of Motion, Non Tender, No Calf Tenderness, No Pedal Edema Neurologic/Psychiatric: Alert, Oriented x3, Normal Mood/Affect, log handling equipment operator II-XII Norm as Tested, Abnormal Gait, Motor Weakness (Lower extremities) Skin: Normal Color, Warm/Dry Lymphatic: No Adenopathy Results/Procedures Lab Patient resulted labs reviewed. FIM Transfers Therapy Code Descriptions/Definitions Functional Power Measure: 0=Not Assessed/NA 4=Minimal Assistance 1=Total Assistance 5=Supervision or Setup 2=Maximal Assistance 6=Modified Power 3=Moderate Assistance 7=Complete IndependenceSCALE: Activities may be completed with or without assistive devices. 1-Pijjgdhcke-prnhotu completes the activity by him/herself with no assistance from a helper. 5-Set-up or Clean-up Assistance-helper sets up or cleans up; patient completes activity. [place] assists only prior to or following the activity. 4-Supervision or Touching Assistance-helper provides verbal cues and/or touching/steadying and/or contact guard assistance as patient completes activity . Assistance may be provided throughout the activity or intermittently. 3-Partial/Moderate Assistance-helper does LESS THAN HALF the effort. [place] lifts, holds or supports trunk or limbs, but provides less than half the effort. 2-Substantial/Maximal Assistance-helper does MORE THAN HALF the effort. [place] lifts or holds trunk or limbs and provides more than half the effort. 1-Lsdfphxqv-wyqmje does ALL the effort. Patient does none of the effort to complete the activity. Or, the assistance of 2 or more helpers is required for the patient to complete the activity. If activity was not attempted, code reason: 7-Patient Refused. 9-Not Applicable-not attempted and the patient did not perform the activity before the current illness, exacerbation or injury. 10-Not Attempted due to Environmental Limitations-(lack of equipment, weather restraints, etc.). 88-Not Attempted due to Medical Conditions or Safety Concerns. Roll Left to Right (QC): 4 (SBA ) Sit to Lying (QC): 4 (SBA ) Sit to Stand (QC): 4 (SBA ) Chair/Sln-il-[place] Xfer(QC): 4 (SBA ) Car Transfer (QC): 4 (SBA ) Gait Training Does the Patient Walk?: Yes Walk 10 feet (QC): 4 (CGA ) Walk 50 ft with 2 Turns(QC): 4 (CGA ) Walk 150 ft (QC): 88 (Decreased strength/endurance ) Walking 10ft/uneven surface-QC: 3 (Min A ) Gait Assistive Device: FWW Wheelchair Training Does the Pt Use a Wheelchair?: No Wheel 50 ft with 2 turns (QC): 9 Wheel 150 ft (QC): 9 Type of Wheelchair: N/A Stair Training #of Steps: 4 1 Step (curb) (QC): 3 (Min A ) 4 Steps (QC): 3 (Min A ) 12 Steps (QC): 9 (Pt has 2 steps at home ) Balance Picking up an Object (QC): 4 (CGA with pharmaceutical process engineer ) ADL-Treatment Eating (QC): 6 Oral Hygiene (QC): 5 Shower/Bathe Self (QC): 3 (required min A to was and dry back off) Upper Body Dressing (QC): 6 Lower Body Dressing (QC): 4 (Requirig min cues to utilize AE and for balance) On/Off Footwear (QC): 4 Toileting Hygiene (QC): 4 Assessment/Plan Assessment and Plan Assess & Plan/Chief Complaint Assessment: Severe debility with slow recovery following sacroiliitis surgical management by Dr. Jack uncomplicated Increased BMI of 50 ELISEO on CPAP DM Hypertension Hyperlipidemia Fall risk Postop constipation resolved Plan: Supportive care Monitor closely Pain control Home meds Monitor blood pressure PT and OT 06/05/2023: Supportive care Maintain pain control 06/06/2023: Supportive care Monitor closely 06/07/2023: Supportive care Monitor closely Fall risk (1) Sacroiliitis JAKI KING DO Jun 07, 2023 05:54
--- NOTE | 2023-06-07 05:55 | Individualized Plan of Care ---
Individualized Plan of Care Rehab Nursing IPOC Order Admission Date Jun 04, 2023 at 10:38 Current Orders Orders Admission Order(Inpt,Obs,Sdc) (06/04/23 08:59) Vital Signs: Per Unit Policy ( 08,16,00 (06/04/23 08:59) Payam Crabtree 09,21 (06/04/23 08:59) Sequential Compression Device [id number] (06/04/23 08:59) Package Pick Up-Inpt Rehab Con (06/04/23 08:59) Rehab Nursing Orders-Ipoc (06/04/23 08:59) Physical Therapy Rehab Orders (06/04/23 08:59) Occupational Therapy Rehab Ord (06/04/23 08:59) Speech Therapy Rehab Orders (06/04/23 08:59) Cbc And Automated Diff (06/05/23 06:00) Comprehensive Metabolic Panel (06/05/23 06:00) Precautions (Aru) (06/04/23 08:59) Weekly Weight WEEK (06/04/23 08:59) Rehab-Intensity Of Therapy (06/04/23 08:59) Initiate Admission Nursing Pro .admission (06/04/23 08:59) Alprazolam Tablet (Alprazolam Tablet) (06/04/23 09:00) Calcium Carbonate Chew Tablet (Calcium C (06/04/23 09:00) Diphenhydramine Tablet (Diphenhydramine (06/04/23 09:00) Docusate Sodium Capsule (Docusate Sodium (06/04/23 09:00) Docusate Sodium Capsule (Docusate Sodium (06/04/23 09:00) Bisacodyl Suppository (Bisacodyl Supposi (06/04/23 09:00) Lactulose Oral Solution (Enulose Oral So (06/04/23 09:00) Na Phos/Na Biphos Adult Enema (Na Phos/N (06/04/23 09:00) Guaifenesin/Codeine Syrup (Guaifenesin/C (06/04/23 09:00) Loperamide Capsule (Loperamide Capsule) (06/04/23 09:00) Melatonin Tablet (Melatonin Tablet) (06/04/23 09:00) Polyethylene Glycol Powder (Polyethylen (06/04/23 09:00) Ondansetron Oral Dissolve Tab (Ondanset (06/04/23 09:00) Senna W/Docusate Tablet (Senna W/Docusat (06/04/23 09:00) Acetaminophen Tablet (Acetaminophen Ta (06/04/23 09:00) Initiate Admission Nursing Pro .admission (06/04/23 08:59) Admission Arrival Bed Request (06/04/23 10:38) General/Regular (06/04/23 Lunch) Incentive Spirometry (Nursing) Q2H (06/04/23 12:09) Allopurinol Tablet (Allopurinol Tablet) (06/04/23 21:00) Atorvastatin Tablet (Atorvastatin Tablet (06/04/23 21:00) Baclofen Tablet (Baclofen Tablet) (06/04/23 13:00) Carvedilol Tablet (Carvedilol Tablet) (06/04/23 21:00) Loratadine Tablet (Loratadine Tablet) (06/05/23 09:00) Citalopram Tablet (Citalopram Tablet) (06/05/23 09:00) Duloxetine Capsule (Duloxetine Capsule) (06/05/23 09:00) Fluticasone Nasal [place] (Fluticasone [place]an (06/04/23 21:00) Furosemide Tablet (Furosemide Tablet) (06/05/23 09:00) Gabapentin 600 Mg Tablet (Gabapentin 600 (06/04/23 21:00) Hydrocodone/Apap 5/325 Tablet (Hydrocod (06/04/23 12:15) Lamotrigine Tablet (Lamotrigine Tablet) (06/05/23 09:00) Lisinopril Tablet (Lisinopril Tablet) (06/05/23 09:00) Montelukast Tablet (Montelukast Tablet) (06/04/23 21:00) Potassium Chloride (Tablet) (Potassium C (06/04/23 21:00) Tamsulosin Capsule (Flomax Capsule) (06/05/23 09:00) Benzonatate Capsule (Benzonatate Capsule (06/04/23 12:30) Diphenhydramine Tablet (Diphenhydramine (06/04/23 12:30) Pantoprazole Tablet (Pantoprazole Tablet (06/04/23 21:00) Oxycodone Immediate Rel Tablet (Oxycodon (06/04/23 12:30) Diphenhydramine Tablet (Diphenhydramine (06/04/23 12:45) Diphenhydramine Tablet (Diphenhydramine (06/04/23 21:00) Nursing Communication (Order) (06/04/23 18:17) Lifting Restrictions (06/05/23 13:43) Activity (06/05/23 13:43) Dressing Order (Intervention) DAILY (06/05/23 13:46) Patient Visit (06/06/23 ) Pt Eval Moderate Complexity (06/06/23 ) Functional Activities, Ea 15 (06/06/23 ) Gait Training, Ea 15 Min (06/06/23 ) Patient Visit (06/06/23 ) Speech Sound Lang Comp (06/06/23 ) Patient Visit (06/07/23 ) Functional Activities, Ea 15 (06/07/23 ) Exercise Therap, Ea 15 Min (06/07/23 ) Gait Training, Ea 15 Min (06/07/23 ) Patient Visit (06/07/23 ) Rehab Nursing Orders: Ongoing Assess. of Cognitive Status, Ongoing Assess. of Function Status, Bladder Management, Bladder Scan, Bladder Training, Bowel Management, Bowel Training, Disease Management & Educaiton, DVT Prophylaxis, Fall Prevention, Fluid/Electrolyte/Nutrition Mgmt, Infection Prevention, Medication Management & Education, Management of Risks & Complications, Management of Skin Intergrity, Nutrition Management, Pain Management, Patien t/Family Support, Safety Management Intensity of Therapy to be met Patient to be seen: Min.3h per day/5 of 7d PT IPOC Problem List: Activity Tolerance, Functional Strength, Safety, Balance, Gait, Transfer, Bed Mobility, ROM Treatment Plan: Continue Plan of Care Bed Mobility, Education, Functional Activity Lazaro, Functional Strength, Group Therapy, Gait, Safety, Therapeutic Exercise, Transfers Treatment Duration: Jun 20, 2023 Frequency: At least 5 of 7 days/Wk (IRF) Estimated Hrs Per Day: 1.5 hours per day OT IPOC Problems: Decreased Activ Tolerance, Decreased Safety Aware, Impaired Funct Balance, Impaired I ADL's, Impaired Self-Care Skills OT Treatment, Training and Edu: Yes Plan of Care: ADL Retraining, Concurrent Therapy, Functional Mobility, Group Exercise/Act as Ind Treatment Duration: Jun 20, 2023 Frequency: At least 5 of 7 days/Wk (IRF) Estimated Hrs Per Day: 1.[address] IPOC Speech Therapy Treatment Plan: Discontinue ST Treatment Duration: Jun 06, 2023 Frequency: Modified Program (IRF) (no treatment) Estimated Hrs Per Day: Other (no treatment) Package Pick Up/Case Mgmt Package Pick Up/Case Managemen: Discharge Planning Dietitian/Inspector Material Disposition Dietitian/Inspector Material Disposition to monitor nutritional status and make changes and/or recommendations as needed and work with speech pathology on dietary upgrades as the occur. Physician IPOC Medical Issues being managed closely and that require the 24 hour availability of a physician: Recent sacroiliitis surgical required will place patient at risk for decompensation while maintained on CPAP will be high risk for respiratory compromise Medical Issues: Bowel/Bladder Function, DVT Prophylaxis, Falls Precautions, Fluid/Electrolyte/Nutrition Balance, Infection Protection, Pain Management, Swallowing Precautions, Weight Bearing Precautions, Wound Care Brief Synthesis of Preadmission Screen, Post-Admission Evaluation, and Therapy Evaluations: PT and OT will focus on regaining function with use of assistive devices in order to regain function and independence and ambulation Medical Prognosis: Good Anticipated Length of Stay: 7 days JAKI KING DO Jun 07, 2023 05:55
[2023-06-07] MEDS: GABAPENTIN 600 MG TABLET PO SCH ×2 (07:59→21:17)
[2023-06-07] MEDS: POTASSIUM CHLORIDE 10 MEQ TABLET PO SCH ×2 (07:59→21:17)
[2023-06-07] MEDS: LORATADINE 10 MG TABLET PO SCH (07:59)
[2023-06-07] MEDS: DULoxetine 20 MG CAPSULE PO SCH (07:59)
[2023-06-07] MEDS: BACLOFEN 10 MG TABLET PO SCH ×3 (07:59→21:18)
[2023-06-07] MEDS: TAMSULOSIN 0.4 MG (FLOMAX) CAP PO SCH (07:59)
[2023-06-07] MEDS: CITALOPRAM 20 MG TABLET PO SCH (07:59)
[2023-06-07 08:00] VITALS: BP 139/63
[2023-06-07] MEDS: oxyCODONE IMMEDIATE RELEASE 5 MG TABLET PO PRN (08:00)
--- NOTE | 2023-06-07 08:29 | Occupational Ther Daily Note ---
OT Current Status-Daily Note Subjective Pt alert, sitting EOB upon arrival. Pt agreeable to therapy. Pt stated pain was a 4/10, nrsg notified and pain medication given during tx. Mental Status/Objective Patient Orientation: Person, Place, Time, Situation ADL-Treatment Therapy Code Descriptions/Definitions Functional [place] Measure: 0=Not Assessed/NA 4=Minimal Assistance 1=Total Assistance 5=Supervision or Setup 2=Maximal Assistance 6=Modified [place] 3=Moderate Assistance 7=Complete IndependenceSCALE: Activities may be completed with or without assistive devices. 8-Ggefqphqaq-kkkpplt completes the activity by him/herself with no assistance from a helper. 5-Set-up or Clean-up Assistance-helper sets up or cleans up; patient completes activity. [place] assists only prior to or following the activity. 4-Supervision or Touching Assistance-helper provides verbal cues and/or touching/steadying and/or contact guard assistance as patient completes acti vity. Assistance may be provided throughout the activity or intermittently. 3-Partial/Moderate Assistance-helper does LESS THAN HALF the effort. [place] lifts, holds or supports trunk or limbs, but provides less than half the effort. 2-Substantial/Maximal Assistance-helper does MORE THAN HALF the effort. [place] lifts or holds trunk or limbs and provides more than half the effort. 7-Istiumujo-rkdtlz does ALL the effort. Patient does none of the effort to complete the activity. Or, the assistance of 2 or more helpers is required for the patient to complete the activity. If activity was not attempted, code reason: 7-Patient Refused. 9-Not Applicable-not attempted and the patient did not perform the activity before the current illness, exacerbation or injury. 10-Not Attempted due to Environmental Limitations-(lack of equipment, weather restraints, etc.). 88-Not Attempted due to Medical Conditions or Safety Concerns. Eating (QC): 6 (Pt able to open packages and use utensils properly) Upper Body Dressing (QC): 5 (Set up shirt on FWW, pt able to button up shirt.) On/Off Footwear: 5 (Pt able to use sock-aid to don sock. Figure-four technique to doff. ) Toileting Hygiene (QC): 6 (Pt ind to clean after toileting and manipulate clothing) Toilet Transfer (QC): 4 (SBA for safety while pt used grab bars and FWW for support) Education on sock aid and use. Other Treatment Pt ambulated on L LE with FWW, CGA for safety from room to therapy gym. Pt follows NWB precautions well on R LE. Pt educated on HEP and completed 4 exercises with medium resistive theraband. Skilled instruction for proper positioning/movement. Pt tolerated tx well, although fatigued during ambulation due to hopping. Pt ambulated back to room with FWW, CGA. Ended session with pt sitting in chair with call light/phone in reach. All needs met. Education OT Patient Education: Correct positioning, Energy conservation, Home exercise program, Use of adapted equipment Teaching Recipient: Patient Teaching Methods: Demonstration, Discussion Response to Teaching: Verbalize Understanding, Return Demonstration BIMS CAM BIMS Expression of Ideas and Wants: Without Difficulty Understanding Verbal Content: Understands Brief Interview/Mental Status: Yes IRF MARRY BIMS: IRF MARRY BIMS Response (Comments) Value Repitition of Three Words Three 3 Recalls Socks Yes, No Cue Required 2 Recalls Blue Yes, No Cue Required 2 Recalls Bed Yes, No Cue Required 2 Year Correct 3 Month Accurate Within 5 Days 2 Day Correct 1 Total 15 Patient Normally Able to Recal: Current Session, Location of own room, Staff Names and faces, That he/she in a hsp Should Staff Asses. Mental St.: No Memory/Recall Ability: Current Season, Location of Own Room, Staff Names and Faces, That He/She in [facility] CAM Mental Status Change/Baseline: 0 Inattention: 0 Disorganized thinkin Altered level of consciousness: 0 OT Short Term Goals Short Term Goals Time Frame: Jun 13, 2023 Eatin Oral hygiene: 6 Toileting hygiene: 6 Shower/bathe self: 5 Upper body dressin Lower body dressin Putting on/taking off footwear: 5 OT Long-Term Goals [place] [employer]er Goals Time Frame: Jun 20, 2023 Acute change in mental status: 0 Inattention: 0 Disorganized thinkin Altered level of consciousness: 0 Eating (QC): 6 Oral Hygiene (QC): 6 Toileting Hygiene (QC): 6 Shower/Bathe Self (QC): 6 Upper Body Dressing (QC): 6 Lower Body Dressing (QC): 6 On/Off Footwear (QC): 6 Pt will perform tub transfer utilizing extended tub tx bench independently with no cues for safety or to adhere to NWB precautions. 1=Demonstrate adherence to instructed precautions during ADL tasks. 2=Patient will verbalize/demonstrate understanding of assistive devices/mod ifications for ADL. 3=Patient will improve strength/tolerance for activity to enable patient to perform ADL's. OT Education/Plan Problem List/Assessment Assessment: Decreased Activ Tolerance, Impaired Funct Balance, Impaired Self- Care Skills Discharge Recommendations Plan/Recommendations: Continue POC Treatment Plan/Plan of Care Patient would benefit from OT for education, treatment and training to promote independence in ADL's, mobility, safety and/or upper extremity function for ADL's. Plan of Care: ADL Retraining, Concurrent Therapy, Functional Mobility, Group Exercise/Act as Ind Treatment Duration: Jun 20, 2023 Frequency: At least 5 of 7 days/Wk (IRF) Estimated Hrs Per Day: 1.5 hours per day Agreement: Yes Rehab Potential: Good Time Start Time: 07:30 Stop Time: 08:30 DATE: Jun 07, 2023 Total Time Billed (hr/min): 60 Billed Treatment Time 1 visit- ADL 2 (30 min) EX 2 (30 min) ALISON AARON Jun 07, 2023 08:29
[2023-06-07] MEDS: carvediloL 12.5 MG TABLET PO SCH ×2 (08:49→21:18)
[2023-06-07] MEDS: FUROSEMIDE 40 MG TABLET PO SCH (08:49)
[2023-06-07] MEDS: lamoTRIgine 100 MG TABLET PO SCH (08:49)
[2023-06-07] MEDS: DOCUSATE SODIUM 100 MG CAPSULE PO SCH ×2 (08:51→21:17)
[2023-06-07] MEDS: FLUTICASONE NASAL SPRAY (120 SPRAYS) NS SCH ×2 (08:51→21:19)
[2023-06-07] MEDS: SENNA W/DOCUSATE TABLET PO SCH ×2 (08:52→21:18)
--- NOTE | 2023-06-07 09:03 | Physical Therapy Daily Note ---
PT Daily Note-Current Subjective Pt reports he is doing well this morning and is agreeable to PT. Pt reported LBP at 2/10. Pain Numeric Pain Scale: 2 Location: Lower Location Body Site: Back Section J - Health Conditions 1. Rarely or not at all 2. Occasionally 3. Frequently 4. Almost constantly 8. Unable to answer Pain Effect on Sleep: 2 Pain Interference with Therapy: 3 Pain Interference w/Day-to-Day: 2 Transfers SCALE: Activities may be completed with or without assistive devices. 0-Rzivkiroew-xbnqduh completes the activity by him/herself with no assistance from a helper. 5-Set-up or Clean-up Assistance-helper sets up or cleans up; patient completes activity. [place] assists only prior to or following the activity. 4-Supervision or Touching Assistance-helper provides verbal cues and/or touching/steadying and/or contact guard assistance as patient completes activity. Assistance may be provided throughout the activity or intermittently. 3-Partial/Moderate Assistance-helper does LESS THAN HALF the effort. [place] lifts, holds or supports trunk or limbs, but provides less than half the effort. 2-Substantial/Maximal Assistance-helper does MORE THAN HALF the effort. [place] lifts or holds trunk or limbs and provides more than half the effort. 7-Yfbnfghql-gkhxhd does ALL the effort. Patient does none of the effort to complete the activity. Or, the assistance of 2 or more helpers is required for the patient to complete the activity. If activity was not attempted, code reason: 7-Patient Refused. 9-Not Applicable-not attempted and the patient did not perform the activity before the current illness, exacerbation or injury. 10-Not Attempted due to Environmental Limitations-(lack of equipment, weather restraints, etc.). 88-Not Attempted due to Medical Conditions or Safety Concerns. Sit to Stand (QC): 4 Weight Bearing Right Lower Extremity: Right Non Weight Bearing Left Lower Extremity: Left Weight Bearing/Tolerated Gait Training Does the Patient Walk?: Yes Distance: 75ft x 2 Walk 10 feet (QC): 4 Walk 50 ft with 2 Turns(QC): 4 Gait Assistive Device: FWW Wheelchair Training Does the Pt Use a Wheelchair?: No Wheel 50 ft with 2 turns (QC): 9 Wheel 150 ft (QC): 9 Type of Wheelchair: N/A Treatments Pt completed functional transfers with SBA. Pt ambulated 75ft x 2 with the FWW and CGA (pt required extended time and standing rest breaks during ambulation). Pt completed seated B LE Ther Ex x 15 reps each with the red Tband. Pt completed sit to stand x 10 reps with SBA. After treatment session, pt was sitting up in the recliner with call light in reach and all needs met. Assessment Current Status: Good Progress Pt tolerated PT well with good effort PT Shelter Goals Armhole Baster Jumpbasting Goals PT Shelter Goals Time Frame: Jun 20, 2023 Roll Left & Right (QC): 6 (Pt will be Mod I with funcitonal mobility, in order to safely return home with spouse ) Sit to Lying (QC): 6 (Pt will be Mod I with funcitonal mobility, in order to safely return home with spouse ) Lying-Sitting on Side/Bed(QC): 6 (Pt will be Mod I with funcitonal mobility, in order to safely return home with spouse ) Sit to Stand (QC): 6 (Pt will be Mod I with funcitonal mobility, in order to safely return home with spouse ) Chair/Zvp-rw-[place] Xfer(QC): 6 (Pt will be Mod I with funcitonal mobility, in order to safely return home with spouse ) Toilet Transfer (QC): 6 (Pt will be Mod I with funcitonal mobility, in order to safely return home with spouse ) Car Transfer (QC): 6 (Pt will be Mod I with funcitonal mobility, in order to safely return home with spouse ) Does the Patient Walk: Yes Walk 10 feet (QC): 6 (Pt will be Mod I with funcitonal mobility, in order to safely return home with spouse ) Walk 50ft with 2 Turns (QC): 6 (Pt will be Mod I with funcitonal mobility, in order to safely return home with spouse ) Walk 150 ft (QC): 6 (Pt will be Mod I with funcitonal mobility, in order to safely return home with spouse ) Walking 10ft on Uneven Surface: 6 (Pt will be Mod I with funcitonal mobility, in order to safely return home with spouse ) 1 Step (curb) (QC): 6 (Pt will be Mod I with funcitonal mobility, in order to safely return home with spouse ) 4 Steps (QC): 6 (Pt will be Mod I with funcitonal mobility, in order to safely return home with spouse ) 12 Steps (QC): 9 (Pt only has 2 steps at home) Picking up an Object (QC): 6 (Pt will be Mod I with funcitonal mobility, in order to safely return home with spouse ) Does the Pt use WC or Scooter?: No Wheel 50 feet with 2 turns (QC: 9 Type: N/A Wheel 150 feet: 9 Type: N/A PT Plan Problem List Problem List: Activity Tolerance, Functional Strength, Safety, Balance, Gait, Transfer, Bed Mobility, ROM Treatment/Plan Treatment Plan: Continue Plan of Care Treatment Plan: Bed Mobility, Education, Functional Activity Lazaro, Functional Strength, Group Therapy, Gait, Safety, Therapeutic Exercise, Transfers Treatment Duration: Jun 20, 2023 Frequency: At least 5 of 7 days/Wk (IRF) Estimated Hrs Per Day: 1.5 hours per day Patient and/or Family Agrees t: Yes Safety Risks/Education Patient Education: Gait Training, Transfer Techniques, Correct Positioning, Safety Issues Teaching Recipient: Patient Teaching Methods: Demonstration, Discussion Response to Teaching: Verbalize Understanding, Return Demonstration, Reinforcement Needed Discharge Recommendations Therapy Discharge Recommendati: Home & Family, Post Acute PT Equpiment Recommendations-D/C: Shower Chair (TTB ) Discharge Status/Home Program Cont per POC Barriers to Progress Weakness, Endurance, NWB R LE Target Placement Home with family assistance Time Time In: 900 Time Out: 1000 DATE: Jun 07, 2023 Total Billed Treatment Time: 60 Total Billed Treatment 60 min 1 visit EX x 1 FA x 1 GT x 2 ANDREA WELCH PT Jun 07, 2023 09:03
--- NOTE | 2023-06-07 14:35 | Therapy Group Daily Note ---
Therapy Daily Group Note Patient Education Topic Home Safety, Exercises Exercises LE Seated Exercise, UE Exercise Session Ratio (pt:therapist): 3:1 Goal of Session: Education on ARU Expectations, UE/LE Strengthing Goal Met for this Session: Yes Pt Benefit of Group: Contributions to Others, F/U Use of Strategies @Home, Increased Functional Safety, Increased Functional Strength, Improved Cognition, Recognition of Peers, Socialization Other/Notes Pt propelled w/c to therapy gym for OT/PT group. Group consisted of introductions, socialization, B UE/LE seated exercises, educational topics of benefits of exercise, safety and ARU description. Pt introduced self appropriately and actively listened to peers. Pt completed B UE/LE seated exercises with skilled instructions for correct technique and modifications when needed. Pt acknowledged understanding of each educational topic by verbalizing understanding and giving own personal strategies/stories for each. After session, pt lying in bed with call light/phone in reach. All needs met in room. Start Time: 13:00 Stop Time: 14:00 Total Billed Treatment Time: 60 Total Billed Treatment 1-ALISON SAINI Jun 07, 2023 14:35
[2023-06-07 20:00] VITALS: BP 131/68
[2023-06-07] MEDS: MONTELUKAST 10 MG TABLET PO SCH (21:17)
[2023-06-07] MEDS: PANTOPRAZOLE 40 MG TABLET PO SCH (21:17)
[2023-06-07] MEDS: ALLOPURINOL 300 MG TABLET PO SCH (21:17)
[2023-06-07] MEDS: ACETAMINOPHEN 325 MG TABLET PO PRN (21:17)
[2023-06-07] MEDS: diphenhydrAMINE 25 MG TABLET PO SCH (21:18)
[2023-06-08 08:00] VITALS: BP 132/60
[2023-06-08] MEDS: lamoTRIgine 100 MG TABLET PO SCH (08:28)
[2023-06-08] MEDS: LORATADINE 10 MG TABLET PO SCH (08:28)
[2023-06-08] MEDS: carvediloL 12.5 MG TABLET PO SCH ×2 (08:28→21:09)
[2023-06-08] MEDS: POTASSIUM CHLORIDE 10 MEQ TABLET PO SCH ×2 (08:28→21:09)
[2023-06-08] MEDS: GABAPENTIN 600 MG TABLET PO SCH ×2 (08:28→21:09)
[2023-06-08] MEDS: FUROSEMIDE 40 MG TABLET PO SCH (08:28)
[2023-06-08] MEDS: BACLOFEN 10 MG TABLET PO SCH ×3 (08:28→21:09)
[2023-06-08] MEDS: CITALOPRAM 20 MG TABLET PO SCH (08:29)
[2023-06-08] MEDS: SENNA W/DOCUSATE TABLET PO SCH ×2 (08:29→21:09)
[2023-06-08] MEDS: DOCUSATE SODIUM 100 MG CAPSULE PO SCH ×2 (08:29→21:09)
[2023-06-08] MEDS: DULoxetine 20 MG CAPSULE PO SCH (08:59)
[2023-06-08] MEDS: oxyCODONE IMMEDIATE RELEASE 5 MG TABLET PO PRN (09:00)
[2023-06-08] MEDS: TAMSULOSIN 0.4 MG (FLOMAX) CAP PO SCH (09:00)
[2023-06-08] MEDS: FLUTICASONE NASAL SPRAY (120 SPRAYS) NS SCH ×2 (09:00→21:12)
--- NOTE | 2023-06-08 10:23 | PM&R Progress Note ---
Subjective HPI/CC On Admission Date Seen by Provider: Jun 08, 2023 Time Seen by Provider: 05:30 Subjective/Events-last exam 06/08/2023: Patient doing pretty well Denies any new issues Pharmacological DVT prophylaxis contraindicated due to spinal surgery Reviewed meds and labs 06/07/2023: Patient doing well Pain is improved No falls Participation is good 06/06/2023: Patient doing a lot better Moving around pretty well Pain is improved Continues to be fall risk 06/05/2023: Patient had a good night Bowels are moving just this morning Maintain on bowel regimen Voiding well Nonweightbearing going pretty well Continues to be a fall risk Review of Systems General: Fatigue, Malaise Musculoskeletal: back pain Objective Exam Vital Signs Vital Signs Date Time Temp Pulse Resp B/P (MAP) Pulse Ox O2 Delivery O2 Flow Rate FiO2 06/08/23 09:21 93 Room Air 06/08/23 08:00 36.0 69 19 132/60 (84) Capillary Refill : General Appearance: No Apparent Distress, WD/WN, Chronically ill, Obese HEENT: PERRL/EOMI, Normal ENT Inspection, Pharynx Normal Neck: Full Range of Motion, Normal Inspection, Non Tender, Supple, Carotid Bruit Respiratory: Chest Non Tender, Lungs Clear, Normal Breath Sounds, No Accessory Muscle Use, No Respiratory Distress Cardiovascular: Regular Rate, Rhythm, No Edema, No Gallop, No JVD, No Murmur, Normal Peripheral Pulses Gastrointestinal: Normal Bowel Sounds, No Organomegaly, No Pulsatile Mass, Non Tender, Soft Back: Normal Inspection, CVA Tenderness (L), CVA Tenderness (R), Decreased Range of Motion, Muscle Spasm, Vertebral Tenderness Extremity: Normal Capillary Refill, Normal Inspection, Normal Range of Motion, Non Tender, No Calf Tenderness, No Pedal Edema Neurologic/Psychiatric: Alert, Oriented x3, Normal Mood/Affect, payroll benefits clerk II-XII Norm as Tested, Abnormal Gait, Motor Weakness (Lower extremities) Skin: Normal Color, Warm/Dry Lymphatic: No Adenopathy Results/Procedures Lab Patient resulted labs reviewed. FIM Transfers Therapy Code Descriptions/Definitions Functional [place] Measure: 0=Not Assessed/NA 4=Minimal Assistance 1=Total Assistance 5=Supervision or Setup 2=Maximal Assistance 6=Modified [place] 3=Moderate Assistance 7=Complete IndependenceSCALE: Activities may be completed with or without assistive devices. 8-Csrqbeygbs-ksoytbo completes the activity by him/herself with no assistance from a helper. 5-Set-up or Clean-up Assistance-helper sets up or cleans up; patient completes activity. [place] assists only prior to or following the activity. 4-Supervision or Touching Assistance-helper provides verbal cues and/or touch ing/steadying and/or contact guard assistance as patient completes activity. Assistance may be provided throughout the activity or intermittently. 3-Partial/Moderate Assistance-helper does LESS THAN HALF the effort. [place] lifts, holds or supports trunk or limbs, but provides less than half the effort. 2-Substantial/Maximal Assistance-helper does MORE THAN HALF the effort. [place] lifts or holds trunk or limbs and provides more than half the effort. 1-Jkaiptavj-kerqxi does ALL the effort. Patient does none of the effort to complete the activity. Or, the assistance of 2 or more helpers is required for the patient to complete the activity. If activity was not attempted, code reason: 7-Patient Refused. 9-Not Applicable-not attempted and the patient did not perform the activity before the current illness, exacerbation or injury. 10-Not Attempted due to Environmental Limitations-(lack of equipment, weather restraints, etc.). 88-Not Attempted due to Medical Conditions or Safety Concerns. Roll Left to Right (QC): 4 (SBA ) Sit to Lying (QC): 4 (SBA ) Sit to Stand (QC): 4 Chair/Wmm-vk-Topmm Xfer(QC): 4 (SBA ) Car Transfer (QC): 4 (SBA ) Gait Training Does the Patient Walk?: Yes Distance: 75ft x 2 Walk 10 feet (QC): 4 Walk 50 ft with 2 Turns(QC): 4 Walk 150 ft (QC): 88 (Decreased strength/endurance ) Walking 10ft/uneven surface-QC: 3 (Min A ) Gait Assistive Device: FWW Wheelchair Training Does the Pt Use a Wheelchair?: No Wheel 50 ft with 2 turns (QC): 9 Wheel 150 ft (QC): 9 Type of Wheelchair: N/A Stair Training #of Steps: 4 1 Step (curb) (QC): 3 (Min A ) 4 Steps (QC): 3 (Min A ) 12 Steps (QC): 9 (Pt has 2 steps at home ) Balance Picking up an Object (QC): 4 (CGA with assistant business manager ) ADL-Treatment Eating (QC): 6 (Pt able to open packages and use utensils properly) Oral Hygiene (QC): 5 Shower/Bathe Self (QC): 3 (required min A to was and dry back off) Upper Body Dressing (QC): 5 (Set up shirt on FWW, pt able to button up shirt.) Lower Body Dressing (QC): 4 (Requirig min cues to utilize AE and for balance) On/Off Footwear (QC): 5 (Pt able to use sock-aid to don sock. Figure-four technique to doff. ) Toileting Hygiene (QC): 6 (Pt ind to clean after toileting and manipulate clothing) Toilet Transfer (QC): 4 (SBA for safety while pt used grab bars and FWW for support) Assessment/Plan Assessment and Plan Assess & Plan/Chief Complaint Assessment: Severe debility with slow recovery following sacroiliitis surgical management by Dr. Jack uncomplicated Increased BMI of 50 ELISEO on CPAP DM Hypertension Hyperlipidemia Fall risk Postop constipation resolved Plan: Supportive care Monitor closely Pain control Home meds Monitor blood pressure PT and OT 06/05/2023: Supportive care Maintain pain control 06/06/2023: Supportive care Monitor closely 06/07/2023: Supportive care Monitor closely 06/08/2023: Fall risk Supportive care (1) Sacroiliitis JAKI KING DO Jun 08, 2023 10:23
--- NOTE | 2023-06-08 11:14 | Occupational Ther Daily Note ---
OT Current Status-Daily Note Subjective Pt received sitting in recliner and was agreeable to therapy. Pt reports he is feeling physically tired from PT earlier in the day, but is willing to participate as much as possible this session. Pain Numeric Pain Scale: 3 Location Body Site: Back Mental Status/Objective Patient Orientation: Person, Place, Time, Situation ADL-Treatment Therapy Code Descriptions/Definitions Functional [place] Measure: 0=Not Assessed/NA 4=Minimal Assistance 1=Total Assistance 5=Supervision or Setup 2=Maximal Assistance 6=Modified [place] 3=Moderate Assistance 7=Complete IndependenceSCALE: Activities may be completed with or without assistive devices. 4-Qzlxjsvabg-dxhzbbs completes the activity by him/herself with no assistance from a helper. 5-Set-up or Clean-up Assistance-helper sets up or cleans up; patient completes activity. [place] assists only prior to or following the activity. 4-Supervision or Touching Assistance-helper provides verbal cues and/or touching/steadying and/or contact guard assistance as patient completes activity. Assistance may be provided throughout the activity or intermittently. 3-Partial/Moderate Assistance-helper does LESS THAN HALF the effort. [place] lifts, holds or supports trunk or limbs, but provides less than half the effort. 2-Substantial/Maximal Assistance-helper does MORE THAN HALF the effort. [place] lifts or holds trunk or limbs and provides more than half the effort. 8-Nzuihchqj-hgyndb does ALL the effort. Patient does none of the effort to complete the activity. Or, the assistance of 2 or more helpers is required for the patient to complete the activity. If activity was not attempted, code reason: 7-Patient Refused. 9-Not Applicable-not attempted and the patient did not perform the activity before the current illness, exacerbation or injury. 10-Not Attempted due to Environmental Limitations-(lack of equipment, weather restraints, etc.). 88-Not Attempted due to Medical Conditions or Safety Concerns. Oral Hygiene (QC): 6 (Standing at sink; pt gathered all items for oral care independently.) Shower/Bathe Self (QC): 5 Upper Body Dressing (QC): 6 (Pt gathered all clothing and donned and doffed shirt independently) Lower Body Dressing (QC): 4 (Pt completed LBD with supervision, requiring min cues to adhere to weight bearing precautions and to utilize AE ) On/Off Footwear: 6 (Pt independently donned and doffed shoes, socks and tedhose with use of sock aid and prototype assembler electronics. ) Toileting Hygiene (QC): 6 Toilet Transfer (QC): 4 Other Treatment Pt completed UE strengthening ex's with red theraband and 5# weight, targeting shoulder flexion/abduction, bicep curls and wrist curls. Pt completed functional dynamic standing activity, increasing difficulty by adding weights for ~10'x3. Pt completed functional balance, mobility and endurance activity with emphasis on utilizing AE when appropriate. Pt requiring increased rest breaks due to fatigue from earlier physical therapy session. Education OT Patient Education: Correct positioning, Energy conservation, Exercise program, Modified ADL techniques, Progress toward Goal/Update tx plan, Purpose of tx/functional activities, Rehab process, Transfer techniques, Use of adapted equipment Teaching Recipient: Patient Teaching Methods: Demonstration, Discussion Response to Teaching: Verbalize Understanding, Return Demonstration OT Short Term Goals Short Term Goals Time Frame: Jun 13, 2023 Eatin Oral hygiene: 6 Toileting hygiene: 6 Shower/bathe self: 5 Upper body dressin Lower body dressin Putting on/taking off footwear: 5 OT Oncology Registrar Goals Snf Goals Time Frame: Jun 20, 2023 Acute change in mental status: 0 Inattention: 0 Disorganized thinkin Altered level of consciousness: 0 Eating (QC): 6 Oral Hygiene (QC): 6 Toileting Hygiene (QC): 6 Shower/Bathe Self (QC): 6 Upper Body Dressing (QC): 6 Lower Body Dressing (QC): 6 On/Off Footwear (QC): 6 Pt will perform tub transfer utilizing extended tub tx bench independently with no cues for safety or to adhere to NWB precautions. 1=Demonstrate adherence to instructed precautions during ADL tasks. 2=Patient will verbalize/demonstrate understanding of assistive devices/modifications for ADL. 3=Patient will improve strength/tolerance for activity to enable patient to perform ADL's. OT Education/Plan Problem List/Assessment Assessment: Decreased Activ Tolerance, Impaired Funct Balance, Impaired I AD L's, Impaired Self-Care Skills Pt would like to work on tub transfers before returning home, though felt too fatigued to address this session. Will attempt education during next session. Discharge Recommendations Plan/Recommendations: Continue POC Equpiment Recommendations-D/C: Extended Bath Bench Treatment Plan/Plan of Care Treatment,Training & Education: Yes Patient would benefit from OT for education, treatment and training to promote independence in ADL's, mobility, safety and/or upper extremity function for ADL's. Plan of Care: ADL Retraining, Concurrent Therapy, Functional Mobility, Group Exercise/Act as Ind Treatment Duration: Jun 20, 2023 Frequency: At least 5 of 7 days/Wk (IRF) Estimated Hrs Per Day: 1.5 hours per day Agreement: Yes Rehab Potential: Good Time Start Time: 09:40 Stop Time: 11:10 DATE: Jun 08, 2023 Total Time Billed (hr/min): 90 Billed Treatment Time 1, ADL 3, FA 2, EX 1 Dominique Da Silva OTR/L Jun 08, 2023 11:14
--- NOTE | 2023-06-08 13:20 | Physical Therapy Daily Note ---
PT Daily Note-Current Subjective Pain sitting up in recliner when therapist entered room. Agreeable to therapy. Rated pain as 2/10 in sitting prior to PT. While walking, patient did request a pain pill - nsg notifed. His pain increased to a 4/10 during treatment. Pain pill administered by nsg in therapy gym. At conclusion of treatment, pain was a 4/10. Pain Section J - Health Conditions 1. Rarely or not at all 2. Occasionally 3. Frequently 4. Almost constantly 8. Unable to answer Pain Effect on Sleep: 1 Pain Interference with Therapy: 2 Pain Interference w/Day-to-Day: 2 Appearance Patient observed completing LBD in sitting without assist. Able to stand with walker and maintain NWB (B) to pull pants up over hips. Transfers SCALE: Activities may be completed with or without assistive devices. 4-Hmtmybconq-bnexpdh completes the activity by him/herself with no assistance from a helper. 5-Set-up or Clean-up Assistance-helper sets up or cleans up; patient completes activity. [place] assists only prior to or following the activity. 4-Supervision or Touching Assistance-helper provides verbal cues and/or touching/steadying and/or contact guard assistance as patient completes activity. Assistance may be provided throughout the activity or intermittently. 3-Partial/Moderate Assistance-helper does LESS THAN HALF the effort. [place] lifts, holds or supports trunk or limbs, but provides less than half the effort. 2-Substantial/Maximal Assistance-helper does MORE THAN HALF the effort. [place] lifts or holds trunk or limbs and provides more than half the effort. 0-Qrensdvez-dcceaw does ALL the effort. Patient does none of the effort to complete the activity. Or, the assistance of 2 or more helpers is required for the patient to complete the activity. If activity was not attempted, code reason: 7-Patient Refused. 9-Not Applicable-not attempted and the patient did not perform the activity before the current illness, exacerbation or injury. 10-Not Attempted due to Environmental Limitations-(lack of equipment, weather restraints, etc.). 88-Not Attempted due to Medical Conditions or Safety Concerns. Sit to Stand (QC): 5 (walker positioned in front of patient for sit>stand from recliner and w/c.) Chair/Nzl-rg-Uxglx Xfer(QC): 4 (CGA stand pivots with FWW, NWB (R) LE) Weight Bearing Right Lower Extremity: Right Non Weight Bearing Left Lower Extremity: Left Weight Bearing/Tolerated Gait Training Distance: 80', 43' Walk 10 feet (QC): 4 Walk 50 ft with 2 Turns(QC): 4 Gait Assistive Device: FWW Patient ambulated CGA 80' with FWW, NWB (R) LE, required multiple standing rest breaks during gait. After therapy session, ambulated 43' with FWW NSB (R) LE, requested to sit at 43' mauro due to fatigue from treatment session. Stair Training 4 Steps (QC): 3 (Min (A) to ascend/descend 4 steps with (B) rails. Cues to ensure that foot was completely up on step before attempt next next while ascending. Did catch (L) heel on step x 2 while descending. ) Exercises Seated Reps: 20 (R) LE RTB ex in sitting: DF x 20 PF x 20 Ham curls x 20 Hip flexion x 20 Hip extension x 20 Hip abduction x 20 Hip isometric adduction/ball squeeze x 20 -- added to HEP Hid adductor squeeze followed by LAQ, 2# (B), x 20 each leg, alternating sides - - added to HEP Assessment Current Status: Good Progress PT Regulatory Submissions Specialist Goals Shelter Goals PT Shelter Goals Time Frame: Jun 20, 2023 Roll Left & Right (QC): 6 (Pt will be Mod I with funcitonal mobility, in order to safely return home with spouse ) Sit to Lying (QC): 6 (Pt will be Mod I with funcitonal mobility, in order to safely return home with spouse ) Lying-Sitting on Side/Bed(QC): 6 (Pt will be Mod I with funcitonal mobility, in order to safely return home with spouse ) Sit to Stand (QC): 6 (Pt will be Mod I with funcitonal mobility, in order to safely return home with spouse ) Chair/Uiq-jh-Qpney Xfer(QC): 6 (Pt will be Mod I with funcitonal mobility, in order to safely return home with spouse ) Toilet Transfer (QC): 6 (Pt will be Mod I with funcitonal mobility, in order to safely return home with spouse ) Car Transfer (QC): 6 (Pt will be Mod I with funcitonal mobility, in order to safely return home with spouse ) Does the Patient Walk: Yes Walk 10 feet (QC): 6 (Pt will be Mod I with funcitonal mobility, in order to safely return home with spouse ) Walk 50ft with 2 Turns (QC): 6 (Pt will be Mod I with funcitonal mobility, in order to safely return home with spouse ) Walk 150 ft (QC): 6 (Pt will be Mod I with funcitonal mobility, in order to safely return home with spouse ) Walking 10ft on Uneven Surface: 6 (Pt will be Mod I with funcitonal mobility, in order to safely return home with spouse ) 1 Step (curb) (QC): 6 (Pt will be Mod I with funcitonal mobility, in order to safely return home with spouse ) 4 Steps (QC): 6 (Pt will be Mod I with funcitonal mobility, in order to safely return home with spouse ) 12 Steps (QC): 9 (Pt only has 2 steps at home) Picking up an Object (QC): 6 (Pt will be Mod I with funcitonal mobility, in order to safely return home with spouse ) Does the Pt use WC or Scooter?: No Wheel 50 feet with 2 turns (QC: 9 Type: N/A Wheel 150 feet: 9 Type: N/A PT Plan Problem List Problem List: Activity Tolerance, Functional Strength, Safety, Balance, Gait, Transfer, Bed Mobility, Other (Stair ambulation) Treatment/Plan Treatment Plan: Continue Plan of Care Treatment Plan: Bed Mobility, Education, Functional Activity Lazaro, Functional Strength, Group Therapy, Gait, Safety, Therapeutic Exercise, Transfers Treatment Duration: Jun 20, 2023 Frequency: At least 5 of 7 days/Wk (IRF) Estimated Hrs Per Day: 1.5 hours per day Patient and/or Family Agrees t: Yes Time Time In: 845 Time Out: 930 DATE: Jun 08, 2023 Total Billed Treatment Time: 45 Total Billed Treatment 2GT (25'), 1 Ex(20') Danitza Briggs PT Jun 08, 2023 13:20
--- NOTE | 2023-06-08 13:39 | Physical Therapy Daily Note ---
PT Daily Note-Current Subjective Pt reports he is doing well and is agreeable to PT. Pt reported LBP at 3/10. Pain Numeric Pain Scale: 3 Location: Lower Location Body Site: Back Section J - Health Conditions 1. Rarely or not at all 2. Occasionally 3. Frequently 4. Almost constantly 8. Unable to answer Pain Effect on Sleep: 2 Pain Interference with Therapy: 3 Pain Interference w/Day-to-Day: 2 Transfers SCALE: Activities may be completed with or without assistive devices. 6-Wgaxsrwbye-kvuaezx completes the activity by him/herself with no assistance from a helper. 5-Set-up or Clean-up Assistance-helper sets up or cleans up; patient completes activity. [place] assists only prior to or following the activity. 4-Supervision or Touching Assistance-helper provides verbal cues and/or to uching/steadying and/or contact guard assistance as patient completes activity. Assistance may be provided throughout the activity or intermittently. 3-Partial/Moderate Assistance-helper does LESS THAN HALF the effort. [place] lifts, holds or supports trunk or limbs, but provides less than half the effort. 2-Substantial/Maximal Assistance-helper does MORE THAN HALF the effort. [place] lifts or holds trunk or limbs and provides more than half the effort. 3-Lcrcbwimt-qnyplr does ALL the effort. Patient does none of the effort to complete the activity. Or, the assistance of 2 or more helpers is required for the patient to complete the activity. If activity was not attempted, code reason: 7-Patient Refused. 9-Not Applicable-not attempted and the patient did not perform the activity before the current illness, exacerbation or injury. 10-Not Attempted due to Environmental Limitations-(lack of equipment, weather restraints, etc.). 88-Not Attempted due to Medical Conditions or Safety Concerns. Sit to Stand (QC): 4 Chair/Dfj-pm-Atdrf Xfer(QC): 4 Weight Bearing Right Lower Extremity: Right Non Weight Bearing Left Lower Extremity: Left Weight Bearing/Tolerated Gait Training Does the Patient Walk?: Yes Walk 10 feet (QC): 4 Walk 50 ft with 2 Turns(QC): 4 Gait Persons Needed: 1 Gait Assistive Device: FWW Wheelchair Training Does the Pt Use a Wheelchair?: Yes Wheel 50 ft with 2 turns (QC): 4 Type of Wheelchair: Manual Treatments Pt completed functional transfers with SBA. Pt ambulated 50ft and 35ft with the FWW and CGA. Pt completed seated B LE Ther Ex x 15 reps each with the red Tband. Pt completed w/c mobility x 50ft with SBA. At the end of treatment session, pt was sitting up in the recliner with call light in reach and all needs met. Assessment Current Status: Good Progress Pt tolerated PT well with good effort PT Skilled Nursing Goals Skilled Nursing Goals PT Rn Ccu Goals Time Frame: Jun 20, 2023 Roll Left & Right (QC): 6 (Pt will be Mod I with funcitonal mobility, in order to safely return home with spouse ) Sit to Lying (QC): 6 (Pt will be Mod I with funcitonal mobility, in order to safely return home with spouse ) Lying-Sitting on Side/Bed(QC): 6 (Pt will be Mod I with funcitonal mobility, in order to safely return home with spouse ) Sit to Stand (QC): 6 (Pt will be Mod I with funcitonal mobility, in order to safely return home with spouse ) Chair/Sge-pe-Kltvu Xfer(QC): 6 (Pt will be Mod I with funcitonal mobility, in order to safely return home with spouse ) Toilet Transfer (QC): 6 (Pt will be Mod I with funcitonal mobility, in order to safely return home with spouse ) Car Transfer (QC): 6 (Pt will be Mod I with funcitonal mobility, in order to safely return home with spouse ) Does the Patient Walk: Yes Walk 10 feet (QC): 6 (Pt will be Mod I with funcitonal mobility, in order to safely return home with spouse ) Walk 50ft with 2 Turns (QC): 6 (Pt will be Mod I with funcitonal mobility, in order to safely return home with spouse ) Walk 150 ft (QC): 6 (Pt will be Mod I with funcitonal mobility, in order to safely return home with spouse ) Walking 10ft on Uneven Surface: 6 (Pt will be Mod I with funcitonal mobility, in order to safely return home with spouse ) 1 Step (curb) (QC): 6 (Pt will be Mod I with funcitonal mobility, in order to safely return home with spouse ) 4 Steps (QC): 6 (Pt will be Mod I with funcitonal mobility, in order to safely return home with spouse ) 12 Steps (QC): 9 (Pt only has 2 steps at home) Picking up an Object (QC): 6 (Pt will be Mod I with funcitonal mobility, in order to safely return home with spouse ) Does the Pt use WC or Scooter?: No Wheel 50 feet with 2 turns (QC: 9 Type: N/A Wheel 150 feet: 9 Type: N/A PT Plan Problem List Problem List: Activity Tolerance, Functional Strength, Safety, Balance, Gait, Transfer, Bed Mobility, ROM Treatment/Plan Treatment Plan: Continue Plan of Care Treatment Plan: Bed Mobility, Education, Functional Activity Lazaro, Functional Strength, Group Therapy, Gait, Safety, Therapeutic Exercise, Transfers Treatment Duration: Jun 20, 2023 Frequency: At least 5 of 7 days/Wk (IRF) Estimated Hrs Per Day: 1.5 hours per day Patient and/or Family Agrees t: Yes Safety Risks/Education Patient Education: Gait Training, Transfer Techniques, Correct Positioning, W/C Management, Safety Issues Teaching Recipient: Patient Teaching Methods: Demonstration, Discussion Response to Teaching: Verbalize Understanding, Return Demonstration, Reinforcement Needed Discharge Recommendations Therapy Discharge Recommendati: Home & Family, Post Acute PT Equpiment Recommendations-D/C: Shower Chair (TTB ) Discharge Status/Home Program Cont per POC Barriers to Progress Weakness, endurance, NWB R LE Target Placement Home with spouse Time Time In: 1300 Time Out: 1345 DATE: Jun 08, 2023 Total Billed Treatment Time: 45 Total Billed Treatment 45 min 1 visit GT x 1 EX x 1 FA x 1 ANDREA WELCH PT Jun 08, 2023 13:39
[2023-06-08] MEDS: ACETAMINOPHEN 325 MG TABLET PO PRN ×2 (13:53→21:10)
[2023-06-08 20:35] VITALS: BP 122/61
[2023-06-08] MEDS: MONTELUKAST 10 MG TABLET PO SCH (21:09)
[2023-06-08] MEDS: diphenhydrAMINE 25 MG TABLET PO SCH (21:09)
[2023-06-08] MEDS: ALLOPURINOL 300 MG TABLET PO SCH (21:09)
[2023-06-08] MEDS: PANTOPRAZOLE 40 MG TABLET PO SCH (21:15)
[2023-06-09] MEDS: oxyCODONE IMMEDIATE RELEASE 5 MG TABLET PO PRN (07:37)
[2023-06-09 08:00] VITALS: BP 148/63
--- NOTE | 2023-06-09 08:14 | PM&R Progress Note ---
Subjective HPI/CC On Admission Date Seen by Provider: Jun 09, 2023 Time Seen by Provider: 10:30 Subjective/Events-last exam 06/09/2023: No major issues Has pain meds at home already so none needed at DC No pain 06/08/2023: Patient doing pretty well Denies any new issues Pharmacological DVT prophylaxis contraindicated due to spinal surgery Reviewed meds and labs 06/07/2023: Patient doing well Pain is improved No falls Participation is good 06/06/2023: Patient doing a lot better Moving around pretty well Pain is improved Continues to be fall risk 06/05/2023: Patient had a good night Bowels are moving just this morning Maintain on bowel regimen Voiding well Nonweightbearing going pretty well Continues to be a fall risk Review of Systems General: Fatigue, Malaise Objective Exam Vital Signs Vital Signs Date Time Temp Pulse Resp B/P (MAP) Pulse Ox O2 Delivery O2 Flow Rate FiO2 06/09/23 19:32 36.0 69 16 124/60 (81) 94 Room Air Capillary Refill : General Appearance: No Apparent Distress, WD/WN, Chronically ill, Obese HEENT: PERRL/EOMI, Normal ENT Inspection, Pharynx Normal Neck: Full Range of Motion, Normal Inspection, Non Tender, Supple, Carotid Bruit Respiratory: Chest Non Tender, Lungs Clear, Normal Breath Sounds, No Accessory Muscle Use, No Respiratory Distress Cardiovascular: Regular Rate, Rhythm, No Edema, No Gallop, No JVD, No Murmur, Normal Peripheral Pulses Gastrointestinal: Normal Bowel Sounds, No Organomegaly, No Pulsatile Mass, Non Tender, Soft Back: Normal Inspection, CVA Tenderness (L), CVA Tenderness (R), Decreased Range of Motion, Muscle Spasm, Vertebral Tenderness Extremity: Normal Capillary Refill, Normal Inspection, Normal Range of Motion, Non Tender, No Calf Tenderness, No Pedal Edema Neurologic/Psychiatric: Alert, Oriented x3, Normal Mood/Affect, emergency management director II-XII Norm as Tested, Abnormal Gait, Motor Weakness (Lower extremities) Skin: Normal Color, Warm/Dry Lymphatic: No Adenopathy Results/Procedures Lab Patient resulted labs reviewed. FIM Transfers Therapy Code Descriptions/Definitions Functional [place] Measure: 0=Not Assessed/NA 4=Minimal Assistance 1=Total Assistance 5=Supervision or Setup 2=Maximal Assistance 6=Modified [place] 3=Moderate Assistance 7=Complete IndependenceSCALE: Activities may be completed with or without assistive devices. 3-Trlwjsssno-ykjygms completes the activity by him/herself with no assistance from a helper. 5-Set-up or Clean-up Assistance-helper sets up or cleans up; patient completes activity. [place] assists only prior to or following the activity. 4-Supervision or Touching Assistance-helper provides verbal cues and/or touching/steadying and/or contact guard assistance as patient completes activity. Assistance may be provided throughout the activity or intermittently. 3-Partial/Moderate Assistance-helper does LESS THAN HALF the effort. [place] lifts, holds or supports trunk or limbs, but provides less than half the effort. 2-Substantial/Maximal Assistance-helper does MORE THAN HALF the effort. [place] lifts or holds trunk or limbs and provides more than half the effort. 2-Royfqzuhk-eunxjg does ALL the effort. Patient does none of the effort to complete the activity. Or, the assistance of 2 or more helpers is required for the patient to complete the activity. If activity was not attempted, code reason: 7-Patient Refused. 9-Not Applicable-not attempted and the patient did not perform the activity before the current illness, exacerbation or injury. 10-Not Attempted due to Environmental Limitations-(lack of equipment, weather restraints, etc.). 88-Not Attempted due to Medical Conditions or Safety Concerns. Roll Left to Right (QC): 4 (SBA ) Sit to Lying (QC): 4 (SBA ) Sit to Stand (QC): 4 Chair/Vow-ii-Mqpcd Xfer(QC): 4 Car Transfer (QC): 4 (SBA ) Gait Training Does the Patient Walk?: Yes Distance: 80', 43' Walk 10 feet (QC): 4 Walk 50 ft with 2 Turns(QC): 4 Walk 150 ft (QC): 88 (Decreased strength/endurance ) Walking 10ft/uneven surface-QC: 3 (Min A ) Gait Persons Needed: 1 Gait Assistive Device: FWW Wheelchair Training Does the Pt Use a Wheelchair?: Yes Wheel 50 ft with 2 turns (QC): 4 Wheel 150 ft (QC): 9 Type of Wheelchair: Manual Stair Training #of Steps: 4 1 Step (curb) (QC): 3 (Min A ) 4 Steps (QC): 3 (Min (A) to ascend/descend 4 steps with (B) rails. Cues to ens ure that foot was completely up on step before attempt next next while ascending. Did catch (L) heel on step x 2 while descending. ) 12 Steps (QC): 9 (Pt has 2 steps at home ) Balance Picking up an Object (QC): 4 (CGA with latex foam worker ) ADL-Treatment Eating (QC): 6 (Pt able to open packages and use utensils properly) Oral Hygiene (QC): 6 (Standing at sink; pt gathered all items for oral care independently.) Shower/Bathe Self (QC): 5 Upper Body Dressing (QC): 6 (Pt gathered all clothing and donned and doffed shirt independently) Lower Body Dressing (QC): 4 (Pt completed LBD with supervision, requiring min cues to adhere to weight bearing precautions and to utilize AE ) On/Off Footwear (QC): 6 (Pt independently donned and doffed shoes, socks and tedhose with use of sock aid and latex foam worker. ) Toileting Hygiene (QC): 6 Toilet Transfer (QC): 4 Assessment/Plan Assessment and Plan Assess & Plan/Chief Complaint Assessment: Severe debility with slow recovery following sacroiliitis surgical management by Dr. Jack uncomplicated Increased BMI of 50 ELISEO on CPAP DM Hypertension Hyperlipidemia Fall risk Postop constipation resolved Plan: Supportive care Monitor closely Pain control Home meds Monitor blood pressure PT and OT 06/05/2023: Supportive care Maintain pain control 06/06/2023: Supportive care Monitor closely 06/07/2023: Supportive care Monitor closely 06/08/2023: Fall risk Supportive care 06/09/2023: Monitor closely Aggressive therapy (1) Sacroiliitis JAKI KING DO Jun 09, 2023 08:14
--- NOTE | 2023-06-09 08:15 | Occupational Ther Daily Note ---
OT Current Status-Daily Note Subjective Pt alert, sitting EOB upon arrival. Pt agreeable to therapy. Pt stated pain was a 2/10 during the tx session. Mental Status/Objective Patient Orientation: Person, Place, Time, Situation ADL-Treatment Therapy Code Descriptions/Definitions Functional [place] Measure: 0=Not Assessed/NA 4=Minimal Assistance 1=Total Assistance 5=Supervision or Setup 2=Maximal Assistance 6=Modified [place] 3=Moderate Assistance 7=Complete IndependenceSCALE: Activities may be completed with or without assistive devices. 4-Ehhivllycq-clzodtk completes the activity by him/herself with no assistance from a helper. 5-Set-up or Clean-up Assistance-helper sets up or cleans up; patient completes activity. [place] assists only prior to or following the activity. 4-Supervision or Touching Assistance-helper provides verbal cues and/or touching/steadying and/or contact guard assistance as patient completes activity. Assistance may be provided throughout the activity or intermittently. 3-Partial/Moderate Assistance-helper does LESS THAN HALF the effort. [place] lifts, holds or supports trunk or limbs, but provides less than half the effort. 2-Substantial/Maximal Assistance-helper does MORE THAN HALF the effort. [place] lifts or holds trunk or limbs and provides more than half the effort. 2-Bkedjnklg-kqwvwj does ALL the effort. Patient does none of the effort to complete the activity. Or, the assistance of 2 or more helpers is required for the patient to complete the activity. If activity was not attempted, code reason: 7-Patient Refused. 9-Not Applicable-not attempted and the patient did not perform the activity before the current illness, exacerbation or injury. 10-Not Attempted due to Environmental Limitations-(lack of equipment, weather restraints, etc.). 88-Not Attempted due to Medical Conditions or Safety Concerns. Eating (QC): 6 (Pt sitting EOB. Able to open packages and use utensils properly. ) Oral Hygiene (QC): 6 (Pt standing at sink supporting self on counter to complete oral care.) Bathing Location: L Arm, R Arm, L Upper Leg, R Upper Leg, L Lower Leg (including foot), R Lower Leg (including foot), Chest, Abdomen, Buttocks, Perineal Area Shower/Bathe Self (QC): 6 (Pt sitting 100% of the time to complete shower. ) Upper Body Dressing (QC): 4 (Pt able to retrieve clothing and place of FWW with SBA. Pt sitting in w/c to don/doff shirt by self. ) Lower Body Dressing (QC): 4 (SBA for safety while pt stands and balance on L LE while hiking pants over hips. Pt able to bend over while sitting and thread pants around feet and pull up to knees.) On/Off Footwear: 6 (Pt utilizing sock-aid to don socks. Figure-four technique to doff. Pt able to don/doff shoes and tie laces.) Toileting Hygiene (QC): 6 (Pt sitting to clean after urination. Pt standing and used grab bars for support when standing to manipulate clothing. ) Toilet Transfer (QC): 4 (SBA while pt uses grab bars and FWW for support during transfer. ) Pt displayed LOB during toilet transfer when attempting to stand without holding onto grab bars. Pt stated he does not have grab bars by the toilet at home, pt recommended to look into getting some installed beside the toilet to prevent LOB during transfers. Other Treatment SBA for safety during ambulation due to NVM on R LE. After completing ADLs, pt sitting in recliner to complete 5 B UE HEP exercises with medium resistive theraband. Skilled instruction requires by OTAS for proper positioning and movement. Ended session with pt sitting in recliner with call light/phone in reach. All needs met in room. Education OT Patient Education: Correct positioning, Safety issues, Transfer techniques Teaching Recipient: Patient Teaching Methods: Discussion Response to Teaching: Verbalize Understanding, Return Demonstration BIMS CAM BIMS Expression of Ideas and Wants: Without Difficulty Understanding Verbal Content: Understands Brief Interview/Mental Status: Yes IRF MARRY BIMS: IRF MARRY BIMS Response (Comments) Value Repitition of Three Words Three 3 Recalls Socks Yes, No Cue Required 2 Recalls Blue Yes, No Cue Required 2 Recalls Bed Yes, No Cue Required 2 Year Correct 3 Month Accurate Within 5 Days 2 Day Correct 1 Total 15 Patient Normally Able to Recal: Current Session, Location of own room, Staff Names and faces, That he/she in a hsp Should Staff Asses. Mental St.: No Memory/Recall Ability: Current Season, Location of Own Room, Staff Names and Faces, That He/She in [facility] CAM Mental Status Change/Baseline: 0 Inattention: 0 Disorganized thinkin Altered level of consciousness: 0 OT Short Term Goals Short Term Goals Time Frame: Jun 13, 2023 Eatin Oral hygiene: 6 Toileting hygiene: 6 Shower/bathe self: 5 Upper body dressin Lower body dressin Putting on/taking off footwear: 5 OT Final Inspector And Tester Goals Final Inspector And Tester Goals Time Frame: Jun 20, 2023 Acute change in mental status: 0 Inattention: 0 Disorganized thinkin Altered level of consciousness: 0 Eating (QC): 6 (met) Oral Hygiene (QC): 6 (met) Toileting Hygiene (QC): 6 (met) Shower/Bathe Self (QC): 6 (met) Upper Body Dressing (QC): 6 (met) Lower Body Dressing (QC): 6 (not met) On/Off Footwear (QC): 6 (met) Pt will perform tub transfer utilizing extended tub tx bench independently with no cues for safety or to adhere to NWB precautions. 1=Demonstrate adherence to instructed precautions during ADL tasks. 2=Patient will verbalize/demonstrate understanding of assistive devices/modifications for ADL. 3=Patient will improve strength/tolerance for activity to enable patient to perform ADL's. OT Education/Plan Problem List/Assessment Assessment: Impaired Funct Balance, Impaired Self-Care Skills Pt would like to work on tub transfers before returning home, though felt too fatigued to address this session. Will attempt education during next session. Discharge Recommendations Plan/Recommendations: Continue POC Treatment Plan/Plan of Care Patient would benefit from OT for education, treatment and training to promote independence in ADL's, mobility, safety and/or upper extremity function for ADL's. Plan of Care: ADL Retraining, Concurrent Therapy, Functional Mobility, Group Exercise/Act as Ind Treatment Duration: Jun 20, 2023 Frequency: At least 5 of 7 days/Wk (IRF) Estimated Hrs Per Day: 1.5 hours per day Agreement: Yes Rehab Potential: Good Time Start Time: 07:30 Stop Time: 08:30 DATE: Jun 09, 2023 Total Time Billed (hr/min): 60 Billed Treatment Time 1 visit- ADL 3 (50 min) EX (10 min) ALISON AARON Jun 09, 2023 08:15
[2023-06-09] MEDS: DULoxetine 20 MG CAPSULE PO SCH (08:46)
[2023-06-09] MEDS: carvediloL 12.5 MG TABLET PO SCH ×2 (08:47→20:56)
[2023-06-09] MEDS: lamoTRIgine 100 MG TABLET PO SCH (08:47)
[2023-06-09] MEDS: BACLOFEN 10 MG TABLET PO SCH ×3 (08:47→20:53)
[2023-06-09] MEDS: GABAPENTIN 600 MG TABLET PO SCH ×2 (08:47→20:54)
[2023-06-09] MEDS: CITALOPRAM 20 MG TABLET PO SCH (08:47)
[2023-06-09] MEDS: TAMSULOSIN 0.4 MG (FLOMAX) CAP PO SCH (08:47)
[2023-06-09] MEDS: FUROSEMIDE 40 MG TABLET PO SCH (08:48)
[2023-06-09] MEDS: POTASSIUM CHLORIDE 10 MEQ TABLET PO SCH ×2 (08:48→20:53)
[2023-06-09] MEDS: LORATADINE 10 MG TABLET PO SCH (08:48)
[2023-06-09] MEDS: FLUTICASONE NASAL SPRAY (120 SPRAYS) NS SCH ×2 (08:49→20:52)
[2023-06-09] MEDS: DOCUSATE SODIUM 100 MG CAPSULE PO SCH ×2 (08:50→20:54)
[2023-06-09] MEDS: SENNA W/DOCUSATE TABLET PO SCH ×2 (09:01→20:53)
--- NOTE | 2023-06-09 09:33 | Physical Therapy Daily Note ---
PT Daily Note-Current Subjective Pt reports he is doing well today and is agreeable to PT. Pt reported LBP at 2/10 Pain Numeric Pain Scale: 2 Location: Lower Location Body Site: Back Section J - Health Conditions 1. Rarely or not at all 2. Occasionally 3. Frequently 4. Almost constantly 8. Unable to answer Pain Effect on Sleep: 1 Pain Interference with Therapy: 2 Pain Interference w/Day-to-Day: 2 Transfers SCALE: Activities may be completed with or without assistive devices. 1-Naqqkgelen-hoydxit completes the activity by him/herself with no assistance from a helper. 5-Set-up or Clean-up Assistance-helper sets up or cleans up; patient completes activity. [place] assists only prior to or following the activity. 4-Supervision or Touching Assistance-helper provides verbal cues and/or touching/steadying and/or contact guard assistance as patient completes activity. Assistance may be provided throughout the activity or intermittently. 3-Partial/Moderate Assistance-helper does LESS THAN HALF the effort. [place] lifts, holds or supports trunk or limbs, but provides less than half the effort. 2-Substantial/Maximal Assistance-helper does MORE THAN HALF the effort. [place] lifts or holds trunk or limbs and provides more than half the effort. 9-Oheucficx-nfphzk does ALL the effort. Patient does none of the effort to complete the activity. Or, the assistance of 2 or more helpers is required for the patient to complete the activity. If activity was not attempted, code reason: 7-Patient Refused. 9-Not Applicable-not attempted and the patient did not perform the activity before the current illness, exacerbation or injury. 10-Not Attempted due to Environmental Limitations-(lack of equipment, weather restraints, etc.). 88-Not Attempted due to Medical Conditions or Safety Concerns. Sit to Stand (QC): 4 Chair/Hpb-rj-Djsyk Xfer(QC): 4 Weight Bearing Right Lower Extremity: Right Non Weight Bearing Left Lower Extremity: Left Weight Bearing/Tolerated Gait Training Does the Patient Walk?: Yes Walk 10 feet (QC): 4 Walk 50 ft with 2 Turns(QC): 4 Gait Assistive Device: FWW Treatments Pt completed functional transfers with SBA. Pt ambulated 75ft x 2 with the FWW and CGA. Pt is able to abide by NWB status R LE. Pt completed seated B LE Ther Ex x 15 reps each with 2lb ankle weights and red Tband. Pt completed 10 min of standing a the FWW with SBA, playing dominoes. After treatment session, pt was sitting up in the recliner with call light in reach and all needs met. Assessment Current Status: Good Progress Pt tolerated PT well with good effort PT Mcc Goals Medical Claims Examiner Goals PT Mcc Goals Time Frame: Jun 20, 2023 Roll Left & Right (QC): 6 (Pt will be Mod I with funcitonal mobility, in order to safely return home with spouse ) Sit to Lying (QC): 6 (Pt will be Mod I with funcitonal mobility, in order to safely return home with spouse ) Lying-Sitting on Side/Bed(QC): 6 (Pt will be Mod I with funcitonal mobility, in order to safely return home with spouse ) Sit to Stand (QC): 6 (Pt will be Mod I with funcitonal mobility, in order to safely return home with spouse ) Chair/Nxn-ox-Elvzh Xfer(QC): 6 (Pt will be Mod I with funcitonal mobility, in order to safely return home with spouse ) Toilet Transfer (QC): 6 (Pt will be Mod I with funcitonal mobility, in order to safely return home with spouse ) Car Transfer (QC): 6 (Pt will be Mod I with funcitonal mobility, in order to safely return home with spouse ) Does the Patient Walk: Yes Walk 10 feet (QC): 6 (Pt will be Mod I with funcitonal mobility, in order to safely return home with spouse ) Walk 50ft with 2 Turns (QC): 6 (Pt will be Mod I with funcitonal mobility, in order to safely return home with spouse ) Walk 150 ft (QC): 6 (Pt will be Mod I with funcitonal mobility, in order to safely return home with spouse ) Walking 10ft on Uneven Surface: 6 (Pt will be Mod I with funcitonal mobility, in order to safely return home with spouse ) 1 Step (curb) (QC): 6 (Pt will be Mod I with funcitonal mobility, in order to safely return home with spouse ) 4 Steps (QC): 6 (Pt will be Mod I with funcitonal mobility, in order to safely return home with spouse ) 12 Steps (QC): 9 (Pt only has 2 steps at home) Picking up an Object (QC): 6 (Pt will be Mod I with funcitonal mobility, in order to safely return home with spouse ) Does the Pt use WC or Scooter?: No Wheel 50 feet with 2 turns (QC: 9 Type: N/A Wheel 150 feet: 9 Type: N/A PT Plan Problem List Problem List: Activity Tolerance, Functional Strength, Safety, Balance, Gait, Transfer, Bed Mobility, ROM Treatment/Plan Treatment Plan: Continue Plan of Care Treatment Plan: Bed Mobility, Education, Functional Activity Lazaro, Functional Strength, Group Therapy, Gait, Safety, Therapeutic Exercise, Transfers Treatment Duration: Jun 20, 2023 Frequency: At least 5 of 7 days/Wk (IRF) Estimated Hrs Per Day: 1.5 hours per day Patient and/or Family Agrees t: Yes Safety Risks/Education Patient Education: Gait Training, Transfer Techniques, Correct Positioning, Safety Issues Teaching Recipient: Patient Teaching Methods: Demonstration, Discussion Response to Teaching: Verbalize Understanding, Return Demonstration, Reinforcement Needed Discharge Recommendations Therapy Discharge Recommendati: Home & Family, Post Acute PT Equpiment Recommendations-D/C: Shower Chair (TTB ) Discharge Status/Home Program Cont per POC Barriers to Progress Weakness, endurance, NWB R LE Target Placement Home with spouse Time Time In: 930 Time Out: 1030 DATE: Jun 09, 2023 Total Billed Treatment Time: 60 Total Billed Treatment 60 min 1 visit EX x 1 FA x 1 GT x 2 ANDREA WELCH PT Jun 09, 2023 09:33
[2023-06-09] MEDS: ACETAMINOPHEN 325 MG TABLET PO PRN (13:06)
--- NOTE | 2023-06-09 13:33 | Occupational Ther Daily Note ---
OT Current Status-Daily Note Subjective Pt was received sitting in recliner with spouse at bedside. Pt agreeable to therapy. Pain Numeric Pain Scale: 3 Mental Status/Objective Patient Orientation: Person, Place, Time, Situation ADL-Treatment Therapy Code Descriptions/Definitions Functional [place] Measure: 0=Not Assessed/NA 4=Minimal Assistance 1=Total Assistance 5=Supervision or Setup 2=Maximal Assistance 6=Modified [place] 3=Moderate Assistance 7=Complete IndependenceSCALE: Activities may be completed with or without assistive devices. 1-Ognbdeyitv-hebatya completes the activity by him/herself with no assistance from a helper. 5-Set-up or Clean-up Assistance-helper sets up or cleans up; patient completes activity. [place] assists only prior to or following the activity. 4-Supervision or Touching Assistance-helper provides verbal cues and/or touching/steadying and/or contact guard assistance as patient completes activity. Assistance may be provided throughout the activity or intermittently. 3-Partial/Moderate Assistance-helper does LESS THAN HALF the effort. [place] lifts, holds or supports trunk or limbs, but provides less than half the effort. 2-Substantial/Maximal Assistance-helper does MORE THAN HALF the effort. [place] lifts or holds trunk or limbs and provides more than half the effort. 2-Yrjtfldlx-ylyuwe does ALL the effort. Patient does none of the effort to complete the activity. Or, the assistance of 2 or more helpers is required for the patient to complete the activity. If activity was not attempted, code reason: 7-Patient Refused. 9-Not Applicable-not attempted and the patient did not perform the activity before the current illness, exacerbation or injury. 10-Not Attempted due to Environmental Limitations-(lack of equipment, weather restraints, etc.). 88-Not Attempted due to Medical Conditions or Safety Concerns. Toilet Transfer (QC): 4 (Pt supervision utilizing grab bars. Pt states that he is having a family member place grab bars in his bathroom at home. ) Completed transfer to shower bench independently utilizing a FWW and no cues for safety. Other Treatment Co-treated this session with PT due to the need for two skilled clinicians in order to safely complete complex functional activities and provide adequate family training to pt's spouse. Pt completed functional ambulation with supervision and FWW requiring increased rest breaks due to fatigue. Pt completed transfer to extended tub transfer bench, as this is what he will be using when he returns home. Educated family on completing transfers to toilet and shower bench safely utilizing FWW. Family and pt denies any other concerns about returning home. Education OT Patient Education: Correct positioning, Energy conservation, Home exercise program, Instructions to caregiver, Modified ADL techniques, Progress toward Goal/Update tx plan, Purpose of tx/functional activities, Reviewed precautions, Rehab process, Transfer techniques, Use of adapted equipment Teaching Recipient: Patient, Family Teaching Methods: Demonstration, Discussion Response to Teaching: Verbalize Understanding, Return Demonstration Completed family training this session with emphasis on toilet and shower bench transfers. Pt and family deny any other concerns about returning home. OT Short Term Goals Short Term Goals Time Frame: Jun 13, 2023 Eatin Oral hygiene: 6 Toileting hygiene: 6 Shower/bathe self: 5 Upper body dressin Lower body dressin Putting on/taking off footwear: 5 OT Prison Goals Oral Therapist Goals Time Frame: Jun 20, 2023 Acute change in mental status: 0 Inattention: 0 Disorganized thinkin Altered level of consciousness: 0 Eating (QC): 6 (met) Oral Hygiene (QC): 6 (met) Toileting Hygiene (QC): 6 (met) Shower/Bathe Self (QC): 6 (met) Upper Body Dressing (QC): 6 (met) Lower Body Dressing (QC): 6 (not met) On/Off Footwear (QC): 6 (met) Pt will perform tub transfer utilizing extended tub tx bench independently with no cues for safety or to adhere to NWB precautions. (MET) 1=Demonstrate adherence to instructed precautions during ADL tasks. 2=Patient will verbalize/demonstrate understanding of assistive devices/modifications for ADL. 3=Patient will improve strength/tolerance for activity to enable patient to perform ADL's. OT Education/Plan Problem List/Assessment Assessment: Decreased Activ Tolerance, Impaired Funct Balance, Impaired I ADL's, Impaired Self-Care Skills Pt would like to work on tub transfers before returning home, though felt too fatigued to address this session. Will attempt education during next session. Discharge Recommendations Plan/Recommendations: Continue POC Treatment Plan/Plan of Care Treatment,Training & Education: Yes Patient would benefit from OT for education, treatment and training to promote independence in ADL's, mobility, safety and/or upper extremity function for ADL's. Plan of Care: ADL Retraining, Concurrent Therapy, Functional Mobility, Group Exercise/Act as Ind Treatment Duration: Jun 20, 2023 Frequency: At least 5 of 7 days/Wk (IRF) Estimated Hrs Per Day: 1.5 hours per day Agreement: Yes Rehab Potential: Good Time Start Time: 13:00 Stop Time: 13:30 DATE: Jun 09, 2023 Total Time Billed (hr/min): 30 Billed Treatment Time 1, ADL 1, FA 1 Dominique Da Silva OTR/L Jun 09, 2023 13:32
--- NOTE | 2023-06-09 14:01 | Physical Therapy Daily Note ---
PT Daily Note-Current Subjective Pt is agreeable to PT. Reported LBP at 2/10. Pain Numeric Pain Scale: 2 Location: Lower Location Body Site: Back Section J - Health Conditions 1. Rarely or not at all 2. Occasionally 3. Frequently 4. Almost constantly 8. Unable to answer Pain Effect on Sleep: 1 Pain Interference with Therapy: 2 Pain Interference w/Day-to-Day: 2 Transfers SCALE: Activities may be completed with or without assistive devices. 5-Sqkblvhsvp-lvwdmyn completes the activity by him/herself with no assistance from a helper. 5-Set-up or Clean-up Assistance-helper sets up or cleans up; patient completes activity. [place] assists only prior to or following the activity. 4-Supervision or Touching Assistance-helper provides verbal cues and/or touching/steadying and/or contact guard assistance as patient completes activity. Assistance may be provided throughout the activity or intermittently. 3-Partial/Moderate Assistance-helper does LESS THAN HALF the effort. [place] lifts, holds or supports trunk or limbs, but provides less than half the effort. 2-Substantial/Maximal Assistance-helper does MORE THAN HALF the effort. [place] lifts or holds trunk or limbs and provides more than half the effort. 0-Hffxwtuot-byznng does ALL the effort. Patient does none of the effort to complete the activity. Or, the assistance of 2 or more helpers is required for the patient to complete the activity. If activity was not attempted, code reason: 7-Patient Refused. 9-Not Applicable-not attempted and the patient did not perform the activity before the current illness, exacerbation or injury. 10-Not Attempted due to Environmental Limitations-(lack of equipment, weather restraints, etc.). 88-Not Attempted due to Medical Conditions or Safety Concerns. Sit to Stand (QC): 4 Chair/Lix-ck-Aqdtj Xfer(QC): 4 Weight Bearing Right Lower Extremity: Right Non Weight Bearing Left Lower Extremity: Left Weight Bearing/Tolerated Gait Training Does the Patient Walk?: Yes Walk 10 feet (QC): 4 Walk 50 ft with 2 Turns(QC): 4 Gait Assistive Device: FWW Treatments PT/OT co-tx from [id number], due to the need for two skilled clinicians in order to safely complete complex functional activities and provide adequate family training to pt's spouse. Pt completed sit to stand transfers with SBA. Pt ambulated 50ft x 2 with the FWW and CGA. Pt completed transfer with tub transfer bench and SBA/CGA. Pt and spouse edu about safety in the home, with functional mobility. Pt and spouse deny any other concerns about returning home. At the end of treatment session, pt was sitting up in the recliner with spouse present, call light in reach, and all needs met. Assessment Current Status: Good Progress Pt tolerated PT well with good effort; pt and spouse deny questions or concerns PT Pharmacy Informatics Specialist Goals Skilled Nursing Goals PT Pharmacy Informatics Specialist Goals Time Frame: Jun 20, 2023 Roll Left & Right (QC): 6 (Pt will be Mod I with funcitonal mobility, in order to safely return home with spouse ) Sit to Lying (QC): 6 (Pt will be Mod I with funcitonal mobility, in order to safely return home with spouse ) Lying-Sitting on Side/Bed(QC): 6 (Pt will be Mod I with funcitonal mobility, in order to safely return home with spouse ) Sit to Stand (QC): 6 (Pt will be Mod I with funcitonal mobility, in order to safely return home with spouse ) Chair/Nec-ye-Gongt Xfer(QC): 6 (Pt will be Mod I with funcitonal mobility, in order to safely return home with spouse ) Toilet Transfer (QC): 6 (Pt will be Mod I with funcitonal mobility, in order to safely return home with spouse ) Car Transfer (QC): 6 (Pt will be Mod I with funcitonal mobility, in order to safely return home with spouse ) Does the Patient Walk: Yes Walk 10 feet (QC): 6 (Pt will be Mod I with funcitonal mobility, in order to safely return home with spouse ) Walk 50ft with 2 Turns (QC): 6 (Pt will be Mod I with funcitonal mobility, in order to safely return home with spouse ) Walk 150 ft (QC): 6 (Pt will be Mod I with funcitonal mobility, in order to safely return home with spouse ) Walking 10ft on Uneven Surface: 6 (Pt will be Mod I with funcitonal mobility, in order to safely return home with spouse ) 1 Step (curb) (QC): 6 (Pt will be Mod I with funcitonal mobility, in order to safely return home with spouse ) 4 Steps (QC): 6 (Pt will be Mod I with funcitonal mobility, in order to safely return home with spouse ) 12 Steps (QC): 9 (Pt only has 2 steps at home) Picking up an Object (QC): 6 (Pt will be Mod I with funcitonal mobility, in order to safely return home with spouse ) Does the Pt use WC or Scooter?: No Wheel 50 feet with 2 turns (QC: 9 Type: N/A Wheel 150 feet: 9 Type: N/A PT Plan Problem List Problem List: Activity Tolerance, Functional Strength, Safety, Balance, Gait, Transfer, Bed Mobility, ROM Treatment/Plan Treatment Plan: Continue Plan of Care Treatment Plan: Bed Mobility, Education, Functional Activity Lazaro, Functional Strength, Group Therapy, Gait, Safety, Therapeutic Exercise, Transfers Treatment Duration: Jun 20, 2023 Frequency: At least 5 of 7 days/Wk (IRF) Estimated Hrs Per Day: 1.5 hours per day Patient and/or Family Agrees t: Yes Safety Risks/Education Patient Education: Gait Training, Transfer Techniques, Correct Positioning, Safety Issues Teaching Recipient: Patient, Significant Other Teaching Methods: Demonstration, Discussion Response to Teaching: Verbalize Understanding, Return Demonstration, Reinforcement Needed Discharge Recommendations Therapy Discharge Recommendati: Home & Family, Post Acute PT Equpiment Recommendations-D/C: Shower Chair (TTB) Discharge Status/Home Program Cont per POC Barriers to Progress Weakness, endurance, NWB R LE Target Placement Home with spouse Time Time In: 1300 Time Out: 1330 DATE: Jun 09, 2023 Total Billed Treatment Time: 30 Total Billed Treatment 30 min co-tx from [id number] 1 visit GT x 1 FA x 1 ANDREA WELCH PT Jun 09, 2023 14:01
[2023-06-09 19:32] VITALS: BP 124/60
[2023-06-09] MEDS: diphenhydrAMINE 25 MG TABLET PO SCH (20:53)
[2023-06-09] MEDS: ALLOPURINOL 300 MG TABLET PO SCH (20:54)
[2023-06-09] MEDS: MONTELUKAST 10 MG TABLET PO SCH (20:54)
[2023-06-09] MEDS: PANTOPRAZOLE 40 MG TABLET PO SCH (20:54)
--- NOTE | 2023-06-10 05:11 | PM&R Progress Note ---
Subjective HPI/CC On Admission Date Seen by Provider: Jun 10, 2023 Time Seen by Provider: 12:00 Subjective/Events-last exam 06/10/2023: Patient doing well Discharge planned for Tuesday No falls 06/09/2023: No major issues Has pain meds at home already so none needed at DC No pain 06/08/2023: Patient doing pretty well Denies any new issues Pharmacological DVT prophylaxis contraindicated due to spinal surgery Reviewed meds and labs 06/07/2023: Patient doing well Pain is improved No falls Participation is good 06/06/2023: Patient doing a lot better Moving around pretty well Pain is improved Continues to be fall risk 06/05/2023: Patient had a good night Bowels are moving just this morning Maintain on bowel regimen Voiding well Nonweightbearing going pretty well Continues to be a fall risk Review of Systems General: Fatigue, Malaise Objective Exam Vital Signs Vital Signs Date Time Temp Pulse Resp B/P (MAP) Pulse Ox O2 Delivery O2 Flow Rate FiO2 06/10/23 20:21 36.0 67 16 116/72 (87) 95 Room Air Capillary Refill : General Appearance: No Apparent Distress, WD/WN, Chronically ill, Obese HEENT: PERRL/EOMI, Normal ENT Inspection, Pharynx Normal Neck: Full Range of Motion, Normal Inspection, Non Tender, Supple, Carotid Bruit Respiratory: Chest Non Tender, Lungs Clear, Normal Breath Sounds, No Accessory Muscle Use, No Respiratory Distress Cardiovascular: Regular Rate, Rhythm, No Edema, No Gallop, No JVD, No Murmur, Normal Peripheral Pulses Gastrointestinal: Normal Bowel Sounds, No Organomegaly, No Pulsatile Mass, Non Tender, Soft Back: Normal Inspection, CVA Tenderness (L), CVA Tenderness (R), Decreased Range of Motion, Muscle Spasm, Vertebral Tenderness Extremity: Normal Capillary Refill, Normal Inspection, Normal Range of Motion, Non Tender, No Calf Tenderness, No Pedal Edema Neurologic/Psychiatric: Alert, Oriented x3, Normal Mood/Affect, insurance agent II-XII Norm as Tested, Abnormal Gait, Motor Weakness (Lower extremities) Skin: Normal Color, Warm/Dry Lymphatic: No Adenopathy Results/Procedures Lab Patient resulted labs reviewed. FIM Transfers Therapy Code Descriptions/Definitions Functional [place] Measure: 0=Not Assessed/NA 4=Minimal Assistance 1=Total Assistance 5=Supervision or Setup 2=Maximal Assistance 6=Modified [place] 3=Moderate Assistance 7=Complete IndependenceSCALE: Activities may be completed with or without assistive devices. 2-Mgxngftoyc-mkrrjwr completes the activity by him/herself with no assistance from a helper. 5-Set-up or Clean-up Assistance-helper sets up or cleans up; patient completes activity. [place] assists only prior to or following the activity. 4-Supervision or Touching Assistance-helper provides verbal cues and/or touching/steadying and/or contact guard assistance as patient completes activity. Assistance may be provided throughout the activity or intermittently. 3-Partial/Moderate Assistance-helper does LESS THAN HALF the effort. [place] lifts, holds or supports trunk or limbs, but provides less than half the effort. 2-Substantial/Maximal Assistance-helper does MORE THAN HALF the effort. [place] lifts or holds trunk or limbs and provides more than half the effort. 0-Qtzgyscwl-gqcxgo does ALL the effort. Patient does none of the effort to complete the activity. Or, the assistance of 2 or more helpers is required for the patient to complete the activity. If activity was not attempted, code reason: 7-Patient Refused. 9-Not Applicable-not attempted and the patient did not perform the activity before the current illness, exacerbation or injury. 10-Not Attempted due to Environmental Limitations-(lack of equipment, weather restraints, etc.). 88-Not Attempted due to Medical Conditions or Safety Concerns. Roll Left to Right (QC): 4 (SBA ) Sit to Lying (QC): 4 (SBA ) Sit to Stand (QC): 4 Chair/Fxy-xr-Nlfid Xfer(QC): 4 Car Transfer (QC): 4 (SBA ) Gait Training Does the Patient Walk?: Yes Distance: 80', 43' Walk 10 feet (QC): 4 Walk 50 ft with 2 Turns(QC): 4 Walk 150 ft (QC): 88 (Decreased strength/endurance ) Walking 10ft/uneven surface-QC: 3 (Min A ) Gait Persons Needed: 1 Gait Assistive Device: FWW Wheelchair Training Does the Pt Use a Wheelchair?: Yes Wheel 50 ft with 2 turns (QC): 4 Wheel 150 ft (QC): 9 Type of Wheelchair: Manual Stair Training #of Steps: 4 1 Step (curb) (QC): 3 (Min A ) 4 Steps (QC): 3 (Min (A) to ascend/descend 4 steps with (B) rails. Cues to ensure that foot was completely up on step before attempt next next while ascending. Did catch (L) heel on step x 2 while descending. ) 12 Steps (QC): 9 (Pt has 2 steps at home ) Balance Picking up an Object (QC): 4 (CGA with senior catering sales manager ) ADL-Treatment Eating (QC): 6 (Pt sitting EOB. Able to open packages and use utensils properly. ) Oral Hygiene (QC): 6 (Pt standing at sink supporting self on counter to complete oral care.) Bathing Location: L Arm, R Arm, L Upper Leg, R Upper Leg, L Lower Leg (including foot), R Lower Leg (including foot), Chest, Abdomen, Buttocks, Perineal Area Shower/Bathe Self (QC): 6 (Pt sitting 100% of the time to complete shower. ) Upper Body Dressing (QC): 4 (Pt able to retrieve clothing and place of FWW with SBA. Pt sitting in w/c to don/doff shirt by self. ) Lower Body Dressing (QC): 4 (SBA for safety while pt stands and balance on L LE while hiking pants over hips. Pt able to bend over while sitting and thread pants around feet and pull up to knees.) On/Off Footwear (QC): 6 (Pt utilizing sock-aid to don socks. Figure-four technique to doff. Pt able to don/doff shoes and tie laces.) Toileting Hygiene (QC): 6 (Pt sitting to clean after urination. Pt standing and used grab bars for support when standing to manipulate clothing. ) Toilet Transfer (QC): 4 (Pt supervision utilizing grab bars. Pt states that he is having a family member place grab bars in his bathroom at home. ) Assessment/Plan Assessment and Plan Assess & Plan/Chief Complaint Assessment: Severe debility with slow recovery following sacroiliitis surgical management by Dr. Jack uncomplicated Increased BMI of 50 ELISEO on CPAP DM Hypertension Hyperlipidemia Fall risk Postop constipation resolved Plan: Supportive care Monitor closely Pain control Home meds Monitor blood pressure PT and OT 06/05/2023: Supportive care Maintain pain control 06/06/2023: Supportive care Monitor closely 06/07/2023: Supportive care Monitor closely 06/08/2023: Fall risk Supportive care 06/09/2023: Monitor closely Aggressive therapy 06/10/2023: Supportive care Monitor closely (1) Sacroiliitis JAKI KING DO Jun 10, 2023 05:11
[2023-06-10] MEDS: POTASSIUM CHLORIDE 10 MEQ TABLET PO SCH ×2 (07:49→21:03)
[2023-06-10] MEDS: DULoxetine 20 MG CAPSULE PO SCH (07:49)
[2023-06-10] MEDS: lamoTRIgine 100 MG TABLET PO SCH (07:50)
[2023-06-10] MEDS: CITALOPRAM 20 MG TABLET PO SCH (07:50)
[2023-06-10] MEDS: BACLOFEN 10 MG TABLET PO SCH ×3 (07:50→21:03)
[2023-06-10] MEDS: LORATADINE 10 MG TABLET PO SCH (07:50)
[2023-06-10] MEDS: GABAPENTIN 600 MG TABLET PO SCH ×2 (07:50→21:03)
[2023-06-10] MEDS: TAMSULOSIN 0.4 MG (FLOMAX) CAP PO SCH (07:50)
[2023-06-10] MEDS: carvediloL 12.5 MG TABLET PO SCH ×2 (07:50→21:03)
[2023-06-10] MEDS: FUROSEMIDE 40 MG TABLET PO SCH (07:50)
[2023-06-10] MEDS: oxyCODONE IMMEDIATE RELEASE 5 MG TABLET PO PRN (07:51)
[2023-06-10] MEDS: SENNA W/DOCUSATE TABLET PO SCH ×2 (07:57→21:00)
[2023-06-10] MEDS: FLUTICASONE NASAL SPRAY (120 SPRAYS) NS SCH ×2 (07:57→21:04)
[2023-06-10] MEDS: DOCUSATE SODIUM 100 MG CAPSULE PO SCH ×2 (07:57→21:00)
[2023-06-10 08:00] VITALS: BP 124/57
--- NOTE | 2023-06-10 08:58 | Occupational Ther Daily Note ---
OT Current Status-Daily Note Subjective Pt alert, sitting in recliner. Pt agreeable to therapy. Pt stated pain was a 6/10, nrsg notified and pain pill given during tx session. Mental Status/Objective Patient Orientation: Person, Place, Time, Situation ADL-Treatment Therapy Code Descriptions/Definitions Functional [place] Measure: 0=Not Assessed/NA 4=Minimal Assistance 1=Total Assistance 5=Supervision or Setup 2=Maximal Assistance 6=Modified [place] 3=Moderate Assistance 7=Complete IndependenceSCALE: Activities may be completed with or without assistive devices. 3-Nanyhtqyid-jbxmotr completes the activity by him/herself with no assistance from a helper. 5-Set-up or Clean-up Assistance-helper sets up or cleans up; patient completes activity. [place] assists only prior to or following the activity. 4-Supervision or Touching Assistance-helper provides verbal cues and/or touching/steadying and/or contact guard assistance as patient completes activit y. Assistance may be provided throughout the activity or intermittently. 3-Partial/Moderate Assistance-helper does LESS THAN HALF the effort. [place] lifts, holds or supports trunk or limbs, but provides less than half the effort. 2-Substantial/Maximal Assistance-helper does MORE THAN HALF the effort. [place] lifts or holds trunk or limbs and provides more than half the effort. 8-Yzkdpsjng-watyuv does ALL the effort. Patient does none of the effort to complete the activity. Or, the assistance of 2 or more helpers is required for the patient to complete the activity. If activity was not attempted, code reason: 7-Patient Refused. 9-Not Applicable-not attempted and the patient did not perform the activity before the current illness, exacerbation or injury. 10-Not Attempted due to Environmental Limitations-(lack of equipment, weather restraints, etc.). 88-Not Attempted due to Medical Conditions or Safety Concerns. Oral Hygiene (QC): 6 (Pt standing a sink supporting self on counter to complete oral care.) Upper Body Dressing (QC): 5 (Set up on FWW. Pt able to don/doff shirt by self and button.) Lower Body Dressing (QC): 4 (SBA/CGA sit->stand due to safety concerns. Pt able to hike pants over hips and thread underwear/pants around feet. ) Pt working on item retrieval with sessions clerk. Pt recommended to purchase a walker basket to carry items in while ambulating with FWW due to safety concerns. Pt shows good potential for further independence with item retrieval once balance increases due to NWB on R LE. Pt also required VCs during sit->stand transfers to push off the arms of the w/c rather than pulling on FWW. Other Treatment After ADLs, transported pt to gym via w/c due to increased pain with ambulating. Pain pill given beginning of tx session. Pt sitting in w/c completing 5 B UE exercises with 5# dumbbells working on B UE strengthening, AROM, and activity tolerance for daily functional tasks. Discussion during exercises about safety awareness while transferring. Pt stated he has purchased a tub transfer bench for home and will install GBs by the toilet after working on tub transfers in previous tx session. Pt then working on functional tasks while standing with 3# wrist weights working on B UE strengthening, activity tolerance, standing tolerance, off-loading alternating UE and static standing balance for daily functional tasks. Pt following NWB precautions on R LE during entire tx session. Pt able to tolerate standing for ~4 mins x2 and ~3 mins. Pt ambulated back to room with FWW, CGA for safety. Ended session with pt sitting in recliner with call light/phone in reach. All needs met in room. Education OT Patient Education: Correct positioning, Energy conservation, Purpose of tx/functional activities, Safety issues, Transfer techniques Teaching Recipient: Patient Teaching Methods: Demonstration, Discussion Response to Teaching: Verbalize Understanding, Return Demonstration OT Short Term Goals Short Term Goals Time Frame: Jun 13, 2023 Eatin Oral hygiene: 6 Toileting hygiene: 6 Shower/bathe self: 5 Upper body dressin Lower body dressin Putting on/taking off footwear: 5 OT Alf Goals Supervisor Pleating Goals Time Frame: Jun 20, 2023 Acute change in mental status: 0 Inattention: 0 Disorganized thinkin Altered level of consciousness: 0 Eating (QC): 6 (met) Oral Hygiene (QC): 6 (met) Toileting Hygiene (QC): 6 (met) Shower/Bathe Self (QC): 6 (met) Upper Body Dressing (QC): 6 (not met) Lower Body Dressing (QC): 6 (not met) On/Off Footwear (QC): 6 (not met) Pt will perform tub transfer utilizing extended tub tx bench independently with no cues for safety or to adhere to NWB precautions. (MET) 1=Demonstrate adherence to instructed precautions during ADL tasks. 2=Patient will verbalize/demonstrate understanding of assistive device s/modifications for ADL. 3=Patient will improve strength/tolerance for activity to enable patient to perform ADL's. OT Education/Plan Problem List/Assessment Assessment: Decreased Activ Tolerance, Decreased Safety Aware, Decreased UE Strength, Impaired Funct Balance, Impaired Self-Care Skills Pt would like to work on tub transfers before returning home, though felt too fatigued to address this session. Will attempt education during next session. Discharge Recommendations Plan/Recommendations: Continue POC Treatment Plan/Plan of Care Patient would benefit from OT for education, treatment and training to promote independence in ADL's, mobility, safety and/or upper extremity function for ADL's. Plan of Care: ADL Retraining, Concurrent Therapy, Functional Mobility, Group Exercise/Act as Ind Treatment Duration: Jun 20, 2023 Frequency: At least 5 of 7 days/Wk (IRF) Estimated Hrs Per Day: 1.5 hours per day Agreement: Yes Rehab Potential: Good Time Start Time: 07:30 Stop Time: 09:00 DATE: Jun 10, 2023 Total Time Billed (hr/min): 90 Billed Treatment Time 1 visit- ADL 2 (30 min) EX 2 (30 min) FA 2 (30 min) ALISON AARON Jun 10, 2023 08:58
--- NOTE | 2023-06-10 10:06 | Physical Therapy Daily Note ---
PT Daily Note-Current Subjective Pt is agreeable to PT. R hip pain = 4/10 Pain Numeric Pain Scale: 4 Location: Right Location Body Site: Hip Section J - Health Conditions 1. Rarely or not at all 2. Occasionally 3. Frequently 4. Almost constantly 8. Unable to answer Pain Effect on Sleep: 1 Pain Interference with Therapy: 2 Pain Interference w/Day-to-Day: 2 Transfers SCALE: Activities may be completed with or without assistive devices. 9-Eoaqammwpg-tfrhaau completes the activity by him/herself with no assistance from a helper. 5-Set-up or Clean-up Assistance-helper sets up or cleans up; patient completes activity. [place] assists only prior to or following the activity. 4-Supervision or Touching Assistance-helper provides verbal cues and/or touching/steadying and/or contact guard assistance as patient completes activity. Assistance may be provided throughout the activity or intermittently. 3-Partial/Moderate Assistance-helper does LESS THAN HALF the effort. [place] lifts, holds or supports trunk or limbs, but provides less than half the effort. 2-Substantial/Maximal Assistance-helper does MORE THAN HALF the effort. [place] lifts or holds trunk or limbs and provides more than half the effort. 2-Rwoobrrrm-nfppue does ALL the effort. Patient does none of the effort to complete the activity. Or, the assistance of 2 or more helpers is required for the patient to complete the activity. If activity was not attempted, code reason: 7-Patient Refused. 9-Not Applicable-not attempted and the patient did not perform the activity before the current illness, exacerbation or injury. 10-Not Attempted due to Environmental Limitations-(lack of equipment, weather restraints, etc.). 88-Not Attempted due to Medical Conditions or Safety Concerns. Roll Left & Right (QC): 6 Sit to Lying (QC): 6 Lying to Sitting/Side of Bed(Q: 6 Sit to Stand (QC): 6 Chair/Yxd-bt-Oseoq Xfer(QC): 6 Toilet Transfer (QC): 6 Car Transfer (QC): 6 Weight Bearing Right Lower Extremity: Right Non Weight Bearing Left Lower Extremity: Left Weight Bearing/Tolerated Gait Training Does the Patient Walk?: Yes Walk 10 feet (QC): 6 Walk 50 ft with 2 Turns(QC): 6 Walk 150 ft (QC): 88 (endurance ) Walking 10ft/uneven surface-QC: 6 Gait Assistive Device: FWW Wheelchair Training Does the Pt Use a Wheelchair?: No Wheel 50 ft with 2 turns (QC): 9 Wheel 150 ft (QC): 9 Type of Wheelchair: N/A Stair Training Stair Training: Handrails/: 2 handrails #of Steps: 4 1 Step (curb) (QC): 4 4 Steps (QC): 4 12 Steps (QC): 9 Stairs: Pattern: Hops Balance Picking up an Object (QC): 6 (with ortho rn ) Special Test Comments [facility] standing balance scale = 3+/5 Treatments QCs completed on this date, as listed above. Pt is Mod I with bed mobility and functional transfers. Pt ambulated 75ft x 2 with the FWW and Mod I. Pt was unab le to complete 150ft, secondary to weakness and decreased endurance. Pt completed seated B LE Ther Ex x 15 reps each with 2lb ankle weights and red Tband. Pt completed standing and seated domExoYoues game. Pt demo a standing tolerance of ~10 min with intermittent UE support and Mod I. After treatment session, pt was sitting up in the recliner with call light in reach and all needs met. Assessment Current Status: Good Progress Pt tolerated PT well with good effort PT Snf Goals Snf Goals PT Product Marketing Analyst Goals Time Frame: Jun 20, 2023 Roll Left & Right (QC): 6 (Pt will be Mod I with funcitonal mobility, in order to safely return home with spouse ) Sit to Lying (QC): 6 (Pt will be Mod I with funcitonal mobility, in order to safely return home with spouse ) Lying-Sitting on Side/Bed(QC): 6 (Pt will be Mod I with funcitonal mobility, in order to safely return home with spouse ) Sit to Stand (QC): 6 (Pt will be Mod I with funcitonal mobility, in order to safely return home with spouse ) Chair/Ukr-mg-Alnsu Xfer(QC): 6 (Pt will be Mod I with funcitonal mobility, in order to safely return home with spouse ) Toilet Transfer (QC): 6 (Pt will be Mod I with funcitonal mobility, in order to safely return home with spouse ) Car Transfer (QC): 6 (Pt will be Mod I with funcitonal mobility, in order to safely return home with spouse ) Does the Patient Walk: Yes Walk 10 feet (QC): 6 (Pt will be Mod I with funcitonal mobility, in order to safely return home with spouse ) Walk 50ft with 2 Turns (QC): 6 (Pt will be Mod I with funcitonal mobility, in order to safely return home with spouse ) Walk 150 ft (QC): 6 (Pt will be Mod I with funcitonal mobility, in order to safely return home with spouse ) Walking 10ft on Uneven Surface: 6 (Pt will be Mod I with funcitonal mobility, in order to safely return home with spouse ) 1 Step (curb) (QC): 6 (Pt will be Mod I with funcitonal mobility, in order to safely return home with spouse ) 4 Steps (QC): 6 (Pt will be Mod I with funcitonal mobility, in order to safely return home with spouse ) 12 Steps (QC): 9 (Pt only has 2 steps at home) Picking up an Object (QC): 6 (Pt will be Mod I with funcitonal mobility, in order to safely return home with spouse ) Does the Pt use WC or Scooter?: No Wheel 50 feet with 2 turns (QC: 9 Type: N/A Wheel 150 feet: 9 Type: N/A PT Plan Problem List Problem List: Activity Tolerance, Functional Strength, Safety, Balance, Gait, Transfer, Bed Mobility, ROM Treatment/Plan Treatment Plan: Continue Plan of Care Treatment Plan: Bed Mobility, Education, Functional Activity Lazaro, Functional Strength, Group Therapy, Gait, Safety, Therapeutic Exercise, Transfers Treatment Duration: Jun 20, 2023 Frequency: At least 5 of 7 days/Wk (IRF) Estimated Hrs Per Day: 1.5 hours per day Patient and/or Family Agrees t: Yes Safety Risks/Education Patient Education: Gait Training, Transfer Techniques, Steps, Correct Positioning, Safety Issues Teaching Recipient: Patient Teaching Methods: Demonstration, Discussion Response to Teaching: Verbalize Understanding, Return Demonstration, Reinforcement Needed Discharge Recommendations Therapy Discharge Recommendati: Home & Family, Post Acute PT Equpiment Recommendations-D/C: Shower Chair (TTB ) Discharge Status/Home Program Cont per POC Barriers to Progress Weakness, Endurance, NWB R LE Target Placement Home with spouse Time Time In: 1000 Time Out: 1130 DATE: Jun 10, 2023 Total Billed Treatment Time: 90 Total Billed Treatment 90 min 1 visit EX x 1 GT x 2 FA x 3 ANDREA WELCH PT Jun 10, 2023 10:06
[2023-06-10] MEDS: ACETAMINOPHEN 325 MG TABLET PO PRN (15:57)
[2023-06-10 20:21] VITALS: BP 116/72
[2023-06-10] MEDS: diphenhydrAMINE 25 MG TABLET PO SCH (21:03)
[2023-06-10] MEDS: MONTELUKAST 10 MG TABLET PO SCH (21:03)
[2023-06-10] MEDS: PANTOPRAZOLE 40 MG TABLET PO SCH (21:03)
[2023-06-10] MEDS: ALLOPURINOL 300 MG TABLET PO SCH (21:03)
--- NOTE | 2023-06-10 21:43 | D/C HH Face to Face Order ---
D/C HH Face to Face Orders Reconcile Patient Problems Problems Reviewed?: Yes Instructions for Patient HH Patient Instructions/FollowUp: pcp 1 week Physician to follow Patient: pcp Discharge Diet for Home: No Restrictions Patient Problems: sacroilitis Patient Data-Allergies,Ht & Wt Patient Allergies: Coded Allergies: No Known Drug Allergies (Unverified , 07/18/11) Home Health Need/Face to Face Date of Face to Face: Jun 10, 2023 Clinical Findings: Generalized weakness and fatigue, Instability, Muscle weakness, Unsteady gait I have seen Pt cddp-kt-uauu: Yes Discharged To: Home Diagnosis/Conditions: sacroilitis Patient is Homebound due to: Muscle weakness, Pain w/ambulation Homebound Status Due to the above stated illness, injury or surgical procedure (medical condition or diagnosis) and associated clinical findings, the patient is homebound because of his/her inability to leave home except with aid of a supportive device and/or person AND leaving the home requires a considerable and taxing effort or is medically contraindicated. Pt req the following assistanc: Walker Home Health Nursing Orders Home Health Services Order: Nursing Services, Rn Care Transition-Evaluate & Treat, Physical Therapy-Evaluate & Treat Certify Stmt I certify that this patient is under my care and that I, a nurse practitioner or a physician; a car rental sales assistant working with me, had a face to face encounter that - meets the physician face to face encounter requirements with this patient as dated. JAKI KING DO Jun 10, 2023 21:43
[2023-06-11 08:00] VITALS: BP 125/60
[2023-06-11] MEDS: TAMSULOSIN 0.4 MG (FLOMAX) CAP PO SCH (08:36)
[2023-06-11] MEDS: DULoxetine 20 MG CAPSULE PO SCH (08:36)
[2023-06-11] MEDS: FLUTICASONE NASAL SPRAY (120 SPRAYS) NS SCH (08:37)
[2023-06-11] MEDS: CITALOPRAM 20 MG TABLET PO SCH (08:37)
[2023-06-11] MEDS: POTASSIUM CHLORIDE 10 MEQ TABLET PO SCH (08:38)
[2023-06-11] MEDS: FUROSEMIDE 40 MG TABLET PO SCH (08:38)
[2023-06-11] MEDS: ACETAMINOPHEN 325 MG TABLET PO PRN (08:38)
[2023-06-11] MEDS: LORATADINE 10 MG TABLET PO SCH (08:38)
[2023-06-11] MEDS: carvediloL 12.5 MG TABLET PO SCH (08:38)
[2023-06-11] MEDS: BACLOFEN 10 MG TABLET PO SCH (08:38)
[2023-06-11] MEDS: GABAPENTIN 600 MG TABLET PO SCH (08:38)
[2023-06-11] MEDS: lamoTRIgine 100 MG TABLET PO SCH (08:38)
[2023-06-11] MEDS: DOCUSATE SODIUM 100 MG CAPSULE PO SCH (08:41)
[2023-06-11] MEDS: SENNA W/DOCUSATE TABLET PO SCH (08:41)
--- NOTE | 2023-06-11 08:50 | Discharge Summary ---
Diagnosis/Chief Complaint Date of Admission Jun 04, 2023 at 10:38 Date of Discharge Discharge Date: Jun 11, 2023 Discharge Diagnosis Assessment: Severe debility with slow recovery following sacroiliitis surgical management by Dr. Jack uncomplicated Increased BMI of 50 ELISEO on CPAP DM Hypertension Hyperlipidemia Fall risk Postop constipation resolved Plan: Supportive care Monitor closely Pain control Home meds Monitor blood pressure PT and OT 06/05/2023: Supportive care Maintain pain control 06/06/2023: Supportive care Monitor closely 06/07/2023: Supportive care Monitor closely 06/08/2023: Fall risk Supportive care 06/09/2023: Monitor closely Aggressive therapy 06/10/2023: Supportive care Monitor closely (1) Sacroiliitis Discharge Summary Discharge Physical Examination Allergies: Coded Allergies: No Known Drug Allergies (Unverified , 07/18/11) Vitals & I&Os Vital Signs Date Time Temp Pulse Resp B/P (MAP) Pulse Ox O2 Delivery O2 Flow Rate FiO2 06/11/23 11:57 36.3 69 15 125/60 96 Room Air General Appearance: Alert, Oriented X3, Cooperative Respiratory: Clear to Auscultation Psych/Mental Status: Mental Status NL Hospital Course Was the Problem List Reviewed?: Yes Patient had an uneventful hospital course after moving from [facility] after spine surgery and sacroiliitis treatment. Patient did not have any decline in status vitals remained stable as did labs and he participated in therapy was able to get back to baseline and his pain was well controlled had his own pain medication at home maintained on CPAP and patient was deemed stable for discharge. Labs (last 24 hrs) Laboratory Tests 06/05/23 05:12: White Blood Count 10.5, Red Blood Count 3.85L, Hemoglobin 12.2L, Hematocrit 37L, Mean Corpuscular Volume 96, Mean Corpuscular Hemoglobin 32, Mean Corpuscular Hemoglobin Concent 33, Red Cell Distribution Width 13.9, Platelet Count 173, Mean Platelet Volume 11.2, Immature Granulocyte % (Auto) 1, Neutrophils (%) (Auto) 63, Lymphocytes (%) (Auto) 25, Monocytes (%) (Auto) 9, Eosinophils (%) (Auto) 1, Basophils (%) (Auto) 1, Neutrophils # (Auto) 6.6, Lymphocytes # (Auto) 2.6, Monocytes # (Auto) 1.0, Eosinophils # (Auto) 0.1, Basophils # (Auto) 0.1, Immature Granulocyte # (Auto) 0.1, Sodium Level 142, Potassium Level 3.9, Chloride Level 106, Carbon Dioxide Level 24, Anion Gap 12, Blood Urea Nitrogen 17, Creatinine 0.96, Estimat Glomerular Filtration Rate 85, BUN/Creatinine Ratio 18, Glucose Level 115H, Calcium Level 8.9, Corrected Calcium 9.1, Total Bilirubin 0.7, Aspartate Amino Transf (AST/SGOT) 24, Alanine Aminotransferase (ALT/SGPT) 21, Alkaline Phosphatase 127, Total Protein 6.4, Albumin 3.8 Pending Labs Laboratory Tests 06/05/23 05:12: White Blood Count 10.5, Red Blood Count 3.85, Hemoglobin 12.2, Hematocrit 37, Mean Corpuscular Volume 96, Mean Corpuscular Hemoglobin 32, Mean Corpuscular Hemoglobin Concent 33, Red Cell Distribution Width 13.9, Platelet Count 173, Mean Platelet Volume 11.2, Immature Granulocyte % (Auto) 1, Neutrophils (%) (Auto) 63, Lymphocytes (%) (Auto) 25, Monocytes (%) (Auto) 9, Eosinophils (%) (Auto) 1, Basophils (%) (Auto) 1, Neutrophils # (Auto) 6.6, Lymphocytes # (Auto) 2.6, Monocytes # (Auto) 1.0, Eosinophils # (Auto) 0.1, Basophils # (Auto) 0.1, Immature Granulocyte # (Auto) 0.1, Sodium Level 142, Potassium Level 3.9, Chloride Level 106, Carbon Dioxide Level 24, Anion Gap 12, Blood Urea Nitrogen 17, Creatinine 0.96, Estimat Glomerular Filtration Rate 85, BUN/Creatinine Ratio 18, Glucose Level 115, Calcium Level 8.9, Corrected Calcium 9.1, Total Bilirubin 0.7, Aspartate Amino Transf (AST/SGOT) 24, Alanine Aminotransferase (ALT/SGPT) 21, Alkaline Phosphatase 127, Total Protein 6.4, Albumin 3.8 Discharge Home Medications: Active Scripts Active Benadryl (Diphenhydramine HCl) 25 Mg Capsule 25 Mg PO Q6H PRN Hydrocodone-Acetamin 5-325 mg (Hydrocodone/Acetaminophen) 5 Mg-325 Mg Tablet 1 Tab PO Q4H PRN K-Tab ER (Potassium Chloride) 10 Meq Tablet.er 10 Meq PO BID Flomax (Tamsulosin HCl) 0.4 Mg Cap 0.4 Mg PO DAILY Omeprazole 40 Mg Capsule.dr 40 Mg PO HS Montelukast Sodium 10 Mg Tablet 10 Mg PO HS Lamotrigine 100 Mg Tablet 100 Mg PO DAILY Gabapentin 600 Mg Tablet 600 Mg PO BID Cymbalta (Duloxetine HCl) 20 Mg Cap 40 Mg PO DAILY Lasix (Furosemide) 40 Mg Tablet 40 Mg PO DAILY Carvedilol 12.5 Mg Tablet 12.5 Mg PO BID Benzonatate 200 Mg Capsule 200 Mg PO TID PRN Baclofen 10 Mg Tablet 10 Mg PO TID Atorvastatin Calcium 80 Mg Tablet 80 Mg PO HS Reported Oxycodone Hcl IR (Oxycodone Hcl) 10 Mg Tablet 10 Mg PO Q6H PRN Flonase Nasal [place] (Fluticasone Propionate) 16 Gm Naspr 16 Gm NS BID ONE SPRAY EACH NOSTRIL TWICE DAILY Diclofenac Sodium 75 Mg Tablet.dr 75 Mg PO BID Prinivil (Lisinopril) 40 Mg Tablet 40 Mg PO DAILY Cetirizine Hcl (Cetirizine HCl) 10 Mg Tablet 10 Mg PO DAILY Zyloprim (Allopurinol) 300 Mg Tab 300 Mg PO HS 30 Days Celexa (Citalopram Hydrobromide) 20 Mg Tablet 60 Mg PO DAILY Instructions to patient/family Please see electronic discharge instructions given to patient. Diagnosis/Problems Diagnosis/Problems (1) Sacroiliitis Clinical Quality Measures DVT/VTE Risk/Contraindication: Other: Education given r/t SCD's and the need to prevent further cva/tia. Also discussed marialuisa [place] Pt states will try SCD's but not compression socks. JAKI KING DO Jun 11, 2023 08:50
[2023-06-11 11:57] VITALS: BP 125/60
--- NOTE | 2023-06-13 13:44 | Therapy Team Discharge Summary ---
Therapy Discharge Summary Discharge Recommendations Date of Discharge Jun 11, 2023 at 12:00 Therapy D/C Recommendations: Home w/ Family Support, Physical Therapy Home Care Physical Therapy Pt is a 68 y/o male S/P R sacroiliac fusion on 06/03/23; Admitted to ARU on 06/04/23. At [facility], pt was Ind with the SPC and driving. Upon PT eval, pt was SBA for bed mobility and functional transfers. Pt ambulated 50ft with the FWW and C GA. Pt completed 4 steps with Min A. PT focused on B LE strength, endurance, ambulation, balance/safety, and overall Ind. Pt progressed well with PT and met most set goals. Pt discharged from ARU to home with spouse and HHC on 06/11/23; D/C from PT at this time. Roll Left to Right (QC): 6 Sit to Lying (QC): 6 Lying to Sitting/Side of Bed(Q: 6 Sit to Stand (QC): 6 Chair/[id number]-Xfljt Xfer(QC): 6 Toilet Transfer (QC): 6 Car Transfer (QC): 6 Does the Patient Walk: Yes Mode of Locomotion: Walk Anticipated Mode of Locomotion: Walk Walk 10 feet (QC): 6 Walk 50 ft with 2 Turns(QC): 6 Walk 150 ft (QC): 88 (endurance ) Walking 10ft on uneven surface: 6 Gait Assistive Device: FWW Does the Pt Use a Wheelchair: No Wheel 50 ft with 2 turns (QC): 9 Wheel 150 ft (QC): 9 Type of Wheelchair: N/A #of Steps: 4 1 Step (curb) (QC): 4 4 Steps (QC): 4 12 Steps (QC): 9 Walking Assistive Device: Walker Balance Sitting Static: Normal Balance Sitting Dynamic: Good Balance-Standing Static: Good Picking up an Object (QC): 6 (with switchboard troubleshooter ) Occupational Therapy Decreased Activ Tolerance, Decreased Safety Aware, Decreased UE Strength, Impaired Funct Balance, Impaired Self-Care Skills Eating (QC): 6 (Pt sitting EOB. Able to open packages and use utensils properly. ) Oral Hygiene (QC): 6 (Pt standing a sink supporting self on counter to complete oral care.) Shower/Bathe Self (QC): 6 (Pt sitting 100% of the time to complete shower. ) Upper Body Dressing (QC): 5 (Set up on FWW. Pt able to don/doff shirt by self and button.) Lower Body Dressing (QC): 4 (SBA/CGA sit->stand due to safety concerns. Pt able to hike pants over hips and thread underwear/pants around feet. ) Toileting Hygiene (QC): 6 (Pt sitting to clean after urination. Pt standing and used grab bars for support when standing to manipulate clothing. ) PT Group Home Goals Group Home Goals PT Window/Distribution Clerk Goals Time Frame: Jun 20, 2023 Roll Left to Right (QC): 6 (Pt will be Mod I with funcitonal mobility, in order to safely return home with spouse ) Sit to Lying (QC): 6 (Pt will be Mod I with funcitonal mobility, in order to safely return home with spouse ) Lying-Sitting on Side/Bed(QC): 6 (Pt will be Mod I with funcitonal mobility, in order to safely return home with spouse ) Sit to Stand (QC): 6 (Pt will be Mod I with funcitonal mobility, in order to safely return home with spouse ) Chair/Wkv-nw-[place]e Xfer(QC): 6 (Pt will be Mod I with funcitonal mobility, in order to safely return home with spouse ) Toilet/Commode Transfer (QC): 6 (Pt will be Mod I with funcitonal mobility, in order to safely return home with spouse ) Car Transfer (QC): 6 (Pt will be Mod I with funcitonal mobility, in order to safely return home with spouse ) Does the Patient Walk: Yes Walk 10 feet (QC): 6 (Pt will be Mod I with funcitonal mobility, in order to safely return home with spouse ) Walk 10ft-Uneven Surface(QC): 6 (Pt will be Mod I with funcitonal mobility, in order to safely return home with spouse ) Walk 50ft with 2 Turns (QC): 6 (Pt will be Mod I with funcitonal mobility, in order to safely return home with spouse ) Walk 150 ft (QC): 6 (Pt will be Mod I with funcitonal mobility, in order to safely return home with spouse ) Does the Pt use WC or Scooter?: No Wheel 50 feet with 2 turns (QC: 9 Type: N/A Wheel 150 feet: 9 Type: N/A 1 Step (curb) (QC): 6 (Pt will be Mod I with funcitonal mobility, in order to safely return home with spouse ) 4 Steps (QC): 6 (Pt will be Mod I with funcitonal mobility, in order to safely return home with spouse ) 12 Steps (QC): 9 (Pt only has 2 steps at home) Picking up an Object (QC): 6 (Pt will be Mod I with funcitonal mobility, in order to safely return home with spouse ) OT Group Home Goals Group Home Goals Time Frame: Jun 20, 2023 Acute change in mental status: 0 Inattention: 0 Disorganized thinkin Altered level of consciousness: 0 Eating (QC): 6 (met) Oral Hygiene (QC): 6 (met) Toileting Hygiene (QC): 6 (met) Shower/Bathe Self (QC): 6 (met) Upper Body Dressing (QC): 6 (not met) Lower Body Dressing (QC): 6 (not met) On/Off Footwear (QC): 6 (not met) Pt will perform tub transfer utilizing extended tub tx bench independently with no cues for safety or to adhere to NWB precautions. (MET) 1=Demonstrate adherence to instructed precautions during ADL tasks. 2=Patient will verbalize/demonstrate understanding of assistive devices/modifications for ADL. 3=Patient will improve strength/tolerance for activity to enable patient to perform ADL's. ANDREA WELCH PT Jun 13, 2023 13:44
== END 2023-06-11 12:00 | disposition home health service (06) | DRG 560 ==
PROVIDERS: ADMIT Internal Medicine; ATTEND Internal Medicine
DX: Z47.89 Encounter for other orthopedic aftercare (principal); Z68.42 Body mass index [BMI] 45.0-49.9, adult; Z98.1 Arthrodesis status; Z91.81 History of falling; E66.01 Morbid (severe) obesity due to excess calories; G47.33 Obstructive sleep apnea (adult) (pediatric); E11.40 Type 2 diabetes mellitus with diabetic neuropathy, unspecified; E78.00 Pure hypercholesterolemia, unspecified; I10 Essential (primary) hypertension; K59.09 Other constipation; M19.90 Unspecified osteoarthritis, unspecified site; M10.9 Gout, unspecified; Z87.891 Personal history of nicotine dependence; Z79.899 Other long term (current) drug therapy
CPT/HCPCS: 36415; 80053; 85025